=== PATIENT | female | born 1945 | race Caucasian/White ===

== ENCOUNTER 2017-11-03 09:53 | Inpatient (IN) | payer OTHER ==
[2017-11-03] MEDS ORDERED: SODIUM CHLORIDE 500 ML IV STA ×2 (10:12→12:18)
[2017-11-03] MEDS ORDERED: ACETAMINOPHEN 1000 MG/100 ML VIAL (NON FORMULARY) IVPB ONE (10:12)
[2017-11-03] MEDS ORDERED: ACETAMINOPHEN INJECTION 100 ML IVPB ONE (10:44)
[2017-11-03 10:46] LABS: HEMATOCRIT 30.1 % (32.4-45.2); HEMOGLOBIN 9.5 GM/dL (10.7-15.3); MCHC 31.7 g/dl (32.0-36.0); MEAN CELL VOLUME 94.5 fl (80-96); MEAN PLT VOLUME 6.1 fl (7.5-11.1); PLATELET COUNT 304 K/MM3 (134-434); RBC 3.18 M/mm3 (3.60-5.2); RDW 15.1 % (11.6-15.6); WHITE BLOOD COUNT 13.4 K/mm3 (4.0-10.0)
[2017-11-03 11:09] LABS: VENOUS PC02 49.1 mmHg (38-52); VENOUS PH 7.35 (7.32-7.42); VENOUS PO2 59.4 mmHg (28-48)
[2017-11-03 11:27] LABS: ALBUMIN 2.8 g/dl (3.4-5.0); ANION GAP 10 (8-16); BILIRUBIN,TOTAL 0.3 mg/dL (0.2-1.0); BLOOD UREA NITROGEN 24 mg/dL (7-18); CALCIUM 9.5 mg/dL (8.5-10.1); CHLORIDE 97 mmol/L (98-107); CO2 27 mmol/L (21-32); CREATININE 3.6 mg/dL (0.55-1.02); GLUCOSE,RANDOM 100 mg/dL (74-106); POTASSIUM 3.9 mmol/L (3.5-5.1); SGOT/AST 10 U/L (15-37); SGPT/ALT 18 U/L (12-78); SODIUM 134 mmol/L (136-145); TOT PROT 5.6 g/dl (6.4-8.2)
[2017-11-03 11:30] LABS: INR 1.03 (0.82-1.09); PROTHROMBIN TIME (PATIENT) 11.6 SEC (9.98-11.88)
[2017-11-03 11:30] LABS: ALK PHOS 79 U/L (45-117)
[2017-11-03 11:33] LABS: ACTIVATED PTT 26.5 SECONDS (26.9-34.4)
[2017-11-03] MEDS ORDERED: VANCOMYCIN 1 GRAM (PRE-DOCKED) 1,000 MG/250 ML BAG IVPB ONE ×3 (11:33→11:57)
[2017-11-03] MEDS ORDERED: PIPERACILLIN/TAZOB 4.5 GM 4.5 GM/100 ML BAG IVPB ONE ×2 (11:33→11:56)
--- NOTE | 2017-11-03 12:20 | PDOC ---
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 Pt reports that her symptoms began yesterday with a bad cough and increased sputum production from her trach. Today, she spiked a fever of 103 and was sent to ER for management. Pt denies chest pain. Denies abdominal pain/N/V/D. Past History - Past Medical History Allergies/Adverse Reactions: Allergies Allergy/AdvReac Type Severity Reaction Status Date / Time No Known Allergies Allergy Verified 11/03/17 10:08 Home Medications: Ambulatory Orders Acetaminophen 325 mg PO QID PRN 11/03/17 Albuterol 0.083% Nebulizer Genia [Ventolin 0.083% Nebulizer Soln -] PRN 11/03/17 Cholecalciferol (Vitamin D3) [Vitamin D3 -] 11/03/17 Diphenhydramine [Benadryl 12.5 MG/5 ML Oral Solution -] 25 mg PO TID PRN Escitalopram Oxalate 5 mg PO DAILY 11/03/17 Fluticasone Prop 0.05% Nasal 11/03/17 Folic Acid 1 mg PO DAILY 11/03/17 Heparin - 5,000 units SCJ TID 11/03/17 Lactulose 30 ml PO BID PRN 11/03/17 Loperamide HCl [Loperamide] 1 mg PO TID PRN 11/03/17 Midodrine HCl 5 mg PO WEEKLY 11/03/17 Mirtazapine 22.5 mg PO DAILY 11/03/17 Oxycodone HCl 5 mg PO TID PRN 11/03/17 Prednisone [Deltasone -] 1 mg PO BID 11/03/17 Sennosides [Senna] 8.8 mg PO BID 11/03/17 Sevelamer HCl [Renagel] 800 mg PO TID 11/03/17 Anemia: Yes Cardiac Disorders: Yes COPD: No ([t trached) Other medical history: ESRD - Suicide/Smoking/Psychosocial Hx Smoking History: Unknown if ever smoked Review of Systems - Review of Systems Comments:: 11/03/17 12:20 "GENERAL/CONSTITUTIONAL: +fever and chills HEAD, EYES, EARS, NOSE AND THROAT: No change in vision. No ear pain or discharge. No sore throat. CARDIOVASCULAR: No chest pain or shortness of breath. RESPIRATORY: + cough GASTROINTESTINAL: No nausea, vomiting, diarrhea or constipation. GENITOURINARY: No dysuria, frequency, or change in urination. MUSCULOSKELETAL: No joint or muscle swelling or pain. No neck or back pain. SKIN: No rash NEUROLOGIC: No headache, vertigo, loss of consciousness, or change in strength/ sensation. ENDOCRINE: No increased thirst. No abnormal weight change. HEMATOLOGIC/LYMPHATIC: No anemia, easy bleeding, or history of blood clots. ALLERGIC/IMMUNOLOGIC: No hives or skin allergy. " *Physical Exam - Vital Signs Last Vital Signs Temp Pulse Resp BP Pulse Ox 102.3 F H 142 H 20 120/57 98 11/03/17 10:01 11/03/17 10:01 11/03/17 10:01 11/03/17 10:01 11/03/17 10:40 - Physical Exam Comments: 11/03/17 12:23 "GENERAL: Awake, alert, and fully oriented, in mild respiratory distress HEAD: No signs of trauma EYES: PERRLA, EOMI, sclera anicteric, conjunctiva clear ENT: Auricles normal inspection, hearing grossly normal, nares patent, oropharynx clear without exudates. Moist mucosa NECK: Trach collar in place, trach with thick yellow secretions LUNGS: bilateral rales and diffuse rhonchi HEART: Regular rate and rhythm, normal S1 and S2, no murmurs, rubs or gallops ABDOMEN: Soft, nontender, normoactive bowel sounds. No guarding, no rebound. No masses EXTREMITIES: Normal range of motion, no edema. No clubbing or cyanosis. No cords, erythema, or tenderness NEUROLOGICAL: Cranial nerves II through XII intact. 5/5 strength and sensation in all extremities, Normal speech, normal gait SKIN: Warm, Dry, normal turgor, no rashes or lesions noted. " ED Treatment Course - LABORATORY CBC & Chemistry Diagram: 11/03/17 10:40 11/03/17 10:11 - ADDITIONAL ORDERS Additional order review: Laboratory Results 11/03/17 11/03/17 11/03/17 10:40 10:20 10:15 VBG pH 7.35 POC VBG pCO2 49.1 POC VBG pO2 59.4 H Mixed VBG HCO3 26.6 H Sodium Potassium Chloride Carbon Dioxide Anion Gap BUN Creatinine Creat Clearance w eGFR Random Glucose Lactic Acid 0.9 Calcium Total Bilirubin AST ALT Alkaline Phosphatase Creatine Kinase Troponin I Total Protein Albumin Blood Type A POSITIVE Antibody Screen Negative 11/03/17 10:11 VBG pH POC VBG pCO2 POC VBG pO2 Mixed VBG HCO3 Sodium 134 L Potassium 3.9 Chloride 97 L Carbon Dioxide 27 Anion Gap 10 BUN 24 H Creatinine 3.6 H Creat Clearance w eGFR 12.46 Random Glucose 100 Lactic Acid Calcium 9.5 Total Bilirubin 0.3 AST 10 L ALT 18 Alkaline Phosphatase 79 Creatine Kinase 28 Troponin I 0.03 Total Protein 5.6 L Albumin 2.8 L Blood Type Antibody Screen 11/03/17 10:40 RBC 3.18 L MCV 94.5 MCHC 31.7 L RDW 15.1 MPV 6.1 L Neutrophils % No Result Required. Lymphocytes % No Result Required. - RADIOLOGY Radiology Studies Ordered: Category Date Time Status CHEST X-RAY PORTABLE* [RAD] Stat Radiology 11/03/17 10:11 Completed - Medications Given in the ED: ED Medications Discontinued Medications Generic Name Dose Route Start Last Admin Trade Name Freq PRN Reason Stop Dose Admin Acetaminophen 1,000 mg 11/03/17 10:12 11/03/17 10:40 Ofirmev Injection - IVPB 11/03/17 10:13 1,000 mg ONCE ONE Administration Sodium Chloride 500 mls @ 1,000 mls/hr 11/03/17 10:12 11/03/17 11:03 Normal Saline - IV 11/03/17 10:41 1,000 mls/hr ASDIR STA Administration Piperacillin/Tazobactam/Dextrose 4.5 gm in 100 mls @ 200 mls/hr 11/03/17 11: 33 11/03/17 11:58 Zosyn 4.5gm Ivpb (Premix) IVPB 11/03/17 12:02 200 mls/hr ONCE ONE Administration Protocol Medical Decision Making - Medical Decision Making 11/03/17 12:26 72 F with jocelyn's s/p trach, on HD, presenting to ER with fever and cough. Vitals notable for T 102.5 and HR in 140s. Pt likely septic from pulmonary source given thick secretions from trach. - Labs, cultures - UA, CXR - IVF, abx - Trach suctioning, place on vent if needed - Admit 11/03/17 12:56 CBC,CMP WBC 13.4 K/mm3 (4.0-10.0) H 11/03/17 10:40 RBC 3.18 M/mm3 (3.60-5.2) L 11/03/17 10:40 Hgb 9.5 GM/dL (10.7-15.3) L 11/03/17 10:40 Hct 30.1 % (32.4-45.2) L 11/03/17 10:40 MCV 94.5 fl (80-96) 11/03/17 10:40 MCH 30.0 pg (25.7-33.7) 11/03/17 10:40 MCHC 31.7 g/dl (32.0-36.0) L 11/03/17 10:40 RDW 15.1 % (11.6-15.6) 11/03/17 10:40 Plt Count 304 K/MM3 (134-434) 11/03/17 10:40 MPV 6.1 fl (7.5-11.1) L 11/03/17 10:40 Absolute Neuts (auto) 10.5 # (42.8-82.8) L 11/03/17 10:40 Absolute Lymphs (auto) 0.5 (8-40) L 11/03/17 10:40 Absolute Monos (auto) 2.3 # (3.8-10.2) L 11/03/17 10:40 Absolute Eos (auto) 0.0 # (0-4.5) 11/03/17 10:40 Absolute Basos (auto) 0.1 # (0.1-1) 11/03/17 10:40 Neutrophils % No Result Required. 11/03/17 10:40 Lymphocytes % No Result Required. 11/03/17 10:40 Sodium 134 mmol/L (136-145) L 11/03/17 10:11 Potassium 3.9 mmol/L (3.5-5.1) 11/03/17 10:11 Chloride 97 mmol/L (98-107) L 11/03/17 10:11 Carbon Dioxide 27 mmol/L (21-32) 11/03/17 10:11 Anion Gap 10 (8-16) 11/03/17 10:11 BUN 24 mg/dL (7-18) H 11/03/17 10:11 Creatinine 3.6 mg/dL (0.55-1.02) H 11/03/17 10:11 Creat Clearance w eGFR 12.46 (>60) 11/03/17 10:11 Random Glucose 100 mg/dL (74-106) 11/03/17 10:11 Lactic Acid 0.9 mmol/L (0.4-2.0) 11/03/17 10:40 Calcium 9.5 mg/dL (8.5-10.1) 11/03/17 10:11 Total Bilirubin 0.3 mg/dL (0.2-1.0) 11/03/17 10:11 AST 10 U/L (15-37) L 11/03/17 10:11 ALT 18 U/L (12-78) 11/03/17 10:11 Alkaline Phosphatase 79 U/L (45-117) 11/03/17 10:11 Creatine Kinase 28 IU/L (26-192) 11/03/17 10:11 Troponin I 0.03 ng/ml (0.00-0.05) 11/03/17 10:11 Total Protein 5.6 g/dl (6.4-8.2) L 11/03/17 10:11 Albumin 2.8 g/dl (3.4-5.0) L 11/03/17 10:11 CXR with new consolidation, concerning for PNA. pt covered with vanc/zosyn/azithro for HCAP/VAP HR now 110 s/p fluids, abx, and tylenol Spoke with Dr. Casas, who has accepted pt for admission. Case discussed in detail with admitting physician including history, physical exam and ancillary studies. Admitting physician has assumed care for the patient and will follow all pending diagnostics and complete the evaluation and treatment. *DC/Admit/Observation/Transfer Diagnosis at time of Disposition: Sepsis - Discharge Dispostion Admit: Yes - Referrals Referrals: Florentino Casas MD [Primary Care Provider] - - Patient Instructions - Post Discharge Activity - Attestations Physician Attestion: 11/03/17 12:58 I, Dr. Nigel Charles MD, attest that this document has been prepared under my direction and personally reviewed by me in its entirety. I further attest, that it accurately reflects all work, treatment, procedures and medical decision -making performed by me.
[2017-11-03] MEDS ORDERED: AZITHROMYCIN IVPB 500 MG in DEXTROSE 5%-WATER - 250 ML IVPB ONE (12:53)
[2017-11-03 15:19] LABS: ACANTHOCYTES 0; ANISOCYTOSIS 0; HELMET CELLS 0; HOWELL-JOLLY BODIES 0; MACROCYTOSIS 0; OVALOCYTE 0; PLATELET ESTIMATE NORMAL; SICKELED CELLS 0; TARGET CELLS 0; TEAR DROP CELLS 0; TOXIC GRANULATION 0
--- NOTE | 2017-11-03 16:12 | CON.PULM ---
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 [facility] to [facility] unit where she was for 2 weeks.She presents from [facility] with fevers and cough x 2 days. Pt reports that her symptoms began yesterday with a bad cough and increased sputum production from her trach. Today, she spiked a fever of 103 and was sent to ER for management. Pt denies chest pain. Denies abdominal pain/N/V/D. 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 Cardio/Vascular: No: AFIB Pulmonary: Yes: COPD, O2 Dependent, Pneumonia, Other (pulmonary/renal syndrome) Gastrointestinal: No: Ascites Hepatobiliary: No: Cirrhosis Renal/: Yes: Renal Failure, Hemodialysis Reproductive: Yes: Postmenopausal Heme/Onc: Yes: Anemia Infectious Disease: No: AIDS Psych: No: Addictions - Past Surgical History Past Surgical History: Yes: AV Fistula/Graft, Joint Replacement Additional Surgical History: trach/peg - Alcohol/Substance Use Hx Alcohol Use: No History of Substance Use: reports: None - Smoking History Smoking history: Unknown if ever smoked - Social History Usual Living Arrangement: Long-Term ADL: Support Services [facility] of : [facility] History of Recent Travel: No Home Medications - Allergies Allergies/Adverse Reactions: Allergies Allergy/AdvReac Type Severity Reaction Status Date / Time No Known Allergies Allergy Verified 11/03/17 10:08 - Home Medications Home Medications: Ambulatory Orders Acetaminophen 325 mg PO QID PRN 11/03/17 Albuterol 0.083% Nebulizer Genia [Ventolin 0.083% Nebulizer Soln -] PRN 11/03/17 Cholecalciferol (Vitamin D3) [Vitamin D3 -] 11/03/17 Diphenhydramine [Benadryl 12.5 MG/5 ML Oral Solution -] 25 mg PO TID PRN Escitalopram Oxalate 5 mg PO DAILY 11/03/17 Fluticasone Prop 0.05% Nasal 11/03/17 Folic Acid 1 mg PO DAILY 11/03/17 Heparin - 5,000 units SCJ TID 11/03/17 Lactulose 30 ml PO BID PRN 11/03/17 Loperamide HCl [Loperamide] 1 mg PO TID PRN 11/03/17 Midodrine HCl 5 mg PO WEEKLY 11/03/17 Mirtazapine 22.5 mg PO DAILY 11/03/17 Oxycodone HCl 5 mg PO TID PRN 11/03/17 Prednisone [Deltasone -] 1 mg PO BID 11/03/17 Sennosides [Senna] 8.8 mg PO BID 11/03/17 Sevelamer HCl [Renagel] 800 mg PO TID 11/03/17 Family Disease History - Family Disease History Family History: Unable to Obtain Review of Systems - Review of Systems Constitutional: reports: Fever, Lethargy Eyes: denies: Blind Spots HENT: denies: Difficult Swallowing, Epistaxis Neck: denies: Decreased ROM Cardiovascular: reports: Shortness of Breath. denies: Chest Pain Respiratory: reports: Cough, SOB, Wheezing. denies: Hemoptysis Gastrointestinal: denies: Abdominal Pain Genitourinary: denies: Burning Integumentary: reports: No Symptoms Physical Exam Vital Sings: Vital Signs Temperature 102.3 F H 11/03/17 10:01 Pulse Rate 142 H 11/03/17 10:01 Respiratory Rate 20 11/03/17 10:01 Blood Pressure 120/57 11/03/17 10:01 O2 Sat by Pulse Oximetry (%) 98 11/03/17 10:40 Constitutional: Yes: Anxious, Moderate Distress Eyes: Yes: EOM Intact HENT: Yes: Normocephalic Neck: Yes: Trachea Midline, Other (trach in place with secretions) Cardiovascular: Yes: Tachycardia, S1, S2 Respiratory: Yes: Diminished, Rhonchi Gastrointestinal: Yes: Soft, Abdomen, Obese, Other (peg in place) Edema: LLE: 1+, RLE: 1+ Integumentary: Yes: WNL Neurological: Yes: Alert Psychiatric: Yes: Alert Labs: CBC, BMP 11/03/17 10:40 11/03/17 10:11 rest reviewed VBG PH 7.35 / PCO2 49 /PO2 59 Imaging - Results Chest X-ray: Report Reviewed, Image Reviewed Problem List - Problems (1) Pneumonia Code(s): J18.9 - PNEUMONIA, UNSPECIFIED ORGANISM (2) Sepsis Code(s): A41.9 - SEPSIS, UNSPECIFIED ORGANISM (3) Jocelyn's granulomatosis (granulomatosis with polyangiitis) Code(s): M31.30 - JOCELYN'S GRANULOMATOSIS WITHOUT RENAL INVOLVEMENT (4) Respiratory failure Code(s): J96.90 - RESPIRATORY FAILURE, UNSP, UNSP W HYPOXIA OR HYPERCAPNIA (5) Renal failure Code(s): N19 - UNSPECIFIED KIDNEY FAILURE (6) Hemodialysis access site with arteriovenous graft Code(s): Z99.2 - DEPENDENCE ON RENAL DIALYSIS Assessment/Plan ACUTE FEBRILE ILLNESS LIKELY SOURCE LUNG GIVEN XRAY FINDINGS,SPUTUM AND INCREASED O2 REQUIREMENTS WG WITH RENAL/RESP FAILURE HD TIW M. OBESITY HTN/HLD PANCULTURE/INFLU SWAB/URINE ANTIGENS EMPIRIC ANTIBIOTIC COVERAGE FOR HOSPITAL/VENT PATHOGENS MAY NEED MVV ID EVAL BRONCHODILATORS/FREQUENT SUCTIONING/ MAY NEED TRIAL OF STEROIDS HD PER RENAL WOULD OBSERVE TONIGHT IN ICU Celena GLORIA MD
--- NOTE | 2017-11-03 17:22 | CONSULT ---
Consult Consult Specialty:: Nephrology Reason for Consultation:: ESRD - History of Present Illness Chief Complaint: fever History of Present Illness: Pt is a 72 year old female with pmhx of HTN, chol, Wgener's, and chronic resp failure who presents to the ER with fever and cough. Her symptoms began a few days ago in the NH. She has chronic resp failure and has a trache. She was sent to the ER for further evaluation. She is not able to give much history as she is on oxygen via the trache. She denies chest pain or palpitations. She gets HD at [facility] dialysis. Her last session was on Monday and she is due for dialysis today. - History Source History Provided By: Patient, Medical Record - Past Medical History Pulmonary: Yes: COPD, O2 Dependent, Pneumonia, Other (pulmonary/renal syndrome, trache) Renal/: Yes: Renal Failure, Hemodialysis - Past Surgical History Past Surgical History: Yes: AV Fistula/Graft, Joint Replacement Additional Surgical History: trach/peg - Alcohol/Substance Use Hx Alcohol Use: No History of Substance Use: reports: None - Smoking History Smoking history: Unknown if ever smoked - Social History Usual Living Arrangement: Halfway ADL: Support Services History of Recent Travel: No Home Medications - Allergies Allergies/Adverse Reactions: Allergies Allergy/AdvReac Type Severity Reaction Status Date / Time No Known Allergies Allergy Verified 11/03/17 10:08 - Home Medications Home Medications: Ambulatory Orders Acetaminophen 325 mg PO QID PRN 11/03/17 Escitalopram Oxalate 5 mg PO DAILY 11/03/17 RX: Albuterol 0.083% Nebulizer Genia [Ventolin 0.083% Nebulizer Soln -] PRN RX: Cholecalciferol (Vitamin D3) [Vitamin D3 -] 11/03/17 RX: Diphenhydramine [Benadryl 12.5 MG/5 ML Oral Solution -] 25 mg PO TID PRN RX: Folic Acid 1 mg PO DAILY 11/03/17 RX: Heparin - 5,000 units SCJ TID 11/03/17 RX: Lactulose 30 ml PO BID PRN 11/03/17 RX: Loperamide HCl [Loperamide] 1 mg PO TID PRN 11/03/17 RX: Midodrine HCl 5 mg PO WEEKLY 11/03/17 RX: Mirtazapine 22.5 mg PO DAILY 11/03/17 RX: Oxycodone HCl 5 mg PO TID PRN 11/03/17 RX: Prednisone [Deltasone -] 1 mg PO BID 11/03/17 RX: Sennosides [Senna] 8.8 mg PO BID 11/03/17 RX: Sevelamer HCl [Renagel] 800 mg PO TID 11/03/17 Family Disease History - Family Disease History Family History: Denies Review of Systems - Review of Systems Constitutional: reports: Fever, Malaise Eyes: reports: No Symptoms HENT: reports: No Symptoms Neck: reports: Other (trache) Respiratory: reports: Cough, SOB Genitourinary: reports: No Symptoms Musculoskeletal: reports: No Symptoms Neurological: reports: No Symptoms Endocrine: reports: No Symptoms Hematology/Lymphatic: reports: No Symptoms Psychiatric: reports: No Symptoms Physical Exam Vital Signs: Vital Signs Temperature 102.3 F H 11/03/17 10:01 Pulse Rate 142 H 11/03/17 10:01 Respiratory Rate 20 11/03/17 10:01 Blood Pressure 120/57 11/03/17 10:01 O2 Sat by Pulse Oximetry (%) 98 11/03/17 10:40 Constitutional: Yes: Mild Distress Eyes: Yes: Conjunctiva Clear Cardiovascular: Yes: S1, S2 Respiratory: Yes: Rhonchi, Other (trache) Renal/: Yes: Incontinence Musculoskeletal: Yes: Muscle Weakness Edema: No Neurological: Yes: Oriented Psychiatric: Yes: Oriented Labs: CBC, BMP 11/03/17 10:40 11/03/17 10:11 Laboratory Tests 11/03/17 11/03/17 10:11 10:40 WBC 13.4 H Hgb 9.5 L Plt Count 304 Sodium 134 L Potassium 3.9 Chloride 97 L Carbon Dioxide 27 BUN 24 H Creatinine 3.6 H Albumin 2.8 L Imaging - Results Chest X-ray: Report Reviewed Problem List - Problems (1) Respiratory failure Code(s): J96.90 - RESPIRATORY FAILURE, UNSP, UNSP W HYPOXIA OR HYPERCAPNIA (2) ESRD (end stage renal disease) Code(s): N18.6 - END STAGE RENAL DISEASE (3) Sepsis Code(s): A41.9 - SEPSIS, UNSPECIFIED ORGANISM (4) Jocelyn's granulomatosis (granulomatosis with polyangiitis) Code(s): M31.30 - JOCELYN'S GRANULOMATOSIS WITHOUT RENAL INVOLVEMENT Assessment/Plan Current Medications Generic Name Dose Route Start Last Admin Trade Name Freq PRN Reason Stop Dose Admin Chlorhexidine Gluconate 1 applic 11/03/17 22:00 Hibiclens For Decolonization - TP HS TONI Mupirocin 1 applic 11/03/17 22:00 Bactroban Ointment (For Decolonization) - NS 11/08/17 21:59 BID TONI Impression 1. 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 chronic resp failure 4. htn 5. chol 6. obesity 7. anemia 8. hypoxia Plan - admit pt to ICU - will arrange for acute bedside HD - abx per ID - discussed with pulmonary - called HD unit for prescription: AVF 2 k bath 3.5 hrs heparin 1999 - repeat labs in am - will use 3 k bath as her potassium is on the low side - follow blood cultures - will follow pt Dr Trotter
[2017-11-03] MEDS ORDERED: HEPARIN NA (PORCINE) 5,000 UNITS/ML 1ML VIAL IVPUSH ONE (17:28)
--- NOTE | 2017-11-03 19:07 | HP ---
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 She also has Peg tube. She has spent about 5 months at [facility] and was subsequently transferred to [facility] . She presents from [facility] with fever cough and sob. .I was called this morning by nursing staff for fever and sob I advised to end pt to hospital for further management. work up showed she is septic- likely source pneumonia. Pt given broad spectrum abx in er . Pt admitted to icu. I had discussed case with er physician also jenni today. pt also seen by pulmonary and consultation appreciated. Pt seen by me in icu chart reviewed at bedside. pt awake. still having cough. sob + denies cp/ abd pain. no headche/ dizziness. 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 Cardiovascular: No: AFIB Pulmonary: Yes: COPD, O2 Dependent, Pneumonia, Other (pulmonary/renal syndrome) Gastrointestinal: No: Ascites Hepatobiliary: No: Cirrhosis Renal/: Yes: Renal Failure, Hemodialysis Heme/Onc: Yes: Anemia Infectious Disease: No: AIDS Psych: No: Addictions - Past Surgical History Past Surgical History: Yes: AV Fistula/Graft, Joint Replacement - Smoking History Smoking history: Unknown if ever smoked - Alcohol/Substance Use Hx Alcohol Use: No History of Substance Use: reports: None - Social History ADL: Support Services History of Recent Travel: No Home Medications - Allergies Allergies/Adverse Reactions: Allergies Allergy/AdvReac Type Severity Reaction Status Date / Time No Known Allergies Allergy Verified 11/03/17 10:08 - Home Medications Home Medications: Ambulatory Orders Acetaminophen 325 mg PO QID PRN 11/03/17 Albuterol 0.083% Nebulizer Genia [Ventolin 0.083% Nebulizer Soln -] PRN 11/03/17 Cholecalciferol (Vitamin D3) [Vitamin D3 -] 11/03/17 Diphenhydramine [Benadryl 12.5 MG/5 ML Oral Solution -] 25 mg PO TID PRN Escitalopram Oxalate 5 mg PO DAILY 11/03/17 Folic Acid 1 mg PO DAILY 11/03/17 Heparin - 5,000 units SCJ TID 11/03/17 Lactulose 30 ml PO BID PRN 11/03/17 Loperamide HCl [Loperamide] 1 mg PO TID PRN 11/03/17 Midodrine HCl 5 mg PO WEEKLY 11/03/17 Mirtazapine 22.5 mg PO DAILY 11/03/17 Oxycodone HCl 5 mg PO TID PRN 11/03/17 Prednisone [Deltasone -] 1 mg PO BID 11/03/17 Sennosides [Senna] 8.8 mg PO BID 11/03/17 Sevelamer HCl [Renagel] 800 mg PO TID 11/03/17 Review of Systems Unable to obtain ROS, reason: see [place] Physical Examination Vital Signs: Vital Signs Temperature 98.7 F 11/03/17 18:01 Pulse Rate 98 H 11/03/17 18:01 Respiratory Rate 22 11/03/17 18:01 Blood Pressure 110/70 11/03/17 18:01 O2 Sat by Pulse Oximetry (%) 98 11/03/17 18:01 Constitutional: Yes: Mild Distress Neck: Yes: Supple, Other (s/p trach) Cardiovascular: Yes: Regular Rate and Rhythm Respiratory: Yes: Diminished, Rhonchi Gastrointestinal: Yes: Soft, Abdomen, Obese, Other (peg +) Edema: LLE: 1+, RLE: 1+ Neurological: Yes: Alert Labs: CBC, BMP 11/03/17 10:40 11/03/17 10:11 Imaging - Results Chest X-ray: Report Reviewed Problem List - Problems (1) Obesity Code(s): E66.9 - OBESITY, UNSPECIFIED (2) Pneumonia Code(s): J18.9 - PNEUMONIA, UNSPECIFIED ORGANISM (3) Renal failure Code(s): N19 - UNSPECIFIED KIDNEY FAILURE (4) Respiratory failure Code(s): J96.90 - RESPIRATORY FAILURE, UNSP, UNSP W HYPOXIA OR HYPERCAPNIA (5) Sepsis Code(s): A41.9 - SEPSIS, UNSPECIFIED ORGANISM (6) Jocelyn's granulomatosis (granulomatosis with polyangiitis) Code(s): M31.30 - JOCELYN'S GRANULOMATOSIS WITHOUT RENAL INVOLVEMENT Assessment/Plan Admit ICU for pneumonia/ Impending respiratory failure. frequent suctioning. abx pulmonary/ critical team on case meds reviewed i/d consult has been requested. renal on case. condition guarded. discussed with nursing staff cc time 30 min in examining/ documenting and coordating care. will follow
[2017-11-03] MEDS ORDERED: DEXTROSE 5%-NORMAL SALINE 1,000 ML IV SCH (19:15)
[2017-11-03] MEDS ORDERED: PT OWN MED DRAWER 7, Y5N ONE (20:03)
[2017-11-03 20:07] VITALS: BMI 41.0
--- NOTE | 2017-11-03 20:36 | CONSULT ---
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 In ED T 102.3F, HR 142, RR 20, BP 120/57. Labs notable for WBC 13.4, Neuts 77%, 5% Bands, lactate 0.9, BUN/creat 24/3.6. CXR s/f congestive changes and possible LLL infiltrate. She was cultured and started on empiric antibiotics and transferred to ICU for further management. - Past Medical History [employer] TUBE BENDER: No: Alzheimer's Cardio/Vascular: No: AFIB Pulmonary: Yes: COPD, O2 Dependent, Pneumonia, Other (pulmonary/renal syndrome, trache) Gastrointestinal: No: Ascites Hepatobiliary: No: Cirrhosis Renal/: Yes: Renal Failure, Hemodialysis Infectious Disease: No: AIDS Psych: No: Addictions - Past Surgical History Past Surgical History: Yes: AV Fistula/Graft, Joint Replacement Additional Surgical History: trach/peg - Alcohol/Substance Use Hx Alcohol Use: No History of Substance Use: reports: None - Smoking History Smoking history: Unknown if ever smoked - Social History Usual Living Arrangement: Long Term ADL: Support Services History of Recent Travel: No Home Medications - Allergies Allergies/Adverse Reactions: Allergies Allergy/AdvReac Type Severity Reaction Status Date / Time No Known Allergies Allergy Verified 11/03/17 10:08 - Home Medications Home Medications: Ambulatory Orders Acetaminophen 325 mg PO QID PRN 11/03/17 Albuterol 0.083% Nebulizer Genia [Ventolin 0.083% Nebulizer Soln -] PRN 11/03/17 Cholecalciferol (Vitamin D3) [Vitamin D3 -] 11/03/17 Diphenhydramine [Benadryl 12.5 MG/5 ML Oral Solution -] 25 mg PO TID PRN Escitalopram Oxalate 5 mg PO DAILY 11/03/17 Folic Acid 1 mg PO DAILY 11/03/17 Heparin - 5,000 units SCJ TID 11/03/17 Lactulose 30 ml PO BID PRN 11/03/17 Loperamide HCl [Loperamide] 1 mg PO TID PRN 11/03/17 Midodrine HCl 5 mg PO WEEKLY 11/03/17 Mirtazapine 22.5 mg PO DAILY 11/03/17 Oxycodone HCl 5 mg PO TID PRN 11/03/17 Prednisone [Deltasone -] 1 mg PO BID 11/03/17 Sennosides [Senna] 8.8 mg PO BID 11/03/17 Sevelamer HCl [Renagel] 800 mg PO TID 11/03/17 Review of Systems Unable to obtain ROS, reason: Unable re trach Physical Exam Vital Signs: Vital Signs Temperature 99.5 F 11/03/17 19:52 Pulse Rate 105 H 11/03/17 20:00 Respiratory Rate 25 H 11/03/17 20:00 Blood Pressure 127/104 11/03/17 20:00 O2 Sat by Pulse Oximetry (%) 98 11/03/17 18:01 Constitutional: Yes: Well Nourished, Calm, Obese Eyes: Yes: Conjunctiva Clear HENT: Yes: Atraumatic, Normocephalic Neck: Yes: Supple, Other (trach- velazquez thick secretions) Cardiovascular: Yes: Regular Rate and Rhythm, Tachycardia, S1, S2 Respiratory: Yes: Rales, Other (Trach collar) Gastrointestinal: Yes: Normal Bowel Sounds, Soft, Abdomen, Obese, Other (PEG site c/d/i) Renal/: Yes: Anuria Musculoskeletal: Yes: Back Pain Extremities: Yes: WNL Edema: Yes Edema: LLE: Trace, RLE: Trace Peripheral Pulses WNL: Yes Integumentary: Yes: WNL Neurological: Yes: Alert, Oriented Psychiatric: Yes: Alert, Oriented Labs: CBC, BMP 11/03/17 10:40 11/03/17 10:11 CBC,CMP WBC 13.4 K/mm3 (4.0-10.0) H 11/03/17 10:40 RBC 3.18 M/mm3 (3.60-5.2) L 11/03/17 10:40 Hgb 9.5 GM/dL (10.7-15.3) L 11/03/17 10:40 Hct 30.1 % (32.4-45.2) L 11/03/17 10:40 MCV 94.5 fl (80-96) 11/03/17 10:40 MCH 30.0 pg (25.7-33.7) 11/03/17 10:40 MCHC 31.7 g/dl (32.0-36.0) L 11/03/17 10:40 RDW 15.1 % (11.6-15.6) 11/03/17 10:40 Plt Count 304 K/MM3 (134-434) 11/03/17 10:40 MPV 6.1 fl (7.5-11.1) L 11/03/17 10:40 Absolute Neuts (auto) 10.5 # (42.8-82.8) L 11/03/17 10:40 Absolute Lymphs (auto) 0.5 (8-40) L 11/03/17 10:40 Absolute Monos (auto) 2.3 # (3.8-10.2) L 11/03/17 10:40 Absolute Eos (auto) 0.0 # (0-4.5) 11/03/17 10:40 Absolute Basos (auto) 0.1 # (0.1-1) 11/03/17 10:40 Neutrophils % No Result Required. 11/03/17 10:40 Neutrophils % (Manual) 77.0 % (42.8-82.8) 11/03/17 10:40 Band Neutrophils % 5.0 % 11/03/17 10:40 Lymphocytes % No Result Required. 11/03/17 10:40 Lymphocytes % (Manual) 4.0 % (8-40) L 11/03/17 10:40 Monocytes % (Manual) 12 % (3.8-10.2) H 11/03/17 10:40 Eosinophils % (Manual) 0.0 % (0-4.5) 11/03/17 10:40 Basophils % (Manual) 1.0 % (0-2.0) 11/03/17 10:40 Myelocytes % (Man) 1 % (0-2) 11/03/17 10:40 Metamyelocytes 0 % (0-2) 11/03/17 10:40 Hypochromia 0 11/03/17 10:40 Toxic Granulation 0 11/03/17 10:40 Dohle Bodies 0 11/03/17 10:40 Platelet Estimate Normal 11/03/17 10:40 Polychromasia 0 11/03/17 10:40 Poikilocytosis 0 11/03/17 10:40 Basophilic Stippling 0 11/03/17 10:40 Anisocytosis 0 11/03/17 10:40 Microcytosis 0 11/03/17 10:40 Macrocytosis 0 11/03/17 10:40 Spherocytes 0 11/03/17 10:40 Sickle Cells 0 11/03/17 10:40 Target Cells 0 11/03/17 10:40 Tear Drop Cells 0 11/03/17 10:40 Ovalocytes 0 11/03/17 10:40 Stomatocytes 0 11/03/17 10:40 Helmet Cells 0 11/03/17 10:40 Pinto-Cowles Bodies 0 11/03/17 10:40 Allred Rings 0 11/03/17 10:40 Floyd Cells 0 11/03/17 10:40 Acanthocytes (Spur) 0 11/03/17 10:40 Fragmented RBCs 0 11/03/17 10:40 Schistocytes 0 11/03/17 10:40 Sodium 134 mmol/L (136-145) L 11/03/17 10:11 Potassium 3.9 mmol/L (3.5-5.1) 11/03/17 10:11 Chloride 97 mmol/L (98-107) L 11/03/17 10:11 Carbon Dioxide 27 mmol/L (21-32) 11/03/17 10:11 Anion Gap 10 (8-16) 11/03/17 10:11 BUN 24 mg/dL (7-18) H 11/03/17 10:11 Creatinine 3.6 mg/dL (0.55-1.02) H 11/03/17 10:11 Creat Clearance w eGFR 12.46 (>60) 11/03/17 10:11 Random Glucose 100 mg/dL (74-106) 11/03/17 10:11 Lactic Acid 0.9 mmol/L (0.4-2.0) 11/03/17 10:40 Calcium 9.5 mg/dL (8.5-10.1) 11/03/17 10:11 Total Bilirubin 0.3 mg/dL (0.2-1.0) 11/03/17 10:11 AST 10 U/L (15-37) L 11/03/17 10:11 ALT 18 U/L (12-78) 11/03/17 10:11 Alkaline Phosphatase 79 U/L (45-117) 11/03/17 10:11 Creatine Kinase 28 IU/L (26-192) 11/03/17 10:11 Troponin I 0.03 ng/ml (0.00-0.05) 11/03/17 10:11 Total Protein 5.6 g/dl (6.4-8.2) L 11/03/17 10:11 Albumin 2.8 g/dl (3.4-5.0) L 11/03/17 10:11 Initial Vital Signs Temp Pulse Resp BP 102.3 F H 142 H 20 120/57 11/03/17 10:01 11/03/17 10:01 11/03/17 10:01 11/03/17 10:01 Active Medications Acetaminophen (Ofirmev Injection -) 1,000 mg IVPB Q6H PRN PRN Reason: FEVER OR PAIN Last Admin: 11/03/17 22:01 Dose: 1,000 mg Chlorhexidine Gluconate (Hibiclens For Decolonization -) 1 applic TP HS TONI Last Admin: 11/03/17 22:01 Dose: 1 applic Midodrine (Proamatine -) 5 mg PEG BID-MID TONI Last Admin: 11/03/17 22:06 Dose: 5 mg Mupirocin (Bactroban Ointment (For Decolonization) -) 1 applic NS BID TONI Stop: 11/08/17 21:59 Last Admin: 11/03/17 22:01 Dose: 1 applic Imaging - Results Chest X-ray: Report Reviewed (bilat congestion, LLL infiltrate) Problem List - Problems (1) ESRD (end stage renal disease) Code(s): N18.6 - END STAGE RENAL DISEASE (2) Hemodialysis access site with arteriovenous graft Code(s): Z99.2 - DEPENDENCE ON RENAL DIALYSIS (3) Obesity Code(s): E66.9 - OBESITY, UNSPECIFIED (4) Pneumonia Code(s): J18.9 - PNEUMONIA, UNSPECIFIED ORGANISM (5) Renal failure Code(s): N19 - UNSPECIFIED KIDNEY FAILURE (6) Respiratory failure Code(s): J96.90 - RESPIRATORY FAILURE, UNSP, UNSP W HYPOXIA OR HYPERCAPNIA (7) Sepsis Code(s): A41.9 - SEPSIS, UNSPECIFIED ORGANISM (8) Jocelyn's granulomatosis (granulomatosis with polyangiitis) Code(s): M31.30 - JOCELYN'S GRANULOMATOSIS WITHOUT RENAL INVOLVEMENT Assessment/Plan 72yow with PMHx of HTN, HLD, 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 Plan: -Pulmonary toilet- CPT reg suctioning -Nebs -F/u cultures -ID consult -Cont empiric antibiotics-Zosyn and vanc -HD for fluid management -Proph: DVT and GI KACI BenderP CC time 35mins
[2017-11-03] MEDS: ACETAMINOPHEN 1000 MG/100 ML VIAL (NON FORMULARY) IVPB PRN (22:01)
[2017-11-03] MEDS: CHLORHEXIDINE GLUCONATE 4% CLEANSER FOR DECOLONIZATION TP SCH (22:01)
[2017-11-03] MEDS: MUPIROCIN 2% TOPICAL OINTMENT FOR DECOLONIZATION NS SCH (22:01)
[2017-11-03] MEDS: MIDODRINE HCL 5 MG TABLET PEG SCH (22:06)
[2017-11-04] MEDS ORDERED: HEMOQUE CONTROL SOLUTION ONE ×2 (05:40→05:50)
[2017-11-04 06:36] LABS: BASO % 0.8 % (0-2.0); EOS % 0.5 % (0-4.5); HEMATOCRIT 30.2 % (32.4-45.2); HEMOGLOBIN 9.8 GM/dL (10.7-15.3); LYMPH % 5.9 % (8-40); MCH 30.7 pg (25.7-33.7); MCHC 32.4 g/dl (32.0-36.0); MEAN CELL VOLUME 94.9 fl (80-96); MEAN PLT VOLUME 6.7 fl (7.5-11.1); MONO % 20.5 % (3.8-10.2); NEUT % 72.3 % (42.8-82.8); PLATELET COUNT 291 K/MM3 (134-434); RBC 3.19 M/mm3 (3.60-5.2); RDW 15.6 % (11.6-15.6); WHITE BLOOD COUNT 10.7 K/mm3 (4.0-10.0)
[2017-11-04 06:59] LABS: ALBUMIN 2.7 g/dl (3.4-5.0); ANION GAP 10 (8-16); BILIRUBIN,TOTAL 0.2 mg/dL (0.2-1.0); BLOOD UREA NITROGEN 14 mg/dL (7-18); CHLORIDE 97 mmol/L (98-107); CO2 31 mmol/L (21-32); CREATININE 2.6 mg/dL (0.55-1.02); GLUCOSE,RANDOM 82 mg/dL (74-106); POTASSIUM 3.6 mmol/L (3.5-5.1); SGOT/AST 14 U/L (15-37); SGPT/ALT 18 U/L (12-78); SODIUM 138 mmol/L (136-145); TOT PROT 5.6 g/dl (6.4-8.2)
[2017-11-04 07:00] LABS: ALK PHOS 78 U/L (45-117)
--- NOTE | 2017-11-04 08:21 | PN ---
Progress Note, Physician Chief Complaint: ID Full note dictated 102 on admission with thick copious tracheal secretions noted - Current Medication List Current Medications: Active Medications Acetaminophen (Ofirmev Injection -) 1,000 mg IVPB Q6H PRN PRN Reason: FEVER OR PAIN Last Admin: 11/03/17 22:01 Dose: 1,000 mg Chlorhexidine Gluconate (Hibiclens For Decolonization -) 1 applic TP HS TONI Last Admin: 11/03/17 22:01 Dose: 1 applic Midodrine (Proamatine -) 5 mg PEG BID-MID TONI Last Admin: 11/03/17 22:06 Dose: 5 mg Mupirocin (Bactroban Ointment (For Decolonization) -) 1 applic NS BID TONI Stop: 11/08/17 21:59 Last Admin: 11/03/17 22:01 Dose: 1 applic - Objective Vital Signs: Vital Signs Temperature 99.1 F 11/04/17 03:00 Pulse Rate 110 H 11/04/17 05:00 Respiratory Rate 26 H 11/04/17 05:00 Blood Pressure 88/49 11/04/17 05:00 O2 Sat by Pulse Oximetry (%) 98 11/03/17 18:01 Constitutional: Yes: Moderate Distress Cardiovascular: Yes: S1, S2 Respiratory: Yes: Wheezes Gastrointestinal: Yes: Soft Edema: No Labs: CBC, BMP 11/04/17 05:15 11/04/17 05:15 INR, PTT INR 1.03 (0.82-1.09) 11/03/17 10:40 Problem List - Problems (1) ESRD (end stage renal disease) Code(s): N18.6 - END STAGE RENAL DISEASE (2) Pneumonia Code(s): J18.9 - PNEUMONIA, UNSPECIFIED ORGANISM (3) Renal failure Code(s): N19 - UNSPECIFIED KIDNEY FAILURE (4) Sepsis Code(s): A41.9 - SEPSIS, UNSPECIFIED ORGANISM Assessment/Plan Microbiology Laboratory Tests 11/03/17 11/03/17 11/04/17 10:40 10:40 05:15 WBC 13.4 H Hgb 9.5 L Plt Count 304 Lymphocytes % (Manual) 4.0 L Monocytes % (Manual) 12 H BUN 14 D Creatinine 2.6 H D Creat Clearance w eGFR 18.15 Lactic Acid 0.9 Assessment Sepsis syndrome Pneumonia Wegeners granulomatosis angiitis ESRD Plan Panculture Vanco ( low dose on admission) Check level ? redose Cefepime 2 grs then adjust for dialysis Consider steroids will give 1 dose now pending pulmonary reeval Debbie VALDEZ
[2017-11-04] MEDS ORDERED: CEFEPIME HCL 2 GM VIAL (RESTRICTED TO ID) IVPB ONE (08:24)
[2017-11-04] MEDS ORDERED: CEFEPIME HCL 2 GM VIAL (RESTRICTED TO ID) IVPB SCH (08:30)
[2017-11-04] MEDS ORDERED: CEFEPIME 2 GM in DEXTROSE 5%-WATER - 100 ML IVPB ONE (10:00)
--- NOTE | 2017-11-04 10:12 | PN ---
Progress Note (short form) - Note Progress Note: RENAL Pt is well known to me from dialysis unit. 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 She was also plasmapharesed but her kidney failure could not be reversed and she remained dialysis dependent. She was transferred two weeks ago to [facility] where she has been dialyzed MW. She says she is better today. 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 to determine need for further rituxan Last Vital Signs Temp Pulse Resp BP Pulse Ox 99 F 108 H 25 H 94/51 98 11/04/17 06:00 11/04/17 06:00 11/04/17 06:00 11/04/17 06:00 11/03/17 18:01 trach has decreased breath sounds cvs s1s2 rr abd soft ext no edema neuro a+ox3, she is able to speak with some difficulty because of the trach CBC, BMP 11/04/17 05:15 11/04/17 05:15 Current Medications Generic Name Dose Route Start Last Admin Trade Name Freq PRN Reason Stop Dose Admin Acetaminophen 1,000 mg 11/03/17 20:36 11/03/17 22:01 Ofirmev Injection - IVPB 1,000 mg Q6H PRN Administration FEVER OR PAIN Chlorhexidine Gluconate 1 applic 11/03/17 22:00 11/03/17 22:01 Hibiclens For Decolonization - TP 1 applic HS TONI Administration Cefepime HCl 2 gm/ Dextrose 100 mls @ 200 mls/hr 11/04/17 10:00 IVPB 11/04/17 10:29 ONCE ONE Cefepime HCl 0.5 gm/ Dextrose 100 mls @ 200 mls/hr 11/05/17 10:00 IVPB DAILY TONI Midodrine 5 mg 11/03/17 20:45 11/03/17 22:06 Proamatine - PEG 5 mg BID-MID TONI Administration Mupirocin 1 applic 11/03/17 22:00 11/03/17 22:01 Bactroban Ointment (For Decolonization) - NS 11/08/17 21:59 1 applic BID TONI Administration Impression 1. 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 chronic resp failure 4. htn 5. chol 6. obesity 7. anemia 8. hypoxia Plan - abx per ID - if urinating would check a UA to see if she still has casts - ask rheumatology to evaluate - repeat labs in am - follow blood cultures - will follow pt MV
[2017-11-04] MEDS ORDERED: oxyCODONE HCL 5 MG TABLET PO PRN (10:26)
[2017-11-04] MEDS ORDERED: LACTULOSE 20 GM/30 ML UDC (FOR ORAL USE ONLY) PO PRN (10:26)
[2017-11-04] MEDS ORDERED: ACETAMINOPHEN 325 MG TABLET (FP) PO PRN (10:26)
[2017-11-04] MEDS ORDERED: diphenhydrAMINE HCL 12.5 MG/5 ML UNIT-DOSE CUPS PO PRN (10:26)
[2017-11-04] MEDS ORDERED: LOPERAMIDE HCL 1 MG/5 ML UNIT DOSE CUP PO PRN (10:26)
[2017-11-04] MEDS ORDERED: ALBUTEROL SO4 2.5/IPRATROPIUM 0.5 INH SOL 3 ML VIAL.NEB. NEB PRN (10:30)
[2017-11-04] MEDS ORDERED: PT OWN MED DRAWER 7, Y5N ONE ×3 (10:30→17:28)
[2017-11-04] MEDS ORDERED: MIDODRINE HCL 5 MG TABLET PO SCH (10:30)
[2017-11-04] MEDS: MIDODRINE HCL 5 MG TABLET PEG SCH ×2 (10:34→17:31)
[2017-11-04] MEDS: MUPIROCIN 2% TOPICAL OINTMENT FOR DECOLONIZATION NS SCH ×2 (10:34→22:46)
--- NOTE | 2017-11-04 11:39 | PN ---
Progress Note (short form) - Note Progress Note: PULMONARY/CCM Pt seen and examined in the ICU. States breathing is improving. Fever curve trending down. Last Vital Signs Temp Pulse Resp BP Pulse Ox 98.5 F 113 H 26 H 113/70 98 11/04/17 10:00 11/04/17 10:00 11/04/17 10:00 11/04/17 10:00 11/03/17 18:01 Intake & Output 11/01/17 11/02/17 11/03/17 11/04/17 23:59 23:59 23:59 23:59 Intake Total 100 Balance 100 Weight 108.363 kg 106.685 kg Gen: mildly tachypneic at rest Heart: tachycardic, regular Lung: scattered rhonchi Abd: soft, nontender Ext: no edema CBC, BMP 11/04/17 05:15 11/04/17 05:15 Active Medications Acetaminophen (Ofirmev Injection -) 1,000 mg IVPB Q6H PRN PRN Reason: FEVER OR PAIN Last Admin: 11/03/17 22:01 Dose: 1,000 mg Acetaminophen (Tylenol -) 325 mg PO QID PRN PRN Reason: PAIN Albuterol/Ipratropium (Duoneb -) 1 amp NEB Q4H PRN PRN Reason: SHORTNESS OF BREATH Chlorhexidine Gluconate (Hibiclens For Decolonization -) 1 applic TP HS [facility] Last Admin: 11/03/17 22:01 Dose: 1 applic Diphenhydramine HCl (Benadryl Oral Solution -) 25 mg PO TID PRN PRN Reason: FOR ITCHING Escitalopram Oxalate (Lexapro -) 5 mg PO DAILY TONI Folic Acid (Folic Acid -) 1 mg PO DAILY [facility] Heparin Sodium (Porcine) (Heparin -) 5,000 unit SQ TID TONI Cefepime HCl 0.5 gm/ Dextrose 100 mls @ 200 mls/hr IVPB DAILY [facility] Lactulose (Cephulac (Oral Use)) 20 gm PO BID PRN PRN Reason: CONSTIPATION Loperamide HCl (Imodium Liquid -) 1 mg PO TID PRN PRN Reason: DIARRHEA Midodrine (Proamatine -) 5 mg PEG BID-MID [facility] Last Admin: 11/04/17 10:34 Dose: 5 mg Mirtazapine (Remeron -) 22.5 mg PO HS [facility] Mupirocin (Bactroban Ointment (For Decolonization) -) 1 applic NS BID [facility] Stop: 11/08/17 21:59 Last Admin: 11/04/17 10:34 Dose: 1 applic Oxycodone HCl (Roxicodone -) 5 mg PO TID PRN PRN Reason: PAIN Prednisone (Deltasone -) 1 mg PO BID [facility] Senna (Senna Oral Solution -) 8.8 mg PO BID [facility] Sevelamer Carbonate (Renvela -) 800 mg PO TIDCM [facility] A/P Pneumonia Sepsis Jocelyn's Granulomatosis Chronic Respiratory Failure ESRD on HD HTN DM - continue antibiotics per ID - f/u cultures - chest PT - pulmonary toilet - inhaled bronchodilators - O2 to keep SpO2 >90% - HD per renal - DVT prophylaxis
--- NOTE | 2017-11-04 11:53 | PN ---
Progress Note (short form) - Note Progress Note: pt seen/ examined in icu. looks and feels better fever coming down. all f/u noted/ appreciated Vital Signs Temp 98.5 F 11/04/17 10:00 Pulse 113 H 11/04/17 10:00 Resp 26 H 11/04/17 10:00 BP 113/70 11/04/17 10:00 Pulse Ox 98 11/03/17 18:01 Intake & Output 11/03/17 11/03/17 11/04/17 11:59 23:59 11:59 Intake Total 100 Balance 100 Weight 300 lb 238 lb 14.4 oz 235 lb 3.2 oz Intake: IVPB 100 Other: Voiding Method Diaper Incontinent # Unmeasured Voids Void 1 1 Bowel Movement Yes # Bowel Movements 1 Height 5 ft 4 in 5 ft 4 in Body Mass Index (BMI) 51.5 41.0 Weight Measurement Method [facility] Active Medications Acetaminophen (Ofirmev Injection -) 1,000 mg IVPB Q6H PRN PRN Reason: FEVER OR PAIN Last Admin: 11/03/17 22:01 Dose: 1,000 mg Acetaminophen (Tylenol -) 325 mg PO QID PRN PRN Reason: PAIN Albuterol/Ipratropium (Duoneb -) 1 amp NEB Q4H PRN PRN Reason: SHORTNESS OF BREATH Chlorhexidine Gluconate (Hibiclens For Decolonization -) 1 applic TP HS [facility] Last Admin: 11/03/17 22:01 Dose: 1 applic Diphenhydramine HCl (Benadryl Oral Solution -) 25 mg PO TID PRN PRN Reason: FOR ITCHING Escitalopram Oxalate (Lexapro -) 5 mg PO DAILY [facility] Folic Acid (Folic Acid -) 1 mg PO DAILY [facility] Heparin Sodium (Porcine) (Heparin -) 5,000 unit SQ TID [facility] Cefepime HCl 0.5 gm/ Dextrose 100 mls @ 200 mls/hr IVPB DAILY [facility] Lactulose (Cephulac (Oral Use)) 20 gm PO BID PRN PRN Reason: CONSTIPATION Loperamide HCl (Imodium Liquid -) 1 mg PO TID PRN PRN Reason: DIARRHEA Midodrine (Proamatine -) 5 mg PEG BID-MID [facility] Last Admin: 11/04/17 10:34 Dose: 5 mg Mirtazapine (Remeron -) 22.5 mg PO HS [facility] Mupirocin (Bactroban Ointment (For Decolonization) -) 1 applic NS BID [facility] Stop: 11/08/17 21:59 Last Admin: 11/04/17 10:34 Dose: 1 applic Oxycodone HCl (Roxicodone -) 5 mg PO TID PRN PRN Reason: PAIN Prednisone (Deltasone -) 1 mg PO BID [facility] Senna (Senna Oral Solution -) 8.8 mg PO BID [facility] Sevelamer Carbonate (Renvela -) 800 mg PO TIDCM [facility] CBC, BMP 11/04/17 05:15 11/04/17 05:15 Microbiology 11/03/17 10:11 Blood Culture - Preliminary Blood - Peripheral Venous NO GROWTH OBTAINED AFTER 24 HOURS, INCUBATION TO CONTINUE FOR 4 DAYS. 11/03/17 10:11 Blood Culture - Preliminary Blood - Peripheral Venous NO GROWTH OBTAINED AFTER 24 HOURS, INCUBATION TO CONTINUE FOR 4 DAYS. Physical Examination Constitutional: Yes: better. Neck: Yes: Supple, Other (s/p trach) Cardiovascular: Yes: Regular Rate and Rhythm Respiratory: Yes: Diminished, scattered rhonchi. Gastrointestinal: Yes: Soft, Abdomen, Obese, Other (peg +) Edema: LLE: 1+, RLE: 1+ Right heel -- stage 2 --dressing + Neurological: Yes: Alert Assessment/Plan clinically better. broad spectrum abx. frequent suctioning. pulmonary/ critical team on case. discussed with Dr. Prasad also. continue prednisone. had dialysis last night. renal on case. condition improved. discussed with nursing staff also. will follow. decubitus precautions cc time - 30 min. Problem List - Problems (1) Obesity Code(s): E66.9 - OBESITY, UNSPECIFIED (2) Pneumonia Code(s): J18.9 - PNEUMONIA, UNSPECIFIED ORGANISM (3) Renal failure Code(s): N19 - UNSPECIFIED KIDNEY FAILURE (4) Respiratory failure Code(s): J96.90 - RESPIRATORY FAILURE, UNSP, UNSP W HYPOXIA OR HYPERCAPNIA (5) Sepsis Code(s): A41.9 - SEPSIS, UNSPECIFIED ORGANISM (6) Jocelyn's granulomatosis (granulomatosis with polyangiitis) Code(s): M31.30 - JOCELYN'S GRANULOMATOSIS WITHOUT RENAL INVOLVEMENT
[2017-11-04 12:21] LABS: URINE APPEARANCE TURBID; URINE BILIRUBIN NEGATIVE (NEGATIVE); URINE BLOOD 3+ (NEGATIVE); URINE COLOR AMBER; URINE GLUCOSE (UA) NEGATIVE (NEGATIVE); URINE KETONE NEGATIVE (NEGATIVE); URINE NITRITE NEGATIVE (NEGATIVE); URINE UROBILINOGEN NEGATIVE mg/dL (0.2-1.0)
[2017-11-04 12:50] LABS: URINE LEUK ESTERASE 2+ (NEGATIVE); URINE PROTEIN 2+ (NEGATIVE)
[2017-11-04 13:09] LABS: EPI CELLS RARE /HPF (FEW); YEAST RARE
[2017-11-04] MEDS: SEVELAMER CARBONATE 800 MG TAB (FP) PO SCH ×2 (13:41→17:32)
[2017-11-04] MEDS: predniSONE 1 MG TABLET (FP) PO SCH ×2 (13:42→22:46)
[2017-11-04] MEDS: NYSTATIN 100,000 UNIT/GM TOPICAL CREAM 15 GM TUBE TP SCH ×2 (15:25→22:46)
[2017-11-04] MEDS: HEPARIN NA (PORCINE) 5,000 UNITS/ML 1ML VIAL SQ SCH ×2 (15:29→22:46)
--- NOTE | 2017-11-04 16:20 | CONS ---
DATE OF CONSULTATION: INFECTIOUS DISEASE CONSULTATION HISTORY OF PRESENT ILLNESS: This is a 72-year-old female with a known diagnosis of granulomatosus angiitis. I am asked to see her in the ICU for evaluation of possible sepsis. She has a history of hypertension, hyperlipidemia, and pulmonary renal syndrome complicated by respiratory failure necessitating a tracheostomy and hemodialysis. She apparently had spent 5 months on the inpatient service at [facility] before being transferred to [facility] where she has been a resident for only 2 weeks. She is transferred now from [facility] with chief complaint of fevers and cough. Apparently this developed the day prior to admission and she has thick copious sputum being suctioned from her tracheostomy currently. She apparently had a fever of 103 yesterday and was transferred to the ICU for further evaluation. Currently she is alert, but on moderate respiratory distress with severe cough having just been suctioned. PAST MEDICAL HISTORY: Includes Jocelyn, COPD, oxygen dependency, placed on and endstage renal disease with an AV fistula, history of joint replacement. MEDICATIONS AT HOME: Loperamide, oxycodone, Renagel, Albuterol. ALLERGIES: None known . SOCIAL HISTORY: Unknown if smoked previously, no history of alcohol use. HIV status unknown. FAMILY HISTORY: Currently unobtainable. REVIEW OF SYSTEMS: Respiratory: Tachypnea with productive cough and sputum production through the tracheostomy. Cardiac: No chest pain, palpitations, syncope. Gastrointestinal: No abdominal pain, nausea, vomiting, diarrhea. Genitourinary: No dysuria, hematuria. PHYSICAL EXAMINATION: Vital Signs: The patient had a temperature 99.1, pulse 110, blood pressure 88/49, respirations 26 in moderate respiratory distress. Neck: With a tracheostomy. Lungs: With bilateral audible wheezing and pulmonary congestion. Heart: S1, S2 regular rhythm without audible murmur. Abdomen: Soft, nontender, positive bowel sounds. Extremities: No clubbing, cyanosis or edema. LABORATORY DATA: White count 13.4, hemoglobin 9.5, platelets 304, left shift with 5% bands. BUN and creatinine consistent with endstage renal disease. Liver enzymes within normal limits. Lactic acid 0.9. Two sets of blood cultures thus far no growth. Urine and sputum culture pending. Chest x-ray was reviewed. Some congestive changes, difficult to rule out infiltrate on this portable x-ray. ASSESSMENT: 1. Respiratory distress with sepsis. 2. Probable placed on possible hospital associated placed on given long duration 5 months at [facility] [place] [facility]. 3. Granulomatosus angiitis. 4. Endstage renal disease. PLAN: Would cover empirically for the possibility of staph as well as resistant Gram-negative rods. She received 1 g of vancomycin based on a body weight of 235 pounds. We will get a vancomycin level and consider redosing her with vancomycin. Will give her cefepime for empiric Gram-negative coverage pending sputum and urine cultures. Renal and pulmonary have already seen her. Arrangements are being made for hemodialysis. CYRUS MATTA M.D. [id number]
--- NOTE | 2017-11-04 16:24 | EKG ---
Test Reason : Blood Pressure : / mmHG Vent. Rate : 147 BPM Atrial Rate : 144 BPM P-R Int : 146 ms QRS Dur : 080 ms QT Int : 264 ms P-R-T Axes : 063 -24 043 degrees QTc Int : 413 ms SINUS TACHYCARDIA INCOMPLETE RIGHT BUNDLE BRANCH BLOCK MINIMAL VOLTAGE CRITERIA FOR LVH, MAY BE NORMAL VARIANT CANNOT RULE OUT ANTERIOR INFARCT , AGE UNDETERMINED ABNORMAL ECG NO PREVIOUS ECGS AVAILABLE Confirmed by HIRAL MORTENSEN MD ([id number]) on 11/04/2017 4:24:14 PM Referred By: Confirmed By:HIRAL MORTENSEN MD
[2017-11-04] MEDS: CHLORHEXIDINE GLUCONATE 4% CLEANSER FOR DECOLONIZATION TP SCH (22:46)
[2017-11-04] MEDS: SENNOSIDES 8.8 MG/5 ML BULK BOTTLE PO SCH (22:46)
[2017-11-04] MEDS: ACETAMINOPHEN 1000 MG/100 ML VIAL (NON FORMULARY) IVPB PRN (22:46)
[2017-11-05] MEDS: HEPARIN NA (PORCINE) 5,000 UNITS/ML 1ML VIAL SQ SCH ×3 (05:39→21:49)
[2017-11-05 06:29] LABS: HEMATOCRIT 28.9 % (32.4-45.2); HEMOGLOBIN 9.3 GM/dL (10.7-15.3); MCH 30.6 pg (25.7-33.7); MCHC 32.3 g/dl (32.0-36.0); MEAN CELL VOLUME 94.9 fl (80-96); MEAN PLT VOLUME 6.5 fl (7.5-11.1); PLATELET COUNT 299 K/MM3 (134-434); RBC 3.05 M/mm3 (3.60-5.2); RDW 15.4 % (11.6-15.6)
[2017-11-05 06:56] LABS: ALBUMIN 2.6 g/dl (3.4-5.0); ANION GAP 12 (8-16); BLOOD UREA NITROGEN 29 mg/dL (7-18); CHLORIDE 94 mmol/L (98-107); CO2 28 mmol/L (21-32); GLUCOSE,RANDOM 78 mg/dL (74-106); POTASSIUM 3.7 mmol/L (3.5-5.1); SODIUM 134 mmol/L (136-145)
--- NOTE | 2017-11-05 06:59 | PN ---
Progress Note, Physician Chief Complaint: ID Vancomycin on admission along with Cefepime for presumed HAP (5 month hospitalization [facility]) Alert still congested and dyspneic Afebrile and was 102 temp on admission - Current Medication List Current Medications: Active Medications Acetaminophen (Ofirmev Injection -) 1,000 mg IVPB Q6H PRN PRN Reason: FEVER OR PAIN Last Admin: 11/04/17 22:46 Dose: 1,000 mg Acetaminophen (Tylenol -) 325 mg PO QID PRN PRN Reason: PAIN Albuterol/Ipratropium (Duoneb -) 1 amp NEB Q4H PRN PRN Reason: SHORTNESS OF BREATH Last Admin: 11/05/17 05:41 Dose: 1 amp Chlorhexidine Gluconate (Hibiclens For Decolonization -) 1 applic TP HS [facility] Last Admin: 11/04/17 22:46 Dose: 1 applic Diphenhydramine HCl (Benadryl Oral Solution -) 25 mg PO TID PRN PRN Reason: FOR ITCHING Escitalopram Oxalate (Lexapro -) 5 mg PO DAILY [facility] Folic Acid (Folic Acid -) 1 mg PO DAILY [facility] Heparin Sodium (Porcine) (Heparin -) 5,000 unit SQ TID [facility] Last Admin: 11/05/17 05:39 Dose: 5,000 unit Cefepime HCl 0.5 gm/ Dextrose 100 mls @ 200 mls/hr IVPB DAILY [facility] Lactulose (Cephulac (Oral Use)) 20 gm PO BID PRN PRN Reason: CONSTIPATION Loperamide HCl (Imodium Liquid -) 1 mg PO TID PRN PRN Reason: DIARRHEA Midodrine (Proamatine -) 5 mg PEG BID-MID [facility] Last Admin: 11/04/17 17:31 Dose: 5 mg Mirtazapine (Remeron -) 22.5 mg PO HS [facility] Mupirocin (Bactroban Ointment (For Decolonization) -) 1 applic NS BID [facility] Stop: 11/08/17 21:59 Last Admin: 11/04/17 22:46 Dose: 1 applic Nystatin (Mycostatin Cream -) 1 applic TP BID [facility] Last Admin: 11/04/17 22:46 Dose: 1 applic Oxycodone HCl (Roxicodone -) 5 mg PO TID PRN PRN Reason: PAIN Prednisone (Deltasone -) 1 mg PO BID [facility] Last Admin: 11/04/17 22:46 Dose: 1 mg Senna (Senna Oral Solution -) 8.8 mg PO BID [facility] Last Admin: 11/04/17 22:46 Dose: Not Given Sevelamer Carbonate (Renvela -) 800 mg PO TIDCM [facility] Last Admin: 11/04/17 17:32 Dose: 800 mg - Objective Vital Signs: Vital Signs Temperature 99.1 F 11/05/17 04:00 Pulse Rate 99 H 11/05/17 04:00 Respiratory Rate 25 H 11/05/17 04:00 Blood Pressure 106/56 11/05/17 04:00 O2 Sat by Pulse Oximetry (%) 98 11/03/17 18:01 Constitutional: Yes: Moderate Distress HENT: Yes: Other (Trach) Cardiovascular: Yes: Tachycardia, S1, S2 Respiratory: Yes: WNL, Regular, CTA Bilaterally. No: Rhonchi Gastrointestinal: Yes: WNL, Normal Bowel Sounds, Soft. No: Tenderness Extremities: No: Cold, Cool, Cyanosis Edema: No Labs: CBC, BMP 11/05/17 05:00 INR, PTT INR 1.03 (0.82-1.09) 11/03/17 10:40 Problem List - Problems (1) ESRD (end stage renal disease) Code(s): N18.6 - END STAGE RENAL DISEASE (2) Pneumonia Code(s): J18.9 - PNEUMONIA, UNSPECIFIED ORGANISM (3) Renal failure Code(s): N19 - UNSPECIFIED KIDNEY FAILURE (4) Sepsis Code(s): A41.9 - SEPSIS, UNSPECIFIED ORGANISM Assessment/Plan Microbiology 11/04/17 12:03 Urine For Antigen Detection Legionella Antigen - Final 11/04/17 12:03 Urine For Antigen Detection Streptococcus pneumoniae Antigen (M - Final 11/03/17 22:00 Sputum - Endotracheal Suction W/O Vent Gram Stain - Final 11/03/17 10:11 Blood - Peripheral Venous Blood Culture - Preliminary NO GROWTH OBTAINED AFTER 24 HOURS, INCUBATION TO CONTINUE FOR 4 DAYS. 11/03/17 10:11 Blood - Peripheral Venous Blood Culture - Preliminary NO GROWTH OBTAINED AFTER 24 HOURS, INCUBATION TO CONTINUE FOR 4 DAYS. Laboratory Tests 11/03/17 11/04/17 11/05/17 10:40 12:03 05:00 WBC 13.4 H 8.0 Hgb 9.3 L Hct 28.9 L Plt Count 299 Ur Leukocyte Esterase 3+ H Urine WBC (Auto) 846 Urine RBC (Auto) 289 Assessment Granulomatosis with angiitis ESRD Sepsis syndrome Pneumonia/ tracheitits copious purulent sputum U/a pyuria Plan Continue Cefepime check vanco level today (may not need this) Sputum culture urine c/s Debbie VALDEZ
[2017-11-05 07:01] LABS: ALK PHOS 71 U/L (45-117); BILIRUBIN,TOTAL 0.3 mg/dL (0.2-1.0); CREATININE 3.7 mg/dL (0.55-1.02); PHOSPHOROUS 3.2 mg/dL (2.5-4.9); SGOT/AST 13 U/L (15-37); SGPT/ALT 17 U/L (12-78); TOT PROT 5.4 g/dl (6.4-8.2)
[2017-11-05] MEDS ORDERED: PT OWN MED DRAWER 7, Y5N ONE (08:18)
[2017-11-05] MEDS: SEVELAMER CARBONATE 800 MG TAB (FP) PO SCH ×3 (08:29→17:42)
[2017-11-05] MEDS ORDERED: CEFEPIME HCL 2 GM VIAL (RESTRICTED TO ID) IVPB SCH (08:30)
--- NOTE | 2017-11-05 09:56 | PN ---
Progress Note (short form) - Note Progress Note: RENAL Pt is well known to me from dialysis unit. 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 She was also plasmapharesed but her kidney failure could not be reversed and she remained dialysis dependent. She was transferred two weeks ago to [facility] where she has been dialyzed MW. She says she is better today. 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 to determine need for further rituxan Feels better today Last Vital Signs Temp Pulse Resp BP Pulse Ox 99.1 F 117 H 17 116/63 98 11/05/17 04:00 11/05/17 08:00 11/05/17 08:00 11/05/17 08:00 11/03/17 18:01 trach has decreased breath sounds cvs s1s2 rr abd soft ext no edema neuro a+ox3, she is able to speak with some difficulty because of the trach CBC, BMP 11/05/17 05:00 11/05/17 05:00 Current Medications Generic Name Dose Route Start Last Admin Trade Name Freq PRN Reason Stop Dose Admin Acetaminophen 1,000 mg 11/03/17 20:36 11/04/17 22:46 Ofirmev Injection - IVPB 1,000 mg Q6H PRN Administration FEVER OR PAIN Acetaminophen 325 mg 11/04/17 10:26 Tylenol - PO QID PRN PAIN Albuterol/Ipratropium 1 amp 11/04/17 10:30 11/05/17 05:41 Duoneb - NEB 1 amp Q4H PRN Administration SHORTNESS OF BREATH Chlorhexidine Gluconate 1 applic 11/03/17 22:00 11/04/17 22:46 Hibiclens For Decolonization - TP 1 applic HS [facility] Administration Diphenhydramine HCl 25 mg 11/04/17 10:26 Benadryl Oral Solution - PO TID PRN FOR ITCHING Epoetin Zan 4,000 unit 11/05/17 09:48 Procrit - SQ 11/05/17 09:49 ONCE ONE Escitalopram Oxalate 5 mg 11/05/17 10:00 Lexapro - PO DAILY [facility] Folic Acid 1 mg 11/05/17 10:00 Folic Acid - PO DAILY [facility] Heparin Sodium (Porcine) 5,000 unit 11/04/17 14:00 12/24/17 05:39 Heparin - SQ 5,000 unit TID [facility] Administration Heparin Sodium (Porcine) 1,000 unit 11/05/17 09:48 Heparin - IVPUSH 11/05/17 09:49 ONCE ONE Cefepime HCl 0.5 gm/ Dextrose 100 mls @ 200 mls/hr 11/05/17 10:00 IVPB DAILY [facility] Lactulose 20 gm 11/04/17 10:26 Cephulac (Oral Use) PO BID PRN CONSTIPATION Loperamide HCl 1 mg 11/04/17 10:26 Imodium Liquid - PO TID PRN DIARRHEA Midodrine 5 mg 11/03/17 20:45 11/04/17 17:31 Proamatine - PEG 5 mg BID-MID [facility] Administration Mirtazapine 22.5 mg 11/05/17 22:00 Remeron - PO HS [facility] Mupirocin 1 applic 11/03/17 22:00 11/04/17 22:46 Bactroban Ointment (For Decolonization) - NS 11/08/17 21:59 1 applic BID [facility] Administration Nystatin 1 applic 11/04/17 12:00 11/04/17 22:46 Mycostatin Cream - TP 1 applic BID [facility] Administration Oxycodone HCl 5 mg 11/04/17 10:26 Roxicodone - PO TID PRN PAIN Prednisone 1 mg 11/04/17 11:00 11/04/17 22:46 Deltasone - PO 1 mg BID [facility] Administration Senna 8.8 mg 11/04/17 22:00 11/04/17 22:46 Senna Oral Solution - PO Not Given BID [facility] Sevelamer Carbonate 800 mg 11/04/17 12:00 11/05/17 08:29 Renvela - PO 800 mg TIDCM [facility] Administration Impression 1. 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 chronic resp failure 4. htn 5. chol 6. obesity 7. anemia 8. hypoxia Plan - abx per ID - ask rheumatology to evaluate - orders for hd today written - note patient was on 3 mg bid of prednisone at [place]. May require higher doses if bp starts dropping MV
[2017-11-05] MEDS ORDERED: ESCITALOPRAM OXALATE 10 MG TABLET (FP) PO SCH (10:00)
[2017-11-05] MEDS ORDERED: FOLIC ACID 1 MG TABLET (FP) PO SCH (10:00)
[2017-11-05] MEDS: MUPIROCIN 2% TOPICAL OINTMENT FOR DECOLONIZATION NS SCH (10:00)
[2017-11-05] MEDS: MIDODRINE HCL 5 MG TABLET PEG SCH ×2 (10:00→17:41)
[2017-11-05] MEDS ORDERED: MIRTAZAPINE 22.5 MG PO SCH (10:00)
[2017-11-05] MEDS ORDERED: CEFEPIME 0.5 GM in DEXTROSE 5%-WATER - 100 ML IVPB SCH (10:00)
[2017-11-05] MEDS: predniSONE 1 MG TABLET (FP) PO SCH ×2 (10:00→21:49)
[2017-11-05 10:40] LABS: ANISOCYTOSIS 0; MACROCYTOSIS 0; PLATELET ESTIMATE NORMAL
[2017-11-05] MEDS: NYSTATIN 100,000 UNIT/GM TOPICAL CREAM 15 GM TUBE TP SCH ×2 (11:00→21:50)
[2017-11-05] MEDS: SENNOSIDES 8.8 MG/5 ML BULK BOTTLE PO SCH ×2 (11:20→21:54)
[2017-11-05] MEDS ORDERED: predniSONE 1 MG TABLET (FP) PO SCH (11:50)
--- NOTE | 2017-11-05 11:50 | PN ---
Progress Note (short form) - Note Progress Note: PULMONARY/CCM Pt seen and examined in the ICU. States breathing is improving. Still some chest congestion. No fevers recorded. Currently being dialyzed. Last Vital Signs Temp Pulse Resp BP Pulse Ox 99.1 F 108 H 26 H 123/60 100 11/05/17 04:00 11/05/17 11:40 11/05/17 11:40 11/05/17 11:40 11/05/17 10:38 Intake & Output 11/02/17 11/03/17 11/04/17 11/05/17 23:59 23:59 23:59 23:59 Intake Total 100 650 Output Total 75 Balance 100 575 Weight 108.363 kg 106.685 kg Gen: mildly tachypneic at rest Heart: tachycardic, regular Lung: scattered rhonchi Abd: soft, nontender Ext: no edema CBC, BMP 11/05/17 05:00 Active Medications Acetaminophen (Ofirmev Injection -) 1,000 mg IVPB Q6H PRN PRN Reason: FEVER OR PAIN Last Admin: 11/04/17 22:46 Dose: 1,000 mg Acetaminophen (Tylenol -) 325 mg PO QID PRN PRN Reason: PAIN Albuterol/Ipratropium (Duoneb -) 1 amp NEB Q4H PRN PRN Reason: SHORTNESS OF BREATH Last Admin: 11/05/17 05:41 Dose: 1 amp Chlorhexidine Gluconate (Hibiclens For Decolonization -) 1 applic TP HS [facility] Last Admin: 11/04/17 22:46 Dose: 1 applic Diphenhydramine HCl (Benadryl Oral Solution -) 25 mg PO TID PRN PRN Reason: FOR ITCHING Epoetin Zan (Epogen -) 4,000 units SQ ONCE ONE Stop: 11/05/17 16:01 Escitalopram Oxalate (Lexapro -) 5 mg PO DAILY [facility] Last Admin: 11/05/17 10:00 Dose: 5 mg Folic Acid (Folic Acid -) 1 mg PO DAILY [facility] Last Admin: 11/05/17 10:00 Dose: 1 mg Heparin Sodium (Porcine) (Heparin -) 5,000 unit SQ TID [facility] Last Admin: 11/05/17 05:39 Dose: 5,000 unit Heparin Sodium (Porcine) (Heparin -) 1,000 unit IVPUSH ONCE ONE Stop: 11/05/17 13:01 Cefepime HCl 0.5 gm/ Dextrose 100 mls @ 200 mls/hr IVPB DAILY [facility] Lactulose (Cephulac (Oral Use)) 20 gm PO BID PRN PRN Reason: CONSTIPATION Loperamide HCl (Imodium Liquid -) 1 mg PO TID PRN PRN Reason: DIARRHEA Midodrine (Proamatine -) 5 mg PEG BID-MID [facility] Last Admin: 11/05/17 10:00 Dose: 5 mg Mirtazapine (Remeron -) 22.5 mg PO HS [facility] Mupirocin (Bactroban Ointment (For Decolonization) -) 1 applic NS BID [facility] Stop: 11/08/17 21:59 Last Admin: 11/05/17 10:00 Dose: 1 applic Nystatin (Mycostatin Cream -) 1 applic TP BID [facility] Last Admin: 11/05/17 11:00 Dose: 1 applic Oxycodone HCl (Roxicodone -) 5 mg PO TID PRN PRN Reason: PAIN Prednisone (Deltasone -) 1 mg PO BID [facility] Last Admin: 11/05/17 10:00 Dose: 1 mg Senna (Senna Oral Solution -) 8.8 mg PO BID [facility] Last Admin: 11/05/17 11:20 Dose: Not Given Sevelamer Carbonate (Renvela -) 800 mg PO TIDCM [facility] Last Admin: 11/05/17 08:29 Dose: 800 mg A/P Pneumonia UTI Sepsis Jocelyn's Granulomatosis Chronic Respiratory Failure ESRD on HD HTN DM - continue antibiotics per ID - f/u cultures - chest PT - pulmonary toilet - inhaled bronchodilators - will increase prednisone to home dose of 3mg BID - O2 to keep SpO2 >90% - HD per renal - DVT prophylaxis - can monitor on floor
[2017-11-05 12:13] LABS: CREATININE 3.5 mg/dL (0.55-1.02)
[2017-11-05] MEDS ORDERED: HEPARIN NA (PORCINE) 5,000 UNITS/ML 1ML VIAL IVPUSH ONE (13:00)
--- NOTE | 2017-11-05 14:40 | PN ---
Progress Note (short form) - Note Progress Note: pt seen/ examined in icu. feels better afebrile being dialized all f/u noted/ appreciated. at bedside Vital Signs Temp 98.9 F 11/05/17 10:00 Pulse 116 H 11/05/17 13:40 Resp 27 H 11/05/17 13:40 BP 104/58 11/05/17 13:40 Pulse Ox 100 11/05/17 10:38 Intake & Output 11/04/17 11/05/17 11/05/17 23:59 11:59 23:59 Intake Total 650 Output Total 75 Balance 575 Weight 5.672 oz Intake: IVPB 300 Oral 350 Output: Urine 75 Straight Cath 75 Other: Voiding Method Incontinent Incontinent Weight Measurement Method Built in [facility] Active Medications Acetaminophen (Ofirmev Injection -) 1,000 mg IVPB Q6H PRN PRN Reason: FEVER OR PAIN Last Admin: 11/04/17 22:46 Dose: 1,000 mg Acetaminophen (Tylenol -) 325 mg PO QID PRN PRN Reason: PAIN Albuterol/Ipratropium (Duoneb -) 1 amp NEB Q4H PRN PRN Reason: SHORTNESS OF BREATH Last Admin: 11/05/17 05:41 Dose: 1 amp Chlorhexidine Gluconate (Hibiclens For Decolonization -) 1 applic TP HS [facility] Last Admin: 11/04/17 22:46 Dose: 1 applic Diphenhydramine HCl (Benadryl Oral Solution -) 25 mg PO TID PRN PRN Reason: FOR ITCHING Epoetin Zan (Epogen -) 4,000 units SQ ONCE ONE Stop: 11/05/17 16:01 Escitalopram Oxalate (Lexapro -) 5 mg PO DAILY [facility] Last Admin: 11/05/17 10:00 Dose: 5 mg Folic Acid (Folic Acid -) 1 mg PO DAILY [facility] Last Admin: 11/05/17 10:00 Dose: 1 mg Heparin Sodium (Porcine) (Heparin -) 5,000 unit SQ TID [facility] Last Admin: 11/05/17 05:39 Dose: 5,000 unit Cefepime HCl 0.5 gm/ Dextrose 100 mls @ 200 mls/hr IVPB DAILY [facility] Lactulose (Cephulac (Oral Use)) 20 gm PO BID PRN PRN Reason: CONSTIPATION Loperamide HCl (Imodium Liquid -) 1 mg PO TID PRN PRN Reason: DIARRHEA Midodrine (Proamatine -) 5 mg PEG BID-MID [facility] Last Admin: 11/05/17 10:00 Dose: 5 mg Mirtazapine (Remeron -) 22.5 mg PO HS [facility] Mupirocin (Bactroban Ointment (For Decolonization) -) 1 applic NS BID [facility] Stop: 11/08/17 21:59 Last Admin: 11/05/17 10:00 Dose: 1 applic Nystatin (Mycostatin Cream -) 1 applic TP BID [facility] Last Admin: 11/05/17 11:00 Dose: 1 applic Oxycodone HCl (Roxicodone -) 5 mg PO TID PRN PRN Reason: PAIN Prednisone (Deltasone -) 3 mg PO BID [facility] Senna (Senna Oral Solution -) 8.8 mg PO BID [facility] Last Admin: 11/05/17 11:20 Dose: Not Given Sevelamer Carbonate (Renvela -) 800 mg PO TIDCM [facility] Last Admin: 11/05/17 08:29 Dose: 800 mg CBC, BMP 11/05/17 05:00 11/05/17 11:20 Microbiology 11/03/17 22:00 Gram Stain - Final Sputum - Endotracheal Suction W/O Vent Sputum Culture - Preliminary Pseudomonas Species 11/03/17 10:11 Blood Culture - Preliminary Blood - Peripheral Venous NO GROWTH OBTAINED AFTER 48 HOURS, INCUBATION TO CONTINUE FOR 3 DAYS. 11/03/17 10:11 Blood Culture - Preliminary Blood - Peripheral Venous NO GROWTH OBTAINED AFTER 48 HOURS, INCUBATION TO CONTINUE FOR 3 DAYS. 11/03/17 Unknown Urine Culture - Preliminary Urine - Urine - Catheterized Lactose Fermenting Neg Bacilli 11/04/17 12:03 Legionella Antigen - Final Urine For Antigen Detection Streptococcus pneumoniae Antigen (M - Final Physical Examination Constitutional: Yes: awake/ comfortable Neck: Yes: Supple, Other (s/p trach) Cardiovascular: Yes: Regular Rate and Rhythm Respiratory: Yes: Diminished, scattered rhonchi. Gastrointestinal: Yes: Soft, Abdomen, Obese, Other (peg +) Edema: LLE: 1+, RLE: 1+ Right heel -- stage 2 --dressing + Neurological: Yes: Alert Assessment/Plan clinically better. still has congestion cxr - slight progression of congestion broad spectrum abx. frequent suctioning. pulmonary toilet pulmonary/ critical team on case. will consult cardiology also as well as rheumatology discussed with Dr. Lowe also. continue prednisone.- dose corrected to 3 mg bid discussed with nursing staff also. will follow. decubitus precautions cc time - 25 min. condition better but remains gaurded. discussed with pts also. Problem List - Problems (1) Obesity Code(s): E66.9 - OBESITY, UNSPECIFIED (2) Pneumonia Code(s): J18.9 - PNEUMONIA, UNSPECIFIED ORGANISM (3) Renal failure Code(s): N19 - UNSPECIFIED KIDNEY FAILURE (4) Respiratory failure Code(s): J96.90 - RESPIRATORY FAILURE, UNSP, UNSP W HYPOXIA OR HYPERCAPNIA (5) Sepsis Code(s): A41.9 - SEPSIS, UNSPECIFIED ORGANISM (6) Jocelyn's granulomatosis (granulomatosis with polyangiitis) Code(s): M31.30 - JOCELYN'S GRANULOMATOSIS WITHOUT RENAL INVOLVEMENT
[2017-11-05 15:39] LABS: CREATININE 1.1 mg/dL (0.55-1.02)
[2017-11-05] MEDS ORDERED: EPOETIN ALFA 2,000 UNIT/1 ML VIAL SQ ONE ×2 (16:00→19:02)
[2017-11-05] MEDS ORDERED: ACETAMINOPHEN 1000 MG/100 ML VIAL (NON FORMULARY) IVPB PRN (19:02)
[2017-11-05] MEDS ORDERED: LOPERAMIDE HCL 1 MG/5 ML UNIT DOSE CUP PO PRN (19:02)
[2017-11-05] MEDS ORDERED: diphenhydrAMINE HCL 12.5 MG/5 ML UNIT-DOSE CUPS PO PRN (19:02)
[2017-11-05] MEDS ORDERED: LACTULOSE 20 GM/30 ML UDC (FOR ORAL USE ONLY) PO PRN (19:02)
[2017-11-05] MEDS: MIRTAZAPINE 15 MG TABLET (FP) PO SCH (21:50)
[2017-11-05] MEDS ORDERED: MIRTAZAPINE 15 MG TABLET (FP) PO SCH (22:00)
[2017-11-06] MEDS: ACETAMINOPHEN 325 MG TABLET (FP) PO PRN ×2 (00:06→23:54)
[2017-11-06] MEDS: oxyCODONE HCL 5 MG TABLET PO PRN ×2 (00:06→23:54)
[2017-11-06] MEDS: HEPARIN NA (PORCINE) 5,000 UNITS/ML 1ML VIAL SQ SCH ×3 (06:03→21:28)
[2017-11-06] MEDS: SEVELAMER CARBONATE 800 MG TAB (FP) PO SCH ×3 (08:00→18:09)
[2017-11-06] MEDS ORDERED: CEFEPIME 0.5 GM in DEXTROSE 5%-WATER - 100 ML IVPB SCH (10:00)
[2017-11-06] MEDS ORDERED: PT OWN MED DRAWER 7, Y5N ONE ×2 (10:58→21:10)
[2017-11-06] MEDS: ALBUTEROL SO4 2.5/IPRATROPIUM 0.5 INH SOL 3 ML VIAL.NEB. NEB PRN ×2 (11:00→23:21)
[2017-11-06] MEDS: FOLIC ACID 1 MG TABLET (FP) PO SCH (11:28)
[2017-11-06] MEDS: MIDODRINE HCL 5 MG TABLET PEG SCH ×2 (11:28→18:05)
[2017-11-06] MEDS: ESCITALOPRAM OXALATE 10 MG TABLET (FP) PO SCH (11:28)
[2017-11-06] MEDS: SENNOSIDES 8.8 MG/5 ML BULK BOTTLE PO SCH ×2 (11:29→21:33)
[2017-11-06] MEDS: predniSONE 1 MG TABLET (FP) PO SCH ×2 (11:29→21:33)
--- NOTE | 2017-11-06 11:49 | PN ---
Progress Note, Physician History of Present Illness: pulmonary alert,feeling better on trach collar,-resp distress - Current Medication List Current Medications: Active Medications Acetaminophen (Tylenol -) 325 mg PO QID PRN PRN Reason: PAIN Last Admin: 11/06/17 00:06 Dose: 325 mg Acetaminophen (Ofirmev Injection -) 1,000 mg IVPB Q6H PRN PRN Reason: FEVER OR PAIN Albuterol/Ipratropium (Duoneb -) 1 amp NEB Q4H PRN PRN Reason: SHORTNESS OF BREATH Diphenhydramine HCl (Benadryl Oral Solution -) 25 mg PO TID PRN PRN Reason: FOR ITCHING Escitalopram Oxalate (Lexapro -) 5 mg PO DAILY [facility] Folic Acid (Folic Acid -) 1 mg PO DAILY [facility] Heparin Sodium (Porcine) (Heparin -) 5,000 unit SQ TID [facility] Last Admin: 11/06/17 06:03 Dose: 5,000 unit Cefepime HCl 0.5 gm/ Dextrose 100 mls @ 200 mls/hr IVPB DAILY [facility] Lactulose (Cephulac (Oral Use)) 20 gm PO BID PRN PRN Reason: CONSTIPATION Loperamide HCl (Imodium Liquid -) 1 mg PO TID PRN PRN Reason: DIARRHEA Midodrine (Proamatine -) 5 mg PEG BID-MID [facility] Mirtazapine (Remeron -) 22.5 mg PO HS [facility] Last Admin: 11/05/17 21:50 Dose: 22.5 mg Nystatin (Mycostatin Cream -) 1 applic TP BID [facility] Last Admin: 11/05/17 21:50 Dose: 1 applic Oxycodone HCl (Roxicodone -) 5 mg PO TID PRN PRN Reason: PAIN Last Admin: 11/06/17 00:06 Dose: 5 mg Prednisone (Deltasone -) 3 mg PO BID [facility] Last Admin: 11/05/17 21:49 Dose: 3 mg Senna (Senna Oral Solution -) 8.8 mg PO BID [facility] Last Admin: 11/05/17 21:54 Dose: Not Given Sevelamer Carbonate (Renvela -) 800 mg PO TIDCM [facility] - Objective Vital Signs: Vital Signs Temperature 98.4 F 11/06/17 06:00 Pulse Rate 101 H 11/06/17 06:00 Respiratory Rate 20 11/06/17 06:00 Blood Pressure 108/54 11/06/17 06:00 O2 Sat by Pulse Oximetry (%) 100 11/05/17 21:00 Constitutional: Yes: Well Nourished, Calm Eyes: Yes: WNL HENT: Yes: WNL Neck: Yes: Supple (trach) Cardiovascular: Yes: Regular Rate and Rhythm, S1, S2 Respiratory: Yes: Rhonchi (scattered rhonchi) Gastrointestinal: Yes: Normal Bowel Sounds, Soft Extremities: Yes: WNL Edema: No Labs: CBC, BMP Problem List - Problems (1) ESRD (end stage renal disease) Code(s): N18.6 - END STAGE RENAL DISEASE (2) Hemodialysis access site with arteriovenous graft Code(s): Z99.2 - DEPENDENCE ON RENAL DIALYSIS (3) Pneumonia Code(s): J18.9 - PNEUMONIA, UNSPECIFIED ORGANISM (4) Respiratory failure Code(s): J96.90 - RESPIRATORY FAILURE, UNSP, UNSP W HYPOXIA OR HYPERCAPNIA (5) Jocelyn's granulomatosis (granulomatosis with polyangiitis) Code(s): M31.30 - JOCELYN'S GRANULOMATOSIS WITHOUT RENAL INVOLVEMENT Assessment/Plan A/P Pneumonia UTI Sepsis Jocelyn's Granulomatosis Chronic Respiratory Failure ESRD on HD HTN DM - antibiotics per ID - f/u cultures - chest PT - pulmonary toilet - inhaled bronchodilators - prednisone to home dose of 3mg BID - O2 to keep SpO2 >90% - HD per renal - DVT prophylaxis DR BLANDON
--- NOTE | 2017-11-06 11:50 | PN ---
Progress Note (short form) - Note Progress Note: pt seen/ examined . looks / feels much better family at bedside comfortable. Vital Signs Temp 98.4 F 11/06/17 06:00 Pulse 101 H 11/06/17 06:00 Resp 20 11/06/17 06:00 BP 108/54 11/06/17 06:00 Pulse Ox 100 11/05/17 21:00 Intake & Output 11/05/17 11/05/17 11/06/17 11:59 23:59 11:59 Intake Total 480 Balance 480 Weight 235 lb 7.259 oz Intake: IVPB 100 Oral 380 Other: Voiding Method Incontinent Incontinent Bowel Movement Yes: moderate soft brown Yes # Bowel Movements 1 Weight Measurement Method Built in [facility] Active Medications Acetaminophen (Tylenol -) 325 mg PO QID PRN PRN Reason: PAIN Last Admin: 11/06/17 00:06 Dose: 325 mg Acetaminophen (Ofirmev Injection -) 1,000 mg IVPB Q6H PRN PRN Reason: FEVER OR PAIN Albuterol/Ipratropium (Duoneb -) 1 amp NEB Q4H PRN PRN Reason: SHORTNESS OF BREATH Diphenhydramine HCl (Benadryl Oral Solution -) 25 mg PO TID PRN PRN Reason: FOR ITCHING Escitalopram Oxalate (Lexapro -) 5 mg PO DAILY [facility] Last Admin: 11/06/17 11:28 Dose: 5 mg Folic Acid (Folic Acid -) 1 mg PO DAILY [facility] Last Admin: 11/06/17 11:28 Dose: 1 mg Heparin Sodium (Porcine) (Heparin -) 5,000 unit SQ TID [facility] Last Admin: 11/06/17 06:03 Dose: 5,000 unit Cefepime HCl 0.5 gm/ Dextrose 100 mls @ 200 mls/hr IVPB DAILY [facility] Last Admin: 11/06/17 11:27 Dose: 200 mls/hr Lactulose (Cephulac (Oral Use)) 20 gm PO BID PRN PRN Reason: CONSTIPATION Loperamide HCl (Imodium Liquid -) 1 mg PO TID PRN PRN Reason: DIARRHEA Midodrine (Proamatine -) 5 mg PEG BID-MID [facility] Last Admin: 11/06/17 11:28 Dose: 5 mg Mirtazapine (Remeron -) 22.5 mg PO HS [facility] Last Admin: 11/05/17 21:50 Dose: 22.5 mg Nystatin (Mycostatin Cream -) 1 applic TP BID [facility] Last Admin: 11/05/17 21:50 Dose: 1 applic Oxycodone HCl (Roxicodone -) 5 mg PO TID PRN PRN Reason: PAIN Last Admin: 11/06/17 00:06 Dose: 5 mg Prednisone (Deltasone -) 3 mg PO BID [facility] Last Admin: 11/06/17 11:29 Dose: 3 mg Senna (Senna Oral Solution -) 8.8 mg PO BID [facility] Last Admin: 11/06/17 11:29 Dose: 8.8 mg Sevelamer Carbonate (Renvela -) 800 mg PO TIDCM [facility] Last Admin: 11/06/17 11:43 Dose: 800 mg CBC, BMP 11/05/17 05:00 11/05/17 14:30 Microbiology 11/03/17 10:11 Blood Culture - Preliminary Blood - Peripheral Venous NO GROWTH OBTAINED AFTER 72 HOURS, INCUBATION TO CONTINUE FOR 2 DAYS. 11/03/17 10:11 Blood Culture - Preliminary Blood - Peripheral Venous NO GROWTH OBTAINED AFTER 72 HOURS, INCUBATION TO CONTINUE FOR 2 DAYS. 11/03/17 22:00 Gram Stain - Final Sputum - Endotracheal Suction W/O Vent Sputum Culture - Final Pseudomonas Aeruginosa 11/03/17 Unknown Urine Culture - Final Urine - Urine - Catheterized Klebsiella Pneumoniae Physical Examination Constitutional: Yes: awake/ comfortable Neck: Yes: Supple, Other (s/p trach) Cardiovascular: Yes: Regular Rate and Rhythm Respiratory: Yes: Diminished, few scattered rhonchi. Gastrointestinal: Yes: Soft, Abdomen, Obese, Other (peg +) Edema: LLE: 1+, RLE: 1+ Right heel -- stage 2 --dressing + Neurological: Yes: Alert Assessment/Plan clinically better. broad spectrum abx. frequent suctioning. pulmonary toilet. pulmonary/ critical team on case. Discussed with Dr. Roberto today cardiology also as well as rheumatology consults pending discussed with nursing staff also. will follow. decubitus precautions. frequent turning cc time - 25 min. Problem List - Problems (1) Obesity Code(s): E66.9 - OBESITY, UNSPECIFIED (2) Pneumonia Code(s): J18.9 - PNEUMONIA, UNSPECIFIED ORGANISM (3) Renal failure Code(s): N19 - UNSPECIFIED KIDNEY FAILURE (4) Respiratory failure Code(s): J96.90 - RESPIRATORY FAILURE, UNSP, UNSP W HYPOXIA OR HYPERCAPNIA (5) Sepsis Code(s): A41.9 - SEPSIS, UNSPECIFIED ORGANISM (6) Jocelyn's granulomatosis (granulomatosis with polyangiitis) Code(s): M31.30 - JOCELYN'S GRANULOMATOSIS WITHOUT RENAL INVOLVEMENT
--- NOTE | 2017-11-06 13:33 | PN ---
Progress Note (short form) - Note Progress Note: improved no complaints alert Vital Signs Period Temp Pulse Resp BP Sys/Garcia Pulse Ox Last 24 Hr 98.2 F-99.2 F 101-120 20-29 100-118/50-62 100-100 cor-rrr lungs bilateral rhonchi abd soft,nt ext no edema CBC, BMP 11/05/17 05:00 11/05/17 14:30 Microbiology 11/03/17 10:11 Blood - Peripheral Venous Blood Culture - Preliminary NO GROWTH OBTAINED AFTER 72 HOURS, INCUBATION TO CONTINUE FOR 2 DAYS. 11/03/17 10:11 Blood - Peripheral Venous Blood Culture - Preliminary NO GROWTH OBTAINED AFTER 72 HOURS, INCUBATION TO CONTINUE FOR 2 DAYS. 11/03/17 22:00 Sputum - Endotracheal Suction W/O Vent Gram Stain - Final 11/03/17 22:00 Sputum - Endotracheal Suction W/O Vent Sputum Culture - Final Pseudomonas Aeruginosa 11/03/17 Unknown Urine - Urine - Catheterized Urine Culture - Final Klebsiella Pneumoniae 11/04/17 12:03 Urine For Antigen Detection Legionella Antigen - Final 11/04/17 12:03 Urine For Antigen Detection Streptococcus pneumoniae Antigen (M - Final a/p possible pneumonia uti wilner's granulomatosis esrd/hd continue cefepime, no need for vancomycin
--- NOTE | 2017-11-06 14:17 | PN ---
Progress Note, Physician History of Present Illness: Pt seen and examined at bedside. She is more awake and alert. She denies fevers or chills. - Current Medication List Current Medications: Active Medications Acetaminophen (Tylenol -) 325 mg PO QID PRN PRN Reason: PAIN Last Admin: 11/06/17 00:06 Dose: 325 mg Acetaminophen (Ofirmev Injection -) 1,000 mg IVPB Q6H PRN PRN Reason: FEVER OR PAIN Albuterol/Ipratropium (Duoneb -) 1 amp NEB Q4H PRN PRN Reason: SHORTNESS OF BREATH Last Admin: 11/06/17 11:00 Dose: 1 amp Diphenhydramine HCl (Benadryl Oral Solution -) 25 mg PO TID PRN PRN Reason: FOR ITCHING Escitalopram Oxalate (Lexapro -) 5 mg PO DAILY [facility] Last Admin: 11/06/17 11:28 Dose: 5 mg Folic Acid (Folic Acid -) 1 mg PO DAILY [facility] Last Admin: 11/06/17 11:28 Dose: 1 mg Heparin Sodium (Porcine) (Heparin -) 5,000 unit SQ TID [facility] Last Admin: 11/06/17 06:03 Dose: 5,000 unit Cefepime HCl 1 gm/ Dextrose 100 mls @ 200 mls/hr IVPB DAILY [facility] Lactulose (Cephulac (Oral Use)) 20 gm PO BID PRN PRN Reason: CONSTIPATION Loperamide HCl (Imodium Liquid -) 1 mg PO TID PRN PRN Reason: DIARRHEA Midodrine (Proamatine -) 5 mg PEG BID-MID [facility] Last Admin: 11/06/17 11:28 Dose: 5 mg Mirtazapine (Remeron -) 22.5 mg PO HS [facility] Last Admin: 11/05/17 21:50 Dose: 22.5 mg Nystatin (Mycostatin Cream -) 1 applic TP BID [facility] Last Admin: 11/05/17 21:50 Dose: 1 applic Oxycodone HCl (Roxicodone -) 5 mg PO TID PRN PRN Reason: PAIN Last Admin: 11/06/17 00:06 Dose: 5 mg Prednisone (Deltasone -) 3 mg PO BID [facility] Last Admin: 11/06/17 11:29 Dose: 3 mg Senna (Senna Oral Solution -) 8.8 mg PO BID [facility] Last Admin: 12/25/17 11:29 Dose: 8.8 mg Sevelamer Carbonate (Renvela -) 800 mg PO TIDCM [facility] Last Admin: 11/06/17 11:43 Dose: 800 mg - Objective Vital Signs: Vital Signs Temperature 98.4 F 11/06/17 06:00 Pulse Rate 101 H 11/06/17 06:00 Respiratory Rate 20 11/06/17 06:00 Blood Pressure 108/54 11/06/17 06:00 O2 Sat by Pulse Oximetry (%) 100 11/05/17 21:00 Constitutional: Yes: Calm Eyes: Yes: Conjunctiva Clear HENT: Yes: Atraumatic Neck: Yes: Other (trache) Cardiovascular: Yes: S1, S2 Respiratory: Yes: Other (trache) Gastrointestinal: Yes: Soft, Abdomen, Obese Genitourinary: Yes: Incontinence Musculoskeletal: Yes: Muscle Weakness Edema: No Neurological: Yes: Oriented Psychiatric: Yes: Oriented Labs: CBC, BMP 11/05/17 05:00 11/05/17 14:30 INR, PTT INR 1.03 (0.82-1.09) 11/03/17 10:40 Problem List - Problems (1) Respiratory failure Code(s): J96.90 - RESPIRATORY FAILURE, UNSP, UNSP W HYPOXIA OR HYPERCAPNIA (2) ESRD (end stage renal disease) Code(s): N18.6 - END STAGE RENAL DISEASE (3) Sepsis Code(s): A41.9 - SEPSIS, UNSPECIFIED ORGANISM (4) Jocelyn's granulomatosis (granulomatosis with polyangiitis) Code(s): M31.30 - JOCELYN'S GRANULOMATOSIS WITHOUT RENAL INVOLVEMENT Assessment/Plan Current Medications Generic Name Dose Route Start Last Admin Trade Name Freq PRN Reason Stop Dose Admin Acetaminophen 325 mg 11/05/17 19:02 11/06/17 00:06 Tylenol - PO 325 mg QID PRN Administration PAIN Acetaminophen 1,000 mg 11/05/17 19:02 Ofirmev Injection - IVPB Q6H PRN FEVER OR PAIN Albuterol/Ipratropium 1 amp 11/05/17 19:02 11/06/17 11:00 Duoneb - NEB 1 amp Q4H PRN Administration SHORTNESS OF BREATH Diphenhydramine HCl 25 mg 11/05/17 19:02 Benadryl Oral Solution - PO TID PRN FOR ITCHING Escitalopram Oxalate 5 mg 11/06/17 10:00 11/06/17 11:28 Lexapro - PO 5 mg DAILY [facility] Administration Folic Acid 1 mg 11/06/17 10:00 11/06/17 11:28 Folic Acid - PO 1 mg DAILY [facility] Administration Heparin Sodium (Porcine) 5,000 unit 11/05/17 22:00 11/06/17 06:03 Heparin - SQ 5,000 unit TID [facility] Administration Cefepime HCl 1 gm/ Dextrose 100 mls @ 200 mls/hr 11/07/17 10:00 IVPB DAILY [facility] Lactulose 20 gm 11/05/17 19:02 Cephulac (Oral Use) PO BID PRN CONSTIPATION Loperamide HCl 1 mg 11/05/17 19:02 Imodium Liquid - PO TID PRN DIARRHEA Midodrine 5 mg 11/06/17 10:00 11/06/17 11:28 Proamatine - PEG 5 mg BID-MID [facility] Administration Mirtazapine 22.5 mg 11/05/17 22:00 11/05/17 21:50 Remeron - PO 22.5 mg HS [facility] Administration Nystatin 1 applic 11/05/17 22:00 11/05/17 21:50 Mycostatin Cream - TP 1 applic BID [facility] Administration Oxycodone HCl 5 mg 11/05/17 19:02 11/06/17 00:06 Roxicodone - PO 5 mg TID PRN Administration PAIN Prednisone 3 mg 11/05/17 22:00 11/06/17 11:29 Deltasone - PO 3 mg BID [facility] Administration Senna 8.8 mg 11/05/17 22:00 11/06/17 11:29 Senna Oral Solution - PO 8.8 mg BID [facility] Administration Sevelamer Carbonate 800 mg 11/06/17 08:00 11/06/17 11:43 Renvela - PO 800 mg TIDCM [facility] Administration Impression 1. 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 chronic resp failure 4. htn 5. chol 6. obesity 7. anemia 8. hypoxia Plan - pt dialyzed yesterday - next HD Wed - monitor BP - abx per ID - called HD unit for prescription: AVF 2 k bath 3.5 hrs heparin 2000 - will follow pt Dr Trotter
[2017-11-06] MEDS: NYSTATIN 100,000 UNIT/GM TOPICAL CREAM 15 GM TUBE TP SCH ×2 (14:57→21:34)
--- NOTE | 2017-11-06 15:51 | CON.CARD ---
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 She had spent 5 months at [facility] and was subsequently transferred to [facility] unit where she was for 2 weeks. She presents from [facility] with fevers and cough x 2 days. Pt reports that her symptoms began yesterday with a bad cough and increased sputum production from her trach. Today, she spiked a fever of 103 and was sent to ER for management. Pt denies chest pain, dyspnea, palpitations, orthopnea. 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: No: Alzheimer's Cardio/Vascular: No: AFIB Pulmonary: Yes: COPD, O2 Dependent, Pneumonia, Other (pulmonary/renal syndrome, trache) Gastrointestinal: No: Ascites Hepatobiliary: No: Cirrhosis Renal/: Yes: Renal Failure, Hemodialysis Infectious Disease: No: AIDS Psych: No: Addictions - Past Surgical History Past Surgical History: Yes: AV Fistula/Graft, Joint Replacement Additional Surgical History: trach/peg - Alcohol/Substance Use Hx Alcohol Use: No History of Substance Use: reports: None - Smoking History Smoking history: Unknown if ever smoked - Social History Usual Living Arrangement: Care Home ADL: Support Services History of Recent Travel: No Home Medications - Allergies Allergies/Adverse Reactions: Allergies Allergy/AdvReac Type Severity Reaction Status Date / Time No Known Allergies Allergy Verified 11/03/17 10:08 - Home Medications Home Medications: Ambulatory Orders Acetaminophen 325 mg PO QID PRN 11/03/17 Albuterol 0.083% Nebulizer Genia [Ventolin 0.083% Nebulizer Soln -] PRN 11/03/17 Cholecalciferol (Vitamin D3) [Vitamin D3 -] 11/03/17 Diphenhydramine [Benadryl 12.5 MG/5 ML Oral Solution -] 25 mg PO TID PRN Escitalopram Oxalate 5 mg PO DAILY 11/03/17 Folic Acid 1 mg PO DAILY 11/03/17 Heparin - 5,000 units SCJ TID 11/03/17 Lactulose 30 ml PO BID PRN 11/03/17 Loperamide HCl [Loperamide] 1 mg PO TID PRN 11/03/17 Midodrine HCl 5 mg PO WEEKLY 11/03/17 Mirtazapine 22.5 mg PO DAILY 11/03/17 Oxycodone HCl 5 mg PO TID PRN 11/03/17 Prednisone [Deltasone -] 1 mg PO BID 11/03/17 Sennosides [Senna] 8.8 mg PO BID 11/03/17 Sevelamer HCl [Renagel] 800 mg PO TID 11/03/17 Review of Systems - Review of Systems Cardiovascular: reports: Shortness of Breath Vital Signs: Vital Signs Temperature 98.4 F 11/06/17 06:00 Pulse Rate 101 H 11/06/17 06:00 Respiratory Rate 20 11/06/17 06:00 Blood Pressure 108/54 11/06/17 06:00 O2 Sat by Pulse Oximetry (%) 100 11/05/17 21:00 Constitutional: Yes: No Distress, Calm HENT: Yes: Other (Trach) Neck: Yes: Supple Respiratory: Yes: Regular, Diminished Gastrointestinal: Yes: Normal Bowel Sounds, Soft Cardiovascular: Yes: Regular Rate and Rhythm JVD: No Carotid Bruit: No Heart Sounds: Yes: S1, S2 Murmur: Yes: Systolic Murmur, Grade 1 Edema: Yes Edema: LLE: Trace, RLE: Trace - Other Data Labs, Other Data: CBC, BMP 11/05/17 05:00 11/05/17 14:30 INR, PTT INR 1.03 (0.82-1.09) 11/03/17 10:40 ST @ 147 Imaging - Results Chest X-ray: Report Reviewed (CHF) Problem List - Problems (1) ESRD (end stage renal disease) Code(s): N18.6 - END STAGE RENAL DISEASE (2) Granulomatosis with polyangiitis with renal involvement Code(s): M31.31 - JOCELYN'S GRANULOMATOSIS WITH RENAL INVOLVEMENT (3) Renal failure Code(s): N19 - UNSPECIFIED KIDNEY FAILURE Qualifiers: Renal failure chronicity: chronic Chronic kidney disease stage: on chronic dialysis Qualified Code(s): N18.6 - End stage renal disease; Z99.2 - Dependence on renal dialysis; Z99.2 - Dependence on renal dialysis; Z99.2 - Dependence on renal dialysis; Z99.2 - Dependence on renal dialysis (4) Respiratory failure Code(s): J96.90 - RESPIRATORY FAILURE, UNSP, UNSP W HYPOXIA OR HYPERCAPNIA Qualifiers: Chronicity: chronic (5) Sepsis Code(s): A41.9 - SEPSIS, UNSPECIFIED ORGANISM Qualifiers: Sepsis type: sepsis due to unspecified organism Qualified Code(s): A41.9 - Sepsis, unspecified organism (6) Jocelyn's granulomatosis (granulomatosis with polyangiitis) Code(s): M31.30 - JOCELYN'S GRANULOMATOSIS WITHOUT RENAL INVOLVEMENT (7) UTI (urinary tract infection) Code(s): N39.0 - URINARY TRACT INFECTION, SITE NOT SPECIFIED Qualifiers: Urinary tract infection type: site unspecified (8) Anemia Code(s): D64.9 - ANEMIA, UNSPECIFIED Qualifiers: Anemia type: due to chronic kidney disease (9) Pneumonia Code(s): J18.9 - PNEUMONIA, UNSPECIFIED ORGANISM Assessment/Plan 1. Pneumonia, UTI 2. Jocelyn's Granulomatosis 3. Chronic Respiratory Failure 4. ESRD on HD 5. HTN 6. DM 7. Chol P: 1. Continue antibiotics per ID per C&S 2. BD, oral steroids, O2 to keep SpO2 >90% 3. HD per renal 4. DVT prophylaxis 5. Thank you for consultative opportunity
--- NOTE | 2017-11-06 16:30 | CONSULT ---
Consult Consult Specialty:: Rheumatology - History of Present Illness History of Present Illness: 72 year old female with history of granulomatosis with polyangiitis (Wegeners) and secondary ESD and s/p tracheostomy, HTN, HLD, admitted with fever, productive cough and malaise. HPI. The patient was Dx with granulomatosis and polyangiitis last June. She cannopt provide much information about onset of disease and treatment received. She spent 5 months at [facility] and was subsequently transferred to [facility] unit where she was for 2 weeks. The patient reports a 2 day history of productive cough, fever and general malaise. She denies rinorrhea, sore throat, shortness of breath skin rash or arthralgia. On admission \ her temp was 102.3 and since 11/04/17 she has not have fever. On admission WBC 13.4, today: 8, crearinine 3.7 and today 1.1 (on HD). CXR significant congestion, prob no infiltrate. She was started on Cefepime. 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 Mild right sweakness.). No: Alzheimer's Cardio/Vascular: No: AFIB Pulmonary: Yes: COPD, O2 Dependent, Pneumonia, Other (pulmonary/renal syndrome, trache) Gastrointestinal: No: Ascites Hepatobiliary: No: Cirrhosis Renal/: Yes: Renal Failure, Hemodialysis Infectious Disease: No: AIDS Psych: No: Addictions - Past Surgical History Past Surgical History: Yes: AV Fistula/Graft, Joint Replacement Additional Surgical History: trach/peg - Alcohol/Substance Use Hx Alcohol Use: No History of Substance Use: reports: None - Smoking History Smoking history: Unknown if ever smoked - Social History Usual Living Arrangement: Care Home ADL: Support Services History of Recent Travel: No Home Medications - Allergies Allergies/Adverse Reactions: Allergies Allergy/AdvReac Type Severity Reaction Status Date / Time No Known Allergies Allergy Verified 11/03/17 10:08 - Home Medications Home Medications: Ambulatory Orders Acetaminophen 325 mg PO QID PRN 11/03/17 Albuterol 0.083% Nebulizer Genia [Ventolin 0.083% Nebulizer Soln -] PRN 11/03/17 Cholecalciferol (Vitamin D3) [Vitamin D3 -] 11/03/17 Diphenhydramine [Benadryl 12.5 MG/5 ML Oral Solution -] 25 mg PO TID PRN Escitalopram Oxalate 5 mg PO DAILY 11/03/17 Folic Acid 1 mg PO DAILY 11/03/17 Heparin - 5,000 units SCJ TID 11/03/17 Lactulose 30 ml PO BID PRN 11/03/17 Loperamide HCl [Loperamide] 1 mg PO TID PRN 11/03/17 Midodrine HCl 5 mg PO WEEKLY 11/03/17 Mirtazapine 22.5 mg PO DAILY 11/03/17 Oxycodone HCl 5 mg PO TID PRN 11/03/17 Prednisone [Deltasone -] 1 mg PO BID 11/03/17 Sennosides [Senna] 8.8 mg PO BID 11/03/17 Sevelamer HCl [Renagel] 800 mg PO TID 11/03/17 Review of Systems - Review of Systems Constitutional: reports: Malaise Eyes: reports: No Symptoms HENT: reports: No Symptoms Neck: reports: No Symptoms Cardiovascular: reports: No Symptoms Respiratory: reports: Cough, SOB Gastrointestinal: reports: No Symptoms Musculoskeletal: reports: No Symptoms Integumentary: reports: No Symptoms Neurological: reports: No Symptoms Physical Exam Vital Signs: Vital Signs Temperature 97.9 F 11/06/17 14:54 Pulse Rate 102 H 11/06/17 14:54 Respiratory Rate 20 11/06/17 14:54 Blood Pressure 101/46 11/06/17 14:54 O2 Sat by Pulse Oximetry (%) 100 11/05/17 21:00 Constitutional: Yes: Moderate Distress Eyes: Yes: WNL HENT: Yes: WNL Neck: Yes: WNL Cardiovascular: Yes: Other ( S1 and S2 normal. No gallop) Respiratory: Yes: Other (Significant diffuse congestion) Gastrointestinal: Yes: WNL Musculoskeletal: Yes: Other (No active joints.) Integumentary: Yes: WNL Labs: CBC, BMP 11/05/17 05:00 11/05/17 14:30 Microbiology 11/03/17 Unknown Urine - Urine - Catheterized Urine Culture - Final Klebsiella Pneumoniae 11/03/17 22:00 Sputum - Endotracheal Suction W/O Vent Gram Stain - Final 11/03/17 22:00 Sputum - Endotracheal Suction W/O Vent Sputum Culture - Final Pseudomonas Aeruginosa Laboratory Tests 11/03/17 11/04/17 11/05/17 20:30 12:03 05:00 Sodium 134 L Potassium 3.7 Chloride 94 L Carbon Dioxide 28 Anion Gap 12 BUN 29 H D Creatinine 3.7 H D Total Bilirubin 0.3 D AST 13 L ALT 17 Alkaline Phosphatase 71 Urine Appearance Turbid Urine pH 5.0 Ur Specific Hammond 1.020 Urine Protein 2+ H Urine Glucose (UA) Negative Urine Ketones Negative Urine Blood 3+ H Urine Nitrite Negative Urine Bilirubin Negative Urine Urobilinogen Negative Ur Leukocyte Esterase 3+ H Hepatitis C Antibody <0.1 Problem List - Problems (1) Granulomatosis with polyangiitis with renal involvement Assessment/Plan: Patient with history of granulomatosis and polyangiitis I do not have data of clinical presentation, or management. At the present time admitted with new onset fever and leukocytosis, which improved, and productive cough and congestion - probably unchanged, CXR no clear infiltrate and significant congestion. (poor inspiration). Most likely the patient has an acute septic process, however I cannot rule out relapse of disease activity. Plan: CT chest. I dd not prescribe steroids. I will obtain Hx from [facility]. F/ U by cardiology and pulmonary. Code(s): M31.31 - GINNY'S GRANULOMATOSIS WITH RENAL INVOLVEMENT
[2017-11-06] MEDS: MIRTAZAPINE 15 MG TABLET (FP) PO SCH (21:33)
[2017-11-07] MEDS: HEPARIN NA (PORCINE) 5,000 UNITS/ML 1ML VIAL SQ SCH ×3 (05:50→21:44)
[2017-11-07] MEDS ORDERED: PT OWN MED DRAWER 7, Y5N ONE ×2 (06:46→09:29)
[2017-11-07] MEDS: SENNOSIDES 8.8 MG/5 ML BULK BOTTLE PO SCH ×2 (09:34→21:43)
[2017-11-07] MEDS: ESCITALOPRAM OXALATE 10 MG TABLET (FP) PO SCH (09:37)
[2017-11-07] MEDS: MIDODRINE HCL 5 MG TABLET PEG SCH ×2 (09:37→17:32)
[2017-11-07] MEDS: predniSONE 1 MG TABLET (FP) PO SCH ×2 (09:37→21:43)
[2017-11-07] MEDS: CEFEPIME 1 GM in DEXTROSE 5%-WATER - 100 ML IVPB SCH (09:37)
[2017-11-07] MEDS: FOLIC ACID 1 MG TABLET (FP) PO SCH (09:38)
[2017-11-07] MEDS: SEVELAMER CARBONATE 800 MG TAB (FP) PO SCH ×3 (09:38→17:33)
[2017-11-07] MEDS: NYSTATIN 100,000 UNIT/GM TOPICAL CREAM 15 GM TUBE TP SCH ×2 (09:39→21:44)
[2017-11-07] MEDS ORDERED: CEFEPIME HCL 1 GM VIAL (RESTRICTED TO ID) IVPB SCH (10:00)
--- NOTE | 2017-11-07 12:18 | PN ---
Progress Note (short form) - Note Progress Note: feels about the same no complaints alert Vital Signs Period Temp Pulse Resp BP Sys/Garcia Pulse Ox Last 24 Hr 97.6 F-98.4 F 100-112 18-20 99-124/46-67 99 cor-rrr lungs decreased bs at bases abd soft,nt ext trace edema CBC, BMP 11/05/17 05:00 11/05/17 14:30 Microbiology 11/03/17 10:11 Blood - Peripheral Venous Blood Culture - Preliminary NO GROWTH OBTAINED AFTER 96 HOURS, INCUBATION TO CONTINUE FOR 1 DAYS. 11/03/17 10:11 Blood - Peripheral Venous Blood Culture - Preliminary NO GROWTH OBTAINED AFTER 96 HOURS, INCUBATION TO CONTINUE FOR 1 DAYS. 11/03/17 22:00 Sputum - Endotracheal Suction W/O Vent Gram Stain - Final 11/03/17 22:00 Sputum - Endotracheal Suction W/O Vent Sputum Culture - Final Pseudomonas Aeruginosa 11/03/17 Unknown Urine - Urine - Catheterized Urine Culture - Final Klebsiella Pneumoniae 11/04/17 12:03 Urine For Antigen Detection Legionella Antigen - Final 11/04/17 12:03 Urine For Antigen Detection Streptococcus pneumoniae Antigen (M - Nina chest CT- ILD with patchy LLL infiltrate a/p pneumonia uti wilner's granulomatosis esrd/hd continue cefepime, day #4 antibiotics
--- NOTE | 2017-11-07 13:23 | PN ---
Progress Note, Physician History of Present Illness: PULMONARY ALERT,STILL FEELING CONGESTED,+COUGH - Current Medication List Current Medications: Active Medications Acetaminophen (Tylenol -) 325 mg PO QID PRN PRN Reason: PAIN Last Admin: 11/06/17 23:54 Dose: 325 mg Acetaminophen (Ofirmev Injection -) 1,000 mg IVPB Q6H PRN PRN Reason: FEVER OR PAIN Albuterol/Ipratropium (Duoneb -) 1 amp NEB Q4H PRN PRN Reason: SHORTNESS OF BREATH Last Admin: 11/06/17 23:21 Dose: 1 amp Diphenhydramine HCl (Benadryl Oral Solution -) 25 mg PO TID PRN PRN Reason: FOR ITCHING Escitalopram Oxalate (Lexapro -) 5 mg PO DAILY [facility] Last Admin: 11/07/17 09:37 Dose: 5 mg Folic Acid (Folic Acid -) 1 mg PO DAILY [facility] Last Admin: 11/07/17 09:38 Dose: 1 mg Heparin Sodium (Porcine) (Heparin -) 5,000 unit SQ TID [facility] Last Admin: 11/07/17 05:50 Dose: 5,000 unit Cefepime HCl 1 gm/ Dextrose 100 mls @ 200 mls/hr IVPB DAILY [facility] Last Admin: 11/07/17 09:37 Dose: 200 mls/hr Lactulose (Cephulac (Oral Use)) 20 gm PO BID PRN PRN Reason: CONSTIPATION Loperamide HCl (Imodium Liquid -) 1 mg PO TID PRN PRN Reason: DIARRHEA Midodrine (Proamatine -) 5 mg PEG BID-MID [facility] Last Admin: 11/07/17 09:37 Dose: 5 mg Mirtazapine (Remeron -) 22.5 mg PO HS [facility] Last Admin: 11/06/17 21:33 Dose: 22.5 mg Nystatin (Mycostatin Cream -) 1 applic TP BID [facility] Last Admin: 11/07/17 09:39 Dose: 1 applic Oxycodone HCl (Roxicodone -) 5 mg PO TID PRN PRN Reason: PAIN Last Admin: 11/06/17 23:54 Dose: 5 mg Prednisone (Deltasone -) 3 mg PO BID [facility] Last Admin: 11/07/17 09:37 Dose: 3 mg Senna (Senna Oral Solution -) 8.8 mg PO BID [facility] Last Admin: 11/07/17 09:34 Dose: 8.8 mg Sevelamer Carbonate (Renvela -) 800 mg PO TIDCM [facility] Last Admin: 11/07/17 13:05 Dose: 800 mg - Objective Vital Signs: Vital Signs Temperature 98.2 F 11/07/17 09:12 Pulse Rate 112 H 11/07/17 12:58 Respiratory Rate 18 11/07/17 09:12 Blood Pressure 124/67 11/07/17 09:12 O2 Sat by Pulse Oximetry (%) 99 11/07/17 12:58 Constitutional: Yes: Well Nourished, Calm Eyes: Yes: WNL HENT: Yes: WNL Neck: Yes: Supple (TRACH) Cardiovascular: Yes: Regular Rate and Rhythm, S1, S2 Respiratory: Yes: Rhonchi (SCATTERED KENJI RHONCHI) Gastrointestinal: Yes: Normal Bowel Sounds, Soft Extremities: Yes: WNL Edema: Yes Labs: - ....Imaging Cat Scan: Report Reviewed, Image Reviewed (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) Problem List - Problems (1) ESRD (end stage renal disease) Code(s): N18.6 - END STAGE RENAL DISEASE (2) Hemodialysis access site with arteriovenous graft Code(s): Z99.2 - DEPENDENCE ON RENAL DIALYSIS (3) Pneumonia Code(s): J18.9 - PNEUMONIA, UNSPECIFIED ORGANISM (4) Respiratory failure Code(s): J96.90 - RESPIRATORY FAILURE, UNSP, UNSP W HYPOXIA OR HYPERCAPNIA Qualifiers: Chronicity: chronic (5) Jocelyn's granulomatosis (granulomatosis with polyangiitis) Code(s): M31.30 - JOCELYN'S GRANULOMATOSIS WITHOUT RENAL INVOLVEMENT Assessment/Plan A/P Pneumonia UTI Sepsis Jocelyn's Granulomatosis Chronic Respiratory Failure ESRD on HD HTN DM - antibiotics per ID - chest PT - pulmonary toilet - inhaled bronchodilators - prednisone to home dose of 3mg BID - O2 to keep SpO2 >90% - HD per renal - DVT prophylaxis DR BLANDON
--- NOTE | 2017-11-07 14:08 | PN ---
Progress Note, Physician Chief Complaint: Events noted Trache collar Breathing comfortable History of Present Illness: Patient was seen and examined. Awake and alert. Chart was reviewed Denies chest pain, less SOB and no palpitation - Current Medication List Current Medications: Active Medications Acetaminophen (Tylenol -) 325 mg PO QID PRN PRN Reason: PAIN Last Admin: 11/06/17 23:54 Dose: 325 mg Acetaminophen (Ofirmev Injection -) 1,000 mg IVPB Q6H PRN PRN Reason: FEVER OR PAIN Albuterol/Ipratropium (Duoneb -) 1 amp NEB Q4H PRN PRN Reason: SHORTNESS OF BREATH Last Admin: 11/06/17 23:21 Dose: 1 amp Diphenhydramine HCl (Benadryl Oral Solution -) 25 mg PO TID PRN PRN Reason: FOR ITCHING Escitalopram Oxalate (Lexapro -) 5 mg PO DAILY [facility] Last Admin: 11/07/17 09:37 Dose: 5 mg Folic Acid (Folic Acid -) 1 mg PO DAILY [facility] Last Admin: 11/07/17 09:38 Dose: 1 mg Heparin Sodium (Porcine) (Heparin -) 5,000 unit SQ TID [facility] Last Admin: 11/07/17 05:50 Dose: 5,000 unit Cefepime HCl 1 gm/ Dextrose 100 mls @ 200 mls/hr IVPB DAILY [facility] Last Admin: 11/07/17 09:37 Dose: 200 mls/hr Lactulose (Cephulac (Oral Use)) 20 gm PO BID PRN PRN Reason: CONSTIPATION Loperamide HCl (Imodium Liquid -) 1 mg PO TID PRN PRN Reason: DIARRHEA Midodrine (Proamatine -) 5 mg PEG BID-MID [facility] Last Admin: 11/07/17 09:37 Dose: 5 mg Mirtazapine (Remeron -) 22.5 mg PO HS [facility] Last Admin: 11/06/17 21:33 Dose: 22.5 mg Nystatin (Mycostatin Cream -) 1 applic TP BID [facility] Last Admin: 11/07/17 09:39 Dose: 1 applic Oxycodone HCl (Roxicodone -) 5 mg PO TID PRN PRN Reason: PAIN Last Admin: 11/06/17 23:54 Dose: 5 mg Prednisone (Deltasone -) 3 mg PO BID [facility] Last Admin: 11/07/17 09:37 Dose: 3 mg Senna (Senna Oral Solution -) 8.8 mg PO BID [facility] Last Admin: 11/07/17 09:34 Dose: 8.8 mg Sevelamer Carbonate (Renvela -) 800 mg PO TIDCM [facility] Last Admin: 11/07/17 13:05 Dose: 800 mg - Objective Vital Signs: Vital Signs Temperature 98.2 F 11/07/17 09:12 Pulse Rate 112 H 11/07/17 12:58 Respiratory Rate 18 11/07/17 09:12 Blood Pressure 124/67 11/07/17 09:12 O2 Sat by Pulse Oximetry (%) 99 11/07/17 12:58 Eyes: Yes: PERRL Neck: Yes: Supple Cardiovascular: Yes: Regular Rate and Rhythm, Tachycardia, Murmur (Soft SM), S1 , S2 Respiratory: Yes: Diminished, Other (Trache) Gastrointestinal: Yes: Normal Bowel Sounds, Soft. No: Tenderness Edema: No Labs: CBC, BMP 11/05/17 05:00 11/05/17 14:30 INR, PTT INR 1.03 (0.82-1.09) 11/03/17 10:40 Problem List - Problems (1) Anemia Code(s): D64.9 - ANEMIA, UNSPECIFIED Qualifiers: Anemia type: due to chronic kidney disease (2) ESRD (end stage renal disease) Code(s): N18.6 - END STAGE RENAL DISEASE (3) Hemodialysis access site with arteriovenous graft Code(s): Z99.2 - DEPENDENCE ON RENAL DIALYSIS (4) Pneumonia Code(s): J18.9 - PNEUMONIA, UNSPECIFIED ORGANISM (5) Respiratory failure Code(s): J96.90 - RESPIRATORY FAILURE, UNSP, UNSP W HYPOXIA OR HYPERCAPNIA Qualifiers: Chronicity: chronic (6) Sepsis Code(s): A41.9 - SEPSIS, UNSPECIFIED ORGANISM Qualifiers: Sepsis type: sepsis due to unspecified organism Qualified Code(s): A41.9 - Sepsis, unspecified organism (7) Jocelyn's granulomatosis (granulomatosis with polyangiitis) Code(s): M31.30 - JOCELYN'S GRANULOMATOSIS WITHOUT RENAL INVOLVEMENT Assessment/Plan 1. Pneumonia 2. Jocelyn's Granulomatosis 3. Chronic Respiratory Failure 4. ESRD on HD 5. HTN 6. DM 7. Hypercholesterolemia 8. UTI PLAN: 1. Continue antibiotics per ID 2. Bronchodilator, oral steroids and O2 3. HD per renal 4. DVT prophylaxis Further plans are to follow Gigi Encinas MD
--- NOTE | 2017-11-07 14:20 | PN ---
Progress Note, Physician History of Present Illness: Pt seen and examined at bedside. She is awake and alert. She has good appetite. She says she feels better. - Current Medication List Current Medications: Active Medications Acetaminophen (Tylenol -) 325 mg PO QID PRN PRN Reason: PAIN Last Admin: 11/06/17 23:54 Dose: 325 mg Acetaminophen (Ofirmev Injection -) 1,000 mg IVPB Q6H PRN PRN Reason: FEVER OR PAIN Albuterol/Ipratropium (Duoneb -) 1 amp NEB Q4H PRN PRN Reason: SHORTNESS OF BREATH Last Admin: 11/06/17 23:21 Dose: 1 amp Diphenhydramine HCl (Benadryl Oral Solution -) 25 mg PO TID PRN PRN Reason: FOR ITCHING Escitalopram Oxalate (Lexapro -) 5 mg PO DAILY [facility] Last Admin: 11/07/17 09:37 Dose: 5 mg Folic Acid (Folic Acid -) 1 mg PO DAILY [facility] Last Admin: 11/07/17 09:38 Dose: 1 mg Heparin Sodium (Porcine) (Heparin -) 5,000 unit SQ TID [facility] Last Admin: 11/07/17 05:50 Dose: 5,000 unit Cefepime HCl 1 gm/ Dextrose 100 mls @ 200 mls/hr IVPB DAILY [facility] Last Admin: 11/07/17 09:37 Dose: 200 mls/hr Lactulose (Cephulac (Oral Use)) 20 gm PO BID PRN PRN Reason: CONSTIPATION Loperamide HCl (Imodium Liquid -) 1 mg PO TID PRN PRN Reason: DIARRHEA Midodrine (Proamatine -) 5 mg PEG BID-MID [facility] Last Admin: 11/07/17 09:37 Dose: 5 mg Mirtazapine (Remeron -) 22.5 mg PO HS [facility] Last Admin: 11/06/17 21:33 Dose: 22.5 mg Nystatin (Mycostatin Cream -) 1 applic TP BID [facility] Last Admin: 11/07/17 09:39 Dose: 1 applic Oxycodone HCl (Roxicodone -) 5 mg PO TID PRN PRN Reason: PAIN Last Admin: 11/06/17 23:54 Dose: 5 mg Prednisone (Deltasone -) 3 mg PO BID [facility] Last Admin: 11/07/17 09:37 Dose: 3 mg Senna (Senna Oral Solution -) 8.8 mg PO BID [facility] Last Admin: 11/07/17 09:34 Dose: 8.8 mg Sevelamer Carbonate (Renvela -) 800 mg PO TIDCM [facility] Last Admin: 11/07/17 13:05 Dose: 800 mg - Objective Vital Signs: Vital Signs Temperature 98.2 F 11/07/17 09:12 Pulse Rate 112 H 11/07/17 12:58 Respiratory Rate 18 11/07/17 09:12 Blood Pressure 124/67 11/07/17 09:12 O2 Sat by Pulse Oximetry (%) 99 11/07/17 12:58 Constitutional: Yes: Calm Eyes: Yes: Conjunctiva Clear Neck: Yes: Other (trache) Cardiovascular: Yes: S1, S2 Respiratory: Yes: Rhonchi, Other (trache) Gastrointestinal: Yes: Soft, Abdomen, Obese Genitourinary: Yes: WNL Musculoskeletal: Yes: WNL Edema: No Neurological: Yes: Oriented Psychiatric: Yes: Oriented Labs: CBC, BMP 11/05/17 05:00 11/05/17 14:30 INR, PTT INR 1.03 (0.82-1.09) 11/03/17 10:40 Problem List - Problems (1) Respiratory failure Code(s): J96.90 - RESPIRATORY FAILURE, UNSP, UNSP W HYPOXIA OR HYPERCAPNIA (2) ESRD (end stage renal disease) Code(s): N18.6 - END STAGE RENAL DISEASE (3) Sepsis Code(s): A41.9 - SEPSIS, UNSPECIFIED ORGANISM Qualifiers: Sepsis type: sepsis due to unspecified organism Qualified Code(s): A41.9 - Sepsis, unspecified organism (4) Jocelyn's granulomatosis (granulomatosis with polyangiitis) Code(s): M31.30 - JOCELYN'S GRANULOMATOSIS WITHOUT RENAL INVOLVEMENT Assessment/Plan Current Medications Generic Name Dose Route Start Last Admin Trade Name Freq PRN Reason Stop Dose Admin Acetaminophen 325 mg 11/05/17 19:02 11/06/17 23:54 Tylenol - PO 325 mg QID PRN Administration PAIN Acetaminophen 1,000 mg 11/05/17 19:02 Ofirmev Injection - IVPB Q6H PRN FEVER OR PAIN Albuterol/Ipratropium 1 amp 11/05/17 19:02 11/06/17 23:21 Duoneb - NEB 1 amp Q4H PRN Administration SHORTNESS OF BREATH Diphenhydramine HCl 25 mg 11/05/17 19:02 Benadryl Oral Solution - PO TID PRN FOR ITCHING Escitalopram Oxalate 5 mg 11/06/17 10:00 11/07/17 09:37 Lexapro - PO 5 mg DAILY [facility] Administration Folic Acid 1 mg 11/06/17 10:00 11/07/17 09:38 Folic Acid - PO 1 mg DAILY [facility] Administration Heparin Sodium (Porcine) 5,000 unit 11/05/17 22:00 11/07/17 05:50 Heparin - SQ 5,000 unit TID [facility] Administration Cefepime HCl 1 gm/ Dextrose 100 mls @ 200 mls/hr 11/07/17 10:00 11/07/17 09: 37 IVPB 200 mls/hr DAILY [facility] Administration Lactulose 20 gm 11/05/17 19:02 Cephulac (Oral Use) PO BID PRN CONSTIPATION Loperamide HCl 1 mg 11/05/17 19:02 Imodium Liquid - PO TID PRN DIARRHEA Midodrine 5 mg 11/06/17 10:00 11/07/17 09:37 Proamatine - PEG 5 mg BID-MID [facility] Administration Mirtazapine 22.5 mg 11/05/17 22:00 11/06/17 21:33 Remeron - PO 22.5 mg HS [facility] Administration Nystatin 1 applic 11/05/17 22:00 11/07/17 09:39 Mycostatin Cream - TP 1 applic BID [facility] Administration Oxycodone HCl 5 mg 11/05/17 19:02 11/06/17 23:54 Roxicodone - PO 5 mg TID PRN Administration PAIN Prednisone 3 mg 11/05/17 22:00 11/07/17 09:37 Deltasone - PO 3 mg BID [facility] Administration Senna 8.8 mg 11/05/17 22:00 11/07/17 09:34 Senna Oral Solution - PO 8.8 mg BID [facility] Administration Sevelamer Carbonate 800 mg 11/06/17 08:00 11/07/17 13:05 Renvela - PO 800 mg TIDCM [facility] Administration Impression 1. 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 chronic resp failure 4. htn 5. chol 6. obesity 7. anemia 8. hypoxia Plan - HD in am - cont current meds - monitor BP - abx per ID - called HD unit for prescription: AVF 2 k bath 3.5 hrs heparin 1999 - will follow pt Dr Trotter
--- NOTE | 2017-11-07 16:26 | PN ---
Progress Note (short form) - Note Progress Note: comfortable No new issues Afebrile Alert and awake Vital Signs Temp 98.2 F 11/07/17 15:02 Pulse 109 H 11/07/17 15:02 Resp 18 11/07/17 09:12 BP 113/54 11/07/17 15:02 Pulse Ox 99 11/07/17 12:58 Intake & Output 11/06/17 11/07/17 11/07/17 23:59 11:59 23:59 Intake Total 700 550 325 Output Total 4 1 Balance 696 549 325 Intake: IVPB 100 Oral 600 550 325 Output: Urine 4 1 Void 4 1 Other: Voiding Method Incontinent Incontinent # Unmeasured Voids Straight Cath 1 Bowel Movement No No No Active Medications Acetaminophen (Tylenol -) 325 mg PO QID PRN PRN Reason: PAIN Last Admin: 11/06/17 23:54 Dose: 325 mg Acetaminophen (Ofirmev Injection -) 1,000 mg IVPB Q6H PRN PRN Reason: FEVER OR PAIN Albuterol/Ipratropium (Duoneb -) 1 amp NEB Q4H PRN PRN Reason: SHORTNESS OF BREATH Last Admin: 11/06/17 23:21 Dose: 1 amp Diphenhydramine HCl (Benadryl Oral Solution -) 25 mg PO TID PRN PRN Reason: FOR ITCHING Escitalopram Oxalate (Lexapro -) 5 mg PO DAILY [facility] Last Admin: 11/07/17 09:37 Dose: 5 mg Folic Acid (Folic Acid -) 1 mg PO DAILY [facility] Last Admin: 11/07/17 09:38 Dose: 1 mg Heparin Sodium (Porcine) (Heparin -) 5,000 unit SQ TID [facility] Last Admin: 11/07/17 15:35 Dose: 5,000 unit Heparin Sodium (Porcine) (Heparin -) 1,000 unit IVPUSH ONCE ONE Stop: 11/08/17 14:21 Cefepime HCl 1 gm/ Dextrose 100 mls @ 200 mls/hr IVPB DAILY [facility] Last Admin: 11/07/17 09:37 Dose: 200 mls/hr Lactulose (Cephulac (Oral Use)) 20 gm PO BID PRN PRN Reason: CONSTIPATION Loperamide HCl (Imodium Liquid -) 1 mg PO TID PRN PRN Reason: DIARRHEA Midodrine (Proamatine -) 5 mg PEG BID-MID [facility] Last Admin: 11/07/17 09:37 Dose: 5 mg Mirtazapine (Remeron -) 22.5 mg PO HS [facility] Last Admin: 11/06/17 21:33 Dose: 22.5 mg Nystatin (Mycostatin Cream -) 1 applic TP BID [facility] Last Admin: 11/07/17 09:39 Dose: 1 applic Oxycodone HCl (Roxicodone -) 5 mg PO TID PRN PRN Reason: PAIN Last Admin: 11/06/17 23:54 Dose: 5 mg Prednisone (Deltasone -) 3 mg PO BID [facility] Last Admin: 11/07/17 09:37 Dose: 3 mg Senna (Senna Oral Solution -) 8.8 mg PO BID [facility] Last Admin: 11/07/17 09:34 Dose: 8.8 mg Sevelamer Carbonate (Renvela -) 800 mg PO TIDCM [facility] Last Admin: 11/07/17 13:05 Dose: 800 mg CBC, BMP 11/05/17 05:00 11/05/17 14:30 Microbiology 11/03/17 10:11 Blood Culture - Preliminary Blood - Peripheral Venous NO GROWTH OBTAINED AFTER 96 HOURS, INCUBATION TO CONTINUE FOR 1 DAYS. 11/03/17 10:11 Blood Culture - Preliminary Blood - Peripheral Venous NO GROWTH OBTAINED AFTER 96 HOURS, INCUBATION TO CONTINUE FOR 1 DAYS. Physical Examination Constitutional: Yes: awake/ comfortable. Neck: Yes: Supple, Other (s/p trach). Cardiovascular: Yes: Regular Rate and Rhythm Respiratory: Yes: Diminished, few scattered rhonchi. Gastrointestinal: Yes: Soft, Abdomen, Obese, Other (peg +) Edema: LLE: 1+, RLE: 1+ Right heel -- stage 2 --dressing + Neurological: Yes: Alert Assessment/Plan clinically stable Continue broad spectrum abx. frequent suctioning. pulmonary toilet. cardiology / rheumatology consults noted/ appreciated discussed with nursing staff also. decubitus precautions. frequent turning Will follow. Problem List - Problems (1) Obesity Code(s): E66.9 - OBESITY, UNSPECIFIED (2) Pneumonia Code(s): J18.9 - PNEUMONIA, UNSPECIFIED ORGANISM (3) Renal failure Code(s): N19 - UNSPECIFIED KIDNEY FAILURE Qualifiers: Renal failure chronicity: chronic Chronic kidney disease stage: on chronic dialysis Qualified Code(s): N18.6 - End stage renal disease; Z99.2 - Dependence on renal dialysis; Z99.2 - Dependence on renal dialysis; Z99.2 - Dependence on renal dialysis; Z99.2 - Dependence on renal dialysis (4) Respiratory failure Code(s): J96.90 - RESPIRATORY FAILURE, UNSP, UNSP W HYPOXIA OR HYPERCAPNIA Qualifiers: Chronicity: chronic (5) Sepsis Code(s): A41.9 - SEPSIS, UNSPECIFIED ORGANISM Qualifiers: Sepsis type: sepsis due to unspecified organism Qualified Code(s): A41.9 - Sepsis, unspecified organism (6) Jocelyn's granulomatosis (granulomatosis with polyangiitis) Code(s): M31.30 - JOCELYN'S GRANULOMATOSIS WITHOUT RENAL INVOLVEMENT
[2017-11-07] MEDS: ALBUTEROL SO4 2.5/IPRATROPIUM 0.5 INH SOL 3 ML VIAL.NEB. NEB PRN (21:35)
[2017-11-07] MEDS: MIRTAZAPINE 15 MG TABLET (FP) PO SCH (21:44)
[2017-11-07] MEDS: oxyCODONE HCL 5 MG TABLET PO PRN (22:02)
[2017-11-08 00:06] LABS: HBSAG SCREEN Negative (Negative); HEP A AB, IGM Negative (Negative); HEP B CORE AB, TOT Negative (Negative)
[2017-11-08] MEDS: HEPARIN NA (PORCINE) 5,000 UNITS/ML 1ML VIAL SQ SCH ×3 (06:58→21:17)
[2017-11-08] MEDS: ALBUTEROL SO4 2.5/IPRATROPIUM 0.5 INH SOL 3 ML VIAL.NEB. NEB PRN (07:48)
[2017-11-08] MEDS: SEVELAMER CARBONATE 800 MG TAB (FP) PO SCH ×3 (09:04→18:10)
[2017-11-08] MEDS: ESCITALOPRAM OXALATE 10 MG TABLET (FP) PO SCH (09:12)
[2017-11-08] MEDS: HEPARIN NA (PORCINE) 5,000 UNITS/ML 1ML VIAL IVPUSH ONE ×2 (10:48→14:50)
[2017-11-08 10:56] LABS: HEMATOCRIT 27.1 % (32.4-45.2); HEMOGLOBIN 8.5 GM/dL (10.7-15.3); MCH 29.8 pg (25.7-33.7); MCHC 31.3 g/dl (32.0-36.0); MEAN PLT VOLUME 6.5 fl (7.5-11.1); PLATELET COUNT 319 K/MM3 (134-434); RBC 2.85 M/mm3 (3.60-5.2); RDW 15.9 % (11.6-15.6)
--- NOTE | 2017-11-08 11:07 | PN ---
Progress Note (short form) - Note Progress Note: pt seen in dialysis comfortable no distress decreased secretions Vital Signs Temp 98.5 F 11/08/17 10:10 Pulse 100 H 11/08/17 10:15 Resp 18 11/08/17 10:15 BP 107/66 11/08/17 10:15 Pulse Ox 100 11/08/17 07:47 Intake & Output 11/07/17 11/07/17 11/08/17 11:59 23:59 11:59 Intake Total 550 985 Output Total 1 Balance 549 985 Intake: Oral 550 985 Output: Urine 1 Void 1 Other: Voiding Method Incontinent Incontinent Incontinent # Unmeasured Voids Straight Cath 1 1 Bowel Movement No No Active Medications Acetaminophen (Tylenol -) 325 mg PO QID PRN PRN Reason: PAIN Last Admin: 11/06/17 23:54 Dose: 325 mg Acetaminophen (Ofirmev Injection -) 1,000 mg IVPB Q6H PRN PRN Reason: FEVER OR PAIN Albuterol/Ipratropium (Duoneb -) 1 amp NEB Q4H PRN PRN Reason: SHORTNESS OF BREATH Last Admin: 11/08/17 07:48 Dose: 1 amp Diphenhydramine HCl (Benadryl Oral Solution -) 25 mg PO TID PRN PRN Reason: FOR ITCHING Escitalopram Oxalate (Lexapro -) 5 mg PO DAILY [facility] Last Admin: 11/08/17 09:12 Dose: 5 mg Folic Acid (Folic Acid -) 1 mg PO DAILY [facility] Last Admin: 11/07/17 09:38 Dose: 1 mg Heparin Sodium (Porcine) (Heparin -) 5,000 unit SQ TID [facility] Last Admin: 11/08/17 06:58 Dose: 5,000 unit Heparin Sodium (Porcine) (Heparin -) 1,000 unit IVPUSH ONCE ONE Stop: 11/08/17 14:21 Last Admin: 11/08/17 10:48 Dose: 1,000 unit Cefepime HCl 1 gm/ Dextrose 100 mls @ 200 mls/hr IVPB DAILY [facility] Last Admin: 11/07/17 09:37 Dose: 200 mls/hr Lactulose (Cephulac (Oral Use)) 20 gm PO BID PRN PRN Reason: CONSTIPATION Loperamide HCl (Imodium Liquid -) 1 mg PO TID PRN PRN Reason: DIARRHEA Midodrine (Proamatine -) 5 mg PEG BID-MID [facility] Last Admin: 11/07/17 17:32 Dose: 5 mg Mirtazapine (Remeron -) 22.5 mg PO HS [facility] Last Admin: 11/07/17 21:44 Dose: 22.5 mg Nystatin (Mycostatin Cream -) 1 applic TP BID [facility] Last Admin: 11/07/17 21:44 Dose: 1 applic Oxycodone HCl (Roxicodone -) 5 mg PO TID PRN PRN Reason: PAIN Last Admin: 11/07/17 22:02 Dose: 5 mg Prednisone (Deltasone -) 3 mg PO BID [facility] Last Admin: 11/07/17 21:43 Dose: 3 mg Senna (Senna Oral Solution -) 8.8 mg PO BID [facility] Last Admin: 11/07/17 21:43 Dose: 8.8 mg Sevelamer Carbonate (Renvela -) 800 mg PO TIDCM [facility] Last Admin: 11/08/17 09:04 Dose: 800 mg CBC, BMP 11/08/17 10:15 ct chest-- left lower lobe infiltrate. Physical Examination Constitutional: Yes: awake/ comfortable. Neck: Yes: Supple, Other (s/p trach). Cardiovascular: Yes: Regular Rate and Rhythm Respiratory: Yes: Diminished, few scattered rhonchi. Gastrointestinal: Yes: Soft, Abdomen, Obese, Other (peg +) Edema: LLE: 1+, RLE: 1+ Right heel -- stage 2 --dressing + Neurological: Yes: Alert/ awake Assessment/Plan clinically better Continue broad spectrum abx. frequent suctioning. pulmonary toilet. decubitus precautions. frequent turning Will follow. Problem List - Problems (1) Obesity Code(s): E66.9 - OBESITY, UNSPECIFIED (2) Pneumonia Code(s): J18.9 - PNEUMONIA, UNSPECIFIED ORGANISM (3) Renal failure Code(s): N19 - UNSPECIFIED KIDNEY FAILURE Qualifiers: Renal failure chronicity: chronic Chronic kidney disease stage: on chronic dialysis Qualified Code(s): N18.6 - End stage renal disease; Z99.2 - Dependence on renal dialysis; Z99.2 - Dependence on renal dialysis; Z99.2 - Dependence on renal dialysis; Z99.2 - Dependence on renal dialysis (4) Respiratory failure Code(s): J96.90 - RESPIRATORY FAILURE, UNSP, UNSP W HYPOXIA OR HYPERCAPNIA Qualifiers: Chronicity: chronic (5) Sepsis Code(s): A41.9 - SEPSIS, UNSPECIFIED ORGANISM Qualifiers: Sepsis type: sepsis due to unspecified organism Qualified Code(s): A41.9 - Sepsis, unspecified organism (6) Jocelyn's granulomatosis (granulomatosis with polyangiitis) Code(s): M31.30 - JOCELYN'S GRANULOMATOSIS WITHOUT RENAL INVOLVEMENT
[2017-11-08 11:18] LABS: ALBUMIN 2.5 g/dl (3.4-5.0); ANION GAP 9 (8-16); BLOOD UREA NITROGEN 40 mg/dL (7-18); CALCIUM 9.3 mg/dL (8.5-10.1); CHLORIDE 96 mmol/L (98-107); CO2 29 mmol/L (21-32); GLUCOSE,RANDOM 101 mg/dL (74-106); POTASSIUM 3.7 mmol/L (3.5-5.1); SODIUM 134 mmol/L (136-145)
[2017-11-08 11:20] LABS: ALK PHOS 66 U/L (45-117); BILIRUBIN,TOTAL 0.3 mg/dL (0.2-1.0); CREATININE 4.5 mg/dL (0.55-1.02); SGOT/AST 9 U/L (15-37); SGPT/ALT 13 U/L (12-78); TOT PROT 5.3 g/dl (6.4-8.2)
--- NOTE | 2017-11-08 12:47 | PN ---
Progress Note, Physician History of Present Illness: Fevers, cough and sputum production from her trach improving. Pt denies chest pain, dyspnea, palpitations, orthopnea. - Current Medication List Current Medications: Active Medications Acetaminophen (Tylenol -) 325 mg PO QID PRN PRN Reason: PAIN Last Admin: 11/06/17 23:54 Dose: 325 mg Acetaminophen (Ofirmev Injection -) 1,000 mg IVPB Q6H PRN PRN Reason: FEVER OR PAIN Albuterol/Ipratropium (Duoneb -) 1 amp NEB Q4H PRN PRN Reason: SHORTNESS OF BREATH Last Admin: 11/08/17 07:48 Dose: 1 amp Diphenhydramine HCl (Benadryl Oral Solution -) 25 mg PO TID PRN PRN Reason: FOR ITCHING Escitalopram Oxalate (Lexapro -) 5 mg PO DAILY [facility] Last Admin: 11/08/17 09:12 Dose: 5 mg Folic Acid (Folic Acid -) 1 mg PO DAILY [facility] Last Admin: 11/07/17 09:38 Dose: 1 mg Heparin Sodium (Porcine) (Heparin -) 5,000 unit SQ TID [facility] Last Admin: 11/08/17 06:58 Dose: 5,000 unit Heparin Sodium (Porcine) (Heparin -) 1,000 unit IVPUSH ONCE ONE Stop: 11/08/17 14:21 Last Admin: 11/08/17 10:48 Dose: 1,000 unit Cefepime HCl 1 gm/ Dextrose 100 mls @ 200 mls/hr IVPB DAILY [facility] Last Admin: 11/07/17 09:37 Dose: 200 mls/hr Lactulose (Cephulac (Oral Use)) 20 gm PO BID PRN PRN Reason: CONSTIPATION Loperamide HCl (Imodium Liquid -) 1 mg PO TID PRN PRN Reason: DIARRHEA Midodrine (Proamatine -) 5 mg PEG BID-MID [facility] Last Admin: 11/07/17 17:32 Dose: 5 mg Mirtazapine (Remeron -) 22.5 mg PO HS [facility] Last Admin: 11/07/17 21:44 Dose: 22.5 mg Nystatin (Mycostatin Cream -) 1 applic TP BID [facility] Last Admin: 11/07/17 21:44 Dose: 1 applic Oxycodone HCl (Roxicodone -) 5 mg PO TID PRN PRN Reason: PAIN Last Admin: 11/07/17 22:02 Dose: 5 mg Prednisone (Deltasone -) 3 mg PO BID [facility] Last Admin: 11/07/17 21:43 Dose: 3 mg Senna (Senna Oral Solution -) 8.8 mg PO BID [facility] Last Admin: 11/07/17 21:43 Dose: 8.8 mg Sevelamer Carbonate (Renvela -) 800 mg PO TIDCM [facility] Last Admin: 11/08/17 09:04 Dose: 800 mg - Objective Vital Signs: Vital Signs Temperature 98.5 F 11/08/17 10:10 Pulse Rate 99 H 11/08/17 12:15 Respiratory Rate 18 11/08/17 12:15 Blood Pressure 113/62 11/08/17 12:15 O2 Sat by Pulse Oximetry (%) 100 11/08/17 07:47 Constitutional: Yes: No Distress, Calm Neck: Yes: Supple, Other (Tracheostomy) Cardiovascular: Yes: Regular Rate and Rhythm Respiratory: Yes: Regular, Diminished Gastrointestinal: Yes: Normal Bowel Sounds, Soft, Abdomen, Obese Edema: No Labs: CBC, BMP 11/08/17 10:15 11/08/17 10:15 INR, PTT INR 1.03 (0.82-1.09) 11/03/17 10:40 - ....Imaging Cat Scan: Report Reviewed (Chest CT: LLL consolidation) Problem List - Problems (1) ESRD (end stage renal disease) Code(s): N18.6 - END STAGE RENAL DISEASE (2) Granulomatosis with polyangiitis with renal involvement Code(s): M31.31 - JCOELYN'S GRANULOMATOSIS WITH RENAL INVOLVEMENT (3) Renal failure Code(s): N19 - UNSPECIFIED KIDNEY FAILURE Qualifiers: Renal failure chronicity: chronic Chronic kidney disease stage: on chronic dialysis Qualified Code(s): N18.6 - End stage renal disease; Z99.2 - Dependence on renal dialysis; Z99.2 - Dependence on renal dialysis; Z99.2 - Dependence on renal dialysis; Z99.2 - Dependence on renal dialysis (4) Respiratory failure Code(s): J96.90 - RESPIRATORY FAILURE, UNSP, UNSP W HYPOXIA OR HYPERCAPNIA Qualifiers: Chronicity: chronic (5) Sepsis Code(s): A41.9 - SEPSIS, UNSPECIFIED ORGANISM Qualifiers: Sepsis type: sepsis due to unspecified organism Qualified Code(s): A41.9 - Sepsis, unspecified organism (6) Jocelyn's granulomatosis (granulomatosis with polyangiitis) Code(s): M31.30 - JOCELYN'S GRANULOMATOSIS WITHOUT RENAL INVOLVEMENT (7) UTI (urinary tract infection) Code(s): N39.0 - URINARY TRACT INFECTION, SITE NOT SPECIFIED Qualifiers: Urinary tract infection type: site unspecified (8) Anemia Code(s): D64.9 - ANEMIA, UNSPECIFIED Qualifiers: Anemia type: due to chronic kidney disease (9) Pneumonia Code(s): J18.9 - PNEUMONIA, UNSPECIFIED ORGANISM (10) Hyponatremia Code(s): E87.1 - HYPO-OSMOLALITY AND HYPONATREMIA Assessment/Plan 1. RLL Pneumonia, UTI 2. Jocelyn's Granulomatosis/pulmonary renal disease 3. Chronic Respiratory Failure 4. ESRD on HD 5. HTN 6. DM 7. Chol P: 1. Continue antibiotics per ID per C&S 2. BD, oral steroids, O2 to keep SpO2 >90% 3. HD per renal with Midodrine 5 bid 4. DVT prophylaxis
--- NOTE | 2017-11-08 13:51 | PN ---
Progress Note, Physician History of Present Illness: Pt seen and examined at bedside. She is tolerating HD. - Current Medication List Current Medications: Active Medications Acetaminophen (Tylenol -) 325 mg PO QID PRN PRN Reason: PAIN Last Admin: 11/06/17 23:54 Dose: 325 mg Acetaminophen (Ofirmev Injection -) 1,000 mg IVPB Q6H PRN PRN Reason: FEVER OR PAIN Albuterol/Ipratropium (Duoneb -) 1 amp NEB Q4H PRN PRN Reason: SHORTNESS OF BREATH Last Admin: 11/08/17 07:48 Dose: 1 amp Diphenhydramine HCl (Benadryl Oral Solution -) 25 mg PO TID PRN PRN Reason: FOR ITCHING Escitalopram Oxalate (Lexapro -) 5 mg PO DAILY [facility] Last Admin: 11/08/17 09:12 Dose: 5 mg Folic Acid (Folic Acid -) 1 mg PO DAILY [facility] Last Admin: 11/07/17 09:38 Dose: 1 mg Heparin Sodium (Porcine) (Heparin -) 5,000 unit SQ TID [facility] Last Admin: 11/08/17 06:58 Dose: 5,000 unit Heparin Sodium (Porcine) (Heparin -) 1,000 unit IVPUSH ONCE ONE Stop: 11/08/17 14:21 Last Admin: 11/08/17 10:48 Dose: 1,000 unit Cefepime HCl 1 gm/ Dextrose 100 mls @ 200 mls/hr IVPB DAILY [facility] Last Admin: 11/07/17 09:37 Dose: 200 mls/hr Lactulose (Cephulac (Oral Use)) 20 gm PO BID PRN PRN Reason: CONSTIPATION Loperamide HCl (Imodium Liquid -) 1 mg PO TID PRN PRN Reason: DIARRHEA Midodrine (Proamatine -) 5 mg PEG BID-MID [facility] Last Admin: 11/07/17 17:32 Dose: 5 mg Mirtazapine (Remeron -) 22.5 mg PO HS [facility] Last Admin: 11/07/17 21:44 Dose: 22.5 mg Nystatin (Mycostatin Cream -) 1 applic TP BID [facility] Last Admin: 11/07/17 21:44 Dose: 1 applic Oxycodone HCl (Roxicodone -) 5 mg PO TID PRN PRN Reason: PAIN Last Admin: 11/07/17 22:02 Dose: 5 mg Prednisone (Deltasone -) 3 mg PO BID [facility] Last Admin: 11/07/17 21:43 Dose: 3 mg Senna (Senna Oral Solution -) 8.8 mg PO BID [facility] Last Admin: 11/07/17 21:43 Dose: 8.8 mg Sevelamer Carbonate (Renvela -) 800 mg PO TIDCM [facility] Last Admin: 11/08/17 09:04 Dose: 800 mg - Objective Vital Signs: Vital Signs Temperature 98.5 F 11/08/17 10:10 Pulse Rate 91 H 11/08/17 13:15 Respiratory Rate 18 11/08/17 13:15 Blood Pressure 104/49 11/08/17 13:15 O2 Sat by Pulse Oximetry (%) 100 11/08/17 07:47 Constitutional: Yes: Calm Eyes: Yes: Conjunctiva Clear HENT: Yes: Atraumatic Neck: Yes: Supple Cardiovascular: Yes: S1, S2 Respiratory: Yes: Other (trache) Gastrointestinal: Yes: Soft, Abdomen, Obese Genitourinary: Yes: WNL Musculoskeletal: Yes: Muscle Weakness Edema: No Neurological: Yes: Oriented Psychiatric: Yes: Oriented Labs: CBC, BMP 11/08/17 10:15 11/08/17 10:15 INR, PTT INR 1.03 (0.82-1.09) 11/03/17 10:40 Problem List - Problems (1) Respiratory failure Code(s): J96.90 - RESPIRATORY FAILURE, UNSP, UNSP W HYPOXIA OR HYPERCAPNIA (2) ESRD (end stage renal disease) Code(s): N18.6 - END STAGE RENAL DISEASE (3) Sepsis Code(s): A41.9 - SEPSIS, UNSPECIFIED ORGANISM Qualifiers: Sepsis type: sepsis due to unspecified organism Qualified Code(s): A41.9 - Sepsis, unspecified organism (4) Jocelyn's granulomatosis (granulomatosis with polyangiitis) Code(s): M31.30 - JOCELYN'S GRANULOMATOSIS WITHOUT RENAL INVOLVEMENT Assessment/Plan Current Medications Generic Name Dose Route Start Last Admin Trade Name Freq PRN Reason Stop Dose Admin Acetaminophen 325 mg 11/05/17 19:02 11/06/17 23:54 Tylenol - PO 325 mg QID PRN Administration PAIN Acetaminophen 1,000 mg 11/05/17 19:02 Ofirmev Injection - IVPB Q6H PRN FEVER OR PAIN Albuterol/Ipratropium 1 amp 11/05/17 19:02 11/08/17 07:48 Duoneb - NEB 1 amp Q4H PRN Administration SHORTNESS OF BREATH Diphenhydramine HCl 25 mg 11/05/17 19:02 Benadryl Oral Solution - PO TID PRN FOR ITCHING Escitalopram Oxalate 5 mg 11/06/17 10:00 11/08/17 09:12 Lexapro - PO 5 mg DAILY [facility] Administration Folic Acid 1 mg 11/06/17 10:00 11/07/17 09:38 Folic Acid - PO 1 mg DAILY [facility] Administration Heparin Sodium (Porcine) 5,000 unit 11/05/17 22:00 11/08/17 06:58 Heparin - SQ 5,000 unit TID [facility] Administration Heparin Sodium (Porcine) 1,000 unit 11/08/17 14:20 11/08/17 10:48 Heparin - IVPUSH 11/08/17 14:21 1,000 unit ONCE ONE Administration Cefepime HCl 1 gm/ Dextrose 100 mls @ 200 mls/hr 11/07/17 10:00 11/07/17 09: 37 IVPB 200 mls/hr DAILY TONI Administration Lactulose 20 gm 11/05/17 19:02 Cephulac (Oral Use) PO BID PRN CONSTIPATION Loperamide HCl 1 mg 11/05/17 19:02 Imodium Liquid - PO TID PRN DIARRHEA Midodrine 5 mg 11/06/17 10:00 11/07/17 17:32 Proamatine - PEG 5 mg BID-MID TONI Administration Mirtazapine 22.5 mg 11/05/17 22:00 11/07/17 21:44 Remeron - PO 22.5 mg HS TONI Administration Nystatin 1 applic 11/05/17 22:00 11/07/17 21:44 Mycostatin Cream - TP 1 applic BID TONI Administration Oxycodone HCl 5 mg 11/05/17 19:02 11/07/17 22:02 Roxicodone - PO 5 mg TID PRN Administration PAIN Prednisone 3 mg 11/05/17 22:00 11/07/17 21:43 Deltasone - PO 3 mg BID TONI Administration Senna 8.8 mg 11/05/17 22:00 11/07/17 21:43 Senna Oral Solution - PO 8.8 mg BID TONI Administration Sevelamer Carbonate 800 mg 11/06/17 08:00 11/08/17 09:04 Renvela - PO 800 mg TIDCM TONI Administration Impression 1. 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 chronic resp failure 4. htn 5. chol 6. obesity 7. anemia 8. hypoxia Plan - HD today - cont abx - rheum input appreciated - monitor BP - called HD unit for prescription: AVF 2 k bath 3.5 hrs heparin 1999 - will follow pt Dr Trotter
[2017-11-08] MEDS ORDERED: PT OWN MED DRAWER 7, Y5N ONE ×3 (14:26→20:41)
[2017-11-08] MEDS: predniSONE 1 MG TABLET (FP) PO SCH ×2 (14:27→21:15)
[2017-11-08] MEDS: FOLIC ACID 1 MG TABLET (FP) PO SCH (14:28)
[2017-11-08] MEDS: CEFEPIME 1 GM in DEXTROSE 5%-WATER - 100 ML IVPB SCH (14:28)
[2017-11-08] MEDS: MIDODRINE HCL 5 MG TABLET PEG SCH ×2 (14:29→18:10)
[2017-11-08] MEDS: SENNOSIDES 8.8 MG/5 ML BULK BOTTLE PO SCH ×2 (14:30→21:17)
[2017-11-08] MEDS: NYSTATIN 100,000 UNIT/GM TOPICAL CREAM 15 GM TUBE TP SCH ×2 (17:03→21:17)
--- NOTE | 2017-11-08 20:59 | HOSP ---
Subjective - Review of Symptoms Events since last encounter: hospitalist encounter Notified by primary that the patient's Oxycodone medication needs renewing, and that the patient is refusing Tylenol and only wants Oxycodone. 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 Admitted for Pneumonia Oxycodone renewed Physical Examination Vital Signs: Vital Signs Temperature 98.4 F 11/08/17 18:00 Pulse Rate 110 H 11/08/17 18:00 Respiratory Rate 20 11/08/17 18:00 Blood Pressure 111/54 11/08/17 18:00 O2 Sat by Pulse Oximetry (%) 100 11/08/17 09:00 Labs: CBC, BMP 11/08/17 10:15 11/08/17 10:15
[2017-11-08] MEDS: oxyCODONE HCL 5 MG TABLET PO PRN (21:14)
[2017-11-08] MEDS: MIRTAZAPINE 15 MG TABLET (FP) PO SCH (21:16)
[2017-11-09] MEDS: HEPARIN NA (PORCINE) 5,000 UNITS/ML 1ML VIAL SQ SCH ×3 (06:52→21:23)
[2017-11-09] MEDS ORDERED: PT OWN MED DRAWER 7, Y5N ONE ×3 (09:09→20:50)
[2017-11-09] MEDS: SEVELAMER CARBONATE 800 MG TAB (FP) PO SCH ×3 (09:14→17:51)
[2017-11-09] MEDS: predniSONE 1 MG TABLET (FP) PO SCH ×2 (09:14→21:23)
[2017-11-09] MEDS: ESCITALOPRAM OXALATE 10 MG TABLET (FP) PO SCH (09:15)
[2017-11-09] MEDS: FOLIC ACID 1 MG TABLET (FP) PO SCH (09:18)
[2017-11-09] MEDS: NYSTATIN 100,000 UNIT/GM TOPICAL CREAM 15 GM TUBE TP SCH ×2 (09:18→21:23)
--- NOTE | 2017-11-09 10:42 | PN ---
Progress Note (short form) - Note Progress Note: continue to improve looks better denies pain afebrile Vital Signs Temp 97.9 F 11/09/17 06:00 Pulse 99 H 11/09/17 06:00 Resp 20 11/09/17 06:00 BP 142/62 11/09/17 06:00 Pulse Ox 97 11/08/17 22:00 Intake & Output 11/08/17 11/08/17 11/09/17 11:59 23:59 11:59 Intake Total 325 810 Balance 325 810 Intake: Oral 325 810 Other: Voiding Method Diaper Incontinent # Unmeasured Voids Straight Cath 0 0 1 Bowel Movement No No Active Medications Acetaminophen (Tylenol -) 325 mg PO QID PRN PRN Reason: PAIN Last Admin: 11/06/17 23:54 Dose: 325 mg Acetaminophen (Ofirmev Injection -) 1,000 mg IVPB Q6H PRN PRN Reason: FEVER OR PAIN Albuterol/Ipratropium (Duoneb -) 1 amp NEB Q4H PRN PRN Reason: SHORTNESS OF BREATH Last Admin: 11/08/17 07:48 Dose: 1 amp Diphenhydramine HCl (Benadryl Oral Solution -) 25 mg PO TID PRN PRN Reason: FOR ITCHING Last Admin: 11/08/17 21:15 Dose: 25 mg Escitalopram Oxalate (Lexapro -) 5 mg PO DAILY [facility] Last Admin: 11/09/17 09:15 Dose: 5 mg Folic Acid (Folic Acid -) 1 mg PO DAILY [facility] Last Admin: 11/09/17 09:18 Dose: 1 mg Heparin Sodium (Porcine) (Heparin -) 5,000 unit SQ TID [facility] Last Admin: 11/09/17 06:52 Dose: 5,000 unit Cefepime HCl 1 gm/ Dextrose 100 mls @ 200 mls/hr IVPB DAILY [facility] Last Admin: 11/08/17 14:28 Dose: 200 mls/hr Lactulose (Cephulac (Oral Use)) 20 gm PO BID PRN PRN Reason: CONSTIPATION Loperamide HCl (Imodium Liquid -) 1 mg PO TID PRN PRN Reason: DIARRHEA Midodrine (Proamatine -) 5 mg PEG BID-MID [facility] Last Admin: 11/08/17 18:10 Dose: 5 mg Mirtazapine (Remeron -) 22.5 mg PO HS [facility] Last Admin: 11/08/17 21:16 Dose: 22.5 mg Nystatin (Mycostatin Cream -) 1 applic TP BID [facility] Last Admin: 11/09/17 09:18 Dose: 1 applic Oxycodone HCl (Roxicodone -) 5 mg PO Q8H PRN PRN Reason: PAIN Last Admin: 11/08/17 21:14 Dose: 5 mg Prednisone (Deltasone -) 3 mg PO BID [facility] Last Admin: 11/09/17 09:14 Dose: 3 mg Senna (Senna Oral Solution -) 8.8 mg PO BID [facility] Last Admin: 11/08/17 21:17 Dose: 8.8 mg Sevelamer Carbonate (Renvela -) 800 mg PO TIDCM [facility] Last Admin: 11/09/17 09:14 Dose: 800 mg CBC, BMP 11/08/17 10:15 11/08/17 10:15 Physical Examination Constitutional: Yes: awake/ comfortable. Neck: Yes: Supple, Other (s/p trach). Cardiovascular: Yes: Regular Rate and Rhythm Respiratory: Yes: Diminished at bases-- clear Gastrointestinal: Yes: Soft, Abdomen, Obese, Other (peg +) Edema: LLE: 1+, RLE: 1+ Right heel -- stage 2 --dressing + Neurological: Yes: Alert Assessment/Plan clinically better Continue abx frequent suctioning. pulmonary toilet. i/d on case discussed with nursing staff also. decubitus precautions. frequent turning Will follow if continue to improve-- anticipate switch to abx in 1-2 days. discharge planning. family dont want to go to [facility] Problem List - Problems (1) Obesity Code(s): E66.9 - OBESITY, UNSPECIFIED (2) Pneumonia Code(s): J18.9 - PNEUMONIA, UNSPECIFIED ORGANISM (3) Renal failure Code(s): N19 - UNSPECIFIED KIDNEY FAILURE Qualifiers: Renal failure chronicity: chronic Chronic kidney disease stage: on chronic dialysis Qualified Code(s): N18.6 - End stage renal disease; Z99.2 - Dependence on renal dialysis; Z99.2 - Dependence on renal dialysis; Z99.2 - Dependence on renal dialysis; Z99.2 - Dependence on renal dialysis (4) Respiratory failure Code(s): J96.90 - RESPIRATORY FAILURE, UNSP, UNSP W HYPOXIA OR HYPERCAPNIA Qualifiers: Chronicity: chronic (5) Sepsis Code(s): A41.9 - SEPSIS, UNSPECIFIED ORGANISM Qualifiers: Sepsis type: sepsis due to unspecified organism Qualified Code(s): A41.9 - Sepsis, unspecified organism (6) Jocelyn's granulomatosis (granulomatosis with polyangiitis) Code(s): M31.30 - JOCELYN'S GRANULOMATOSIS WITHOUT RENAL INVOLVEMENT
[2017-11-09] MEDS: CEFEPIME 1 GM in DEXTROSE 5%-WATER - 100 ML IVPB SCH (10:48)
[2017-11-09] MEDS: SENNOSIDES 8.8 MG/5 ML BULK BOTTLE PO SCH ×3 (10:48→21:23)
[2017-11-09] MEDS: MIDODRINE HCL 5 MG TABLET PEG SCH ×2 (10:48→17:59)
--- NOTE | 2017-11-09 11:48 | PN ---
Progress Note, Physician History of Present Illness: Fevers, cough and sputum production from her trach improving. Pt denies chest pain, dyspnea, palpitations, orthopnea. - Current Medication List Current Medications: Active Medications Acetaminophen (Tylenol -) 325 mg PO QID PRN PRN Reason: PAIN Last Admin: 11/06/17 23:54 Dose: 325 mg Acetaminophen (Ofirmev Injection -) 1,000 mg IVPB Q6H PRN PRN Reason: FEVER OR PAIN Albuterol/Ipratropium (Duoneb -) 1 amp NEB Q4H PRN PRN Reason: SHORTNESS OF BREATH Last Admin: 11/08/17 07:48 Dose: 1 amp Diphenhydramine HCl (Benadryl Oral Solution -) 25 mg PO TID PRN PRN Reason: FOR ITCHING Last Admin: 11/08/17 21:15 Dose: 25 mg Escitalopram Oxalate (Lexapro -) 5 mg PO DAILY [facility] Last Admin: 11/09/17 09:15 Dose: 5 mg Folic Acid (Folic Acid -) 1 mg PO DAILY [facility] Last Admin: 11/09/17 09:18 Dose: 1 mg Heparin Sodium (Porcine) (Heparin -) 5,000 unit SQ TID [facility] Last Admin: 11/09/17 06:52 Dose: 5,000 unit Cefepime HCl 1 gm/ Dextrose 100 mls @ 200 mls/hr IVPB DAILY [facility] Last Admin: 11/09/17 10:48 Dose: 200 mls/hr Lactulose (Cephulac (Oral Use)) 20 gm PO BID PRN PRN Reason: CONSTIPATION Loperamide HCl (Imodium Liquid -) 1 mg PO TID PRN PRN Reason: DIARRHEA Midodrine (Proamatine -) 5 mg PEG BID-MID [facility] Last Admin: 11/09/17 10:48 Dose: 5 mg Mirtazapine (Remeron -) 22.5 mg PO HS [facility] Last Admin: 11/08/17 21:16 Dose: 22.5 mg Nystatin (Mycostatin Cream -) 1 applic TP BID [facility] Last Admin: 11/09/17 09:18 Dose: 1 applic Oxycodone HCl (Roxicodone -) 5 mg PO Q8H PRN PRN Reason: PAIN Last Admin: 11/08/17 21:14 Dose: 5 mg Prednisone (Deltasone -) 3 mg PO BID [facility] Last Admin: 11/09/17 09:14 Dose: 3 mg Senna (Senna Oral Solution -) 8.8 mg PO BID [facility] Last Admin: 11/09/17 11:08 Dose: 8.8 mg Sevelamer Carbonate (Renvela -) 800 mg PO TIDCM [facility] Last Admin: 11/09/17 09:14 Dose: 800 mg - Objective Vital Signs: Vital Signs Temperature 97.0 F L 11/09/17 10:00 Pulse Rate 99 H 11/09/17 11:04 Respiratory Rate 20 11/09/17 10:00 Blood Pressure 102/63 11/09/17 10:00 O2 Sat by Pulse Oximetry (%) 97 11/09/17 11:04 Constitutional: Yes: No Distress, Calm HENT: Yes: Other (Trach collar) Neck: Yes: Supple Cardiovascular: Yes: Regular Rate and Rhythm Respiratory: Yes: Regular, Diminished Gastrointestinal: Yes: Normal Bowel Sounds, Soft Edema: No Labs: CBC, BMP 11/08/17 10:15 11/08/17 10:15 INR, PTT INR 1.03 (0.82-1.09) 11/03/17 10:40 Problem List - Problems (1) ESRD (end stage renal disease) Code(s): N18.6 - END STAGE RENAL DISEASE (2) Granulomatosis with polyangiitis with renal involvement Code(s): M31.31 - JOCELYN'S GRANULOMATOSIS WITH RENAL INVOLVEMENT (3) Renal failure Code(s): N19 - UNSPECIFIED KIDNEY FAILURE Qualifiers: Renal failure chronicity: chronic Chronic kidney disease stage: on chronic dialysis Qualified Code(s): N18.6 - End stage renal disease; Z99.2 - Dependence on renal dialysis; Z99.2 - Dependence on renal dialysis; Z99.2 - Dependence on renal dialysis; Z99.2 - Dependence on renal dialysis (4) Respiratory failure Code(s): J96.90 - RESPIRATORY FAILURE, UNSP, UNSP W HYPOXIA OR HYPERCAPNIA Qualifiers: Chronicity: chronic (5) Sepsis Code(s): A41.9 - SEPSIS, UNSPECIFIED ORGANISM Qualifiers: Sepsis type: sepsis due to unspecified organism Qualified Code(s): A41.9 - Sepsis, unspecified organism (6) Jocelyn's granulomatosis (granulomatosis with polyangiitis) Code(s): M31.30 - JOCELYN'S GRANULOMATOSIS WITHOUT RENAL INVOLVEMENT (7) UTI (urinary tract infection) Code(s): N39.0 - URINARY TRACT INFECTION, SITE NOT SPECIFIED Qualifiers: Urinary tract infection type: site unspecified (8) Anemia Code(s): D64.9 - ANEMIA, UNSPECIFIED Qualifiers: Anemia type: due to chronic kidney disease (9) Pneumonia Code(s): J18.9 - PNEUMONIA, UNSPECIFIED ORGANISM (10) Hyponatremia Code(s): E87.1 - HYPO-OSMOLALITY AND HYPONATREMIA Assessment/Plan 1. RLL Pneumonia, UTI 2. Jocelyn's Granulomatosis/pulmonary renal disease 3. Chronic Respiratory Failure 4. ESRD on HD 5. HTN 6. DM 7. Chol P: 1. Continue antibiotic course per ID and C&S 2. BD, oral steroids, O2 to keep SpO2 >90% 3. HD per renal with Midodrine 5 bid 4. DVT prophylaxis
--- NOTE | 2017-11-09 13:54 | PN ---
Progress Note, Physician Chief Complaint: ID Day 6 of antibiotics Definately improved since admission - Current Medication List Current Medications: Active Medications Acetaminophen (Tylenol -) 325 mg PO QID PRN PRN Reason: PAIN Last Admin: 11/06/17 23:54 Dose: 325 mg Acetaminophen (Ofirmev Injection -) 1,000 mg IVPB Q6H PRN PRN Reason: FEVER OR PAIN Albuterol/Ipratropium (Duoneb -) 1 amp NEB Q4H PRN PRN Reason: SHORTNESS OF BREATH Last Admin: 11/08/17 07:48 Dose: 1 amp Diphenhydramine HCl (Benadryl Oral Solution -) 25 mg PO TID PRN PRN Reason: FOR ITCHING Last Admin: 11/08/17 21:15 Dose: 25 mg Escitalopram Oxalate (Lexapro -) 5 mg PO DAILY [facility] Last Admin: 11/09/17 09:15 Dose: 5 mg Folic Acid (Folic Acid -) 1 mg PO DAILY [facility] Last Admin: 11/09/17 09:18 Dose: 1 mg Heparin Sodium (Porcine) (Heparin -) 5,000 unit SQ TID [facility] Last Admin: 11/09/17 06:52 Dose: 5,000 unit Cefepime HCl 1 gm/ Dextrose 100 mls @ 200 mls/hr IVPB DAILY [facility] Last Admin: 11/09/17 10:48 Dose: 200 mls/hr Lactulose (Cephulac (Oral Use)) 20 gm PO BID PRN PRN Reason: CONSTIPATION Loperamide HCl (Imodium Liquid -) 1 mg PO TID PRN PRN Reason: DIARRHEA Midodrine (Proamatine -) 5 mg PEG BID-MID [facility] Last Admin: 11/09/17 10:48 Dose: 5 mg Mirtazapine (Remeron -) 22.5 mg PO HS [facility] Last Admin: 11/08/17 21:16 Dose: 22.5 mg Nystatin (Mycostatin Cream -) 1 applic TP BID [facility] Last Admin: 11/09/17 09:18 Dose: 1 applic Oxycodone HCl (Roxicodone -) 5 mg PO Q8H PRN PRN Reason: PAIN Last Admin: 11/08/17 21:14 Dose: 5 mg Prednisone (Deltasone -) 3 mg PO BID [facility] Last Admin: 11/09/17 09:14 Dose: 3 mg Senna (Senna Oral Solution -) 8.8 mg PO BID [facility] Last Admin: 11/09/17 11:08 Dose: 8.8 mg Sevelamer Carbonate (Renvela -) 800 mg PO TIDCM [facility] Last Admin: 11/09/17 12:22 Dose: 800 mg - Objective Vital Signs: Vital Signs Temperature 97.0 F L 11/09/17 10:00 Pulse Rate 99 H 11/09/17 11:04 Respiratory Rate 20 11/09/17 10:00 Blood Pressure 102/63 11/09/17 10:00 O2 Sat by Pulse Oximetry (%) 97 11/09/17 11:04 Neck: Yes: Other (Trach) Respiratory: Yes: WNL, Regular, CTA Bilaterally. No: Rales, Rhonchi Gastrointestinal: Yes: Soft. No: Tenderness Labs: CBC, BMP 11/08/17 10:15 11/08/17 10:15 INR, PTT INR 1.03 (0.82-1.09) 11/03/17 10:40 Problem List - Problems (1) ESRD (end stage renal disease) Code(s): N18.6 - END STAGE RENAL DISEASE (2) Pneumonia Code(s): J18.9 - PNEUMONIA, UNSPECIFIED ORGANISM (3) Renal failure Code(s): N19 - UNSPECIFIED KIDNEY FAILURE Qualifiers: Renal failure chronicity: chronic Chronic kidney disease stage: on chronic dialysis Qualified Code(s): N18.6 - End stage renal disease; Z99.2 - Dependence on renal dialysis; Z99.2 - Dependence on renal dialysis; Z99.2 - Dependence on renal dialysis; Z99.2 - Dependence on renal dialysis (4) Sepsis Code(s): A41.9 - SEPSIS, UNSPECIFIED ORGANISM Qualifiers: Sepsis type: sepsis due to unspecified organism Qualified Code(s): A41.9 - Sepsis, unspecified organism Assessment/Plan Microbiology 11/03/17 Unknown Urine - Urine - Catheterized Urine Culture - Final Klebsiella Pneumoniae 11/03/17 22:00 Sputum - Endotracheal Suction W/O Vent Gram Stain - Final 11/03/17 22:00 Sputum - Endotracheal Suction W/O Vent Sputum Culture - Final Pseudomonas Aeruginosa Laboratory Tests 11/08/17 11/08/17 10:15 10:15 WBC 9.0 RBC 2.85 L Hct 27.1 L Plt Count 319 BUN 40 H D Creatinine 4.5 H D Assessment Vasculitis on steroids with tracheitis and possible acute PNA Psuedomonas Urinary tract infection Plan Advise stop Cefepime tomorrow and give Ciprofloxacin 500mg daily for another 72hours Debbie VALDEZ
--- NOTE | 2017-11-09 15:47 | PN ---
Progress Note, Physician History of Present Illness: pulmonary alert,mildy dyspneic on trach collar - Current Medication List Current Medications: Active Medications Acetaminophen (Tylenol -) 325 mg PO QID PRN PRN Reason: PAIN Last Admin: 11/06/17 23:54 Dose: 325 mg Acetaminophen (Ofirmev Injection -) 1,000 mg IVPB Q6H PRN PRN Reason: FEVER OR PAIN Albuterol/Ipratropium (Duoneb -) 1 amp NEB Q4H PRN PRN Reason: SHORTNESS OF BREATH Last Admin: 11/08/17 07:48 Dose: 1 amp Diphenhydramine HCl (Benadryl Oral Solution -) 25 mg PO TID PRN PRN Reason: FOR ITCHING Last Admin: 11/08/17 21:15 Dose: 25 mg Escitalopram Oxalate (Lexapro -) 5 mg PO DAILY [facility] Last Admin: 11/09/17 09:15 Dose: 5 mg Folic Acid (Folic Acid -) 1 mg PO DAILY [facility] Last Admin: 11/09/17 09:18 Dose: 1 mg Heparin Sodium (Porcine) (Heparin -) 5,000 unit SQ TID [facility] Last Admin: 11/09/17 15:17 Dose: 5,000 unit Cefepime HCl 1 gm/ Dextrose 100 mls @ 200 mls/hr IVPB DAILY [facility] Last Admin: 11/09/17 10:48 Dose: 200 mls/hr Lactulose (Cephulac (Oral Use)) 20 gm PO BID PRN PRN Reason: CONSTIPATION Loperamide HCl (Imodium Liquid -) 1 mg PO TID PRN PRN Reason: DIARRHEA Midodrine (Proamatine -) 5 mg PEG BID-MID [facility] Last Admin: 11/09/17 10:48 Dose: 5 mg Mirtazapine (Remeron -) 22.5 mg PO HS [facility] Last Admin: 11/08/17 21:16 Dose: 22.5 mg Nystatin (Mycostatin Cream -) 1 applic TP BID [facility] Last Admin: 11/09/17 09:18 Dose: 1 applic Oxycodone HCl (Roxicodone -) 5 mg PO Q8H PRN PRN Reason: PAIN Last Admin: 11/08/17 21:14 Dose: 5 mg Prednisone (Deltasone -) 3 mg PO BID [facility] Last Admin: 11/09/17 09:14 Dose: 3 mg Senna (Senna Oral Solution -) 8.8 mg PO BID [facility] Last Admin: 11/09/17 11:08 Dose: 8.8 mg Sevelamer Carbonate (Renvela -) 800 mg PO TIDCM [facility] Last Admin: 11/09/17 12:22 Dose: 800 mg - Objective Vital Signs: Vital Signs Temperature 97.0 F L 11/09/17 10:00 Pulse Rate 99 H 11/09/17 11:04 Respiratory Rate 20 11/09/17 10:00 Blood Pressure 102/63 11/09/17 10:00 O2 Sat by Pulse Oximetry (%) 97 11/09/17 11:04 Constitutional: Yes: Well Nourished, Calm Eyes: Yes: WNL HENT: Yes: WNL Neck: Yes: Supple (trach) Cardiovascular: Yes: Regular Rate and Rhythm, S1, S2 Respiratory: Yes: Rhonchi (scattered laureano rhonchi) Gastrointestinal: Yes: Normal Bowel Sounds, Soft Extremities: Yes: WNL Edema: No Labs: CBC, BMP Problem List - Problems (1) ESRD (end stage renal disease) Code(s): N18.6 - END STAGE RENAL DISEASE (2) Hemodialysis access site with arteriovenous graft Code(s): Z99.2 - DEPENDENCE ON RENAL DIALYSIS (3) Pneumonia Code(s): J18.9 - PNEUMONIA, UNSPECIFIED ORGANISM (4) Respiratory failure Code(s): J96.90 - RESPIRATORY FAILURE, UNSP, UNSP W HYPOXIA OR HYPERCAPNIA Qualifiers: Chronicity: chronic (5) Jocelyn's granulomatosis (granulomatosis with polyangiitis) Code(s): M31.30 - JOCELYN'S GRANULOMATOSIS WITHOUT RENAL INVOLVEMENT Assessment/Plan A/P Pneumonia UTI Sepsis Jocelyn's Granulomatosis Chronic Respiratory Failure ESRD on HD HTN DM - antibiotics per ID - chest PT - pulmonary toilet - inhaled bronchodilators - prednisone 3mg BID - O2 to keep SpO2 >90% - HD per renal - DVT prophylaxis DR BLANDON
--- NOTE | 2017-11-09 16:18 | PN ---
Progress Note, Physician History of Present Illness: Pt seen and examined at bedside. She is awake and alert. - Current Medication List Current Medications: Active Medications Acetaminophen (Tylenol -) 325 mg PO QID PRN PRN Reason: PAIN Last Admin: 11/06/17 23:54 Dose: 325 mg Acetaminophen (Ofirmev Injection -) 1,000 mg IVPB Q6H PRN PRN Reason: FEVER OR PAIN Albuterol/Ipratropium (Duoneb -) 1 amp NEB Q4H PRN PRN Reason: SHORTNESS OF BREATH Last Admin: 11/08/17 07:48 Dose: 1 amp Diphenhydramine HCl (Benadryl Oral Solution -) 25 mg PO TID PRN PRN Reason: FOR ITCHING Last Admin: 11/08/17 21:15 Dose: 25 mg Escitalopram Oxalate (Lexapro -) 5 mg PO DAILY [facility] Last Admin: 11/09/17 09:15 Dose: 5 mg Folic Acid (Folic Acid -) 1 mg PO DAILY [facility] Last Admin: 11/09/17 09:18 Dose: 1 mg Heparin Sodium (Porcine) (Heparin -) 5,000 unit SQ TID [facility] Last Admin: 11/09/17 15:17 Dose: 5,000 unit Cefepime HCl 1 gm/ Dextrose 100 mls @ 200 mls/hr IVPB DAILY [facility] Last Admin: 11/09/17 10:48 Dose: 200 mls/hr Lactulose (Cephulac (Oral Use)) 20 gm PO BID PRN PRN Reason: CONSTIPATION Loperamide HCl (Imodium Liquid -) 1 mg PO TID PRN PRN Reason: DIARRHEA Midodrine (Proamatine -) 5 mg PEG BID-MID [facility] Last Admin: 11/09/17 10:48 Dose: 5 mg Mirtazapine (Remeron -) 22.5 mg PO HS [facility] Last Admin: 11/08/17 21:16 Dose: 22.5 mg Nystatin (Mycostatin Cream -) 1 applic TP BID [facility] Last Admin: 11/09/17 09:18 Dose: 1 applic Oxycodone HCl (Roxicodone -) 5 mg PO Q8H PRN PRN Reason: PAIN Last Admin: 11/08/17 21:14 Dose: 5 mg Prednisone (Deltasone -) 3 mg PO BID [facility] Last Admin: 11/09/17 09:14 Dose: 3 mg Senna (Senna Oral Solution -) 8.8 mg PO BID [facility] Last Admin: 11/09/17 11:08 Dose: 8.8 mg Sevelamer Carbonate (Renvela -) 800 mg PO TIDCM [facility] Last Admin: 11/09/17 12:22 Dose: 800 mg - Objective Vital Signs: Vital Signs Temperature 98.3 F 11/09/17 15:54 Pulse Rate 103 H 11/09/17 15:54 Respiratory Rate 20 11/09/17 10:00 Blood Pressure 107/56 11/09/17 15:54 O2 Sat by Pulse Oximetry (%) 97 11/09/17 11:04 Constitutional: Yes: Calm Eyes: Yes: Conjunctiva Clear HENT: Yes: Atraumatic Cardiovascular: Yes: S1, S2 Respiratory: Yes: Wheezes, Other (trache) Gastrointestinal: Yes: Normal Bowel Sounds, Soft, Abdomen, Obese Genitourinary: Yes: Incontinence Musculoskeletal: Yes: WNL Edema: No Neurological: Yes: Oriented Psychiatric: Yes: Oriented Labs: CBC, BMP 11/08/17 10:15 11/08/17 10:15 INR, PTT INR 1.03 (0.82-1.09) 11/03/17 10:40 Problem List - Problems (1) Respiratory failure Code(s): J96.90 - RESPIRATORY FAILURE, UNSP, UNSP W HYPOXIA OR HYPERCAPNIA (2) ESRD (end stage renal disease) Code(s): N18.6 - END STAGE RENAL DISEASE (3) Sepsis Code(s): A41.9 - SEPSIS, UNSPECIFIED ORGANISM Qualifiers: Sepsis type: sepsis due to unspecified organism Qualified Code(s): A41.9 - Sepsis, unspecified organism (4) Jocelyn's granulomatosis (granulomatosis with polyangiitis) Code(s): M31.30 - JOCELYN'S GRANULOMATOSIS WITHOUT RENAL INVOLVEMENT Assessment/Plan Current Medications Generic Name Dose Route Start Last Admin Trade Name Freq PRN Reason Stop Dose Admin Acetaminophen 325 mg 11/05/17 19:02 11/06/17 23:54 Tylenol - PO 325 mg QID PRN Administration PAIN Acetaminophen 1,000 mg 11/05/17 19:02 Ofirmev Injection - IVPB Q6H PRN FEVER OR PAIN Albuterol/Ipratropium 1 amp 11/05/17 19:02 11/08/17 07:48 Duoneb - NEB 1 amp Q4H PRN Administration SHORTNESS OF BREATH Diphenhydramine HCl 25 mg 11/05/17 19:02 11/08/17 21:15 Benadryl Oral Solution - PO 25 mg TID PRN Administration FOR ITCHING Escitalopram Oxalate 5 mg 11/06/17 10:00 11/09/17 09:15 Lexapro - PO 5 mg DAILY [facility] Administration Folic Acid 1 mg 11/06/17 10:00 11/09/17 09:18 Folic Acid - PO 1 mg DAILY [facility] Administration Heparin Sodium (Porcine) 5,000 unit 11/05/17 22:00 11/09/17 15:17 Heparin - SQ 5,000 unit TID [facility] Administration Cefepime HCl 1 gm/ Dextrose 100 mls @ 200 mls/hr 11/07/17 10:00 11/09/17 10: 48 IVPB 200 mls/hr DAILY [facility] Administration Lactulose 20 gm 11/05/17 19:02 Cephulac (Oral Use) PO BID PRN CONSTIPATION Loperamide HCl 1 mg 11/05/17 19:02 Imodium Liquid - PO TID PRN DI[facility] Midodrine 5 mg 11/06/17 10:00 11/09/17 10:48 Proamatine - PEG 5 mg BID-MID [facility] Administration Mirtazapine 22.5 mg 11/05/17 22:00 11/08/17 21:16 Remeron - PO 22.5 mg HS [facility] Administration Nystatin 1 applic 11/05/17 22:00 11/09/17 09:18 Mycostatin Cream - TP 1 applic BID [facility] Administration Oxycodone HCl 5 mg 11/08/17 21:00 11/08/17 21:14 Roxicodone - PO 5 mg Q8H PRN Administration PAIN Prednisone 3 mg 11/05/17 22:00 11/09/17 09:14 Deltasone - PO 3 mg BID [facility] Administration Senna 8.8 mg 11/05/17 22:00 11/09/17 11:08 Senna Oral Solution - PO 8.8 mg BID [facility] Administration Sevelamer Carbonate 800 mg 11/06/17 08:00 11/09/17 12:22 Renvela - PO 800 mg TIDCM [facility] Administration Impression 1. 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 chronic resp failure 4. htn 5. chol 6. obesity 7. anemia 8. hypoxia Plan - will arrange for HD in am - cont abx - monnitor pulse ox - monitor BP - HD prescription: AVF 2 k bath 3.5 hrs heparin 1999 - will follow pt Dr Trotter
[2017-11-09] MEDS: ALBUTEROL SO4 2.5/IPRATROPIUM 0.5 INH SOL 3 ML VIAL.NEB. NEB PRN ×2 (19:36→21:50)
[2017-11-09] MEDS: MIRTAZAPINE 15 MG TABLET (FP) PO SCH (21:22)
[2017-11-10] MEDS: ALBUTEROL SO4 2.5/IPRATROPIUM 0.5 INH SOL 3 ML VIAL.NEB. NEB PRN (06:45)
[2017-11-10] MEDS: HEPARIN NA (PORCINE) 5,000 UNITS/ML 1ML VIAL SQ SCH ×3 (06:57→22:14)
[2017-11-10] MEDS ORDERED: HEPARIN NA (PORCINE) 5,000 UNITS/ML 1ML VIAL IVPUSH ONE (08:15)
[2017-11-10] MEDS: SEVELAMER CARBONATE 800 MG TAB (FP) PO SCH ×3 (08:29→18:54)
[2017-11-10 09:54] LABS: HEMATOCRIT 25.1 % (32.4-45.2); HEMOGLOBIN 7.9 GM/dL (10.7-15.3); MCH 29.9 pg (25.7-33.7); MCHC 31.5 g/dl (32.0-36.0); MEAN CELL VOLUME 95.2 fl (80-96); MEAN PLT VOLUME 6.3 fl (7.5-11.1); PLATELET COUNT 292 K/MM3 (134-434); RBC 2.64 M/mm3 (3.60-5.2); RDW 15.7 % (11.6-15.6); WHITE BLOOD COUNT 10.5 K/mm3 (4.0-10.0)
--- NOTE | 2017-11-10 10:08 | PN ---
Progress Note (short form) - Note Progress Note: pt seen in dialysis today No complaints offered Feels better Denies chest pain although follow-ups are noted and appreciated Vital Signs Temp 98 F 11/10/17 06:00 Pulse 100 H 11/10/17 06:00 Resp 18 11/10/17 06:00 BP 128/63 11/10/17 06:00 Pulse Ox 99 11/09/17 22:05 Intake & Output 11/09/17 11/09/17 11/10/17 11:59 23:59 11:59 Intake Total 960 350 Balance 960 350 Intake: Oral 960 350 Other: Voiding Method Incontinent Incontinent Incontinent # Unmeasured Voids Straight Cath 1 1 Void 2 1 Bowel Movement No No No Active Medications Acetaminophen (Tylenol -) 325 mg PO QID PRN PRN Reason: PAIN Last Admin: 11/06/17 23:54 Dose: 325 mg Acetaminophen (Ofirmev Injection -) 1,000 mg IVPB Q6H PRN PRN Reason: FEVER OR PAIN Albuterol/Ipratropium (Duoneb -) 1 amp NEB Q4H PRN PRN Reason: SHORTNESS OF BREATH Last Admin: 11/10/17 06:45 Dose: 1 amp Diphenhydramine HCl (Benadryl Oral Solution -) 25 mg PO TID PRN PRN Reason: FOR ITCHING Last Admin: 11/08/17 21:15 Dose: 25 mg Escitalopram Oxalate (Lexapro -) 5 mg PO DAILY [facility] Last Admin: 11/09/17 09:15 Dose: 5 mg Folic Acid (Folic Acid -) 1 mg PO DAILY [facility] Last Admin: 11/09/17 09:18 Dose: 1 mg Heparin Sodium (Porcine) (Heparin -) 5,000 unit SQ TID [facility] Last Admin: 11/10/17 06:57 Dose: 5,000 unit Cefepime HCl 1 gm/ Dextrose 100 mls @ 200 mls/hr IVPB DAILY [facility] Last Admin: 11/09/17 10:48 Dose: 200 mls/hr Lactulose (Cephulac (Oral Use)) 20 gm PO BID PRN PRN Reason: CONSTIPATION Loperamide HCl (Imodium Liquid -) 1 mg PO TID PRN PRN Reason: DIARRHEA Midodrine (Proamatine -) 5 mg PEG BID-MID [facility] Last Admin: 11/09/17 17:59 Dose: 5 mg Mirtazapine (Remeron -) 22.5 mg PO HS [facility] Last Admin: 11/09/17 21:22 Dose: 22.5 mg Nystatin (Mycostatin Cream -) 1 applic TP BID [facility] Last Admin: 11/09/17 21:23 Dose: 1 applic Oxycodone HCl (Roxicodone -) 5 mg PO Q8H PRN PRN Reason: PAIN Last Admin: 11/08/17 21:14 Dose: 5 mg Prednisone (Deltasone -) 3 mg PO BID [facility] Last Admin: 11/09/17 21:23 Dose: 3 mg Senna (Senna Oral Solution -) 8.8 mg PO BID [facility] Last Admin: 11/09/17 21:23 Dose: 8.8 mg Sevelamer Carbonate (Renvela -) 800 mg PO TIDCM [facility] Last Admin: 11/10/17 08:29 Dose: 800 mg CBC, BMP 11/10/17 09:00 Physical Examination Constitutional: Yes: awake/ comfortable. Neck: Yes: Supple, Other (s/p trach). Cardiovascular: Yes: Regular Rate and Rhythm Respiratory: Yes: Diminished at bases-- clear Gastrointestinal: Yes: Soft, Abdomen, Obese, Other (peg +) Edema: LLE: 1+, RLE: 1+ Right heel -- stage 2 --dressing + Neurological: Yes: Alert/AWAKE Assessment/Plan clinically MUCH BETTER Continue abx--switch to by mouth as per ID frequent suctioning. pulmonary toilet. i/d on case discussed with nursing staff also. decubitus precautions. overall much better discharge planning in progress. Discussed with case reviewer Medically stable for discharge--- when bed is available- Will follow Problem List - Problems (1) Obesity Code(s): E66.9 - OBESITY, UNSPECIFIED (2) Pneumonia Code(s): J18.9 - PNEUMONIA, UNSPECIFIED ORGANISM Qualifiers: Laterality: right Lung location: lower lobe of lung (3) Renal failure Code(s): N19 - UNSPECIFIED KIDNEY FAILURE Qualifiers: Renal failure chronicity: chronic Chronic kidney disease stage: on chronic dialysis Qualified Code(s): N18.6 - End stage renal disease; Z99.2 - Dependence on renal dialysis; Z99.2 - Dependence on renal dialysis; Z99.2 - Dependence on renal dialysis; Z99.2 - Dependence on renal dialysis (4) Respiratory failure Code(s): J96.90 - RESPIRATORY FAILURE, UNSP, UNSP W HYPOXIA OR HYPERCAPNIA Qualifiers: Chronicity: chronic (5) Sepsis Code(s): A41.9 - SEPSIS, UNSPECIFIED ORGANISM Qualifiers: Sepsis type: sepsis due to unspecified organism Qualified Code(s): A41.9 - Sepsis, unspecified organism (6) Jocelyn's granulomatosis (granulomatosis with polyangiitis) Code(s): M31.30 - JOCELYN'S GRANULOMATOSIS WITHOUT RENAL INVOLVEMENT
[2017-11-10 10:19] LABS: ANION GAP 8 (8-16); BLOOD UREA NITROGEN 42 mg/dL (7-18); CALCIUM 8.9 mg/dL (8.5-10.1); CHLORIDE 101 mmol/L (98-107); CO2 29 mmol/L (21-32); GLUCOSE,RANDOM 103 mg/dL (74-106); POTASSIUM 3.8 mmol/L (3.5-5.1); SODIUM 138 mmol/L (136-145)
[2017-11-10] MEDS ORDERED: EPOETIN ALFA 2,000 UNIT/1 ML VIAL IVPUSH ONE (10:45)
--- NOTE | 2017-11-10 10:57 | PN ---
Progress Note, Physician History of Present Illness: Fevers, cough and sputum production from her trach improving. Pt denies chest pain, dyspnea, palpitations, orthopnea. - Current Medication List Current Medications: Active Medications Acetaminophen (Tylenol -) 325 mg PO QID PRN PRN Reason: PAIN Last Admin: 11/06/17 23:54 Dose: 325 mg Acetaminophen (Ofirmev Injection -) 1,000 mg IVPB Q6H PRN PRN Reason: FEVER OR PAIN Albuterol/Ipratropium (Duoneb -) 1 amp NEB Q4H PRN PRN Reason: SHORTNESS OF BREATH Last Admin: 11/10/17 06:45 Dose: 1 amp Diphenhydramine HCl (Benadryl Oral Solution -) 25 mg PO TID PRN PRN Reason: FOR ITCHING Last Admin: 11/08/17 21:15 Dose: 25 mg Escitalopram Oxalate (Lexapro -) 5 mg PO DAILY [facility] Last Admin: 11/09/17 09:15 Dose: 5 mg Folic Acid (Folic Acid -) 1 mg PO DAILY [facility] Last Admin: 11/09/17 09:18 Dose: 1 mg Heparin Sodium (Porcine) (Heparin -) 5,000 unit SQ TID [facility] Last Admin: 11/10/17 06:57 Dose: 5,000 unit Cefepime HCl 1 gm/ Dextrose 100 mls @ 200 mls/hr IVPB DAILY [facility] Last Admin: 11/09/17 10:48 Dose: 200 mls/hr Lactulose (Cephulac (Oral Use)) 20 gm PO BID PRN PRN Reason: CONSTIPATION Loperamide HCl (Imodium Liquid -) 1 mg PO TID PRN PRN Reason: DIARRHEA Midodrine (Proamatine -) 5 mg PEG BID-MID [facility] Last Admin: 11/09/17 17:59 Dose: 5 mg Mirtazapine (Remeron -) 22.5 mg PO HS [facility] Last Admin: 11/09/17 21:22 Dose: 22.5 mg Nystatin (Mycostatin Cream -) 1 applic TP BID [facility] Last Admin: 11/09/17 21:23 Dose: 1 applic Oxycodone HCl (Roxicodone -) 5 mg PO Q8H PRN PRN Reason: PAIN Last Admin: 11/08/17 21:14 Dose: 5 mg Prednisone (Deltasone -) 3 mg PO BID [facility] Last Admin: 11/09/17 21:23 Dose: 3 mg Senna (Senna Oral Solution -) 8.8 mg PO BID [facility] Last Admin: 11/09/17 21:23 Dose: 8.8 mg Sevelamer Carbonate (Renvela -) 800 mg PO TIDCM [facility] Last Admin: 11/10/17 08:29 Dose: 800 mg - Objective Vital Signs: Vital Signs Temperature 98 F 11/10/17 06:00 Pulse Rate 100 H 11/10/17 06:00 Respiratory Rate 18 11/10/17 06:00 Blood Pressure 128/63 11/10/17 06:00 O2 Sat by Pulse Oximetry (%) 99 11/09/17 22:05 Constitutional: Yes: No Distress, Calm Neck: Yes: Supple, Other (Trach collar) Cardiovascular: Yes: Regular Rate and Rhythm Respiratory: Yes: Regular, Diminished Gastrointestinal: Yes: Normal Bowel Sounds, Soft, Abdomen, Obese Edema: No Labs: CBC, BMP 11/10/17 09:00 11/10/17 09:00 INR, PTT INR 1.03 (0.82-1.09) 11/03/17 10:40 Problem List - Problems (1) ESRD (end stage renal disease) Code(s): N18.6 - END STAGE RENAL DISEASE (2) Granulomatosis with polyangiitis with renal involvement Code(s): M31.31 - JOCELYN'S GRANULOMATOSIS WITH RENAL INVOLVEMENT (3) Renal failure Code(s): N19 - UNSPECIFIED KIDNEY FAILURE Qualifiers: Renal failure chronicity: chronic Chronic kidney disease stage: on chronic dialysis Qualified Code(s): N18.6 - End stage renal disease; Z99.2 - Dependence on renal dialysis; Z99.2 - Dependence on renal dialysis; Z99.2 - Dependence on renal dialysis; Z99.2 - Dependence on renal dialysis (4) Respiratory failure Code(s): J96.90 - RESPIRATORY FAILURE, UNSP, UNSP W HYPOXIA OR HYPERCAPNIA Qualifiers: Chronicity: chronic (5) Sepsis Code(s): A41.9 - SEPSIS, UNSPECIFIED ORGANISM Qualifiers: Sepsis type: sepsis due to unspecified organism Qualified Code(s): A41.9 - Sepsis, unspecified organism (6) Jocelyn's granulomatosis (granulomatosis with polyangiitis) Code(s): M31.30 - JOCELYN'S GRANULOMATOSIS WITHOUT RENAL INVOLVEMENT (7) UTI (urinary tract infection) Code(s): N39.0 - URINARY TRACT INFECTION, SITE NOT SPECIFIED Qualifiers: Urinary tract infection type: site unspecified (8) Anemia Code(s): D64.9 - ANEMIA, UNSPECIFIED Qualifiers: Anemia type: due to chronic kidney disease (9) Pneumonia Code(s): J18.9 - PNEUMONIA, UNSPECIFIED ORGANISM Qualifiers: Laterality: right Lung location: lower lobe of lung Assessment/Plan 1. RLL Pneumonia, UTI resolving 2. Jocelyn's Granulomatosis/pulmonary renal disease 3. Chronic Respiratory Failure 4. ESRD on HD 5. HTN 6. DM 7. Chol P: 1. Continue antibiotic course per ID and C&S 2. BD, oral steroids, O2 to keep SpO2 >90%, chest PT and pulmonary toilet 3. HD per renal with Midodrine 5 bid 4. DVT prophylaxis
[2017-11-10] MEDS: CEFEPIME 1 GM in DEXTROSE 5%-WATER - 100 ML IVPB SCH (14:22)
[2017-11-10] MEDS: oxyCODONE HCL 5 MG TABLET PO PRN ×2 (15:10→23:54)
[2017-11-10] MEDS: ACETAMINOPHEN 325 MG TABLET (FP) PO PRN ×2 (15:11→23:55)
[2017-11-10] MEDS: ESCITALOPRAM OXALATE 10 MG TABLET (FP) PO SCH (15:11)
[2017-11-10] MEDS: FOLIC ACID 1 MG TABLET (FP) PO SCH (15:11)
[2017-11-10] MEDS: predniSONE 1 MG TABLET (FP) PO SCH ×2 (15:12→22:14)
[2017-11-10] MEDS: MIDODRINE HCL 5 MG TABLET PEG SCH ×2 (15:12→18:54)
[2017-11-10] MEDS: NYSTATIN 100,000 UNIT/GM TOPICAL CREAM 15 GM TUBE TP SCH ×2 (15:12→22:15)
[2017-11-10] MEDS: SENNOSIDES 8.8 MG/5 ML BULK BOTTLE PO SCH ×2 (15:13→22:23)
--- NOTE | 2017-11-10 15:40 | PN ---
Progress Note, Physician History of Present Illness: Pt seen and examined at bedside. She is awake and alert. She appears comfortable. - Current Medication List Current Medications: Active Medications Acetaminophen (Tylenol -) 325 mg PO QID PRN PRN Reason: PAIN Last Admin: 11/10/17 15:11 Dose: 325 mg Acetaminophen (Ofirmev Injection -) 1,000 mg IVPB Q6H PRN PRN Reason: FEVER OR PAIN Albuterol/Ipratropium (Duoneb -) 1 amp NEB Q4H PRN PRN Reason: SHORTNESS OF BREATH Last Admin: 11/10/17 06:45 Dose: 1 amp Ciprofloxacin (Cipro (Restricted To Id)) 500 mg PO DAILY [facility] Diphenhydramine HCl (Benadryl Oral Solution -) 25 mg PO TID PRN PRN Reason: FOR ITCHING Last Admin: 11/08/17 21:15 Dose: 25 mg Escitalopram Oxalate (Lexapro -) 5 mg PO DAILY [facility] Last Admin: 11/10/17 15:11 Dose: 5 mg Folic Acid (Folic Acid -) 1 mg PO DAILY [facility] Last Admin: 11/10/17 15:11 Dose: 1 mg Heparin Sodium (Porcine) (Heparin -) 5,000 unit SQ TID [facility] Last Admin: 11/10/17 15:13 Dose: 5,000 unit Lactulose (Cephulac (Oral Use)) 20 gm PO BID PRN PRN Reason: CONSTIPATION Loperamide HCl (Imodium Liquid -) 1 mg PO TID PRN PRN Reason: DIARRHEA Midodrine (Proamatine -) 5 mg PEG BID-MID [facility] Last Admin: 11/10/17 15:12 Dose: Not Given Mirtazapine (Remeron -) 22.5 mg PO HS [facility] Last Admin: 11/09/17 21:22 Dose: 22.5 mg Nystatin (Mycostatin Cream -) 1 applic TP BID [facility] Last Admin: 11/10/17 15:12 Dose: 1 applic Oxycodone HCl (Roxicodone -) 5 mg PO Q8H PRN PRN Reason: PAIN Last Admin: 11/10/17 15:10 Dose: 5 mg Prednisone (Deltasone -) 3 mg PO BID [facility] Last Admin: 11/10/17 15:12 Dose: Not Given Senna (Senna Oral Solution -) 8.8 mg PO BID [facility] Last Admin: 11/10/17 15:13 Dose: Not Given Sevelamer Carbonate (Renvela -) 800 mg PO TIDCM [facility] Last Admin: 11/10/17 15:12 Dose: 800 mg - Objective Vital Signs: Vital Signs Temperature 97.8 F 11/10/17 14:44 Pulse Rate 116 H 11/10/17 14:44 Respiratory Rate 18 11/10/17 13:00 Blood Pressure 109/57 11/10/17 14:44 O2 Sat by Pulse Oximetry (%) 99 11/10/17 10:00 Constitutional: Yes: Calm Eyes: Yes: Conjunctiva Clear HENT: Yes: Other (trache) Cardiovascular: Yes: S1, S2 Respiratory: Yes: Other (on trache) Gastrointestinal: Yes: Soft, Abdomen, Obese Genitourinary: Yes: WNL Musculoskeletal: Yes: Muscle Weakness Edema: No Neurological: Yes: Oriented Psychiatric: Yes: Oriented Labs: CBC, BMP 11/10/17 09:00 11/10/17 09:00 INR, PTT INR 1.03 (0.82-1.09) 11/03/17 10:40 Problem List - Problems (1) Respiratory failure Code(s): J96.90 - RESPIRATORY FAILURE, UNSP, UNSP W HYPOXIA OR HYPERCAPNIA (2) ESRD (end stage renal disease) Code(s): N18.6 - END STAGE RENAL DISEASE (3) Sepsis Code(s): A41.9 - SEPSIS, UNSPECIFIED ORGANISM Qualifiers: Sepsis type: sepsis due to unspecified organism Qualified Code(s): A41.9 - Sepsis, unspecified organism (4) Jocelyn's granulomatosis (granulomatosis with polyangiitis) Code(s): M31.30 - JOCELYN'S GRANULOMATOSIS WITHOUT RENAL INVOLVEMENT Assessment/Plan Current Medications Generic Name Dose Route Start Last Admin Trade Name Freq PRN Reason Stop Dose Admin Acetaminophen 325 mg 11/05/17 19:02 11/10/17 15:11 Tylenol - PO 325 mg QID PRN Administration PAIN Acetaminophen 1,000 mg 11/05/17 19:02 Ofirmev Injection - IVPB Q6H PRN FEVER OR PAIN Albuterol/Ipratropium 1 amp 11/05/17 19:02 11/10/17 06:45 Duoneb - NEB 1 amp Q4H PRN Administration SHORTNESS OF BREATH Ciprofloxacin 500 mg 11/11/17 10:00 Cipro (Restricted To Id) PO DAILY [facility] Diphenhydramine HCl 25 mg 11/05/17 19:02 11/08/17 21:15 Benadryl Oral Solution - PO 25 mg TID PRN Administration FOR ITCHING Escitalopram Oxalate 5 mg 11/06/17 10:00 11/10/17 15:11 Lexapro - PO 5 mg DAILY [facility] Administration Folic Acid 1 mg 11/06/17 10:00 11/10/17 15:11 Folic Acid - PO 1 mg DAILY [facility] Administration Heparin Sodium (Porcine) 5,000 unit 11/05/17 22:00 11/10/17 15:13 Heparin - SQ 5,000 unit TID [facility] Administration Lactulose 20 gm 11/05/17 19:02 Cephulac (Oral Use) PO BID PRN CONSTIP[facility] Loperamide HCl 1 mg 11/05/17 19:02 Imodium Liquid - PO TID PRN DI[facility] Midodrine 5 mg 11/06/17 10:00 11/10/17 15:12 Proamatine - PEG Not Given BID-MID [facility] Mirtazapine 22.5 mg 11/05/17 22:00 11/09/17 21:22 Remeron - PO 22.5 mg HS [facility] Administration Nystatin 1 applic 11/05/17 22:00 11/10/17 15:12 Mycostatin Cream - TP 1 applic BID [facility] Administration Oxycodone HCl 5 mg 11/08/17 21:00 11/10/17 15:10 Roxicodone - PO 5 mg Q8H PRN Administration PAIN Prednisone 3 mg 11/05/17 22:00 11/10/17 15:12 Deltasone - PO Not Given BID [facility] Senna 8.8 mg 11/05/17 22:00 11/10/17 15:13 Senna Oral Solution - PO Not Given BID [facility] Sevelamer Carbonate 800 mg 11/06/17 08:00 11/10/17 15:12 Renvela - PO 800 mg TIDCM [facility] Administration Impression 1. 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 chronic resp failure 4. htn 5. chol 6. obesity 7. anemia 8. hypoxia Plan - pt tolerated HD today - next HD on [place] for holiday schedule - cont current meds - daughter at bedside and case discussed with her - gabrielle pulse ox - monitor BP - HD prescription: AVF 2 k bath 3.5 hrs heparin 1999 - will follow pt Dr Trotter
[2017-11-10] MEDS: MIRTAZAPINE 15 MG TABLET (FP) PO SCH (22:15)
[2017-11-11] MEDS: HEPARIN NA (PORCINE) 5,000 UNITS/ML 1ML VIAL SQ SCH ×3 (06:28→22:02)
--- NOTE | 2017-11-11 09:47 | PN ---
Progress Note (short form) - Note Progress Note: Chief Complaint: Events noted, notes reviewed, denies any chest pain, dyspnea improved but not resolved History of Present Illness: Seen and examined. Events noted, notes reviewed, denies any chest pain, dyspnea improved but not resolved - Current Medication List Current Medications Acetaminophen (Tylenol -) 325 mg PO QID PRN PRN Reason: PAIN Last Admin: 11/10/17 23:55 Dose: 325 mg Acetaminophen (Ofirmev Injection -) 1,000 mg IVPB Q6H PRN PRN Reason: FEVER OR PAIN Ciprofloxacin (Cipro (Restricted To Id)) 500 mg PO DAILY [facility] Diphenhydramine HCl (Benadryl Oral Solution -) 25 mg PO TID PRN PRN Reason: FOR ITCHING Last Admin: 11/08/17 21:15 Dose: 25 mg Escitalopram Oxalate (Lexapro -) 5 mg PO DAILY [facility] Last Admin: 11/10/17 15:11 Dose: 5 mg Folic Acid (Folic Acid -) 1 mg PO DAILY [facility] Last Admin: 11/10/17 15:11 Dose: 1 mg Heparin Sodium (Porcine) (Heparin -) 5,000 unit SQ TID [facility] Last Admin: 11/11/17 06:28 Dose: 5,000 unit Lactulose (Cephulac (Oral Use)) 20 gm PO BID PRN PRN Reason: CONSTIPATION Loperamide HCl (Imodium Liquid -) 1 mg PO TID PRN PRN Reason: DIARRHEA Midodrine (Proamatine -) 5 mg PEG BID-MID [facility] Last Admin: 11/10/17 18:54 Dose: 5 mg Mirtazapine (Remeron -) 22.5 mg PO HS [facility] Last Admin: 11/10/17 22:15 Dose: 22.5 mg Nystatin (Mycostatin Cream -) 1 applic TP BID [facility] Last Admin: 11/10/17 22:15 Dose: 1 applic Oxycodone HCl (Roxicodone -) 5 mg PO Q8H PRN PRN Reason: PAIN Last Admin: 11/10/17 23:54 Dose: 5 mg Prednisone (Deltasone -) 3 mg PO BID [facility] Last Admin: 11/10/17 22:14 Dose: 3 mg Senna (Senna Oral Solution -) 8.8 mg PO BID [facility] Last Admin: 11/10/17 22:23 Dose: Not Given Sevelamer Carbonate (Renvela -) 800 mg PO TIDCM [facility] Last Admin: 11/10/17 18:54 Dose: 800 mg Review of Systems Cardiovascular: As noted above Respiratory: denies: Cough or Sputum Production Gastrointestinal: denies: Nausea, Vomiting, Diarrhea, Constipation or Abdominal Discomfort Musculoskeletal: No Symptoms Reported Endocrine: No Symptoms Reported - Objective Vital Signs: Last Vital Signs Temp Pulse Resp BP Pulse Ox 97.2 F L 111 H 20 109/65 99 11/11/17 06:43 11/11/17 06:43 11/11/17 06:43 11/11/17 06:43 11/10/17 23:35 Intake & Output 11/08/17 11/09/17 11/10/17 11/11/17 23:59 23:59 23:59 23:59 Intake Total 0381 907 2528 400 Balance 3129 846 1077 400 Constitutional: No Distress, Calm, Thin Neck: Supple Negative JVD No Bruit Respiratory: Diminished Breath Sounds at the Bases Bilaterally with Scattered Rhonchi Cardiovascular: S1 S2 Regular Rate and Rhythm Grade 3/6 MANDEEP Gastrointestinal: Soft Benign Normal Bowel Sounds Ext: No Edema Labs: CBC, BMP 11/10/17 09:00 11/10/17 09:00 Assessment/Plan ASSESSMENT: 1. Right lower lobe Pneumonia, resolving 2. Urinary tract infection, resolving 3. Jocelyn's Granulomatosis/pulmonary renal disease 4. Chronic Respiratory Failure, on tracheastomy 5. HTN, currently hypotensive requiring Midodrine therapy 6. DM 7. Hypercholesterolemia 8. ESRD on HD 9. Anemia PLAN: 1. Continue antibiotic course as per ID service 2. Bronchodilators and steroids as per primary team 3. Continue HD as per renal service, and continue Midodrine to assist with adequate BP maintenance 4. DVT prophylaxis as ordered Roro Benavides M.D.
[2017-11-11] MEDS: SEVELAMER CARBONATE 800 MG TAB (FP) PO SCH ×3 (10:55→17:41)
[2017-11-11] MEDS ORDERED: PT OWN MED DRAWER 7, Y5N ONE ×2 (10:58→21:12)
[2017-11-11] MEDS: FOLIC ACID 1 MG TABLET (FP) PO SCH (11:00)
[2017-11-11] MEDS: MIDODRINE HCL 5 MG TABLET PEG SCH ×2 (11:01→17:41)
[2017-11-11] MEDS: ESCITALOPRAM OXALATE 10 MG TABLET (FP) PO SCH (11:01)
[2017-11-11] MEDS: predniSONE 1 MG TABLET (FP) PO SCH ×2 (11:02→22:02)
[2017-11-11] MEDS: NYSTATIN 100,000 UNIT/GM TOPICAL CREAM 15 GM TUBE TP SCH ×2 (11:02→22:03)
[2017-11-11] MEDS: SENNOSIDES 8.8 MG/5 ML BULK BOTTLE PO SCH ×2 (11:03→22:03)
--- NOTE | 2017-11-11 11:34 | PN ---
Progress Note (short form) - Note Progress Note: PULMONARY APPEARS STABLE OFFERS NO COMPLAINTS PRESENT VSS/AFEBRILE ANICTERIC/TRACH SCATTERED CRACKLES B/L S1S2 OBESE LESS EDEMA B/L LOWER EXT CT/MEDS/NOTES/MICRO REVIEWED Pneumonia UTI Sepsis resolved Jocelyn's Granulomatosis Chronic Respiratory Failure ESRD on HD HTN DM - antibiotics per ID - chest PT - pulmonary toilet - inhaled bronchodilators - prednisone 3mg BID - O2 to keep SpO2 >90% - HD per renal - DVT prophylaxis Celena GLORIA MD Problem List - Problems (1) Pneumonia Code(s): J18.9 - PNEUMONIA, UNSPECIFIED ORGANISM Qualifiers: Laterality: right Lung location: lower lobe of lung (2) Sepsis Code(s): A41.9 - SEPSIS, UNSPECIFIED ORGANISM Qualifiers: Sepsis type: sepsis due to unspecified organism Qualified Code(s): A41.9 - Sepsis, unspecified organism (3) Jocelyn's granulomatosis (granulomatosis with polyangiitis) Code(s): M31.30 - JOCELYN'S GRANULOMATOSIS WITHOUT RENAL INVOLVEMENT (4) Respiratory failure Code(s): J96.90 - RESPIRATORY FAILURE, UNSP, UNSP W HYPOXIA OR HYPERCAPNIA Qualifiers: Chronicity: chronic (5) Renal failure Code(s): N19 - UNSPECIFIED KIDNEY FAILURE Qualifiers: Renal failure chronicity: chronic Chronic kidney disease stage: on chronic dialysis Qualified Code(s): N18.6 - End stage renal disease; Z99.2 - Dependence on renal dialysis; Z99.2 - Dependence on renal dialysis; Z99.2 - Dependence on renal dialysis; Z99.2 - Dependence on renal dialysis (6) Hemodialysis access site with arteriovenous graft Code(s): Z99.2 - DEPENDENCE ON RENAL DIALYSIS
--- NOTE | 2017-11-11 11:53 | PN ---
Progress Note (short form) - Note Progress Note: pt seen/ examined comfortable at bedside . afebrile Vital Signs Temp 97.2 F L 11/11/17 06:43 Pulse 111 H 11/11/17 06:43 Resp 20 11/11/17 06:43 BP 109/65 11/11/17 06:43 Pulse Ox 99 11/10/17 23:35 Intake & Output 11/10/17 11/10/17 11/11/17 11:59 23:59 11:59 Intake Total 350 800 400 Balance 350 800 400 Intake: Oral 350 800 400 Other: Voiding Method Incontinent Incontinent # Unmeasured Voids Straight Cath 0 Void 1 2 2 Bowel Movement No Yes: small No # Bowel Movements 1 Active Medications Acetaminophen (Tylenol -) 325 mg PO QID PRN PRN Reason: PAIN Last Admin: 11/10/17 23:55 Dose: 325 mg Acetaminophen (Ofirmev Injection -) 1,000 mg IVPB Q6H PRN PRN Reason: FEVER OR PAIN Ciprofloxacin (Cipro (Restricted To Id)) 500 mg PO DAILY [facility] Diphenhydramine HCl (Benadryl Oral Solution -) 25 mg PO TID PRN PRN Reason: FOR ITCHING Last Admin: 11/08/17 21:15 Dose: 25 mg Escitalopram Oxalate (Lexapro -) 5 mg PO DAILY [facility] Last Admin: 11/11/17 11:01 Dose: 5 mg Folic Acid (Folic Acid -) 1 mg PO DAILY [facility] Last Admin: 11/11/17 11:00 Dose: 1 mg Heparin Sodium (Porcine) (Heparin -) 5,000 unit SQ TID [facility] Last Admin: 11/11/17 06:28 Dose: 5,000 unit Lactulose (Cephulac (Oral Use)) 20 gm PO BID PRN PRN Reason: CONSTIPATION Loperamide HCl (Imodium Liquid -) 1 mg PO TID PRN PRN Reason: DIARRHEA Midodrine (Proamatine -) 5 mg PEG BID-MID [facility] Last Admin: 11/11/17 11:01 Dose: 5 mg Mirtazapine (Remeron -) 22.5 mg PO HS [facility] Last Admin: 11/10/17 22:15 Dose: 22.5 mg Nystatin (Mycostatin Cream -) 1 applic TP BID [facility] Last Admin: 11/11/17 11:02 Dose: 1 applic Oxycodone HCl (Roxicodone -) 5 mg PO Q8H PRN PRN Reason: PAIN Last Admin: 11/10/17 23:54 Dose: 5 mg Prednisone (Deltasone -) 3 mg PO BID [facility] Last Admin: 11/11/17 11:02 Dose: 3 mg Senna (Senna Oral Solution -) 8.8 mg PO BID [facility] Last Admin: 11/11/17 11:03 Dose: 8.8 mg Sevelamer Carbonate (Renvela -) 800 mg PO TIDCM [facility] Last Admin: 11/11/17 10:55 Dose: Not Given CBC, BMP 11/10/17 09:00 11/10/17 09:00 Physical Examination Constitutional: Yes: awake/ comfortable. Neck: Yes: Supple, Other (s/p trach). Cardiovascular: Yes: Regular Rate and Rhythm Respiratory: Yes: Diminished at bases-- Gastrointestinal: Yes: Soft, Abdomen, Obese, Other (peg +) Edema: trace Right heel -- stage 2 --dressing + Neurological: Yes: Alert/AWAKE Assessment/Plan clinically MUCH BETTER Continue abx--switch to by mouth as per ID--ordered but need i/d approval -- frequent suctioning. pulmonary toilet. discussed with nursing staff also. decubitus precautions. overall much better discharge planning in progress. family looking for places Medically stable for discharge--- when bed is available- Will follow Problem List - Problems (1) Obesity Code(s): E66.9 - OBESITY, UNSPECIFIED (2) Pneumonia Code(s): J18.9 - PNEUMONIA, UNSPECIFIED ORGANISM Qualifiers: Laterality: right Lung location: lower lobe of lung (3) Renal failure Code(s): N19 - UNSPECIFIED KIDNEY FAILURE Qualifiers: Renal failure chronicity: chronic Chronic kidney disease stage: on chronic dialysis Qualified Code(s): N18.6 - End stage renal disease; Z99.2 - Dependence on renal dialysis; Z99.2 - Dependence on renal dialysis; Z99.2 - Dependence on renal dialysis; Z99.2 - Dependence on renal dialysis (4) Respiratory failure Code(s): J96.90 - RESPIRATORY FAILURE, UNSP, UNSP W HYPOXIA OR HYPERCAPNIA Qualifiers: Chronicity: chronic (5) Sepsis Code(s): A41.9 - SEPSIS, UNSPECIFIED ORGANISM Qualifiers: Sepsis type: sepsis due to unspecified organism Qualified Code(s): A41.9 - Sepsis, unspecified organism (6) Jocelyn's granulomatosis (granulomatosis with polyangiitis) Code(s): M31.30 - JOCELYN'S GRANULOMATOSIS WITHOUT RENAL INVOLVEMENT
[2017-11-11] MEDS ORDERED: CIPROFLOXACIN 500 MG TABLET (RESTRICTED TO ID) PO SCH (12:30)
[2017-11-11] MEDS: oxyCODONE HCL 5 MG TABLET PO PRN ×2 (13:41→22:32)
[2017-11-11] MEDS: ACETAMINOPHEN 325 MG TABLET (FP) PO PRN (13:41)
[2017-11-11] MEDS: CIPROFLOXACIN 500 MG TABLET (RESTRICTED TO ID) PO SCH (13:42)
--- NOTE | 2017-11-11 18:46 | PN ---
Progress Note (short form) - Note Progress Note: esrd on hd tiw pna sepsis Active Medications Acetaminophen (Tylenol -) 325 mg PO QID PRN PRN Reason: PAIN Last Admin: 11/11/17 13:41 Dose: 325 mg Acetaminophen (Ofirmev Injection -) 1,000 mg IVPB Q6H PRN PRN Reason: FEVER OR PAIN Ciprofloxacin (Cipro (Restricted To Id)) 500 mg PO DAILY@1400 [facility] Last Admin: 11/11/17 13:42 Dose: 500 mg Diphenhydramine HCl (Benadryl Oral Solution -) 25 mg PO TID PRN PRN Reason: FOR ITCHING Last Admin: 11/08/17 21:15 Dose: 25 mg Escitalopram Oxalate (Lexapro -) 5 mg PO DAILY [facility] Last Admin: 11/11/17 11:01 Dose: 5 mg Folic Acid (Folic Acid -) 1 mg PO DAILY [facility] Last Admin: 11/11/17 11:00 Dose: 1 mg Heparin Sodium (Porcine) (Heparin -) 5,000 unit SQ TID [facility] Last Admin: 11/11/17 13:41 Dose: 5,000 unit Lactulose (Cephulac (Oral Use)) 20 gm PO BID PRN PRN Reason: CONSTIPATION Loperamide HCl (Imodium Liquid -) 1 mg PO TID PRN PRN Reason: DIARRHEA Midodrine (Proamatine -) 5 mg PEG BID-MID [facility] Last Admin: 11/11/17 17:41 Dose: 5 mg Mirtazapine (Remeron -) 22.5 mg PO HS [facility] Last Admin: 11/10/17 22:15 Dose: 22.5 mg Nystatin (Mycostatin Cream -) 1 applic TP BID [facility] Last Admin: 11/11/17 11:02 Dose: 1 applic Oxycodone HCl (Roxicodone -) 5 mg PO Q8H PRN PRN Reason: PAIN Last Admin: 11/11/17 13:41 Dose: 5 mg Prednisone (Deltasone -) 3 mg PO BID [facility] Last Admin: 11/11/17 11:02 Dose: 3 mg Senna (Senna Oral Solution -) 8.8 mg PO BID [facility] Last Admin: 11/11/17 11:03 Dose: 8.8 mg Sevelamer Carbonate (Renvela -) 800 mg PO TIDCM [facility] Last Admin: 11/11/17 17:41 Dose: 800 mg Last Vital Signs Temp Pulse Resp BP Pulse Ox 98.2 F 110 H 18 123/68 99 11/11/17 14:35 11/11/17 14:35 11/11/17 14:35 11/11/17 14:35 11/10/17 23:35 lungs clear Heart reg rate and rhythm abd soft nontender ext no edema CBC, BMP 11/10/17 09:00 11/10/17 09:00 Plan for HD tomorrow
[2017-11-11] MEDS: MIRTAZAPINE 15 MG TABLET (FP) PO SCH (22:03)
[2017-11-12] MEDS: ALBUTEROL SO4 2.5/IPRATROPIUM 0.5 INH SOL 3 ML VIAL.NEB. NEB PRN ×3 (02:42→23:04)
[2017-11-12] MEDS: HEPARIN NA (PORCINE) 5,000 UNITS/ML 1ML VIAL SQ SCH ×3 (06:26→22:09)
[2017-11-12] MEDS: SEVELAMER CARBONATE 800 MG TAB (FP) PO SCH ×3 (08:31→17:38)
[2017-11-12] MEDS ORDERED: PT OWN MED DRAWER 7, Y5N ONE ×3 (08:37→19:51)
--- NOTE | 2017-11-12 09:59 | PN ---
Progress Note (short form) - Note Progress Note: Chief Complaint: Events noted, notes reviewed, denies any chest pain, dyspnea is persistent for HD today History of Present Illness: Seen and examined. Events noted, notes reviewed, denies any chest pain, dyspnea is persistent for HD today - Current Medication List Current Medications Acetaminophen (Tylenol -) 325 mg PO QID PRN PRN Reason: PAIN Last Admin: 11/11/17 13:41 Dose: 325 mg Acetaminophen (Ofirmev Injection -) 1,000 mg IVPB Q6H PRN PRN Reason: FEVER OR PAIN Albuterol/Ipratropium (Duoneb -) 1 amp NEB Q4H PRN PRN Reason: SHORTNESS OF BREATH Stop: 11/12/17 10:00 Last Admin: 11/12/17 08:14 Dose: 1 amp Ciprofloxacin (Cipro (Restricted To Id)) 500 mg PO DAILY@1400 [facility] Last Admin: 11/11/17 13:42 Dose: 500 mg Diphenhydramine HCl (Benadryl Oral Solution -) 25 mg PO TID PRN PRN Reason: FOR ITCHING Last Admin: 11/08/17 21:15 Dose: 25 mg Escitalopram Oxalate (Lexapro -) 5 mg PO DAILY [facility] Last Admin: 11/11/17 11:01 Dose: 5 mg Folic Acid (Folic Acid -) 1 mg PO DAILY [facility] Last Admin: 11/11/17 11:00 Dose: 1 mg Heparin Sodium (Porcine) (Heparin -) 5,000 unit SQ TID [facility] Last Admin: 11/12/17 06:26 Dose: 5,000 unit Lactulose (Cephulac (Oral Use)) 20 gm PO BID PRN PRN Reason: CONSTIPATION Loperamide HCl (Imodium Liquid -) 1 mg PO TID PRN PRN Reason: DIARRHEA Midodrine (Proamatine -) 5 mg PEG BID-MID [facility] Last Admin: 11/11/17 17:41 Dose: 5 mg Mirtazapine (Remeron -) 22.5 mg PO HS [facility] Last Admin: 11/11/17 22:03 Dose: 22.5 mg Nystatin (Mycostatin Cream -) 1 applic TP BID [facility] Last Admin: 11/11/17 22:03 Dose: 1 applic Oxycodone HCl (Roxicodone -) 5 mg PO Q6H PRN PRN Reason: PAIN Stop: 11/12/17 22:08 Last Admin: 11/11/17 22:32 Dose: 5 mg Prednisone (Deltasone -) 3 mg PO BID [facility] Last Admin: 11/11/17 22:02 Dose: 3 mg Senna (Senna Oral Solution -) 8.8 mg PO BID [facility] Last Admin: 11/11/17 22:03 Dose: 8.8 mg Sevelamer Carbonate (Renvela -) 800 mg PO TIDCM [facility] Last Admin: 11/12/17 08:31 Dose: 800 mg Review of Systems Cardiovascular: As noted above Respiratory: denies: Cough or Sputum Production Gastrointestinal: denies: Nausea, Vomiting, Diarrhea, Constipation or Abdominal Discomfort Musculoskeletal: No Symptoms Reported Endocrine: No Symptoms Reported - Objective Vital Signs: Last Vital Signs Temp Pulse Resp BP Pulse Ox 98.4 F 105 H 22 140/88 97 11/12/17 08:54 11/12/17 08:54 11/12/17 08:54 11/12/17 08:54 11/11/17 21:00 Intake & Output 11/09/17 11/10/17 11/11/17 11/12/17 23:59 23:59 23:59 23:59 Intake Total 960 1150 1350 0 Balance 960 1150 1350 0 Constitutional: No Distress, Calm, Thin Neck: Supple Negative JVD No Bruit Respiratory: Diminished Breath Sounds at the Bases Bilaterally with Scattered Rhonchi Cardiovascular: S1 S2 Regular Rate and Rhythm Grade 3/6 MANDEEP Gastrointestinal: Soft Benign Normal Bowel Sounds Ext: No Edema Labs: CBC and BMP Hepatic Panel Total Bilirubin 0.3 mg/dL (0.2-1.0) 11/08/17 10:15 AST 9 U/L (15-37) L D 11/08/17 10:15 ALT 13 U/L (12-78) D 11/08/17 10:15 Alkaline Phosphatase 66 U/L (45-117) 11/08/17 10:15 Albumin 2.5 g/dl (3.4-5.0) L 11/08/17 10:15 Assessment/Plan ASSESSMENT: 1. Right lower lobe Pneumonia, resolving 2. Urinary tract infection, resolving 3. Jocelyn's Granulomatosis/pulmonary renal disease 4. Chronic Respiratory Failure, on tracheastomy 5. HTN, currently hypotensive requiring Midodrine therapy 6. DM 7. Hypercholesterolemia 8. ESRD on HD 9. Anemia PLAN: 1. Continue antibiotic course as per ID service 2. Bronchodilators and steroids as per primary team 3. Continue HD as per renal service, and continue Midodrine to assist with adequate BP maintenance 4. DVT prophylaxis as ordered Roro Benavides M.D.
[2017-11-12 10:29] LABS: ANION GAP 8 (8-16); BLOOD UREA NITROGEN 30 mg/dL (7-18); CALCIUM 8.8 mg/dL (8.5-10.1); CHLORIDE 99 mmol/L (98-107); CO2 30 mmol/L (21-32); CREATININE 4.3 mg/dL (0.55-1.02); GLUCOSE,RANDOM 133 mg/dL (74-106); POTASSIUM 3.8 mmol/L (3.5-5.1); SODIUM 137 mmol/L (136-145)
[2017-11-12 10:40] LABS: HEMATOCRIT 26.4 % (32.4-45.2); HEMOGLOBIN 8.3 GM/dL (10.7-15.3); MCH 29.9 pg (25.7-33.7); MCHC 31.4 g/dl (32.0-36.0); MEAN CELL VOLUME 95.4 fl (80-96); MEAN PLT VOLUME 6.6 fl (7.5-11.1); PLATELET COUNT 311 K/MM3 (134-434); RBC 2.77 M/mm3 (3.60-5.2); RDW 15.9 % (11.6-15.6); WHITE BLOOD COUNT 9.7 K/mm3 (4.0-10.0)
[2017-11-12] MEDS ORDERED: EPOETIN ALFA 10,000 UNIT/1 ML VIAL SQ ONE (12:00)
--- NOTE | 2017-11-12 12:58 | PN ---
Progress Note (short form) - Note Progress Note: pt seen in dialysis c/c - back pain no other issues breathing stable Vital Signs Temp 97.9 F 11/12/17 09:10 Pulse 104 H 11/12/17 11:15 Resp 18 11/12/17 11:15 BP 108/65 11/12/17 11:15 Pulse Ox 95 11/12/17 11:13 Intake & Output 11/11/17 11/12/17 11/12/17 23:59 11:59 23:59 Intake Total 950 0 Balance 950 0 Intake: IV 0 saline lock 0 IVPB 0 Oral 950 Other: Voiding Method Incontinent Incontinent # Unmeasured Voids Straight Cath 0 Void 2 Bowel Movement Yes No Active Medications Acetaminophen (Tylenol -) 325 mg PO QID PRN PRN Reason: PAIN Last Admin: 11/11/17 13:41 Dose: 325 mg Acetaminophen (Ofirmev Injection -) 1,000 mg IVPB Q6H PRN PRN Reason: FEVER OR PAIN Ciprofloxacin (Cipro (Restricted To Id)) 500 mg PO DAILY@1400 [facility] Last Admin: 11/11/17 13:42 Dose: 500 mg Diphenhydramine HCl (Benadryl Oral Solution -) 25 mg PO TID PRN PRN Reason: FOR ITCHING Last Admin: 11/08/17 21:15 Dose: 25 mg Escitalopram Oxalate (Lexapro -) 5 mg PO DAILY [facility] Last Admin: 11/11/17 11:01 Dose: 5 mg Folic Acid (Folic Acid -) 1 mg PO DAILY [facility] Last Admin: 11/11/17 11:00 Dose: 1 mg Heparin Sodium (Porcine) (Heparin -) 5,000 unit SQ TID [facility] Last Admin: 11/12/17 06:26 Dose: 5,000 unit Lactulose (Cephulac (Oral Use)) 20 gm PO BID PRN PRN Reason: CONSTIPATION Loperamide HCl (Imodium Liquid -) 1 mg PO TID PRN PRN Reason: DIARRHEA Midodrine (Proamatine -) 5 mg PEG BID-MID [facility] Last Admin: 11/11/17 17:41 Dose: 5 mg Mirtazapine (Remeron -) 22.5 mg PO HS [facility] Last Admin: 11/11/17 22:03 Dose: 22.5 mg Nystatin (Mycostatin Cream -) 1 applic TP BID [facility] Last Admin: 11/11/17 22:03 Dose: 1 applic Oxycodone HCl (Roxicodone -) 5 mg PO Q6H PRN PRN Reason: PAIN Stop: 11/12/17 22:08 Last Admin: 11/11/17 22:32 Dose: 5 mg Prednisone (Deltasone -) 3 mg PO BID [facility] Last Admin: 11/11/17 22:02 Dose: 3 mg Senna (Senna Oral Solution -) 8.8 mg PO BID [facility] Last Admin: 11/11/17 22:03 Dose: 8.8 mg Sevelamer Carbonate (Renvela -) 800 mg PO TIDCM [facility] Last Admin: 11/12/17 08:31 Dose: 800 mg CBC, BMP 11/12/17 09:25 11/12/17 09:25 Physical Examination Constitutional: Yes: awake/ comfortable. Neck: Yes: Supple, Other (s/p trach). Cardiovascular: Yes: Regular Rate and Rhythm Respiratory: Yes: Diminished at bases-- Gastrointestinal: Yes: Soft, Abdomen, Obese, Other (peg +) Edema: trace Right heel -- stage 2 --dressing + Neurological: Yes: Alert/AWAKE Assessment/Plan clinically stable Continue abx-on cipro frequent suctioning. pulmonary toilet. discussed with nursing staff also. decubitus precautions. overall much better pain control physical therapy decubitus precautions oob - chair discharge planning in progress. family looking for places Medically stable for discharge--- when bed is available- Will follow. had discussed with director of casework services discussed with nursing staff also. Problem List - Problems (1) Obesity Code(s): E66.9 - OBESITY, UNSPECIFIED (2) Pneumonia Code(s): J18.9 - PNEUMONIA, UNSPECIFIED ORGANISM Qualifiers: Laterality: right Lung location: lower lobe of lung (3) Renal failure Code(s): N19 - UNSPECIFIED KIDNEY FAILURE Qualifiers: Renal failure chronicity: chronic Chronic kidney disease stage: on chronic dialysis Qualified Code(s): N18.6 - End stage renal disease; Z99.2 - Dependence on renal dialysis; Z99.2 - Dependence on renal dialysis; Z99.2 - Dependence on renal dialysis; Z99.2 - Dependence on renal dialysis (4) Respiratory failure Code(s): J96.90 - RESPIRATORY FAILURE, UNSP, UNSP W HYPOXIA OR HYPERCAPNIA Qualifiers: Chronicity: chronic (5) Sepsis Code(s): A41.9 - SEPSIS, UNSPECIFIED ORGANISM Qualifiers: Sepsis type: sepsis due to unspecified organism Qualified Code(s): A41.9 - Sepsis, unspecified organism (6) Jocelyn's granulomatosis (granulomatosis with polyangiitis) Code(s): M31.30 - JOCELYN'S GRANULOMATOSIS WITHOUT RENAL INVOLVEMENT
[2017-11-12] MEDS: predniSONE 1 MG TABLET (FP) PO SCH ×2 (13:22→22:09)
[2017-11-12] MEDS: oxyCODONE HCL 5 MG TABLET PO PRN ×2 (13:22→19:34)
[2017-11-12] MEDS: FOLIC ACID 1 MG TABLET (FP) PO SCH (13:22)
[2017-11-12] MEDS: ESCITALOPRAM OXALATE 10 MG TABLET (FP) PO SCH (13:23)
[2017-11-12] MEDS: ACETAMINOPHEN 325 MG TABLET (FP) PO PRN ×2 (13:23→19:35)
[2017-11-12] MEDS: CIPROFLOXACIN 500 MG TABLET (RESTRICTED TO ID) PO SCH (13:24)
[2017-11-12] MEDS: MIDODRINE HCL 5 MG TABLET PEG SCH ×2 (13:25→17:41)
[2017-11-12] MEDS: SENNOSIDES 8.8 MG/5 ML BULK BOTTLE PO SCH ×2 (13:27→22:10)
[2017-11-12] MEDS: NYSTATIN 100,000 UNIT/GM TOPICAL CREAM 15 GM TUBE TP SCH ×2 (13:28→22:09)
--- NOTE | 2017-11-12 14:50 | PN ---
Progress Note (short form) - Note Progress Note: esrd on hd tiw pna sepsis Current Medications Acetaminophen (Tylenol -) 325 mg PO QID PRN PRN Reason: PAIN Last Admin: 11/12/17 13:23 Dose: 325 mg Acetaminophen (Ofirmev Injection -) 1,000 mg IVPB Q6H PRN PRN Reason: FEVER OR PAIN Ciprofloxacin (Cipro (Restricted To Id)) 500 mg PO DAILY@1400 [facility] Last Admin: 11/12/17 13:24 Dose: 500 mg Diphenhydramine HCl (Benadryl Oral Solution -) 25 mg PO TID PRN PRN Reason: FOR ITCHING Last Admin: 11/08/17 21:15 Dose: 25 mg Escitalopram Oxalate (Lexapro -) 5 mg PO DAILY [facility] Last Admin: 11/12/17 13:23 Dose: 5 mg Folic Acid (Folic Acid -) 1 mg PO DAILY [facility] Last Admin: 11/12/17 13:22 Dose: 1 mg Heparin Sodium (Porcine) (Heparin -) 5,000 unit SQ BID [facility] Lactulose (Cephulac (Oral Use)) 20 gm PO BID PRN PRN Reason: CONSTIPATION Loperamide HCl (Imodium Liquid -) 1 mg PO TID PRN PRN Reason: DIARRHEA Midodrine (Proamatine -) 5 mg PEG BID-MID [facility] Last Admin: 11/12/17 13:25 Dose: Not Given Mirtazapine (Remeron -) 22.5 mg PO HS [facility] Last Admin: 11/11/17 22:03 Dose: 22.5 mg Nystatin (Mycostatin Cream -) 1 applic TP BID [facility] Last Admin: 11/12/17 13:28 Dose: 1 applic Oxycodone HCl (Roxicodone -) 5 mg PO Q6H PRN PRN Reason: PAIN Stop: 11/12/17 22:08 Last Admin: 11/12/17 13:22 Dose: 5 mg Prednisone (Deltasone -) 3 mg PO BID [facility] Last Admin: 11/12/17 13:22 Dose: 3 mg Senna (Senna Oral Solution -) 8.8 mg PO BID [facility] Last Admin: 11/12/17 13:27 Dose: Not Given Sevelamer Carbonate (Renvela -) 800 mg PO TIDCM [facility] Last Admin: 11/12/17 13:24 Dose: 800 mg Last Vital Signs Temp Pulse Resp BP Pulse Ox 98.8 F 110 H 22 130/70 95 11/12/17 13:18 11/12/17 13:18 11/12/17 13:18 11/12/17 13:18 11/12/17 11:13 seen on dialysis Lungs clear Heart reg Abd soft notender Ext no edema CBC, BMP 11/12/17 09:25 11/12/17 09:25 esrd stable on hd Plan next hd wed
[2017-11-12] MEDS: MIRTAZAPINE 15 MG TABLET (FP) PO SCH (22:09)
[2017-11-13] MEDS: ALBUTEROL SO4 2.5/IPRATROPIUM 0.5 INH SOL 3 ML VIAL.NEB. NEB PRN ×2 (06:35→14:45)
[2017-11-13] MEDS: SEVELAMER CARBONATE 800 MG TAB (FP) PO SCH ×3 (08:42→17:38)
[2017-11-13] MEDS ORDERED: PT OWN MED DRAWER 7, Y5N ONE ×3 (10:00→13:04)
[2017-11-13] MEDS: FOLIC ACID 1 MG TABLET (FP) PO SCH (10:02)
[2017-11-13] MEDS: ESCITALOPRAM OXALATE 10 MG TABLET (FP) PO SCH (10:03)
[2017-11-13] MEDS: HEPARIN NA (PORCINE) 5,000 UNITS/ML 1ML VIAL SQ SCH ×2 (10:03→21:38)
[2017-11-13] MEDS: MIDODRINE HCL 5 MG TABLET PEG SCH ×2 (10:03→17:40)
[2017-11-13] MEDS: predniSONE 1 MG TABLET (FP) PO SCH ×2 (10:03→21:38)
[2017-11-13] MEDS: SENNOSIDES 8.8 MG/5 ML BULK BOTTLE PO SCH ×2 (10:09→21:39)
--- NOTE | 2017-11-13 11:19 | PN ---
Progress Note (short form) - Note Progress Note: PULMONARY APPEARS STABLE OFFERS NO COMPLAINTS HAD HD YESTERDAY VSS/AFEBRILE ANICTERIC/TRACH SCATTERED CRACKLES B/L S1S2 OBESE LESS EDEMA B/L LOWER EXT CT/MEDS/NOTES/MICRO REVIEWED Pneumonia UTI Sepsis resolved Jocelyn's Granulomatosis Chronic Respiratory Failure ESRD on HD HTN DM - antibiotics per ID - chest PT - pulmonary toilet - inhaled bronchodilators - prednisone 3mg BID - O2 to keep SpO2 >90% - HD per renal - DVT prophylaxis Celena GLORIA MD Problem List - Problems (1) Pneumonia Code(s): J18.9 - PNEUMONIA, UNSPECIFIED ORGANISM Qualifiers: Laterality: right Lung location: lower lobe of lung (2) Sepsis Code(s): A41.9 - SEPSIS, UNSPECIFIED ORGANISM Qualifiers: Sepsis type: sepsis due to unspecified organism Qualified Code(s): A41.9 - Sepsis, unspecified organism (3) Jocelyn's granulomatosis (granulomatosis with polyangiitis) Code(s): M31.30 - JOCELYN'S GRANULOMATOSIS WITHOUT RENAL INVOLVEMENT (4) Respiratory failure Code(s): J96.90 - RESPIRATORY FAILURE, UNSP, UNSP W HYPOXIA OR HYPERCAPNIA Qualifiers: Chronicity: chronic (5) Renal failure Code(s): N19 - UNSPECIFIED KIDNEY FAILURE Qualifiers: Renal failure chronicity: chronic Chronic kidney disease stage: on chronic dialysis Qualified Code(s): N18.6 - End stage renal disease; Z99.2 - Dependence on renal dialysis; Z99.2 - Dependence on renal dialysis; Z99.2 - Dependence on renal dialysis; Z99.2 - Dependence on renal dialysis (6) Hemodialysis access site with arteriovenous graft Code(s): Z99.2 - DEPENDENCE ON RENAL DIALYSIS
[2017-11-13] MEDS: NYSTATIN 100,000 UNIT/GM TOPICAL CREAM 15 GM TUBE TP SCH ×2 (11:21→21:43)
--- NOTE | 2017-11-13 12:17 | PN ---
Progress Note (short form) - Note Progress Note: Chief Complaint: Events noted, notes reviewed, denies any chest pain, dyspnea is persistent but improved History of Present Illness: Seen and examined. Events noted, notes reviewed, denies any chest pain, dyspnea is persistent but improved - Current Medication List Current Medications Acetaminophen (Tylenol -) 325 mg PO QID PRN PRN Reason: PAIN Last Admin: 11/12/17 19:35 Dose: 325 mg Acetaminophen (Ofirmev Injection -) 1,000 mg IVPB Q6H PRN PRN Reason: FEVER OR PAIN Albuterol/Ipratropium (Duoneb -) 1 amp NEB Q4H PRN PRN Reason: SHORTNESS OF BREATH Last Admin: 11/13/17 06:35 Dose: 1 amp Ciprofloxacin (Cipro (Restricted To Id)) 500 mg PO DAILY@1400 [facility] Last Admin: 11/12/17 13:24 Dose: 500 mg Diphenhydramine HCl (Benadryl Oral Solution -) 25 mg PO TID PRN PRN Reason: FOR ITCHING Last Admin: 11/08/17 21:15 Dose: 25 mg Escitalopram Oxalate (Lexapro -) 5 mg PO DAILY [facility] Last Admin: 11/13/17 10:03 Dose: 5 mg Folic Acid (Folic Acid -) 1 mg PO DAILY [facility] Last Admin: 11/13/17 10:02 Dose: 1 mg Heparin Sodium (Porcine) (Heparin -) 5,000 unit SQ BID [facility] Last Admin: 11/13/17 10:03 Dose: 5,000 unit Lactulose (Cephulac (Oral Use)) 20 gm PO BID PRN PRN Reason: CONSTIPATION Loperamide HCl (Imodium Liquid -) 1 mg PO TID PRN PRN Reason: DIARRHEA Midodrine (Proamatine -) 5 mg PEG BID-MID [facility] Last Admin: 11/13/17 10:03 Dose: 5 mg Mirtazapine (Remeron -) 22.5 mg PO HS [facility] Last Admin: 11/12/17 22:09 Dose: 22.5 mg Nystatin (Mycostatin Cream -) 1 applic TP BID [facility] Last Admin: 11/13/17 11:21 Dose: 1 applic Prednisone (Deltasone -) 3 mg PO BID [facility] Last Admin: 11/13/17 10:03 Dose: 3 mg Senna (Senna Oral Solution -) 8.8 mg PO BID [facility] Last Admin: 11/13/17 10:09 Dose: Not Given Sevelamer Carbonate (Renvela -) 800 mg PO TIDCM [facility] Last Admin: 11/13/17 08:42 Dose: 800 mg Review of Systems Cardiovascular: As noted above Respiratory: denies: Cough or Sputum Production Gastrointestinal: denies: Nausea, Vomiting, Diarrhea, Constipation or Abdominal Discomfort Musculoskeletal: No Symptoms Reported Endocrine: No Symptoms Reported - Objective Vital Signs: Last Vital Signs Temp Pulse Resp BP Pulse Ox 97.0 F L 106 H 18 136/86 99 11/13/17 10:00 11/13/17 10:00 11/13/17 10:00 11/13/17 10:00 11/13/17 10:00 Intake & Output 11/10/17 11/11/17 11/12/17 11/13/17 23:59 23:59 23:59 23:59 Intake Total 1150 1350 440 240 Balance 1150 1350 440 240 Constitutional: No Distress, Calm, Thin Neck: Supple Negative JVD No Bruit Respiratory: Diminished Breath Sounds at the Bases Bilaterally with Scattered Rhonchi Cardiovascular: S1 S2 Regular Rate and Rhythm Grade 2-3/6 MANDEEP Gastrointestinal: Soft Benign Normal Bowel Sounds Ext: No Edema Labs: CBC, BMP 11/12/17 09:25 11/12/17 09:25 Assessment/Plan ASSESSMENT: 1. Right lower lobe Pneumonia, resolving 2. Urinary tract infection, resolving 3. Jocelyn's Granulomatosis/pulmonary renal disease 4. Chronic Respiratory Failure, on tracheastomy 5. HTN, currently hypotensive requiring Midodrine therapy 6. DM 7. Hypercholesterolemia 8. ESRD on HD 9. Anemia PLAN: 1. Continue antibiotic course as per ID service 2. Bronchodilators and steroids as per primary team 3. Continue HD as per renal service, and continue Midodrine to assist with adequate BP maintenance 4. DVT prophylaxis as ordered Roro Benavides M.D.
[2017-11-13] MEDS: CIPROFLOXACIN 500 MG TABLET (RESTRICTED TO ID) PO SCH (13:05)
[2017-11-13] MEDS: ACETAMINOPHEN 325 MG TABLET (FP) PO PRN ×2 (13:56→21:40)
[2017-11-13] MEDS: oxyCODONE HCL 5 MG TABLET PO PRN ×2 (13:56→21:40)
--- NOTE | 2017-11-13 14:36 | PN ---
Progress Note (short form) - Note Progress Note: pt seen / examined. comfortable back pain much better no other issues breathing stable. all f/u noted Vital Signs Temp 97.0 F L 11/13/17 10:00 Pulse 106 H 11/13/17 10:00 Resp 18 11/13/17 10:00 BP 136/86 11/13/17 10:00 Pulse Ox 99 11/13/17 10:00 Intake & Output 11/12/17 11/13/17 11/13/17 23:59 11:59 23:59 Intake Total 440 240 Balance 440 240 Intake: Oral 440 240 Other: Voiding Method Incontinent Incontinent # Unmeasured Voids Void 1 Bowel Movement Yes # Bowel Movements 1 Active Medications Acetaminophen (Tylenol -) 325 mg PO QID PRN PRN Reason: PAIN Last Admin: 11/13/17 13:56 Dose: 325 mg Acetaminophen (Ofirmev Injection -) 1,000 mg IVPB Q6H PRN PRN Reason: FEVER OR PAIN Albuterol/Ipratropium (Duoneb -) 1 amp NEB Q4H PRN PRN Reason: SHORTNESS OF BREATH Last Admin: 11/13/17 06:35 Dose: 1 amp Ciprofloxacin (Cipro (Restricted To Id)) 500 mg PO DAILY@1400 [facility] Last Admin: 11/13/17 13:05 Dose: 500 mg Diphenhydramine HCl (Benadryl Oral Solution -) 25 mg PO TID PRN PRN Reason: FOR ITCHING Last Admin: 11/08/17 21:15 Dose: 25 mg Escitalopram Oxalate (Lexapro -) 5 mg PO DAILY [facility] Last Admin: 11/13/17 10:03 Dose: 5 mg Folic Acid (Folic Acid -) 1 mg PO DAILY [facility] Last Admin: 11/13/17 10:02 Dose: 1 mg Heparin Sodium (Porcine) (Heparin -) 5,000 unit SQ BID [facility] Last Admin: 11/13/17 10:03 Dose: 5,000 unit Lactulose (Cephulac (Oral Use)) 20 gm PO BID PRN PRN Reason: CONSTIPATION Loperamide HCl (Imodium Liquid -) 1 mg PO TID PRN PRN Reason: DIARRHEA Midodrine (Proamatine -) 5 mg PEG BID-MID [facility] Last Admin: 11/13/17 10:03 Dose: 5 mg Mirtazapine (Remeron -) 22.5 mg PO HS [facility] Last Admin: 11/12/17 22:09 Dose: 22.5 mg Nystatin (Mycostatin Cream -) 1 applic TP BID [facility] Last Admin: 11/13/17 11:21 Dose: 1 applic Oxycodone HCl (Roxicodone -) 5 mg PO Q6H PRN Last Admin: 11/13/17 13:56 Dose: 5 mg Prednisone (Deltasone -) 3 mg PO BID [facility] Last Admin: 11/13/17 10:03 Dose: 3 mg Senna (Senna Oral Solution -) 8.8 mg PO BID [facility] Last Admin: 11/13/17 10:09 Dose: Not Given Sevelamer Carbonate (Renvela -) 800 mg PO TIDCM [facility] Last Admin: 11/13/17 13:05 Dose: 800 mg CBC, BMP 11/12/17 09:25 11/12/17 09:25 Physical Examination Constitutional: Yes: awake/ comfortable. Neck: Yes: Supple, Other (s/p trach). Cardiovascular: Yes: Regular Rate and Rhythm Respiratory: Yes: Diminished at bases-- few scattered rhonchi Gastrointestinal: Yes: Soft, Abdomen, Obese, Other (peg +) Edema: trace Right heel -- stage 2 --dressing + Neurological: Yes: alert/ awake Assessment/Plan clinically stable Continue abx-on cipro frequent suctioning. pulmonary toilet. discussed with nursing staff also. decubitus precautions. overall much better pain control physical therapy decubitus precautions oob - chair discharge planning in progress. family looking for places Medically stable for discharge--- when bed is available- Will follow. Problem List - Problems (1) Obesity Code(s): E66.9 - OBESITY, UNSPECIFIED (2) Pneumonia Code(s): J18.9 - PNEUMONIA, UNSPECIFIED ORGANISM Qualifiers: Laterality: right Lung location: lower lobe of lung (3) Renal failure Code(s): N19 - UNSPECIFIED KIDNEY FAILURE Qualifiers: Renal failure chronicity: chronic Chronic kidney disease stage: on chronic dialysis Qualified Code(s): N18.6 - End stage renal disease; Z99.2 - Dependence on renal dialysis; Z99.2 - Dependence on renal dialysis; Z99.2 - Dependence on renal dialysis; Z99.2 - Dependence on renal dialysis (4) Respiratory failure Code(s): J96.90 - RESPIRATORY FAILURE, UNSP, UNSP W HYPOXIA OR HYPERCAPNIA Qualifiers: Chronicity: chronic (5) Sepsis Code(s): A41.9 - SEPSIS, UNSPECIFIED ORGANISM Qualifiers: Sepsis type: sepsis due to unspecified organism Qualified Code(s): A41.9 - Sepsis, unspecified organism (6) Jocelyn's granulomatosis (granulomatosis with polyangiitis) Code(s): M31.30 - JOCELYN'S GRANULOMATOSIS WITHOUT RENAL INVOLVEMENT
--- NOTE | 2017-11-13 15:09 | PN ---
Progress Note, Physician History of Present Illness: Pt seen and examined at bedside. She is awake and alert. She says she feel better. Her last HD was yesterday. - Current Medication List Current Medications: Active Medications Acetaminophen (Tylenol -) 325 mg PO QID PRN PRN Reason: PAIN Last Admin: 11/13/17 13:56 Dose: 325 mg Acetaminophen (Ofirmev Injection -) 1,000 mg IVPB Q6H PRN PRN Reason: FEVER OR PAIN Albuterol/Ipratropium (Duoneb -) 1 amp NEB Q4H PRN PRN Reason: SHORTNESS OF BREATH Last Admin: 11/13/17 06:35 Dose: 1 amp Ciprofloxacin (Cipro (Restricted To Id)) 500 mg PO DAILY@1400 [facility] Last Admin: 11/13/17 13:05 Dose: 500 mg Diphenhydramine HCl (Benadryl Oral Solution -) 25 mg PO TID PRN PRN Reason: FOR ITCHING Last Admin: 11/08/17 21:15 Dose: 25 mg Escitalopram Oxalate (Lexapro -) 5 mg PO DAILY [facility] Last Admin: 11/13/17 10:03 Dose: 5 mg Folic Acid (Folic Acid -) 1 mg PO DAILY [facility] Last Admin: 11/13/17 10:02 Dose: 1 mg Heparin Sodium (Porcine) (Heparin -) 5,000 unit SQ BID [facility] Last Admin: 11/13/17 10:03 Dose: 5,000 unit Lactulose (Cephulac (Oral Use)) 20 gm PO BID PRN PRN Reason: CONSTIPATION Loperamide HCl (Imodium Liquid -) 1 mg PO TID PRN PRN Reason: DIARRHEA Midodrine (Proamatine -) 5 mg PEG BID-MID [facility] Last Admin: 11/13/17 10:03 Dose: 5 mg Mirtazapine (Remeron -) 22.5 mg PO HS [facility] Last Admin: 11/12/17 22:09 Dose: 22.5 mg Nystatin (Mycostatin Cream -) 1 applic TP BID [facility] Last Admin: 11/13/17 11:21 Dose: 1 applic Oxycodone HCl (Roxicodone -) 5 mg PO Q6H PRN Last Admin: 11/13/17 13:56 Dose: 5 mg Prednisone (Deltasone -) 3 mg PO BID [facility] Last Admin: 11/13/17 10:03 Dose: 3 mg Senna (Senna Oral Solution -) 8.8 mg PO BID [facility] Last Admin: 11/13/17 10:09 Dose: Not Given Sevelamer Carbonate (Renvela -) 800 mg PO TIDCM [facility] Last Admin: 11/13/17 13:05 Dose: 800 mg - Objective Vital Signs: Vital Signs Temperature 98.7 F 11/13/17 14:54 Pulse Rate 110 H 11/13/17 14:54 Respiratory Rate 18 11/13/17 14:54 Blood Pressure 116/76 11/13/17 14:54 O2 Sat by Pulse Oximetry (%) 99 11/13/17 10:00 Constitutional: Yes: Calm Eyes: Yes: Conjunctiva Clear HENT: Yes: Other (trache) Cardiovascular: Yes: S1, S2 Respiratory: Yes: Rhonchi Gastrointestinal: Yes: Soft, Abdomen, Obese Genitourinary: Yes: Incontinence Musculoskeletal: Yes: Muscle Weakness Edema: No Neurological: Yes: Oriented Psychiatric: Yes: Oriented Labs: CBC, BMP 11/12/17 09:25 11/12/17 09:25 INR, PTT INR 1.03 (0.82-1.09) 11/03/17 10:40 Problem List - Problems (1) Respiratory failure Code(s): J96.90 - RESPIRATORY FAILURE, UNSP, UNSP W HYPOXIA OR HYPERCAPNIA (2) ESRD (end stage renal disease) Code(s): N18.6 - END STAGE RENAL DISEASE (3) Sepsis Code(s): A41.9 - SEPSIS, UNSPECIFIED ORGANISM Qualifiers: Sepsis type: sepsis due to unspecified organism Qualified Code(s): A41.9 - Sepsis, unspecified organism (4) Jocelyn's granulomatosis (granulomatosis with polyangiitis) Code(s): M31.30 - JOCELYN'S GRANULOMATOSIS WITHOUT RENAL INVOLVEMENT Assessment/Plan Current Medications Generic Name Dose Route Start Last Admin Trade Name Freq PRN Reason Stop Dose Admin Acetaminophen 325 mg 11/05/17 19:02 11/13/17 13:56 Tylenol - PO 325 mg QID PRN Administration PAIN Acetaminophen 1,000 mg 11/05/17 19:02 Ofirmev Injection - IVPB Q6H PRN FEVER OR PAIN Albuterol/Ipratropium 1 amp 11/12/17 22:37 11/13/17 06:35 Duoneb - NEB 1 amp Q4H PRN Administration SHORTNESS OF BREATH Ciprofloxacin 500 mg 11/11/17 12:33 11/13/17 13:05 Cipro (Restricted To Id) PO 500 mg DAILY@1400 [facility] Administration Diphenhydramine HCl 25 mg 11/05/17 19:02 11/08/17 21:15 Benadryl Oral Solution - PO 25 mg TID PRN Administration FOR ITCHING Escitalopram Oxalate 5 mg 11/06/17 10:00 11/13/17 10:03 Lexapro - PO 5 mg DAILY [facility] Administration Folic Acid 1 mg 11/06/17 10:00 11/13/17 10:02 Folic Acid - PO 1 mg DAILY [facility] Administration Heparin Sodium (Porcine) 5,000 unit 11/12/17 22:00 11/13/17 10:03 Heparin - SQ 5,000 unit BID [facility] Administration Lactulose 20 gm 11/05/17 19:02 Cephulac (Oral Use) PO BID PRN CONSTIPATION Loperamide HCl 1 mg 11/05/17 19:02 Imodium Liquid - PO TID PRN DIARRHEA Midodrine 5 mg 11/06/17 10:00 11/13/17 10:03 Proamatine - PEG 5 mg BID-MID [facility] Administration Mirtazapine 22.5 mg 11/05/17 22:00 11/12/17 22:09 Remeron - PO 22.5 mg HS [facility] Administration Nystatin 1 applic 11/05/17 22:00 11/13/17 11:21 Mycostatin Cream - TP 1 applic BID [facility] Administration Oxycodone HCl 5 mg 11/13/17 13:37 11/13/17 13:56 Roxicodone - PO 5 mg Q6H PRN Administration Prednisone 3 mg 11/05/17 22:00 11/13/17 10:03 Deltasone - PO 3 mg BID [facility] Administration Senna 8.8 mg 11/05/17 22:00 11/13/17 10:09 Senna Oral Solution - PO Not Given BID [facility] Sevelamer Carbonate 800 mg 11/06/17 08:00 11/13/17 13:05 Renvela - PO 800 mg TIDCM [facility] Administration Impression 1. 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 chronic resp failure 4. htn 5. chol 6. obesity 7. anemia 8. hypoxia Plan - HD on Monday - cont current meds - monnitor pulse ox - abx per ID - monitor BP - HD prescription: AVF 2 k bath 3.5 hrs heparin 1999 - will follow pt Dr Trotter
[2017-11-13] MEDS: MIRTAZAPINE 15 MG TABLET (FP) PO SCH (21:39)
[2017-11-14] MEDS: FOLIC ACID 1 MG TABLET (FP) PO SCH (09:05)
[2017-11-14] MEDS: MIDODRINE HCL 5 MG TABLET PEG SCH ×2 (09:05→17:55)
[2017-11-14] MEDS: ESCITALOPRAM OXALATE 10 MG TABLET (FP) PO SCH (09:05)
[2017-11-14] MEDS: predniSONE 1 MG TABLET (FP) PO SCH ×2 (09:06→22:06)
[2017-11-14] MEDS: SENNOSIDES 8.8 MG/5 ML BULK BOTTLE PO SCH ×2 (09:10→22:08)
[2017-11-14] MEDS: SEVELAMER CARBONATE 800 MG TAB (FP) PO SCH ×3 (09:11→17:55)
[2017-11-14] MEDS: HEPARIN NA (PORCINE) 5,000 UNITS/ML 1ML VIAL SQ SCH ×2 (09:12→22:05)
--- NOTE | 2017-11-14 10:30 | PN ---
Progress Note (short form) - Note Progress Note: patient seen and examined comfortable On trach collar 50% No new overnight events Vital Signs Temp 97.8 F 11/14/17 06:00 Pulse 96 H 11/14/17 06:00 Resp 18 11/14/17 06:00 BP 118/61 11/14/17 06:00 Pulse Ox 100 11/13/17 21:00 Intake & Output 11/13/17 11/13/17 11/14/17 11:59 23:59 11:59 Intake Total 240 150 150 Balance 240 150 150 Intake: Oral 240 150 150 Other: Voiding Method Incontinent Incontinent # Unmeasured Voids Void 1 1 1 Bowel Movement No Yes # Bowel Movements 1 Active Medications Acetaminophen (Tylenol -) 325 mg PO QID PRN PRN Reason: PAIN Last Admin: 11/13/17 21:40 Dose: 325 mg Acetaminophen (Ofirmev Injection -) 1,000 mg IVPB Q6H PRN PRN Reason: FEVER OR PAIN Albuterol/Ipratropium (Duoneb -) 1 amp NEB Q4H PRN PRN Reason: SHORTNESS OF BREATH Last Admin: 11/13/17 14:45 Dose: 1 amp Ciprofloxacin (Cipro (Restricted To Id)) 500 mg PO DAILY@1400 [facility] Last Admin: 11/13/17 13:05 Dose: 500 mg Diphenhydramine HCl (Benadryl Oral Solution -) 25 mg PO TID PRN PRN Reason: FOR ITCHING Last Admin: 11/08/17 21:15 Dose: 25 mg Escitalopram Oxalate (Lexapro -) 5 mg PO DAILY [facility] Last Admin: 11/14/17 09:05 Dose: 5 mg Folic Acid (Folic Acid -) 1 mg PO DAILY [facility] Last Admin: 11/14/17 09:05 Dose: 1 mg Heparin Sodium (Porcine) (Heparin -) 5,000 unit SQ BID [facility] Last Admin: 11/14/17 09:12 Dose: 5,000 unit Lactulose (Cephulac (Oral Use)) 20 gm PO BID PRN PRN Reason: CONSTIPATION Loperamide HCl (Imodium Liquid -) 1 mg PO TID PRN PRN Reason: DIARRHEA Midodrine (Proamatine -) 5 mg PEG BID-MID [facility] Last Admin: 11/14/17 09:05 Dose: 5 mg Mirtazapine (Remeron -) 22.5 mg PO HS [facility] Last Admin: 11/13/17 21:39 Dose: 22.5 mg Nystatin (Mycostatin Cream -) 1 applic TP BID [facility] Last Admin: 11/13/17 21:43 Dose: 1 applic Oxycodone HCl (Roxicodone -) 5 mg PO Q6H PRN Last Admin: 11/13/17 21:40 Dose: 5 mg Prednisone (Deltasone -) 3 mg PO BID [facility] Last Admin: 11/14/17 09:06 Dose: 3 mg Senna (Senna Oral Solution -) 8.8 mg PO BID [facility] Last Admin: 11/14/17 09:10 Dose: 8.8 mg Sevelamer Carbonate (Renvela -) 800 mg PO TIDCM [facility] Last Admin: 11/14/17 09:11 Dose: 800 mg CBC, BMP 11/12/17 09:25 11/12/17 09:25 Physical Examination Constitutional: Yes: awake/ comfortable. Neck: Yes: Supple, Other (s/p trach). Cardiovascular: Yes: Regular Rate and Rhythm Respiratory: Yes: Diminished at bases-- few scattered rhonchi Gastrointestinal: Yes: Soft, Abdomen, Obese, Other (peg +) Edema: trace Right heel -- stage 2 --dressing + Neurological: Yes: alert/ awake Assessment/Plan clinically stable Continue abx-on cipro frequent suctioning. pulmonary toilet. discussed with nursing staff . decubitus precautions. overall much better pain control physical therapy decubitus precautions oob - chair discharge planning in progress. family looking for places Medically stable for discharge--- when bed is available- discussed with window caser again today. Family would like to take patient to [place] Will follow. Problem List - Problems (1) Obesity Code(s): E66.9 - OBESITY, UNSPECIFIED (2) Pneumonia Code(s): J18.9 - PNEUMONIA, UNSPECIFIED ORGANISM Qualifiers: Laterality: right Lung location: lower lobe of lung (3) Renal failure Code(s): N19 - UNSPECIFIED KIDNEY FAILURE Qualifiers: Renal failure chronicity: chronic Chronic kidney disease stage: on chronic dialysis Qualified Code(s): N18.6 - End stage renal disease; Z99.2 - Dependence on renal dialysis; Z99.2 - Dependence on renal dialysis; Z99.2 - Dependence on renal dialysis; Z99.2 - Dependence on renal dialysis (4) Respiratory failure Code(s): J96.90 - RESPIRATORY FAILURE, UNSP, UNSP W HYPOXIA OR HYPERCAPNIA Qualifiers: Chronicity: chronic (5) Sepsis Code(s): A41.9 - SEPSIS, UNSPECIFIED ORGANISM Qualifiers: Sepsis type: sepsis due to unspecified organism Qualified Code(s): A41.9 - Sepsis, unspecified organism (6) Jocelyn's granulomatosis (granulomatosis with polyangiitis) Code(s): M31.30 - JOCELNY'S GRANULOMATOSIS WITHOUT RENAL INVOLVEMENT
[2017-11-14] MEDS: NYSTATIN 100,000 UNIT/GM TOPICAL CREAM 15 GM TUBE TP SCH ×2 (10:33→22:06)
--- NOTE | 2017-11-14 12:55 | PN ---
Progress Note, Physician Chief Complaint: Events noted Trache collar, intermittent dyspnea, but overall better History of Present Illness: Patient was seen and examined. Awake and alert. Chart was reviewed Denies chest pain, less SOB and no palpitation - Current Medication List Current Medications: Active Medications Acetaminophen (Tylenol -) 325 mg PO QID PRN PRN Reason: PAIN Last Admin: 11/13/17 21:40 Dose: 325 mg Acetaminophen (Ofirmev Injection -) 1,000 mg IVPB Q6H PRN PRN Reason: FEVER OR PAIN Albuterol/Ipratropium (Duoneb -) 1 amp NEB Q4H PRN PRN Reason: SHORTNESS OF BREATH Last Admin: 11/13/17 14:45 Dose: 1 amp Ciprofloxacin (Cipro (Restricted To Id)) 500 mg PO DAILY@1400 [facility] Last Admin: 11/13/17 13:05 Dose: 500 mg Diphenhydramine HCl (Benadryl Oral Solution -) 25 mg PO TID PRN PRN Reason: FOR ITCHING Last Admin: 11/08/17 21:15 Dose: 25 mg Escitalopram Oxalate (Lexapro -) 5 mg PO DAILY [facility] Last Admin: 11/14/17 09:05 Dose: 5 mg Folic Acid (Folic Acid -) 1 mg PO DAILY [facility] Last Admin: 11/14/17 09:05 Dose: 1 mg Heparin Sodium (Porcine) (Heparin -) 5,000 unit SQ BID [facility] Last Admin: 11/14/17 09:12 Dose: 5,000 unit Lactulose (Cephulac (Oral Use)) 20 gm PO BID PRN PRN Reason: CONSTIPATION Loperamide HCl (Imodium Liquid -) 1 mg PO TID PRN PRN Reason: DIARRHEA Midodrine (Proamatine -) 5 mg PEG BID-MID [facility] Last Admin: 11/14/17 09:05 Dose: 5 mg Mirtazapine (Remeron -) 22.5 mg PO HS [facility] Last Admin: 11/13/17 21:39 Dose: 22.5 mg Nystatin (Mycostatin Cream -) 1 applic TP BID [facility] Last Admin: 11/13/17 21:43 Dose: 1 applic Oxycodone HCl (Roxicodone -) 5 mg PO Q6H PRN Last Admin: 11/13/17 21:40 Dose: 5 mg Prednisone (Deltasone -) 3 mg PO BID [facility] Last Admin: 11/14/17 09:06 Dose: 3 mg Senna (Senna Oral Solution -) 8.8 mg PO BID [facility] Last Admin: 11/14/17 09:10 Dose: 8.8 mg Sevelamer Carbonate (Renvela -) 800 mg PO TIDCM [facility] Last Admin: 11/14/17 12:44 Dose: 800 mg - Objective Vital Signs: Vital Signs Temperature 98.5 F 11/14/17 10:00 Pulse Rate 101 H 11/14/17 10:40 Respiratory Rate 18 11/14/17 10:00 Blood Pressure 122/65 11/14/17 10:00 O2 Sat by Pulse Oximetry (%) 98 11/14/17 10:40 Eyes: Yes: PERRL HENT: Yes: Atraumatic Neck: Yes: Supple Cardiovascular: Yes: Regular Rate and Rhythm, Tachycardia, Murmur (2/6 SM), S1, S2 Respiratory: Yes: Diminished, Rhonchi Gastrointestinal: Yes: Normal Bowel Sounds, Soft. No: Tenderness Edema: No Problem List - Problems (1) Anemia Code(s): D64.9 - ANEMIA, UNSPECIFIED Qualifiers: Anemia type: due to chronic kidney disease (2) ESRD (end stage renal disease) Code(s): N18.6 - END STAGE RENAL DISEASE (3) Hemodialysis access site with arteriovenous graft Code(s): Z99.2 - DEPENDENCE ON RENAL DIALYSIS (4) Pneumonia Code(s): J18.9 - PNEUMONIA, UNSPECIFIED ORGANISM Qualifiers: Laterality: right Lung location: lower lobe of lung (5) Respiratory failure Code(s): J96.90 - RESPIRATORY FAILURE, UNSP, UNSP W HYPOXIA OR HYPERCAPNIA Qualifiers: Chronicity: chronic (6) Sepsis Code(s): A41.9 - SEPSIS, UNSPECIFIED ORGANISM Qualifiers: Sepsis type: sepsis due to unspecified organism Qualified Code(s): A41.9 - Sepsis, unspecified organism (7) Jocelyn's granulomatosis (granulomatosis with polyangiitis) Code(s): M31.30 - JOCELYN'S GRANULOMATOSIS WITHOUT RENAL INVOLVEMENT Assessment/Plan 1. Right lower lobe Pneumonia, resolving 2. Urinary tract infection, resolving 3. 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 Chronic Respiratory Failure on trache collar 5. HTN - currently hypotensive requiring Midodrine therapy 6. DM 7. Hypercholesterolemia 8. ESRD on HD 9. Anemia PLAN: 1. Continue antibiotic course as per ID service 2. Bronchodilators and steroids 3. Continue HD as per renal service, and continue Midodrine to assist with adequate BP maintenance 4. DVT prophylaxis as ordered Further plans are to follow Gigi Encinas MD
--- NOTE | 2017-11-14 13:31 | PN ---
Progress Note (short form) - Note Progress Note: Awake and alert. Comfortable on Trach collar 50%. No acute events overnight. Intake & Output 11/11/17 11/12/17 11/13/17 11/14/17 23:59 23:59 23:59 23:59 Intake Total 1350 440 390 150 Balance 1350 440 390 150 Last Vital Signs Temp Pulse Resp BP Pulse Ox 98.5 F 101 H 18 122/65 98 11/14/17 10:00 11/14/17 10:40 11/14/17 10:00 11/14/17 10:00 11/14/17 10:40 Active Medications Acetaminophen (Tylenol -) 325 mg PO QID PRN PRN Reason: PAIN Last Admin: 11/13/17 21:40 Dose: 325 mg Acetaminophen (Ofirmev Injection -) 1,000 mg IVPB Q6H PRN PRN Reason: FEVER OR PAIN Albuterol/Ipratropium (Duoneb -) 1 amp NEB Q4H PRN PRN Reason: SHORTNESS OF BREATH Last Admin: 11/13/17 14:45 Dose: 1 amp Ciprofloxacin (Cipro (Restricted To Id)) 500 mg PO DAILY@1400 [facility] Last Admin: 11/13/17 13:05 Dose: 500 mg Diphenhydramine HCl (Benadryl Oral Solution -) 25 mg PO TID PRN PRN Reason: FOR ITCHING Last Admin: 11/08/17 21:15 Dose: 25 mg Escitalopram Oxalate (Lexapro -) 5 mg PO DAILY [facility] Last Admin: 11/14/17 09:05 Dose: 5 mg Folic Acid (Folic Acid -) 1 mg PO DAILY [facility] Last Admin: 11/14/17 09:05 Dose: 1 mg Heparin Sodium (Porcine) (Heparin -) 5,000 unit SQ BID [facility] Last Admin: 11/14/17 09:12 Dose: 5,000 unit Lactulose (Cephulac (Oral Use)) 20 gm PO BID PRN PRN Reason: CONSTIPATION Loperamide HCl (Imodium Liquid -) 1 mg PO TID PRN PRN Reason: DIARRHEA Midodrine (Proamatine -) 5 mg PEG BID-MID [facility] Last Admin: 11/14/17 09:05 Dose: 5 mg Mirtazapine (Remeron -) 22.5 mg PO [facility] Last Admin: 11/13/17 21:39 Dose: 22.5 mg Nystatin (Mycostatin Cream -) 1 applic TP BID [facility] Last Admin: 11/13/17 21:43 Dose: 1 applic Oxycodone HCl (Roxicodone -) 5 mg PO Q6H PRN Last Admin: 11/13/17 21:40 Dose: 5 mg Prednisone (Deltasone -) 3 mg PO BID [facility] Last Admin: 11/14/17 09:06 Dose: 3 mg Senna (Senna Oral Solution -) 8.8 mg PO BID [facility] Last Admin: 11/14/17 09:10 Dose: 8.8 mg Sevelamer Carbonate (Renvela -) 800 mg PO TIDCM [facility] Last Admin: 11/14/17 12:44 Dose: 800 mg Constitutional: Yes: Awake and alert, NAD on Trach collar Eyes: Yes: WNL HENT: Yes: WNL Neck: Yes: Supple (trach) Cardiovascular: Yes: Regular Rate and Rhythm, S1, S2 Respiratory: Yes: Few scattered Rhonchi Gastrointestinal: Yes: Normal Bowel Sounds, Soft Extremities: Yes: WNL Edema: No Labs: Laboratory Results - last 24 hr 11/13/17 11/14/17 16:17 06:18 POC Glucometer 116 90 Problem List - Problems (1) ESRD (end stage renal disease) Code(s): N18.6 - END STAGE RENAL DISEASE (2) Hemodialysis access site with arteriovenous graft Code(s): Z99.2 - DEPENDENCE ON RENAL DIALYSIS (3) Pneumonia Code(s): J18.9 - PNEUMONIA, UNSPECIFIED ORGANISM (4) Respiratory failure Code(s): J96.90 - RESPIRATORY FAILURE, UNSP, UNSP W HYPOXIA OR HYPERCAPNIA Qualifiers: Chronicity: chronic (5) Jocelyn's granulomatosis (granulomatosis with polyangiitis) Code(s): M31.30 - JOCELYN'S GRANULOMATOSIS WITHOUT RENAL INVOLVEMENT Assessment/Plan Pneumonia UTI Sepsis Jocelyn's Granulomatosis Chronic Respiratory Failure ESRD on HD HTN DM PO ABX Prednisone BD TX Chest PT Pulmonary toilet BD TX HD per Renal D/C planning Dr Castro
[2017-11-14] MEDS: CIPROFLOXACIN 500 MG TABLET (RESTRICTED TO ID) PO SCH (14:20)
--- NOTE | 2017-11-14 16:27 | PN ---
Progress Note, Physician History of Present Illness: Pt seen and examined at bedside. She is awake and alert. She feels well today. - Current Medication List Current Medications: Active Medications Acetaminophen (Tylenol -) 325 mg PO QID PRN PRN Reason: PAIN Last Admin: 11/13/17 21:40 Dose: 325 mg Acetaminophen (Ofirmev Injection -) 1,000 mg IVPB Q6H PRN PRN Reason: FEVER OR PAIN Albuterol/Ipratropium (Duoneb -) 1 amp NEB Q4H PRN PRN Reason: SHORTNESS OF BREATH Last Admin: 11/13/17 14:45 Dose: 1 amp Ciprofloxacin (Cipro (Restricted To Id)) 500 mg PO DAILY@1400 [facility] Last Admin: 11/14/17 14:20 Dose: 500 mg Diphenhydramine HCl (Benadryl Oral Solution -) 25 mg PO TID PRN PRN Reason: FOR ITCHING Last Admin: 11/08/17 21:15 Dose: 25 mg Escitalopram Oxalate (Lexapro -) 5 mg PO DAILY [facility] Last Admin: 11/14/17 09:05 Dose: 5 mg Folic Acid (Folic Acid -) 1 mg PO DAILY [facility] Last Admin: 11/14/17 09:05 Dose: 1 mg Heparin Sodium (Porcine) (Heparin -) 5,000 unit SQ BID [facility] Last Admin: 11/14/17 09:12 Dose: 5,000 unit Lactulose (Cephulac (Oral Use)) 20 gm PO BID PRN PRN Reason: CONSTIPATION Loperamide HCl (Imodium Liquid -) 1 mg PO TID PRN PRN Reason: DIARRHEA Midodrine (Proamatine -) 5 mg PEG BID-MID [facility] Last Admin: 11/14/17 09:05 Dose: 5 mg Mirtazapine (Remeron -) 22.5 mg PO HS [facility] Last Admin: 11/13/17 21:39 Dose: 22.5 mg Nystatin (Mycostatin Cream -) 1 applic TP BID [facility] Last Admin: 11/14/17 10:33 Dose: 1 applic Oxycodone HCl (Roxicodone -) 5 mg PO Q6H PRN Last Admin: 11/13/17 21:40 Dose: 5 mg Prednisone (Deltasone -) 3 mg PO BID [facility] Last Admin: 11/14/17 09:06 Dose: 3 mg Senna (Senna Oral Solution -) 8.8 mg PO BID [facility] Last Admin: 11/14/17 09:10 Dose: 8.8 mg Sevelamer Carbonate (Renvela -) 800 mg PO TIDCM [facility] Last Admin: 11/14/17 12:44 Dose: 800 mg - Objective Vital Signs: Vital Signs Temperature 98.3 F 11/14/17 14:35 Pulse Rate 101 H 11/14/17 14:35 Respiratory Rate 18 11/14/17 14:35 Blood Pressure 103/55 11/14/17 14:35 O2 Sat by Pulse Oximetry (%) 98 11/14/17 10:40 Constitutional: Yes: Calm Eyes: Yes: Conjunctiva Clear HENT: Yes: Other (trache) Cardiovascular: Yes: S1, S2 Respiratory: Yes: Rhonchi Gastrointestinal: Yes: Soft, Abdomen, Obese Genitourinary: Yes: WNL Musculoskeletal: Yes: Muscle Weakness Edema: No Neurological: Yes: Oriented Psychiatric: Yes: Oriented Labs: CBC, BMP 11/12/17 09:25 11/12/17 09:25 INR, PTT INR 1.03 (0.82-1.09) 11/03/17 10:40 Problem List - Problems (1) Respiratory failure Code(s): J96.90 - RESPIRATORY FAILURE, UNSP, UNSP W HYPOXIA OR HYPERCAPNIA (2) ESRD (end stage renal disease) Code(s): N18.6 - END STAGE RENAL DISEASE (3) Sepsis Code(s): A41.9 - SEPSIS, UNSPECIFIED ORGANISM Qualifiers: Sepsis type: sepsis due to unspecified organism Qualified Code(s): A41.9 - Sepsis, unspecified organism (4) Jocelyn's granulomatosis (granulomatosis with polyangiitis) Code(s): M31.30 - JOCELYN'S GRANULOMATOSIS WITHOUT RENAL INVOLVEMENT Assessment/Plan Current Medications Generic Name Dose Route Start Last Admin Trade Name Freq PRN Reason Stop Dose Admin Acetaminophen 325 mg 11/05/17 19:02 11/13/17 21:40 Tylenol - PO 325 mg QID PRN Administration PAIN Acetaminophen 1,000 mg 11/05/17 19:02 Ofirmev Injection - IVPB Q6H PRN FEVER OR PAIN Albuterol/Ipratropium 1 amp 11/12/17 22:37 11/13/17 14:45 Duoneb - NEB 1 amp Q4H PRN Administration SHORTNESS OF BREATH Ciprofloxacin 500 mg 11/11/17 12:33 11/14/17 14:20 Cipro (Restricted To Id) PO 500 mg DAILY@1400 [facility] Administration Diphenhydramine HCl 25 mg 11/05/17 19:02 11/08/17 21:15 Benadryl Oral Solution - PO 25 mg TID PRN Administration FOR ITCHING Escitalopram Oxalate 5 mg 11/06/17 10:00 11/14/17 09:05 Lexapro - PO 5 mg DAILY [facility] Administration Folic Acid 1 mg 11/06/17 10:00 11/14/17 09:05 Folic Acid - PO 1 mg DAILY [facility] Administration Heparin Sodium (Porcine) 5,000 unit 11/12/17 22:00 11/14/17 09:12 Heparin - SQ 5,000 unit BID [facility] Administration Lactulose 20 gm 11/05/17 19:02 Cephulac (Oral Use) PO BID PRN CONSTIPATION Loperamide HCl 1 mg 11/05/17 19:02 Imodium Liquid - PO TID PRN DIARRHEA Midodrine 5 mg 11/06/17 10:00 11/14/17 09:05 Proamatine - PEG 5 mg BID-MID [facility] Administration Mirtazapine 22.5 mg 11/05/17 22:00 11/13/17 21:39 Remeron - PO 22.5 mg HS [facility] Administration Nystatin 1 applic 11/05/17 22:00 11/14/17 10:33 Mycostatin Cream - TP 1 applic BID [facility] Administration Oxycodone HCl 5 mg 11/13/17 13:37 11/13/17 21:40 Roxicodone - PO 5 mg Q6H PRN Administration Prednisone 3 mg 11/05/17 22:00 11/14/17 09:06 Deltasone - PO 3 mg BID [facility] Administration Senna 8.8 mg 11/05/17 22:00 11/14/17 09:10 Senna Oral Solution - PO 8.8 mg BID [facility] Administration Sevelamer Carbonate 800 mg 11/06/17 08:00 11/14/17 12:44 Renvela - PO 800 mg TIDCM [facility] Administration Impression 1. 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 chronic resp failure 4. htn 5. chol 6. obesity 7. anemia 8. hypoxia Plan - HD in am - cont current meds - d/c planning - monnitor pulse ox - abx per ID - monitor BP - HD prescription: AVF 2 k bath 3.5 hrs heparin 1999 - will follow pt Dr Trotter
[2017-11-14] MEDS: MIRTAZAPINE 15 MG TABLET (FP) PO SCH (22:05)
[2017-11-14] MEDS: ALBUTEROL SO4 2.5/IPRATROPIUM 0.5 INH SOL 3 ML VIAL.NEB. NEB PRN (22:20)
[2017-11-15] MEDS: ALBUTEROL SO4 2.5/IPRATROPIUM 0.5 INH SOL 3 ML VIAL.NEB. NEB PRN ×2 (06:27→23:15)
[2017-11-15 08:28] LABS: HEMATOCRIT 25.8 % (32.4-45.2); HEMOGLOBIN 8.1 GM/dL (10.7-15.3); MCHC 31.5 g/dl (32.0-36.0); MEAN CELL VOLUME 95.3 fl (80-96); MEAN PLT VOLUME 6.4 fl (7.5-11.1); PLATELET COUNT 242 K/MM3 (134-434); RDW 16.8 % (11.6-15.6); WHITE BLOOD COUNT 6.9 K/mm3 (4.0-10.0)
[2017-11-15 08:51] LABS: CHLORIDE 99 mmol/L (98-107); POTASSIUM 4.8 mmol/L (3.5-5.1); SODIUM 136 mmol/L (136-145)
--- NOTE | 2017-11-15 08:51 | PN ---
Progress Note (short form) - Note Progress Note: patient seen and examined. comfortable On trach collar 50% No new overnight events no new issues. Vital Signs Temp 98.7 F 11/15/17 06:00 Pulse 101 H 11/15/17 06:00 Resp 18 11/15/17 06:00 BP 130/66 11/15/17 06:00 Pulse Ox 100 11/14/17 21:00 Intake & Output 11/14/17 11/14/17 11/15/17 11:59 23:59 11:59 Intake Total 150 550 200 Balance 150 550 200 Intake: Oral 150 550 200 Other: Voiding Method Incontinent Incontinent Diaper # Unmeasured Voids Straight Cath 2 1 Void 1 2 Bowel Movement Yes No Active Medications Acetaminophen (Tylenol -) 325 mg PO QID PRN PRN Reason: PAIN Last Admin: 11/13/17 21:40 Dose: 325 mg Acetaminophen (Ofirmev Injection -) 1,000 mg IVPB Q6H PRN PRN Reason: FEVER OR PAIN Albuterol/Ipratropium (Duoneb -) 1 amp NEB Q4H PRN PRN Reason: SHORTNESS OF BREATH Last Admin: 11/13/17 14:45 Dose: 1 amp Ciprofloxacin (Cipro (Restricted To Id)) 500 mg PO DAILY@1400 [facility] Last Admin: 11/13/17 13:05 Dose: 500 mg Diphenhydramine HCl (Benadryl Oral Solution -) 25 mg PO TID PRN PRN Reason: FOR ITCHING Last Admin: 11/08/17 21:15 Dose: 25 mg Escitalopram Oxalate (Lexapro -) 5 mg PO DAILY [facility] Last Admin: 11/14/17 09:05 Dose: 5 mg Folic Acid (Folic Acid -) 1 mg PO DAILY [facility] Last Admin: 11/14/17 09:05 Dose: 1 mg Heparin Sodium (Porcine) (Heparin -) 5,000 unit SQ BID [facility] Last Admin: 11/14/17 09:12 Dose: 5,000 unit Lactulose (Cephulac (Oral Use)) 20 gm PO BID PRN PRN Reason: CONSTIPATION Loperamide HCl (Imodium Liquid -) 1 mg PO TID PRN PRN Reason: DIARRHEA Midodrine (Proamatine -) 5 mg PEG BID-MID [facility] Last Admin: 11/14/17 09:05 Dose: 5 mg Mirtazapine (Remeron -) 22.5 mg PO HS [facility] Last Admin: 11/13/17 21:39 Dose: 22.5 mg Nystatin (Mycostatin Cream -) 1 applic TP BID [facility] Last Admin: 11/13/17 21:43 Dose: 1 applic Oxycodone HCl (Roxicodone -) 5 mg PO Q6H PRN Last Admin: 11/13/17 21:40 Dose: 5 mg Prednisone (Deltasone -) 3 mg PO BID [facility] Last Admin: 11/14/17 09:06 Dose: 3 mg Senna (Senna Oral Solution -) 8.8 mg PO BID [facility] Last Admin: 11/14/17 09:10 Dose: 8.8 mg Sevelamer Carbonate (Renvela -) 800 mg PO TIDCM [facility] Last Admin: 11/14/17 09:11 Dose: 800 mg CBC, BMP 11/15/17 07:40 Physical Examination Constitutional: Yes: awake/ comfortable. Neck: Yes: Supple, Other (s/p trach). Cardiovascular: Yes: Regular Rate and Rhythm Respiratory: Yes: Diminished at bases-- few scattered rhonchi-otherwise clear Gastrointestinal: Yes: Soft, Abdomen, Obese, Other (peg +) Edema: trace Right heel -- stage 2 --dressing + Neurological: Yes: alert/ awake Assessment/Plan clinically stable Continue abx-on cipro frequent suctioning. pulmonary toilet. discussed with nursing staff . decubitus precautions. overall much better pain control physical therapy decubitus precautions oob - chair discharge planning in progress. family looking for places Medically stable for discharge--- when bed is available- discussed with [facility] again today. Family would like to take patient to [place]. Problem List - Problems (1) Obesity Code(s): E66.9 - OBESITY, UNSPECIFIED (2) Pneumonia Code(s): J18.9 - PNEUMONIA, UNSPECIFIED ORGANISM Qualifiers: Laterality: right Lung location: lower lobe of lung (3) Renal failure Code(s): N19 - UNSPECIFIED KIDNEY FAILURE Qualifiers: Renal failure chronicity: chronic Chronic kidney disease stage: on chronic dialysis Qualified Code(s): N18.6 - End stage renal disease; Z99.2 - Dependence on renal dialysis; Z99.2 - Dependence on renal dialysis; Z99.2 - Dependence on renal dialysis; Z99.2 - Dependence on renal dialysis (4) Respiratory failure Code(s): J96.90 - RESPIRATORY FAILURE, UNSP, UNSP W HYPOXIA OR HYPERCAPNIA Qualifiers: Chronicity: chronic (5) Sepsis Code(s): A41.9 - SEPSIS, UNSPECIFIED ORGANISM Qualifiers: Sepsis type: sepsis due to unspecified organism Qualified Code(s): A41.9 - Sepsis, unspecified organism (6) Jocelyn's granulomatosis (granulomatosis with polyangiitis) Code(s): M31.30 - JOCELYN'S GRANULOMATOSIS WITHOUT RENAL INVOLVEMENT
[2017-11-15 09:06] LABS: ANION GAP 8 (8-16); BLOOD UREA NITROGEN 40 mg/dL (7-18); CALCIUM 9.2 mg/dL (8.5-10.1); CO2 29 mmol/L (21-32); CREATININE 5.4 mg/dL (0.55-1.02); GLUCOSE,RANDOM 97 mg/dL (74-106)
[2017-11-15] MEDS: SEVELAMER CARBONATE 800 MG TAB (FP) PO SCH ×3 (10:03→18:13)
[2017-11-15] MEDS: ESCITALOPRAM OXALATE 10 MG TABLET (FP) PO SCH (10:04)
[2017-11-15] MEDS: FOLIC ACID 1 MG TABLET (FP) PO SCH (10:04)
[2017-11-15] MEDS: ACETAMINOPHEN 325 MG TABLET (FP) PO PRN (10:04)
[2017-11-15] MEDS: NYSTATIN 100,000 UNIT/GM TOPICAL CREAM 15 GM TUBE TP SCH ×2 (10:06→21:49)
[2017-11-15] MEDS: MIDODRINE HCL 5 MG TABLET PEG SCH ×2 (10:47→18:13)
[2017-11-15] MEDS ORDERED: EPOETIN ALFA 3,000 UNIT/1 ML ML IVPUSH ONE (11:00)
[2017-11-15] MEDS ORDERED: HEPARIN NA (PORCINE) 5,000 UNITS/ML 1ML VIAL IVPUSH ONE (11:00)
[2017-11-15] MEDS: HEPARIN NA (PORCINE) 5,000 UNITS/ML 1ML VIAL SQ SCH ×2 (11:00→21:49)
--- NOTE | 2017-11-15 13:43 | PN ---
Progress Note, Physician History of Present Illness: PULMONARY AWAKE,ALERT,ON DIALYSIS,-RESP DISTRESS - Current Medication List Current Medications: Active Medications Acetaminophen (Tylenol -) 325 mg PO QID PRN PRN Reason: PAIN Last Admin: 11/15/17 10:04 Dose: 325 mg Acetaminophen (Ofirmev Injection -) 1,000 mg IVPB Q6H PRN PRN Reason: FEVER OR PAIN Albuterol/Ipratropium (Duoneb -) 1 amp NEB Q4H PRN PRN Reason: SHORTNESS OF BREATH Last Admin: 11/15/17 06:27 Dose: 1 amp Ciprofloxacin (Cipro (Restricted To Id)) 500 mg PO DAILY@1400 [facility] Last Admin: 11/14/17 14:20 Dose: 500 mg Diphenhydramine HCl (Benadryl Oral Solution -) 25 mg PO TID PRN PRN Reason: FOR ITCHING Last Admin: 11/08/17 21:15 Dose: 25 mg Escitalopram Oxalate (Lexapro -) 5 mg PO DAILY [facility] Last Admin: 11/15/17 10:04 Dose: 5 mg Folic Acid (Folic Acid -) 1 mg PO DAILY [facility] Last Admin: 11/15/17 10:04 Dose: 1 mg Heparin Sodium (Porcine) (Heparin -) 5,000 unit SQ BID [facility] Last Admin: 11/14/17 22:05 Dose: 5,000 unit Lactulose (Cephulac (Oral Use)) 20 gm PO BID PRN PRN Reason: CONSTIPATION Loperamide HCl (Imodium Liquid -) 1 mg PO TID PRN PRN Reason: DIARRHEA Midodrine (Proamatine -) 5 mg PEG BID-MID [facility] Last Admin: 11/15/17 10:47 Dose: 5 mg Mirtazapine (Remeron -) 22.5 mg PO HS [facility] Last Admin: 11/14/17 22:05 Dose: 22.5 mg Nystatin (Mycostatin Cream -) 1 applic TP BID [facility] Last Admin: 11/15/17 10:06 Dose: 1 applic Oxycodone HCl (Roxicodone -) 5 mg PO Q6H PRN Last Admin: 11/13/17 21:40 Dose: 5 mg Prednisone (Deltasone -) 3 mg PO BID [facility] Last Admin: 11/14/17 22:06 Dose: 3 mg Senna (Senna Oral Solution -) 8.8 mg PO BID [facility] Last Admin: 11/14/17 22:08 Dose: 8.8 mg Sevelamer Carbonate (Renvela -) 800 mg PO TIDCM [facility] Last Admin: 11/15/17 10:03 Dose: 800 mg - Objective Vital Signs: Vital Signs Temperature 98.1 F 11/15/17 10:40 Pulse Rate 94 H 11/15/17 13:15 Respiratory Rate 18 11/15/17 13:15 Blood Pressure 111/53 11/15/17 13:15 O2 Sat by Pulse Oximetry (%) 100 11/15/17 10:03 Constitutional: Yes: Well Nourished, Calm Eyes: Yes: WNL HENT: Yes: WNL Neck: Yes: Supple (TRACH) Cardiovascular: Yes: Regular Rate and Rhythm, S1, S2 Respiratory: Yes: Rhonchi (SCATTERED KENJI RHONCHI) Gastrointestinal: Yes: Normal Bowel Sounds, Soft Extremities: Yes: WNL Edema: No Labs: CBC, BMP 11/15/17 07:40 11/15/17 07:40 INR, PTT INR 1.03 (0.82-1.09) 11/03/17 10:40 Problem List - Problems (1) ESRD (end stage renal disease) Code(s): N18.6 - END STAGE RENAL DISEASE (2) Hemodialysis access site with arteriovenous graft Code(s): Z99.2 - DEPENDENCE ON RENAL DIALYSIS (3) Pneumonia Code(s): J18.9 - PNEUMONIA, UNSPECIFIED ORGANISM Qualifiers: Laterality: right Lung location: lower lobe of lung (4) Respiratory failure Code(s): J96.90 - RESPIRATORY FAILURE, UNSP, UNSP W HYPOXIA OR HYPERCAPNIA Qualifiers: Chronicity: chronic (5) Jocelyn's granulomatosis (granulomatosis with polyangiitis) Code(s): M31.30 - 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
[2017-11-15] MEDS: predniSONE 1 MG TABLET (FP) PO SCH ×2 (14:38→21:49)
[2017-11-15] MEDS: oxyCODONE HCL 5 MG TABLET PO PRN ×2 (14:39→21:49)
[2017-11-15] MEDS: CIPROFLOXACIN 500 MG TABLET (RESTRICTED TO ID) PO SCH (14:42)
[2017-11-15] MEDS: SENNOSIDES 8.8 MG/5 ML BULK BOTTLE PO SCH ×2 (14:42→21:50)
--- NOTE | 2017-11-15 15:26 | PN ---
Progress Note, Physician History of Present Illness: Pt seen and examined at bedside. She is currently getting HD. She denies shortness of breath. - Current Medication List Current Medications: Active Medications Acetaminophen (Tylenol -) 325 mg PO QID PRN PRN Reason: PAIN Last Admin: 11/15/17 10:04 Dose: 325 mg Acetaminophen (Ofirmev Injection -) 1,000 mg IVPB Q6H PRN PRN Reason: FEVER OR PAIN Albuterol/Ipratropium (Duoneb -) 1 amp NEB Q4H PRN PRN Reason: SHORTNESS OF BREATH Last Admin: 11/15/17 06:27 Dose: 1 amp Ciprofloxacin (Cipro (Restricted To Id)) 500 mg PO DAILY@1400 [facility] Last Admin: 11/15/17 14:42 Dose: 500 mg Diphenhydramine HCl (Benadryl Oral Solution -) 25 mg PO TID PRN PRN Reason: FOR ITCHING Last Admin: 11/08/17 21:15 Dose: 25 mg Escitalopram Oxalate (Lexapro -) 5 mg PO DAILY [facility] Last Admin: 11/15/17 10:04 Dose: 5 mg Folic Acid (Folic Acid -) 1 mg PO DAILY [facility] Last Admin: 11/15/17 10:04 Dose: 1 mg Heparin Sodium (Porcine) (Heparin -) 5,000 unit SQ BID [facility] Last Admin: 11/15/17 11:00 Dose: Not Given Lactulose (Cephulac (Oral Use)) 20 gm PO BID PRN PRN Reason: CONSTIPATION Loperamide HCl (Imodium Liquid -) 1 mg PO TID PRN PRN Reason: DIARRHEA Midodrine (Proamatine -) 5 mg PEG BID-MID [facility] Last Admin: 11/15/17 10:47 Dose: 5 mg Mirtazapine (Remeron -) 22.5 mg PO HS [facility] Last Admin: 11/14/17 22:05 Dose: 22.5 mg Nystatin (Mycostatin Cream -) 1 applic TP BID [facility] Last Admin: 11/15/17 10:06 Dose: 1 applic Oxycodone HCl (Roxicodone -) 5 mg PO Q6H PRN Last Admin: 11/15/17 14:39 Dose: 5 mg Prednisone (Deltasone -) 3 mg PO BID [facility] Last Admin: 11/15/17 14:38 Dose: 3 mg Senna (Senna Oral Solution -) 8.8 mg PO BID [facility] Last Admin: 11/15/17 14:42 Dose: 8.8 mg Sevelamer Carbonate (Renvela -) 800 mg PO TIDCM [facility] Last Admin: 11/15/17 14:39 Dose: 800 mg - Objective Vital Signs: Vital Signs Temperature 98.1 F 11/15/17 10:40 Pulse Rate 105 H 11/15/17 14:20 Respiratory Rate 18 11/15/17 14:20 Blood Pressure 120/76 11/15/17 14:20 O2 Sat by Pulse Oximetry (%) 100 11/15/17 10:03 Constitutional: Yes: Calm Eyes: Yes: Conjunctiva Clear Neck: Yes: Other (trache) Cardiovascular: Yes: S1, S2 Respiratory: Yes: Other (on oxygen via trache) Gastrointestinal: Yes: Soft Genitourinary: Yes: Incontinence Musculoskeletal: Yes: Muscle Weakness Edema: No Neurological: Yes: Oriented Psychiatric: Yes: Oriented Labs: CBC, BMP 11/15/17 07:40 11/15/17 07:40 INR, PTT INR 1.03 (0.82-1.09) 11/03/17 10:40 Problem List - Problems (1) Respiratory failure Code(s): J96.90 - RESPIRATORY FAILURE, UNSP, UNSP W HYPOXIA OR HYPERCAPNIA (2) ESRD (end stage renal disease) Code(s): N18.6 - END STAGE RENAL DISEASE (3) Sepsis Code(s): A41.9 - SEPSIS, UNSPECIFIED ORGANISM Qualifiers: Sepsis type: sepsis due to unspecified organism Qualified Code(s): A41.9 - Sepsis, unspecified organism (4) Jocelyn's granulomatosis (granulomatosis with polyangiitis) Code(s): M31.30 - JOCELYN'S GRANULOMATOSIS WITHOUT RENAL INVOLVEMENT Assessment/Plan Current Medications Generic Name Dose Route Start Last Admin Trade Name Freq PRN Reason Stop Dose Admin Acetaminophen 325 mg 11/05/17 19:02 11/15/17 10:04 Tylenol - PO 325 mg QID PRN Administration PAIN Acetaminophen 1,000 mg 11/05/17 19:02 Ofirmev Injection - IVPB Q6H PRN FEVER OR PAIN Albuterol/Ipratropium 1 amp 11/12/17 22:37 11/15/17 06:27 Duoneb - NEB 1 amp Q4H PRN Administration SHORTNESS OF BREATH Ciprofloxacin 500 mg 11/11/17 12:33 11/15/17 14:42 Cipro (Restricted To Id) PO 500 mg DAILY@1400 [facility] Administration Diphenhydramine HCl 25 mg 11/05/17 19:02 11/08/17 21:15 Benadryl Oral Solution - PO 25 mg TID PRN Administration FOR ITCHING Escitalopram Oxalate 5 mg 11/06/17 10:00 11/15/17 10:04 Lexapro - PO 5 mg DAILY [facility] Administration Folic Acid 1 mg 11/06/17 10:00 11/15/17 10:04 Folic Acid - PO 1 mg DAILY [facility] Administration Heparin Sodium (Porcine) 5,000 unit 11/12/17 22:00 11/15/17 11:00 Heparin - SQ Not Given BID [facility] Lactulose 20 gm 11/05/17 19:02 Cephulac (Oral Use) PO BID PRN CONSTIPATION Loperamide HCl 1 mg 11/05/17 19:02 Imodium Liquid - PO TID PRN DIARRHEA Midodrine 5 mg 11/06/17 10:00 11/15/17 10:47 Proamatine - PEG 5 mg BID-MID [facility] Administration Mirtazapine 22.5 mg 11/05/17 22:00 11/14/17 22:05 Remeron - PO 22.5 mg HS [facility] Administration Nystatin 1 applic 11/05/17 22:00 11/15/17 10:06 Mycostatin Cream - TP 1 applic BID [facility] Administration Oxycodone HCl 5 mg 11/13/17 13:37 11/15/17 14:39 Roxicodone - PO 5 mg Q6H PRN Administration Prednisone 3 mg 11/05/17 22:00 11/15/17 14:38 Deltasone - PO 3 mg BID [facility] Administration Senna 8.8 mg 11/05/17 22:00 11/15/17 14:42 Senna Oral Solution - PO 8.8 mg BID [facility] Administration Sevelamer Carbonate 800 mg 11/06/17 08:00 11/15/17 14:39 Renvela - PO 800 mg TIDCM [facility] Administration Impression 1. 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 chronic resp failure 4. htn 5. chol 6. obesity 7. anemia 8. hypoxia Plan - HD today - cont current meds - monitor BP - HD prescription: AVF 2 k bath 3.5 hrs heparin 1999 - will follow pt Dr Trotter
--- NOTE | 2017-11-15 16:40 | PN ---
Progress Note, Physician History of Present Illness: Fevers, cough and sputum production from her trach resolved. Pt denies chest pain, dyspnea, palpitations, orthopnea. - Current Medication List Current Medications: Active Medications Acetaminophen (Tylenol -) 325 mg PO QID PRN PRN Reason: PAIN Last Admin: 11/15/17 10:04 Dose: 325 mg Acetaminophen (Ofirmev Injection -) 1,000 mg IVPB Q6H PRN PRN Reason: FEVER OR PAIN Albuterol/Ipratropium (Duoneb -) 1 amp NEB Q4H PRN PRN Reason: SHORTNESS OF BREATH Last Admin: 11/15/17 06:27 Dose: 1 amp Ciprofloxacin (Cipro (Restricted To Id)) 500 mg PO DAILY@1400 [facility] Last Admin: 11/15/17 14:42 Dose: 500 mg Diphenhydramine HCl (Benadryl Oral Solution -) 25 mg PO TID PRN PRN Reason: FOR ITCHING Last Admin: 11/08/17 21:15 Dose: 25 mg Escitalopram Oxalate (Lexapro -) 5 mg PO DAILY [facility] Last Admin: 11/15/17 10:04 Dose: 5 mg Folic Acid (Folic Acid -) 1 mg PO DAILY [facility] Last Admin: 11/15/17 10:04 Dose: 1 mg Heparin Sodium (Porcine) (Heparin -) 5,000 unit SQ BID [facility] Last Admin: 11/15/17 11:00 Dose: Not Given Lactulose (Cephulac (Oral Use)) 20 gm PO BID PRN PRN Reason: CONSTIPATION Loperamide HCl (Imodium Liquid -) 1 mg PO TID PRN PRN Reason: DIARRHEA Midodrine (Proamatine -) 5 mg PEG BID-MID [facility] Last Admin: 11/15/17 10:47 Dose: 5 mg Mirtazapine (Remeron -) 22.5 mg PO HS [facility] Last Admin: 11/14/17 22:05 Dose: 22.5 mg Nystatin (Mycostatin Cream -) 1 applic TP BID [facility] Last Admin: 11/15/17 10:06 Dose: 1 applic Oxycodone HCl (Roxicodone -) 5 mg PO Q6H PRN Last Admin: 11/15/17 14:39 Dose: 5 mg Prednisone (Deltasone -) 3 mg PO BID [facility] Last Admin: 11/15/17 14:38 Dose: 3 mg Senna (Senna Oral Solution -) 8.8 mg PO BID [facility] Last Admin: 11/15/17 14:42 Dose: 8.8 mg Sevelamer Carbonate (Renvela -) 800 mg PO TIDCM [facility] Last Admin: 11/15/17 14:39 Dose: 800 mg - Objective Vital Signs: Vital Signs Temperature 98.2 F 11/15/17 14:30 Pulse Rate 115 H 11/15/17 14:30 Respiratory Rate 22 11/15/17 14:30 Blood Pressure 127/55 11/15/17 14:30 O2 Sat by Pulse Oximetry (%) 100 11/15/17 15:00 Constitutional: Yes: No Distress, Calm Neck: Yes: Supple, Other (Trach collar) Cardiovascular: Yes: Regular Rate and Rhythm Respiratory: Yes: Regular, Diminished, Rhonchi Gastrointestinal: Yes: Normal Bowel Sounds, Soft, Abdomen, Obese Edema: No Labs: CBC, BMP 11/15/17 07:40 11/15/17 07:40 INR, PTT INR 1.03 (0.82-1.09) 11/03/17 10:40 Problem List - Problems (1) ESRD (end stage renal disease) Code(s): N18.6 - END STAGE RENAL DISEASE (2) Granulomatosis with polyangiitis with renal involvement Code(s): M31.31 - JOCELYN'S GRANULOMATOSIS WITH RENAL INVOLVEMENT (3) Renal failure Code(s): N19 - UNSPECIFIED KIDNEY FAILURE Qualifiers: Renal failure chronicity: chronic Chronic kidney disease stage: on chronic dialysis Qualified Code(s): N18.6 - End stage renal disease; Z99.2 - Dependence on renal dialysis; Z99.2 - Dependence on renal dialysis; Z99.2 - Dependence on renal dialysis; Z99.2 - Dependence on renal dialysis (4) Respiratory failure Code(s): J96.90 - RESPIRATORY FAILURE, UNSP, UNSP W HYPOXIA OR HYPERCAPNIA Qualifiers: Chronicity: chronic (5) Sepsis Code(s): A41.9 - SEPSIS, UNSPECIFIED ORGANISM Qualifiers: Sepsis type: sepsis due to unspecified organism Qualified Code(s): A41.9 - Sepsis, unspecified organism (6) Jocelyn's granulomatosis (granulomatosis with polyangiitis) Code(s): M31.30 - JOCELYN'S GRANULOMATOSIS WITHOUT RENAL INVOLVEMENT (7) UTI (urinary tract infection) Code(s): N39.0 - URINARY TRACT INFECTION, SITE NOT SPECIFIED Qualifiers: Urinary tract infection type: site unspecified (8) Anemia Code(s): D64.9 - ANEMIA, UNSPECIFIED Qualifiers: Anemia type: due to chronic kidney disease (9) Pneumonia Code(s): J18.9 - PNEUMONIA, UNSPECIFIED ORGANISM Qualifiers: Laterality: right Lung location: lower lobe of lung Assessment/Plan 1. Right lower lobe Pneumonia, resolving 2. Urinary tract infection, resolving 3. 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 Chronic Respiratory Failure on trach collar 5. HTN - currently hypotensive requiring Midodrine therapy 6. DM 7. Hypercholesterolemia 8. ESRD on HD 9. Anemia 10. Sinus tachycardia PLAN: 1. Continue antibiotic course as per ID service 2. Bronchodilators, oral steroids, chest PT, pulm toilet, O2 to keep SpO2 >90% 3. Continue HD as per renal service, and continue Midodrine 5 bid to assist with adequate BP maintenance 4. DVT prophylaxis, recheck EKG
[2017-11-15] MEDS: MIRTAZAPINE 15 MG TABLET (FP) PO SCH (21:50)
[2017-11-15] MEDS: CLOTRIMAZOLE 1% CREAM 15 GM TUBE TP SCH (21:55)
[2017-11-16] MEDS: SEVELAMER CARBONATE 800 MG TAB (FP) PO SCH ×3 (08:31→18:06)
--- NOTE | 2017-11-16 11:09 | PN ---
Progress Note, Physician Chief Complaint: ID Asked to look at a rash by nursing staff ON CIprofloxacin po - Current Medication List Current Medications: Active Medications Acetaminophen (Tylenol -) 325 mg PO QID PRN PRN Reason: PAIN Last Admin: 11/15/17 10:04 Dose: 325 mg Acetaminophen (Ofirmev Injection -) 1,000 mg IVPB Q6H PRN PRN Reason: FEVER OR PAIN Albuterol/Ipratropium (Duoneb -) 1 amp NEB Q4H PRN PRN Reason: SHORTNESS OF BREATH Last Admin: 11/15/17 23:15 Dose: 1 amp Ciprofloxacin (Cipro (Restricted To Id)) 500 mg PO DAILY@1400 [facility] Last Admin: 11/15/17 14:42 Dose: 500 mg Clotrimazole (Lotrimin 1% Cream -) 1 applic TP BID [facility] Last Admin: 11/15/17 21:55 Dose: 1 applic Diphenhydramine HCl (Benadryl Oral Solution -) 25 mg PO TID PRN PRN Reason: FOR ITCHING Last Admin: 11/08/17 21:15 Dose: 25 mg Escitalopram Oxalate (Lexapro -) 5 mg PO DAILY [facility] Last Admin: 11/15/17 10:04 Dose: 5 mg Folic Acid (Folic Acid -) 1 mg PO DAILY [facility] Last Admin: 11/15/17 10:04 Dose: 1 mg Heparin Sodium (Porcine) (Heparin -) 5,000 unit SQ BID [facility] Last Admin: 11/15/17 21:49 Dose: 5,000 unit Lactulose (Cephulac (Oral Use)) 20 gm PO BID PRN PRN Reason: CONSTIPATION Loperamide HCl (Imodium Liquid -) 1 mg PO TID PRN PRN Reason: DIARRHEA Midodrine (Proamatine -) 5 mg PEG BID-MID [facility] Last Admin: 11/15/17 18:13 Dose: 5 mg Mirtazapine (Remeron -) 22.5 mg PO HS [facility] Last Admin: 11/15/17 21:50 Dose: 22.5 mg Nystatin (Mycostatin Cream -) 1 applic TP BID [facility] Last Admin: 11/15/17 21:49 Dose: 1 applic Oxycodone HCl (Roxicodone -) 5 mg PO Q6H PRN Last Admin: 11/15/17 21:49 Dose: 5 mg Prednisone (Deltasone -) 3 mg PO BID [facility] Last Admin: 11/15/17 21:49 Dose: 3 mg Senna (Senna Oral Solution -) 8.8 mg PO BID [facility] Last Admin: 11/15/17 21:50 Dose: 8.8 mg Sevelamer Carbonate (Renvela -) 800 mg PO TIDCM [facility] Last Admin: 11/16/17 08:31 Dose: 800 mg - Objective Vital Signs: Vital Signs Temperature 98.6 F 11/16/17 06:00 Pulse Rate 101 H 11/16/17 06:00 Respiratory Rate 20 11/16/17 06:00 Blood Pressure 121/59 11/16/17 06:00 O2 Sat by Pulse Oximetry (%) 99 11/15/17 21:00 Constitutional: Yes: Well Nourished, No Distress HENT: Yes: WNL, Atraumatic Neck: Yes: Supple, Other (Trach) Cardiovascular: Yes: Regular Rate and Rhythm, S1, S2 Respiratory: Yes: WNL, Regular, CTA Bilaterally Gastrointestinal: Yes: WNL, Normal Bowel Sounds, Soft. No: Tenderness, Tenderness, Epigastrium Integumentary: Yes: Other (Dermatomal blistering rash thoracic dermatome) Labs: CBC, BMP 11/15/17 07:40 11/15/17 07:40 INR, PTT INR 1.03 (0.82-1.09) 11/03/17 10:40 Problem List - Problems (1) ESRD (end stage renal disease) Code(s): N18.6 - END STAGE RENAL DISEASE (2) Pneumonia Code(s): J18.9 - PNEUMONIA, UNSPECIFIED ORGANISM Qualifiers: Laterality: right Lung location: lower lobe of lung (3) Renal failure Code(s): N19 - UNSPECIFIED KIDNEY FAILURE Qualifiers: Renal failure chronicity: chronic Chronic kidney disease stage: on chronic dialysis Qualified Code(s): N18.6 - End stage renal disease; Z99.2 - Dependence on renal dialysis; Z99.2 - Dependence on renal dialysis; Z99.2 - Dependence on renal dialysis; Z99.2 - Dependence on renal dialysis (4) Sepsis Code(s): A41.9 - SEPSIS, UNSPECIFIED ORGANISM Qualifiers: Sepsis type: sepsis due to unspecified organism Qualified Code(s): A41.9 - Sepsis, unspecified organism Assessment/Plan Laboratory Tests 11/15/17 11/15/17 07:40 07:40 WBC 6.9 Hgb 8.1 L Hct 25.8 L Plt Count 242 D BUN 40 H D Creatinine 5.4 H D 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
[2017-11-16] MEDS: ESCITALOPRAM OXALATE 10 MG TABLET (FP) PO SCH (11:20)
[2017-11-16] MEDS: FOLIC ACID 1 MG TABLET (FP) PO SCH (11:20)
[2017-11-16] MEDS: MIDODRINE HCL 5 MG TABLET PEG SCH ×3 (11:20→20:14)
[2017-11-16] MEDS: predniSONE 1 MG TABLET (FP) PO SCH ×2 (11:21→21:48)
[2017-11-16] MEDS: HEPARIN NA (PORCINE) 5,000 UNITS/ML 1ML VIAL SQ SCH ×2 (11:21→21:48)
[2017-11-16] MEDS: SENNOSIDES 8.8 MG/5 ML BULK BOTTLE PO SCH ×2 (11:22→21:48)
[2017-11-16] MEDS: NYSTATIN 100,000 UNIT/GM TOPICAL CREAM 15 GM TUBE TP SCH ×2 (11:30→21:47)
[2017-11-16] MEDS: CLOTRIMAZOLE 1% CREAM 15 GM TUBE TP SCH (11:31)
[2017-11-16] MEDS: oxyCODONE HCL 5 MG TABLET PO PRN ×2 (11:45→21:49)
--- NOTE | 2017-11-16 12:10 | PN ---
Progress Note (short form) - Note Progress Note: comfortable developed rash--under breasts-- agree - shingles discussed with dr. Shetty also- started on valtrex denies pain but itching + Vital Signs Temp 98.6 F 11/16/17 06:00 Pulse 101 H 11/16/17 06:00 Resp 20 11/16/17 06:00 BP 121/59 11/16/17 06:00 Pulse Ox 99 11/15/17 21:00 Intake & Output 11/15/17 11/16/17 11/16/17 23:59 11:59 23:59 Intake Total 1000 0 Balance 1000 0 Intake: IVPB 0 Oral 1000 Other: Voiding Method Incontinent # Unmeasured Voids Straight Cath 0 Void 0 Bowel Movement No Active Medications Acetaminophen (Tylenol -) 325 mg PO QID PRN PRN Reason: PAIN Last Admin: 11/15/17 10:04 Dose: 325 mg Acetaminophen (Ofirmev Injection -) 1,000 mg IVPB Q6H PRN PRN Reason: FEVER OR PAIN Albuterol/Ipratropium (Duoneb -) 1 amp NEB Q4H PRN PRN Reason: SHORTNESS OF BREATH Last Admin: 11/15/17 23:15 Dose: 1 amp Ciprofloxacin (Cipro (Restricted To Id)) 500 mg PO DAILY@1400 [facility] Last Admin: 11/15/17 14:42 Dose: 500 mg Diphenhydramine HCl (Benadryl Oral Solution -) 25 mg PO TID PRN PRN Reason: FOR ITCHING Last Admin: 11/08/17 21:15 Dose: 25 mg Escitalopram Oxalate (Lexapro -) 5 mg PO DAILY [facility] Last Admin: 11/16/17 11:20 Dose: 5 mg Folic Acid (Folic Acid -) 1 mg PO DAILY [facility] Last Admin: 11/16/17 11:20 Dose: 1 mg Heparin Sodium (Porcine) (Heparin -) 5,000 unit SQ BID [facility] Last Admin: 11/16/17 11:21 Dose: 5,000 unit Acyclovir 1,000 mg/ Dextrose 270 mls @ 270 mls/hr IVPB Q24H [facility] Lactulose (Cephulac (Oral Use)) 20 gm PO BID PRN PRN Reason: CONSTIPATION Loperamide HCl (Imodium Liquid -) 1 mg PO TID PRN PRN Reason: DIARRHEA Midodrine (Proamatine -) 5 mg PEG BID-MID [facility] Last Admin: 11/16/17 11:20 Dose: 5 mg Mirtazapine (Remeron -) 22.5 mg PO HS [facility] Last Admin: 11/15/17 21:50 Dose: 22.5 mg Nystatin (Mycostatin Cream -) 1 applic TP BID [facility] Last Admin: 11/16/17 11:30 Dose: 1 applic Oxycodone HCl (Roxicodone -) 5 mg PO Q6H PRN Last Admin: 11/16/17 11:45 Dose: 5 mg Prednisone (Deltasone -) 3 mg PO BID [facility] Last Admin: 11/16/17 11:21 Dose: 3 mg Senna (Senna Oral Solution -) 8.8 mg PO BID [facility] Last Admin: 11/16/17 11:22 Dose: 8.8 mg Sevelamer Carbonate (Renvela -) 800 mg PO TIDCM [facility] Last Admin: 11/16/17 08:31 Dose: 800 mg CBC, BMP 11/15/17 07:40 11/15/17 07:40 Physical Examination Constitutional: Yes: awake/ comfortable. Neck: Yes: Supple, Other (s/p trach). Cardiovascular: Yes: Regular Rate and Rhythm Respiratory: Yes: Diminished at bases-- few scattered rhonchi-otherwise clear Gastrointestinal: Yes: Soft, Abdomen, Obese, Other (peg +) Edema: trace Right heel -- stage 2 --dressing + skin-- rash under breasts - Neurological: Yes: alert/ awake Assessment/Plan clinically stable Continue abx-on cipro on valtrex for herpes frequent suctioning. pulmonary toilet. discussed with nursing staff . decubitus precautions. overall much better pain control physical therapy decubitus precautions oob - chair discharge planning in progress. family looking for places Medically stable for discharge--- when bed is available- discussed with rn case manager hospice again today. Family would like to take patient to [place]. Problem List - Problems (1) Obesity Code(s): E66.9 - OBESITY, UNSPECIFIED (2) Pneumonia Code(s): J18.9 - PNEUMONIA, UNSPECIFIED ORGANISM Qualifiers: Laterality: right Lung location: lower lobe of lung (3) Renal failure Code(s): N19 - UNSPECIFIED KIDNEY FAILURE Qualifiers: Renal failure chronicity: chronic Chronic kidney disease stage: on chronic dialysis Qualified Code(s): N18.6 - End stage renal disease; Z99.2 - Dependence on renal dialysis; Z99.2 - Dependence on renal dialysis; Z99.2 - Dependence on renal dialysis; Z99.2 - Dependence on renal dialysis (4) Respiratory failure Code(s): J96.90 - RESPIRATORY FAILURE, UNSP, UNSP W HYPOXIA OR HYPERCAPNIA Qualifiers: Chronicity: chronic (5) Sepsis Code(s): A41.9 - SEPSIS, UNSPECIFIED ORGANISM Qualifiers: Sepsis type: sepsis due to unspecified organism Qualified Code(s): A41.9 - Sepsis, unspecified organism (6) Jocelyn's granulomatosis (granulomatosis with polyangiitis) Code(s): M31.30 - JOCELYN'S GRANULOMATOSIS WITHOUT RENAL INVOLVEMENT
--- NOTE | 2017-11-16 12:27 | EKG ---
Test Reason : Blood Pressure : / mmHG Vent. Rate : 106 BPM Atrial Rate : 106 BPM P-R Int : 154 ms QRS Dur : 084 ms QT Int : 338 ms P-R-T Axes : 052 -18 026 degrees QTc Int : 448 ms SINUS TACHYCARDIA POSSIBLE LEFT ATRIAL ENLARGEMENT LEFT VENTRICULAR HYPERTROPHY ABNORMAL ECG WHEN COMPARED WITH ECG OF 03-NOV-2017 10:01, NON-SPECIFIC CHANGE IN ST SEGMENT IN ANTERIOR LEADS Confirmed by KRAIG VALDEZ, GASTON ([id number]) on 11/16/2017 12:27:18 PM Referred By: Confirmed By:GASTON CORNELL MD
--- NOTE | 2017-11-16 13:17 | PN ---
Progress Note, Physician History of Present Illness: PULMONARY ALERT,COMFORTABLE,NAD. - Current Medication List Current Medications: Active Medications Acetaminophen (Tylenol -) 325 mg PO QID PRN PRN Reason: PAIN Last Admin: 11/15/17 10:04 Dose: 325 mg Acetaminophen (Ofirmev Injection -) 1,000 mg IVPB Q6H PRN PRN Reason: FEVER OR PAIN Albuterol/Ipratropium (Duoneb -) 1 amp NEB Q4H PRN PRN Reason: SHORTNESS OF BREATH Last Admin: 11/15/17 23:15 Dose: 1 amp Ciprofloxacin (Cipro (Restricted To Id)) 500 mg PO DAILY@1400 [facility] Last Admin: 11/15/17 14:42 Dose: 500 mg Diphenhydramine HCl (Benadryl Oral Solution -) 25 mg PO TID PRN PRN Reason: FOR ITCHING Last Admin: 11/08/17 21:15 Dose: 25 mg Escitalopram Oxalate (Lexapro -) 5 mg PO DAILY [facility] Last Admin: 11/16/17 11:20 Dose: 5 mg Folic Acid (Folic Acid -) 1 mg PO DAILY [facility] Last Admin: 11/16/17 11:20 Dose: 1 mg Heparin Sodium (Porcine) (Heparin -) 5,000 unit SQ BID [facility] Last Admin: 11/16/17 11:21 Dose: 5,000 unit Acyclovir 1,000 mg/ Dextrose 270 mls @ 270 mls/hr IVPB Q24H [facility] Lactulose (Cephulac (Oral Use)) 20 gm PO BID PRN PRN Reason: CONSTIPATION Loperamide HCl (Imodium Liquid -) 1 mg PO TID PRN PRN Reason: DIARRHEA Midodrine (Proamatine -) 5 mg PEG BID-MID [facility] Last Admin: 11/16/17 11:20 Dose: 5 mg Mirtazapine (Remeron -) 22.5 mg PO HS [facility] Last Admin: 11/15/17 21:50 Dose: 22.5 mg Nystatin (Mycostatin Cream -) 1 applic TP BID [facility] Last Admin: 11/16/17 11:30 Dose: 1 applic Oxycodone HCl (Roxicodone -) 5 mg PO Q6H PRN Last Admin: 11/16/17 11:45 Dose: 5 mg Prednisone (Deltasone -) 3 mg PO BID [facility] Last Admin: 11/16/17 11:21 Dose: 3 mg Senna (Senna Oral Solution -) 8.8 mg PO BID [facility] Last Admin: 11/16/17 11:22 Dose: 8.8 mg Sevelamer Carbonate (Renvela -) 800 mg PO TIDCM [facility] Last Admin: 11/16/17 12:13 Dose: 800 mg - Objective Vital Signs: Vital Signs Temperature 98.5 F 11/16/17 10:00 Pulse Rate 100 H 11/16/17 10:00 Respiratory Rate 20 11/16/17 10:00 Blood Pressure 126/63 11/16/17 10:00 O2 Sat by Pulse Oximetry (%) 99 11/15/17 21:00 Constitutional: Yes: Well Nourished, Calm Eyes: Yes: WNL HENT: Yes: WNL Neck: Yes: Supple (TRACH) Cardiovascular: Yes: Regular Rate and Rhythm, S1, S2 Respiratory: Yes: Rhonchi (FEW SCATTERED RHONCHI) Gastrointestinal: Yes: Normal Bowel Sounds, Soft Extremities: Yes: WNL Edema: No Labs: CBC, BMP Problem List - Problems (1) ESRD (end stage renal disease) Code(s): N18.6 - END STAGE RENAL DISEASE (2) Hemodialysis access site with arteriovenous graft Code(s): Z99.2 - DEPENDENCE ON RENAL DIALYSIS (3) Pneumonia Code(s): J18.9 - PNEUMONIA, UNSPECIFIED ORGANISM Qualifiers: Laterality: right Lung location: lower lobe of lung (4) Respiratory failure Code(s): J96.90 - RESPIRATORY FAILURE, UNSP, UNSP W HYPOXIA OR HYPERCAPNIA Qualifiers: Chronicity: chronic (5) Jocelyn's granulomatosis (granulomatosis with polyangiitis) Code(s): M31.30 - JOCELYN'S GRANULOMATOSIS WITHOUT RENAL INVOLVEMENT Assessment/Plan A/P Pneumonia UTI Sepsis Jocelyn's Granulomatosis Chronic Respiratory Failure ESRD on HD HTN DM Zoster - chest PT - pulmonary toilet - inhaled bronchodilators - prednisone 3mg BID - O2 to keep SpO2 >90% - HD per renal - DVT prophylaxis - Zovirax DR BLANDON
[2017-11-16] MEDS: CIPROFLOXACIN 500 MG TABLET (RESTRICTED TO ID) PO SCH (13:45)
[2017-11-16] MEDS: ACYCLOVIR INJECTION 1,000 MG in DEXTROSE 5%-WATER - 250 ML IVPB SCH (14:12)
--- NOTE | 2017-11-16 14:13 | PN ---
Progress Note, Physician History of Present Illness: Fevers, cough and sputum production from her trach resolved. Pt denies chest pain, dyspnea, palpitations, orthopnea. Shingles diagnosed. - Current Medication List Current Medications: Active Medications Acetaminophen (Tylenol -) 325 mg PO QID PRN PRN Reason: PAIN Last Admin: 11/15/17 10:04 Dose: 325 mg Acetaminophen (Ofirmev Injection -) 1,000 mg IVPB Q6H PRN PRN Reason: FEVER OR PAIN Albuterol/Ipratropium (Duoneb -) 1 amp NEB Q4H PRN PRN Reason: SHORTNESS OF BREATH Last Admin: 11/15/17 23:15 Dose: 1 amp Ciprofloxacin (Cipro (Restricted To Id)) 500 mg PO DAILY@1400 [facility] Last Admin: 11/16/17 13:45 Dose: 500 mg Diphenhydramine HCl (Benadryl Oral Solution -) 25 mg PO TID PRN PRN Reason: FOR ITCHING Last Admin: 11/08/17 21:15 Dose: 25 mg Escitalopram Oxalate (Lexapro -) 5 mg PO DAILY [facility] Last Admin: 11/16/17 11:20 Dose: 5 mg Folic Acid (Folic Acid -) 1 mg PO DAILY [facility] Last Admin: 11/16/17 11:20 Dose: 1 mg Heparin Sodium (Porcine) (Heparin -) 5,000 unit SQ BID [facility] Last Admin: 11/16/17 11:21 Dose: 5,000 unit Acyclovir 1,000 mg/ Dextrose 270 mls @ 270 mls/hr IVPB Q24H [facility] Lactulose (Cephulac (Oral Use)) 20 gm PO BID PRN PRN Reason: CONSTIPATION Loperamide HCl (Imodium Liquid -) 1 mg PO TID PRN PRN Reason: DIARRHEA Midodrine (Proamatine -) 5 mg PEG BID-MID [facility] Last Admin: 11/16/17 11:20 Dose: 5 mg Mirtazapine (Remeron -) 22.5 mg PO HS [facility] Last Admin: 11/15/17 21:50 Dose: 22.5 mg Nystatin (Mycostatin Cream -) 1 applic TP BID [facility] Last Admin: 11/16/17 11:30 Dose: 1 applic Oxycodone HCl (Roxicodone -) 5 mg PO Q6H PRN Last Admin: 11/16/17 11:45 Dose: 5 mg Prednisone (Deltasone -) 3 mg PO BID [facility] Last Admin: 11/16/17 11:21 Dose: 3 mg Senna (Senna Oral Solution -) 8.8 mg PO BID [facility] Last Admin: 11/16/17 11:22 Dose: 8.8 mg Sevelamer Carbonate (Renvela -) 800 mg PO TIDCM [facility] Last Admin: 11/16/17 12:13 Dose: 800 mg - Objective Vital Signs: Vital Signs Temperature 98.5 F 11/16/17 10:00 Pulse Rate 100 H 11/16/17 10:00 Respiratory Rate 20 11/16/17 10:00 Blood Pressure 126/63 11/16/17 10:00 O2 Sat by Pulse Oximetry (%) 99 11/15/17 21:00 Constitutional: Yes: No Distress, Calm Neck: Yes: Supple Cardiovascular: Yes: Regular Rate and Rhythm Respiratory: Yes: Regular, Diminished Gastrointestinal: Yes: Normal Bowel Sounds, Soft Edema: No Labs: CBC, BMP 11/15/17 07:40 11/15/17 07:40 INR, PTT INR 1.03 (0.82-1.09) 11/03/17 10:40 - ....Imaging EKG: Report Reviewed (EKG: ST@106 [facility]) Problem List - Problems (1) ESRD (end stage renal disease) Code(s): N18.6 - END STAGE RENAL DISEASE (2) Granulomatosis with polyangiitis with renal involvement Code(s): M31.31 - JOCELYN'S GRANULOMATOSIS WITH RENAL INVOLVEMENT (3) Renal failure Code(s): N19 - UNSPECIFIED KIDNEY FAILURE Qualifiers: Renal failure chronicity: chronic Chronic kidney disease stage: on chronic dialysis Qualified Code(s): N18.6 - End stage renal disease; Z99.2 - Dependence on renal dialysis; Z99.2 - Dependence on renal dialysis; Z99.2 - Dependence on renal dialysis; Z99.2 - Dependence on renal dialysis (4) Respiratory failure Code(s): J96.90 - RESPIRATORY FAILURE, UNSP, UNSP W HYPOXIA OR HYPERCAPNIA Qualifiers: Chronicity: chronic (5) Sepsis Code(s): A41.9 - SEPSIS, UNSPECIFIED ORGANISM Qualifiers: Sepsis type: sepsis due to unspecified organism Qualified Code(s): A41.9 - Sepsis, unspecified organism (6) Jocelyn's granulomatosis (granulomatosis with polyangiitis) Code(s): M31.30 - JOCELYN'S GRANULOMATOSIS WITHOUT RENAL INVOLVEMENT (7) UTI (urinary tract infection) Code(s): N39.0 - URINARY TRACT INFECTION, SITE NOT SPECIFIED Qualifiers: Urinary tract infection type: site unspecified (8) Anemia Code(s): D64.9 - ANEMIA, UNSPECIFIED Qualifiers: Anemia type: due to chronic kidney disease (9) Pneumonia Code(s): J18.9 - PNEUMONIA, UNSPECIFIED ORGANISM Qualifiers: Laterality: right Lung location: lower lobe of lung (10) Zoster Code(s): B02.9 - ZOSTER WITHOUT COMPLICATIONS Qualifiers: Herpes zoster complications: without complications Qualified Code(s): B02.9 - Zoster without complications Assessment/Plan 1. Right lower lobe Pneumonia, resolving 2. Urinary tract infection, resolving 3. 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 Chronic Respiratory Failure on trach collar 5. HTN - currently hypotensive requiring Midodrine therapy 6. DM 7. Hypercholesterolemia 8. ESRD on HD 9. Anemia 10. Sinus tachycardia 11. Herpes Zoster PLAN: 1. Continue antibiotic and Zovirax course as per ID service 2. Bronchodilators, oral steroids, chest PT, pulm toilet, O2 to keep SpO2 >90% 3. Continue HD as per renal service, and continue Midodrine 5 bid to assist with adequate BP maintenance 4. DVT prophylaxis
--- NOTE | 2017-11-16 15:17 | PN ---
Progress Note, Physician History of Present Illness: Pt seen and examined at bedside. She has no complaints. - Current Medication List Current Medications: Active Medications Acetaminophen (Tylenol -) 325 mg PO QID PRN PRN Reason: PAIN Last Admin: 11/15/17 10:04 Dose: 325 mg Acetaminophen (Ofirmev Injection -) 1,000 mg IVPB Q6H PRN PRN Reason: FEVER OR PAIN Albuterol/Ipratropium (Duoneb -) 1 amp NEB Q4H PRN PRN Reason: SHORTNESS OF BREATH Last Admin: 11/15/17 23:15 Dose: 1 amp Ciprofloxacin (Cipro (Restricted To Id)) 500 mg PO DAILY@1400 [facility] Last Admin: 11/16/17 13:45 Dose: 500 mg Diphenhydramine HCl (Benadryl Oral Solution -) 25 mg PO TID PRN PRN Reason: FOR ITCHING Last Admin: 11/08/17 21:15 Dose: 25 mg Escitalopram Oxalate (Lexapro -) 5 mg PO DAILY [facility] Last Admin: 11/16/17 11:20 Dose: 5 mg Folic Acid (Folic Acid -) 1 mg PO DAILY [facility] Last Admin: 11/16/17 11:20 Dose: 1 mg Heparin Sodium (Porcine) (Heparin -) 5,000 unit SQ BID [facility] Last Admin: 11/16/17 11:21 Dose: 5,000 unit Acyclovir 1,000 mg/ Dextrose 270 mls @ 270 mls/hr IVPB Q24H [facility] Last Admin: 11/16/17 14:12 Dose: 270 mls/hr Lactulose (Cephulac (Oral Use)) 20 gm PO BID PRN PRN Reason: CONSTIPATION Loperamide HCl (Imodium Liquid -) 1 mg PO TID PRN PRN Reason: DIARRHEA Midodrine (Proamatine -) 5 mg PEG BID-MID [facility] Last Admin: 11/16/17 11:20 Dose: 5 mg Mirtazapine (Remeron -) 22.5 mg PO HS [facility] Last Admin: 11/15/17 21:50 Dose: 22.5 mg Nystatin (Mycostatin Cream -) 1 applic TP BID [facility] Last Admin: 11/16/17 11:30 Dose: 1 applic Oxycodone HCl (Roxicodone -) 5 mg PO Q6H PRN Last Admin: 11/16/17 11:45 Dose: 5 mg Prednisone (Deltasone -) 3 mg PO BID [facility] Last Admin: 11/16/17 11:21 Dose: 3 mg Senna (Senna Oral Solution -) 8.8 mg PO BID [facility] Last Admin: 11/16/17 11:22 Dose: 8.8 mg Sevelamer Carbonate (Renvela -) 800 mg PO TIDCM [facility] Last Admin: 11/16/17 12:13 Dose: 800 mg - Objective Vital Signs: Vital Signs Temperature 98.5 F 11/16/17 10:00 Pulse Rate 100 H 11/16/17 10:00 Respiratory Rate 20 11/16/17 10:00 Blood Pressure 126/63 11/16/17 10:00 O2 Sat by Pulse Oximetry (%) 99 11/15/17 21:00 Constitutional: Yes: Calm Eyes: Yes: Conjunctiva Clear HENT: Yes: Atraumatic Neck: Yes: Supple Cardiovascular: Yes: S1, S2 Respiratory: Yes: Other (trache) Gastrointestinal: Yes: Soft Genitourinary: Yes: Incontinence Musculoskeletal: Yes: Muscle Weakness Edema: No Neurological: Yes: Oriented Psychiatric: Yes: Oriented Labs: CBC, BMP 11/15/17 07:40 11/15/17 07:40 INR, PTT INR 1.03 (0.82-1.09) 11/03/17 10:40 Problem List - Problems (1) Respiratory failure Code(s): J96.90 - RESPIRATORY FAILURE, UNSP, UNSP W HYPOXIA OR HYPERCAPNIA (2) ESRD (end stage renal disease) Code(s): N18.6 - END STAGE RENAL DISEASE (3) Sepsis Code(s): A41.9 - SEPSIS, UNSPECIFIED ORGANISM Qualifiers: Sepsis type: sepsis due to unspecified organism Qualified Code(s): A41.9 - Sepsis, unspecified organism (4) Jocelyn's granulomatosis (granulomatosis with polyangiitis) Code(s): M31.30 - JOCELYN'S GRANULOMATOSIS WITHOUT RENAL INVOLVEMENT Assessment/Plan Current Medications Generic Name Dose Route Start Last Admin Trade Name Freq PRN Reason Stop Dose Admin Acetaminophen 325 mg 11/05/17 19:02 11/15/17 10:04 Tylenol - PO 325 mg QID PRN Administration PAIN Acetaminophen 1,000 mg 11/05/17 19:02 Ofirmev Injection - IVPB Q6H PRN FEVER OR PAIN Albuterol/Ipratropium 1 amp 11/12/17 22:37 11/15/17 23:15 Duoneb - NEB 1 amp Q4H PRN Administration SHORTNESS OF BREATH Ciprofloxacin 500 mg 11/11/17 12:33 11/16/17 13:45 Cipro (Restricted To Id) PO 500 mg DAILY@1400 [facility] Administration Diphenhydramine HCl 25 mg 11/05/17 19:02 11/08/17 21:15 Benadryl Oral Solution - PO 25 mg TID PRN Administration FOR ITCHING Escitalopram Oxalate 5 mg 11/06/17 10:00 11/16/17 11:20 Lexapro - PO 5 mg DAILY [facility] Administration Folic Acid 1 mg 11/06/17 10:00 11/16/17 11:20 Folic Acid - PO 1 mg DAILY [facility] Administration Heparin Sodium (Porcine) 5,000 unit 11/12/17 22:00 11/16/17 11:21 Heparin - SQ 5,000 unit BID [facility] Administration Acyclovir 1,000 mg/ Dextrose 270 mls @ 270 mls/hr 11/16/17 13:00 11/16/17 14: 12 IVPB 270 mls/hr Q24H [facility] Administration Lactulose 20 gm 11/05/17 19:02 Cephulac (Oral Use) PO BID PRN CONSTIPATION Loperamide HCl 1 mg 11/05/17 19:02 Imodium Liquid - PO TID PRN DIARRHEA Midodrine 5 mg 11/06/17 10:00 11/16/17 11:20 Proamatine - PEG 5 mg BID-MID [facility] Administration Mirtazapine 22.5 mg 11/05/17 22:00 11/15/17 21:50 Remeron - PO 22.5 mg HS [facility] Administration Nystatin 1 applic 11/05/17 22:00 11/16/17 11:30 Mycostatin Cream - TP 1 applic BID [facility] Administration Oxycodone HCl 5 mg 11/15/17 16:59 11/16/17 11:45 Roxicodone - PO 5 mg Q6H PRN Administration Prednisone 3 mg 11/05/17 22:00 11/16/17 11:21 Deltasone - PO 3 mg BID [facility] Administration Senna 8.8 mg 11/05/17 22:00 11/16/17 11:22 Senna Oral Solution - PO 8.8 mg BID [facility] Administration Sevelamer Carbonate 800 mg 11/06/17 08:00 11/16/17 12:13 Renvela - PO 800 mg TIDCM [facility] Administration Impression 1. 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 chronic resp failure 4. htn 5. chol 6. obesity 7. anemia 8. hypoxia Plan - HD in am - cont current meds - monitor BP - HD prescription: AVF 2 k bath 3.5 hrs heparin 1999 - will follow pt Dr Trotter
[2017-11-16] MEDS: ALBUTEROL SO4 2.5/IPRATROPIUM 0.5 INH SOL 3 ML VIAL.NEB. NEB PRN (18:07)
[2017-11-16] MEDS: MIRTAZAPINE 15 MG TABLET (FP) PO SCH (21:46)
[2017-11-16] MEDS: ACETAMINOPHEN 325 MG TABLET (FP) PO PRN (21:50)
[2017-11-17] MEDS ORDERED: PT OWN MED DRAWER 7, Y5N ONE ×4 (08:33→17:29)
[2017-11-17] MEDS: MIDODRINE HCL 5 MG TABLET PEG SCH ×2 (08:39→17:44)
[2017-11-17] MEDS ORDERED: HEPARIN NA (PORCINE) 5,000 UNITS/ML 1ML VIAL IVPUSH ONE (10:00)
[2017-11-17] MEDS ORDERED: EPOETIN ALFA 3,000 UNIT/1 ML ML IVPUSH ONE (10:00)
--- NOTE | 2017-11-17 10:15 | PN ---
Progress Note (short form) - Note Progress Note: patient seen in dialysis today. Comfortable. No new issues. Complains of pain and itching--- at shingles site Will add Neurontin Vital Signs Temp 98.8 F 11/17/17 08:35 Pulse 101 H 11/17/17 10:10 Resp 18 11/17/17 10:10 BP 120/70 11/17/17 10:10 Pulse Ox 100 11/16/17 09:00 Intake & Output 11/16/17 11/16/17 11/17/17 11:59 23:59 11:59 Intake Total 0 850 0 Balance 0 850 0 Intake: IVPB 0 250 Oral 600 0 Other: Voiding Method Incontinent Diaper # Unmeasured Voids Void 0 0 Bowel Movement No No Active Medications Acetaminophen (Tylenol -) 325 mg PO QID PRN PRN Reason: PAIN Last Admin: 11/16/17 21:50 Dose: 325 mg Acetaminophen (Ofirmev Injection -) 1,000 mg IVPB Q6H PRN PRN Reason: FEVER OR PAIN Albuterol/Ipratropium (Duoneb -) 1 amp NEB Q4H PRN PRN Reason: SHORTNESS OF BREATH Last Admin: 11/16/17 18:07 Dose: 1 amp Ciprofloxacin (Cipro (Restricted To Id)) 500 mg PO DAILY@1400 [facility] Last Admin: 11/16/17 13:45 Dose: 500 mg Diphenhydramine HCl (Benadryl Oral Solution -) 25 mg PO TID PRN PRN Reason: FOR ITCHING Last Admin: 11/08/17 21:15 Dose: 25 mg Escitalopram Oxalate (Lexapro -) 5 mg PO DAILY [facility] Last Admin: 11/16/17 11:20 Dose: 5 mg Folic Acid (Folic Acid -) 1 mg PO DAILY [facility] Last Admin: 11/16/17 11:20 Dose: 1 mg Heparin Sodium (Porcine) (Heparin -) 5,000 unit SQ BID [facility] Last Admin: 11/16/17 21:48 Dose: 5,000 unit Acyclovir 1,000 mg/ Dextrose 270 mls @ 270 mls/hr IVPB Q24H [facility] Last Admin: 11/16/17 14:12 Dose: 270 mls/hr Lactulose (Cephulac (Oral Use)) 20 gm PO BID PRN PRN Reason: CONSTIPATION Loperamide HCl (Imodium Liquid -) 1 mg PO TID PRN PRN Reason: DIARRHEA Midodrine (Proamatine -) 5 mg PEG BID-MID [facility] Last Admin: 11/17/17 08:39 Dose: 5 mg Mirtazapine (Remeron -) 22.5 mg PO HS [facility] Last Admin: 11/16/17 21:46 Dose: 22.5 mg Nystatin (Mycostatin Cream -) 1 applic TP BID [facility] Last Admin: 11/16/17 21:47 Dose: 1 applic Oxycodone HCl (Roxicodone -) 5 mg PO Q6H PRN Last Admin: 11/16/17 21:49 Dose: 5 mg Prednisone (Deltasone -) 3 mg PO BID [facility] Last Admin: 11/16/17 21:48 Dose: 3 mg Senna (Senna Oral Solution -) 8.8 mg PO BID [facility] Last Admin: 11/16/17 21:48 Dose: 8.8 mg Sevelamer Carbonate (Renvela -) 800 mg PO TIDCM [facility] Last Admin: 11/16/17 18:06 Dose: 800 mg CBC, BMP 11/15/17 07:40 11/15/17 07:40 Physical Examination Constitutional: Yes: awake/ comfortable. Neck: Yes: Supple, Other (s/p trach). Cardiovascular: Yes: Regular Rate and Rhythm Respiratory: Yes: Diminished at bases-- few scattered rhonchi-otherwise clear Gastrointestinal: Yes: Soft, Abdomen, Obese, Other (peg +) Edema: trace Right heel -- stage 2 --dressing + skin-- rash under breasts - Neurological: Yes: alert/ awake Assessment/Plan clinically stable Discontinue antibiotics ?--Cipro on valtrex for herpes frequent suctioning. pulmonary toilet. discussed with nursing staff . decubitus precautions. overall stable pain control add Neurontin. physical therapy decubitus precautions oob - chair discharge planning in progress. family looking for places Medically stable for discharge--- when bed is available- Family would like to take patient to [place]. Problem List - Problems (1) Obesity Code(s): E66.9 - OBESITY, UNSPECIFIED (2) Pneumonia Code(s): J18.9 - PNEUMONIA, UNSPECIFIED ORGANISM Qualifiers: Laterality: right Lung location: lower lobe of lung (3) Renal failure Code(s): N19 - UNSPECIFIED KIDNEY FAILURE Qualifiers: Renal failure chronicity: chronic Chronic kidney disease stage: on chronic dialysis Qualified Code(s): N18.6 - End stage renal disease; Z99.2 - Dependence on renal dialysis; Z99.2 - Dependence on renal dialysis; Z99.2 - Dependence on renal dialysis; Z99.2 - Dependence on renal dialysis (4) Respiratory failure Code(s): J96.90 - RESPIRATORY FAILURE, UNSP, UNSP W HYPOXIA OR HYPERCAPNIA Qualifiers: Chronicity: chronic (5) Sepsis Code(s): A41.9 - SEPSIS, UNSPECIFIED ORGANISM Qualifiers: Sepsis type: sepsis due to unspecified organism Qualified Code(s): A41.9 - Sepsis, unspecified organism (6) Jocelyn's granulomatosis (granulomatosis with polyangiitis) Code(s): M31.30 - JOCELYN'S GRANULOMATOSIS WITHOUT RENAL INVOLVEMENT
--- NOTE | 2017-11-17 11:10 | PN ---
Progress Note, Physician History of Present Illness: Left-sided neuropathic pain along dermatome c/w post-herpetic neuralgia, denies dyspnea, palpitations, orthopnea. Shingles diagnosed. - Current Medication List Current Medications: Active Medications Acetaminophen (Tylenol -) 325 mg PO QID PRN PRN Reason: PAIN Last Admin: 11/16/17 21:50 Dose: 325 mg Acetaminophen (Ofirmev Injection -) 1,000 mg IVPB Q6H PRN PRN Reason: FEVER OR PAIN Albuterol/Ipratropium (Duoneb -) 1 amp NEB Q4H PRN PRN Reason: SHORTNESS OF BREATH Last Admin: 11/16/17 18:07 Dose: 1 amp Ciprofloxacin (Cipro (Restricted To Id)) 500 mg PO DAILY@1400 [facility] Last Admin: 11/16/17 13:45 Dose: 500 mg Diphenhydramine HCl (Benadryl Oral Solution -) 25 mg PO TID PRN PRN Reason: FOR ITCHING Last Admin: 11/08/17 21:15 Dose: 25 mg Escitalopram Oxalate (Lexapro -) 5 mg PO DAILY [facility] Last Admin: 11/16/17 11:20 Dose: 5 mg Folic Acid (Folic Acid -) 1 mg PO DAILY [facility] Last Admin: 11/16/17 11:20 Dose: 1 mg Gabapentin (Neurontin -) 100 mg PO TID [facility] Heparin Sodium (Porcine) (Heparin -) 5,000 unit SQ BID [facility] Last Admin: 11/16/17 21:48 Dose: 5,000 unit Acyclovir 1,000 mg/ Dextrose 270 mls @ 270 mls/hr IVPB Q24H [facility] Last Admin: 11/16/17 14:12 Dose: 270 mls/hr Lactulose (Cephulac (Oral Use)) 20 gm PO BID PRN PRN Reason: CONSTIPATION Loperamide HCl (Imodium Liquid -) 1 mg PO TID PRN PRN Reason: DIARRHEA Midodrine (Proamatine -) 5 mg PEG BID-MID [facility] Last Admin: 11/17/17 08:39 Dose: 5 mg Mirtazapine (Remeron -) 22.5 mg PO HS [facility] Last Admin: 11/16/17 21:46 Dose: 22.5 mg Nystatin (Mycostatin Cream -) 1 applic TP BID [facility] Last Admin: 11/16/17 21:47 Dose: 1 applic Oxycodone HCl (Roxicodone -) 5 mg PO Q6H PRN Last Admin: 11/16/17 21:49 Dose: 5 mg Prednisone (Deltasone -) 3 mg PO BID [facility] Last Admin: 11/16/17 21:48 Dose: 3 mg Senna (Senna Oral Solution -) 8.8 mg PO BID [facility] Last Admin: 11/16/17 21:48 Dose: 8.8 mg Sevelamer Carbonate (Renvela -) 800 mg PO TIDCM [facility] Last Admin: 11/16/17 18:06 Dose: 800 mg - Objective Vital Signs: Vital Signs Temperature 98.8 F 11/17/17 08:35 Pulse Rate 99 H 11/17/17 10:40 Respiratory Rate 18 11/17/17 10:40 Blood Pressure 129/70 11/17/17 10:40 O2 Sat by Pulse Oximetry (%) 100 11/17/17 10:23 Constitutional: Yes: No Distress, Calm Neck: Yes: Other (Trach collar) Cardiovascular: Yes: Regular Rate and Rhythm Respiratory: Yes: Regular, Rhonchi Gastrointestinal: Yes: Normal Bowel Sounds, Soft Edema: No Integumentary: Yes: Other (Zoster left chest along dermatome) Labs: CBC, BMP 11/15/17 07:40 11/15/17 07:40 INR, PTT INR 1.03 (0.82-1.09) 11/03/17 10:40 Problem List - Problems (1) ESRD (end stage renal disease) Code(s): N18.6 - END STAGE RENAL DISEASE (2) Granulomatosis with polyangiitis with renal involvement Code(s): M31.31 - JOCELYN'S GRANULOMATOSIS WITH RENAL INVOLVEMENT (3) Renal failure Code(s): N19 - UNSPECIFIED KIDNEY FAILURE Qualifiers: Renal failure chronicity: chronic Chronic kidney disease stage: on chronic dialysis Qualified Code(s): N18.6 - End stage renal disease; Z99.2 - Dependence on renal dialysis; Z99.2 - Dependence on renal dialysis; Z99.2 - Dependence on renal dialysis; Z99.2 - Dependence on renal dialysis (4) Respiratory failure Code(s): J96.90 - RESPIRATORY FAILURE, UNSP, UNSP W HYPOXIA OR HYPERCAPNIA Qualifiers: Chronicity: chronic (5) Sepsis Code(s): A41.9 - SEPSIS, UNSPECIFIED ORGANISM Qualifiers: Sepsis type: sepsis due to unspecified organism Qualified Code(s): A41.9 - Sepsis, unspecified organism (6) Jocelyn's granulomatosis (granulomatosis with polyangiitis) Code(s): M31.30 - JOCELYN'S GRANULOMATOSIS WITHOUT RENAL INVOLVEMENT (7) UTI (urinary tract infection) Code(s): N39.0 - URINARY TRACT INFECTION, SITE NOT SPECIFIED Qualifiers: Urinary tract infection type: site unspecified (8) Anemia Code(s): D64.9 - ANEMIA, UNSPECIFIED Qualifiers: Anemia type: due to chronic kidney disease (9) Pneumonia Code(s): J18.9 - PNEUMONIA, UNSPECIFIED ORGANISM Qualifiers: Laterality: right Lung location: lower lobe of lung (10) Zoster Code(s): B02.9 - ZOSTER WITHOUT COMPLICATIONS Qualifiers: Herpes zoster complications: without complications Qualified Code(s): B02.9 - Zoster without complications (11) Post herpetic neuralgia Code(s): B02.29 - OTHER POSTHERPETIC NERVOUS SYSTEM INVOLVEMENT Assessment/Plan 1. Right lower lobe Pneumonia, resolving 2. Urinary tract infection, resolving 3. 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 Chronic Respiratory Failure on trach collar 5. HTN - currently hypotensive requiring Midodrine therapy 6. DM 7. Hypercholesterolemia 8. ESRD on HD 9. Anemia 10. Sinus tachycardia 11. Herpes Zoster with post-herpetic neuralgia PLAN: 1. Continue antibiotic and Zovirax course as per ID service 2. Bronchodilators, oral steroids, chest PT, pulm toilet, O2 to keep SpO2 >90% 3. Continue HD as per renal service, and continue Midodrine 5 bid to assist with adequate BP maintenance 4. DVT prophylaxis, analgesia and Neurontin as needed
[2017-11-17] MEDS: SEVELAMER CARBONATE 800 MG TAB (FP) PO SCH ×3 (11:56→17:44)
[2017-11-17] MEDS: FOLIC ACID 1 MG TABLET (FP) PO SCH (11:56)
[2017-11-17] MEDS: predniSONE 1 MG TABLET (FP) PO SCH ×2 (11:56→23:19)
[2017-11-17] MEDS: HEPARIN NA (PORCINE) 5,000 UNITS/ML 1ML VIAL SQ SCH ×2 (11:57→23:20)
[2017-11-17] MEDS: SENNOSIDES 8.8 MG/5 ML BULK BOTTLE PO SCH ×2 (11:57→23:19)
[2017-11-17] MEDS: ESCITALOPRAM OXALATE 10 MG TABLET (FP) PO SCH (11:57)
[2017-11-17] MEDS: ACYCLOVIR INJECTION 1,000 MG in DEXTROSE 5%-WATER - 250 ML IVPB SCH (12:42)
[2017-11-17] MEDS: oxyCODONE HCL 5 MG TABLET PO PRN ×2 (12:43→18:18)
--- NOTE | 2017-11-17 14:17 | PN ---
Progress Note, Physician History of Present Illness: pulmonary alert,nad,comfortable,-resp distress - Current Medication List Current Medications: Active Medications Acetaminophen (Tylenol -) 325 mg PO QID PRN PRN Reason: PAIN Last Admin: 11/16/17 21:50 Dose: 325 mg Acetaminophen (Ofirmev Injection -) 1,000 mg IVPB Q6H PRN PRN Reason: FEVER OR PAIN Albuterol/Ipratropium (Duoneb -) 1 amp NEB Q4H PRN PRN Reason: SHORTNESS OF BREATH Last Admin: 11/16/17 18:07 Dose: 1 amp Ciprofloxacin (Cipro (Restricted To Id)) 500 mg PO DAILY@1400 [facility] Last Admin: 11/16/17 13:45 Dose: 500 mg Diphenhydramine HCl (Benadryl Oral Solution -) 25 mg PO TID PRN PRN Reason: FOR ITCHING Last Admin: 11/08/17 21:15 Dose: 25 mg Escitalopram Oxalate (Lexapro -) 5 mg PO DAILY [facility] Last Admin: 11/17/17 11:57 Dose: Not Given Folic Acid (Folic Acid -) 1 mg PO DAILY [facility] Last Admin: 11/17/17 11:56 Dose: Not Given Gabapentin (Neurontin -) 100 mg PO TID [facility] Heparin Sodium (Porcine) (Heparin -) 5,000 unit SQ BID [facility] Last Admin: 11/17/17 11:57 Dose: Not Given Acyclovir 1,000 mg/ Dextrose 270 mls @ 270 mls/hr IVPB Q24H [facility] Last Admin: 11/17/17 12:42 Dose: 270 mls/hr Lactulose (Cephulac (Oral Use)) 20 gm PO BID PRN PRN Reason: CONSTIPATION Loperamide HCl (Imodium Liquid -) 1 mg PO TID PRN PRN Reason: DIARRHEA Midodrine (Proamatine -) 5 mg PEG BID-MID [facility] Last Admin: 11/17/17 08:39 Dose: 5 mg Mirtazapine (Remeron -) 22.5 mg PO HS [facility] Last Admin: 11/16/17 21:46 Dose: 22.5 mg Nystatin (Mycostatin Cream -) 1 applic TP BID [facility] Last Admin: 11/16/17 21:47 Dose: 1 applic Oxycodone HCl (Roxicodone -) 5 mg PO Q6H PRN Last Admin: 11/17/17 12:43 Dose: 5 mg Prednisone (Deltasone -) 3 mg PO BID [facility] Last Admin: 11/17/17 11:56 Dose: Not Given Senna (Senna Oral Solution -) 8.8 mg PO BID [facility] Last Admin: 11/17/17 11:57 Dose: Not Given Sevelamer Carbonate (Renvela -) 800 mg PO TIDCM [facility] Last Admin: 11/17/17 12:42 Dose: 800 mg - Objective Vital Signs: Vital Signs Temperature 98 F 11/17/17 10:00 Pulse Rate 98 H 11/17/17 12:16 Respiratory Rate 18 11/17/17 12:16 Blood Pressure 137/81 11/17/17 12:16 O2 Sat by Pulse Oximetry (%) 100 11/17/17 10:23 Constitutional: Yes: Well Nourished, Calm Eyes: Yes: WNL HENT: Yes: WNL Neck: Yes: Supple (trach) Cardiovascular: Yes: Regular Rate and Rhythm, S1, S2 Respiratory: Yes: Diminished Gastrointestinal: Yes: Normal Bowel Sounds, Soft Extremities: Yes: WNL Edema: No Labs: CBC, BMP 11/15/17 07:40 11/15/17 07:40 INR, PTT INR 1.03 (0.82-1.09) 11/03/17 10:40 Problem List - Problems (1) ESRD (end stage renal disease) Code(s): N18.6 - END STAGE RENAL DISEASE (2) Hemodialysis access site with arteriovenous graft Code(s): Z99.2 - DEPENDENCE ON RENAL DIALYSIS (3) Pneumonia Code(s): J18.9 - PNEUMONIA, UNSPECIFIED ORGANISM Qualifiers: Laterality: right Lung location: lower lobe of lung (4) Respiratory failure Code(s): J96.90 - RESPIRATORY FAILURE, UNSP, UNSP W HYPOXIA OR HYPERCAPNIA Qualifiers: Chronicity: chronic (5) Jocelyn's granulomatosis (granulomatosis with polyangiitis) Code(s): M31.30 - JOCELYN'S GRANULOMATOSIS WITHOUT RENAL INVOLVEMENT Assessment/Plan A/P Pneumonia UTI Sepsis Jocelyn's Granulomatosis Chronic Respiratory Failure ESRD on HD HTN DM Zoster - chest PT - pulmonary toilet - inhaled bronchodilators - prednisone 3mg BID - O2 to keep SpO2 >90% - HD per renal - DVT prophylaxis - Zovirax DR BLANDON
--- NOTE | 2017-11-17 14:43 | PN ---
Progress Note (short form) - Note Progress Note: noted to have painful rash yesterday started on IV acyclovir Vital Signs Period Temp Pulse Resp BP Sys/Garcia Pulse Ox Last 24 Hr 98 F-98.8 F 84-118 18-20 108-137/59-81 100-100 cor-rrr lungs decreased bs at bases abd soft,nt ext no edema dermatomal rash on left back CBC, BMP 11/15/17 07:40 11/15/17 07:40 a/p herpes zoster on iv acyclovir day #2 pneumonia -has completed 14 days of antibiotics will d/c uti wilner's granulomatosis esrd/hd
[2017-11-17] MEDS: GABAPENTIN 100 MG CAPSULE (FP) PO SCH ×2 (14:50→23:19)
[2017-11-17] MEDS: CIPROFLOXACIN 500 MG TABLET (RESTRICTED TO ID) PO SCH (14:50)
[2017-11-17] MEDS: NYSTATIN 100,000 UNIT/GM TOPICAL CREAM 15 GM TUBE TP SCH ×2 (14:51→23:18)
--- NOTE | 2017-11-17 16:55 | PN ---
Progress Note, Physician History of Present Illness: Pt seen and examined at bedside. She is awake and alert. She tolerated HD. - Current Medication List Current Medications: Active Medications Acetaminophen (Tylenol -) 325 mg PO QID PRN PRN Reason: PAIN Last Admin: 11/16/17 21:50 Dose: 325 mg Acetaminophen (Ofirmev Injection -) 1,000 mg IVPB Q6H PRN PRN Reason: FEVER OR PAIN Albuterol/Ipratropium (Duoneb -) 1 amp NEB Q4H PRN PRN Reason: SHORTNESS OF BREATH Last Admin: 11/16/17 18:07 Dose: 1 amp Diphenhydramine HCl (Benadryl Oral Solution -) 25 mg PO TID PRN PRN Reason: FOR ITCHING Last Admin: 11/08/17 21:15 Dose: 25 mg Escitalopram Oxalate (Lexapro -) 5 mg PO DAILY [facility] Last Admin: 11/17/17 11:57 Dose: Not Given Folic Acid (Folic Acid -) 1 mg PO DAILY [facility] Last Admin: 11/17/17 11:56 Dose: Not Given Gabapentin (Neurontin -) 100 mg PO TID [facility] Last Admin: 11/17/17 14:50 Dose: 100 mg Heparin Sodium (Porcine) (Heparin -) 5,000 unit SQ BID [facility] Last Admin: 11/17/17 11:57 Dose: Not Given Acyclovir 1,000 mg/ Dextrose 270 mls @ 270 mls/hr IVPB Q24H [facility] Last Admin: 11/17/17 12:42 Dose: 270 mls/hr Lactulose (Cephulac (Oral Use)) 20 gm PO BID PRN PRN Reason: CONSTIPATION Loperamide HCl (Imodium Liquid -) 1 mg PO TID PRN PRN Reason: DIARRHEA Midodrine (Proamatine -) 5 mg PEG BID-MID [facility] Last Admin: 11/17/17 08:39 Dose: 5 mg Mirtazapine (Remeron -) 22.5 mg PO HS [facility] Last Admin: 11/16/17 21:46 Dose: 22.5 mg Nystatin (Mycostatin Cream -) 1 applic TP BID [facility] Last Admin: 11/17/17 14:51 Dose: 1 applic Oxycodone HCl (Roxicodone -) 5 mg PO Q6H PRN Last Admin: 11/17/17 12:43 Dose: 5 mg Prednisone (Deltasone -) 3 mg PO BID [facility] Last Admin: 11/17/17 11:56 Dose: Not Given Senna (Senna Oral Solution -) 8.8 mg PO BID [facility] Last Admin: 11/17/17 11:57 Dose: Not Given Sevelamer Carbonate (Renvela -) 800 mg PO TIDCM [facility] Last Admin: 11/17/17 12:42 Dose: 800 mg - Objective Vital Signs: Vital Signs Temperature 98 F 11/17/17 10:00 Pulse Rate 98 H 11/17/17 12:16 Respiratory Rate 18 11/17/17 12:16 Blood Pressure 137/81 11/17/17 12:16 O2 Sat by Pulse Oximetry (%) 100 11/17/17 10:23 Constitutional: Yes: Calm Eyes: Yes: Conjunctiva Clear HENT: Yes: Other (trache) Neck: Yes: Supple Cardiovascular: Yes: S1, S2 Respiratory: Yes: Wheezes Gastrointestinal: Yes: Soft Genitourinary: Yes: Incontinence Musculoskeletal: Yes: Muscle Weakness Edema: No Neurological: Yes: Oriented Psychiatric: Yes: Oriented Labs: CBC, BMP 11/15/17 07:40 11/15/17 07:40 INR, PTT INR 1.03 (0.82-1.09) 11/03/17 10:40 Problem List - Problems (1) Respiratory failure Code(s): J96.90 - RESPIRATORY FAILURE, UNSP, UNSP W HYPOXIA OR HYPERCAPNIA (2) ESRD (end stage renal disease) Code(s): N18.6 - END STAGE RENAL DISEASE (3) Sepsis Code(s): A41.9 - SEPSIS, UNSPECIFIED ORGANISM Qualifiers: Sepsis type: sepsis due to unspecified organism Qualified Code(s): A41.9 - Sepsis, unspecified organism (4) Jocelyn's granulomatosis (granulomatosis with polyangiitis) Code(s): M31.30 - JOCELYN'S GRANULOMATOSIS WITHOUT RENAL INVOLVEMENT Assessment/Plan Current Medications Generic Name Dose Route Start Last Admin Trade Name Freq PRN Reason Stop Dose Admin Acetaminophen 325 mg 11/05/17 19:02 11/16/17 21:50 Tylenol - PO 325 mg QID PRN Administration PAIN Acetaminophen 1,000 mg 11/05/17 19:02 Ofirmev Injection - IVPB Q6H PRN FEVER OR PAIN Albuterol/Ipratropium 1 amp 11/12/17 22:37 11/16/17 18:07 Duoneb - NEB 1 amp Q4H PRN Administration SHORTNESS OF BREATH Diphenhydramine HCl 25 mg 11/05/17 19:02 11/08/17 21:15 Benadryl Oral Solution - PO 25 mg TID PRN Administration FOR ITCHING Escitalopram Oxalate 5 mg 11/06/17 10:00 11/17/17 11:57 Lexapro - PO Not Given DAILY [facility] Folic Acid 1 mg 11/06/17 10:00 11/17/17 11:56 Folic Acid - PO Not Given DAILY [facility] Gabapentin 100 mg 11/17/17 14:00 11/17/17 14:50 Neurontin - PO 100 mg TID [facility] Administration Heparin Sodium (Porcine) 5,000 unit 11/12/17 22:00 11/17/17 11:57 Heparin - SQ Not Given BID [facility] Acyclovir 1,000 mg/ Dextrose 270 mls @ 270 mls/hr 11/16/17 13:00 11/17/17 12: 42 IVPB 270 mls/hr Q24H [facility] Administration Lactulose 20 gm 11/05/17 19:02 Cephulac (Oral Use) PO BID PRN CONSTIPATION Loperamide HCl 1 mg 11/05/17 19:02 Imodium Liquid - PO TID PRN DIARRHEA Midodrine 5 mg 11/06/17 10:00 11/17/17 08:39 Proamatine - PEG 5 mg BID-MID [facility] Administration Mirtazapine 22.5 mg 11/05/17 22:00 11/16/17 21:46 Remeron - PO 22.5 mg HS [facility] Administration Nystatin 1 applic 11/05/17 22:00 11/17/17 14:51 Mycostatin Cream - TP 1 applic BID [facility] Administration Oxycodone HCl 5 mg 11/15/17 16:59 11/17/17 12:43 Roxicodone - PO 5 mg Q6H PRN Administration Prednisone 3 mg 11/05/17 22:00 11/17/17 11:56 Deltasone - PO Not Given BID [facility] Senna 8.8 mg 11/05/17 22:00 11/17/17 11:57 Senna Oral Solution - PO Not Given BID [facility] Sevelamer Carbonate 800 mg 11/06/17 08:00 11/17/17 12:42 Renvela - PO 800 mg TIDCM [facility] Administration Impression 1. 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 chronic resp failure 4. htn 5. chol 6. obesity 7. anemia 8. hypoxia Plan - pt tolerated HD - pulm follow up for trache care, duration - monitor BP - HD prescription: AVF 2 k bath 3.5 hrs heparin 1999 - follow pt Dr Trotter
[2017-11-17] MEDS: ACETAMINOPHEN 325 MG TABLET (FP) PO PRN (18:19)
[2017-11-17] MEDS: MIRTAZAPINE 15 MG TABLET (FP) PO SCH (23:19)
[2017-11-18] MEDS: GABAPENTIN 100 MG CAPSULE (FP) PO SCH ×3 (06:53→21:35)
[2017-11-18] MEDS: SEVELAMER CARBONATE 800 MG TAB (FP) PO SCH ×3 (08:23→17:41)
[2017-11-18] MEDS: HEPARIN NA (PORCINE) 5,000 UNITS/ML 1ML VIAL SQ SCH ×2 (09:04→21:34)
[2017-11-18] MEDS: predniSONE 1 MG TABLET (FP) PO SCH ×2 (09:05→21:34)
[2017-11-18] MEDS: ESCITALOPRAM OXALATE 10 MG TABLET (FP) PO SCH (09:05)
[2017-11-18] MEDS: SENNOSIDES 8.8 MG/5 ML BULK BOTTLE PO SCH ×2 (09:05→21:35)
[2017-11-18] MEDS: FOLIC ACID 1 MG TABLET (FP) PO SCH (09:05)
[2017-11-18] MEDS: MIDODRINE HCL 5 MG TABLET PEG SCH ×2 (09:07→17:40)
[2017-11-18] MEDS: oxyCODONE HCL 5 MG TABLET PO PRN ×2 (09:17→21:35)
--- NOTE | 2017-11-18 11:13 | PN ---
Progress Note, Physician History of Present Illness: Reports improvement in L back pain No fever/ chills - Current Medication List Current Medications: Active Medications Acetaminophen (Tylenol -) 325 mg PO QID PRN PRN Reason: PAIN Last Admin: 11/17/17 18:19 Dose: 325 mg Acetaminophen (Ofirmev Injection -) 1,000 mg IVPB Q6H PRN PRN Reason: FEVER OR PAIN Diphenhydramine HCl (Benadryl Oral Solution -) 25 mg PO TID PRN PRN Reason: FOR ITCHING Last Admin: 11/08/17 21:15 Dose: 25 mg Escitalopram Oxalate (Lexapro -) 5 mg PO DAILY [facility] Last Admin: 11/18/17 09:05 Dose: 5 mg Folic Acid (Folic Acid -) 1 mg PO DAILY [facility] Last Admin: 11/18/17 09:05 Dose: 1 mg Gabapentin (Neurontin -) 100 mg PO TID [facility] Last Admin: 11/18/17 06:53 Dose: 100 mg Heparin Sodium (Porcine) (Heparin -) 5,000 unit SQ BID [facility] Last Admin: 11/18/17 09:04 Dose: 5,000 unit Acyclovir 1,000 mg/ Dextrose 270 mls @ 270 mls/hr IVPB Q24H [facility] Last Admin: 11/17/17 12:42 Dose: 270 mls/hr Lactulose (Cephulac (Oral Use)) 20 gm PO BID PRN PRN Reason: CONSTIPATION Loperamide HCl (Imodium Liquid -) 1 mg PO TID PRN PRN Reason: DIARRHEA Midodrine (Proamatine -) 5 mg PEG BID-MID [facility] Last Admin: 11/18/17 09:07 Dose: 5 mg Mirtazapine (Remeron -) 22.5 mg PO HS [facility] Last Admin: 11/17/17 23:19 Dose: 22.5 mg Nystatin (Mycostatin Cream -) 1 applic TP BID [facility] Last Admin: 11/17/17 23:18 Dose: 1 applic Oxycodone HCl (Roxicodone -) 5 mg PO Q6H PRN Last Admin: 11/18/17 09:17 Dose: 5 mg Prednisone (Deltasone -) 3 mg PO BID [facility] Last Admin: 11/18/17 09:05 Dose: 3 mg Senna (Senna Oral Solution -) 8.8 mg PO BID [facility] Last Admin: 11/18/17 09:05 Dose: 8.8 mg Sevelamer Carbonate (Renvela -) 800 mg PO TIDCM [facility] Last Admin: 11/18/17 08:23 Dose: 800 mg - Objective Vital Signs: Vital Signs Temperature 98.1 F 11/18/17 06:04 Pulse Rate 100 H 11/18/17 06:04 Respiratory Rate 20 11/18/17 06:04 Blood Pressure 117/60 11/18/17 06:04 O2 Sat by Pulse Oximetry (%) 100 11/17/17 16:00 Constitutional: Yes: No Distress, Obese Eyes: Yes: Conjunctiva Clear Cardiovascular: Yes: Regular Rate and Rhythm, S1, S2 Respiratory: Yes: CTA Bilaterally Gastrointestinal: Yes: Normal Bowel Sounds, Soft. No: Tenderness Edema: Yes Labs: CBC, BMP 11/15/17 07:40 11/15/17 07:40 INR, PTT INR 1.03 (0.82-1.09) 11/03/17 10:40 Assessment/Plan VZV L T5 dermatome S/P pneumonia ESRD Wegeners Continue IV ACV day #3 , adjusted for ESRD
--- NOTE | 2017-11-18 12:33 | PN ---
Progress Note, Physician History of Present Illness: PULMONARY ALERT,NAD,COMFORTABLE - Current Medication List Current Medications: Active Medications Acetaminophen (Tylenol -) 325 mg PO QID PRN PRN Reason: PAIN Last Admin: 11/17/17 18:19 Dose: 325 mg Acetaminophen (Ofirmev Injection -) 1,000 mg IVPB Q6H PRN PRN Reason: FEVER OR PAIN Diphenhydramine HCl (Benadryl Oral Solution -) 25 mg PO TID PRN PRN Reason: FOR ITCHING Last Admin: 11/08/17 21:15 Dose: 25 mg Escitalopram Oxalate (Lexapro -) 5 mg PO DAILY [facility] Last Admin: 11/18/17 09:05 Dose: 5 mg Folic Acid (Folic Acid -) 1 mg PO DAILY [facility] Last Admin: 11/18/17 09:05 Dose: 1 mg Gabapentin (Neurontin -) 100 mg PO TID [facility] Last Admin: 11/18/17 06:53 Dose: 100 mg Heparin Sodium (Porcine) (Heparin -) 5,000 unit SQ BID [facility] Last Admin: 11/18/17 09:04 Dose: 5,000 unit Acyclovir 1,000 mg/ Dextrose 270 mls @ 270 mls/hr IVPB Q24H [facility] Last Admin: 11/17/17 12:42 Dose: 270 mls/hr Lactulose (Cephulac (Oral Use)) 20 gm PO BID PRN PRN Reason: CONSTIPATION Loperamide HCl (Imodium Liquid -) 1 mg PO TID PRN PRN Reason: DIARRHEA Midodrine (Proamatine -) 5 mg PEG BID-MID [facility] Last Admin: 11/18/17 09:07 Dose: 5 mg Mirtazapine (Remeron -) 22.5 mg PO HS [facility] Last Admin: 11/17/17 23:19 Dose: 22.5 mg Nystatin (Mycostatin Cream -) 1 applic TP BID [facility] Last Admin: 11/17/17 23:18 Dose: 1 applic Oxycodone HCl (Roxicodone -) 5 mg PO Q6H PRN Last Admin: 11/18/17 09:17 Dose: 5 mg Prednisone (Deltasone -) 3 mg PO BID [facility] Last Admin: 11/18/17 09:05 Dose: 3 mg Senna (Senna Oral Solution -) 8.8 mg PO BID [facility] Last Admin: 11/18/17 09:05 Dose: 8.8 mg Sevelamer Carbonate (Renvela -) 800 mg PO TIDCM [facility] Last Admin: 11/18/17 08:23 Dose: 800 mg - Objective Vital Signs: Vital Signs Temperature 98.5 F 11/18/17 10:00 Pulse Rate 106 H 11/18/17 10:00 Respiratory Rate 20 11/18/17 10:00 Blood Pressure 122/63 11/18/17 10:00 O2 Sat by Pulse Oximetry (%) 100 11/17/17 16:00 Constitutional: Yes: Well Nourished, Calm Eyes: Yes: WNL HENT: Yes: WNL Neck: Yes: Supple (TRACH) Cardiovascular: Yes: Regular Rate and Rhythm, S1, S2 Respiratory: Yes: Diminished Gastrointestinal: Yes: Normal Bowel Sounds, Soft Extremities: Yes: WNL Edema: No Labs: CBC, BMP 11/15/17 07:40 11/15/17 07:40 INR, PTT INR 1.03 (0.82-1.09) 11/03/17 10:40 Problem List - Problems (1) ESRD (end stage renal disease) Code(s): N18.6 - END STAGE RENAL DISEASE (2) Hemodialysis access site with arteriovenous graft Code(s): Z99.2 - DEPENDENCE ON RENAL DIALYSIS (3) Pneumonia Code(s): J18.9 - PNEUMONIA, UNSPECIFIED ORGANISM Qualifiers: Laterality: right Lung location: lower lobe of lung (4) Respiratory failure Code(s): J96.90 - RESPIRATORY FAILURE, UNSP, UNSP W HYPOXIA OR HYPERCAPNIA Qualifiers: Chronicity: chronic (5) Jocelyn's granulomatosis (granulomatosis with polyangiitis) Code(s): M31.30 - JOCELYN'S GRANULOMATOSIS WITHOUT RENAL INVOLVEMENT Assessment/Plan A/P Pneumonia UTI Sepsis Jocelyn's Granulomatosis Chronic Respiratory Failure ESRD on HD HTN DM Zoster - chest PT - pulmonary toilet - inhaled bronchodilators - prednisone 3mg BID - O2 to keep SpO2 >90% - HD per renal - DVT prophylaxis - Zovirax - Analgesics DR BLANDON
--- NOTE | 2017-11-18 12:50 | PN ---
Progress Note, Physician History of Present Illness: comfortable says pain much better today-- started on neurontin yesterday afebrile at bedside - Current Medication List Current Medications: Active Medications Acetaminophen (Tylenol -) 325 mg PO QID PRN PRN Reason: PAIN Last Admin: 11/17/17 18:19 Dose: 325 mg Acetaminophen (Ofirmev Injection -) 1,000 mg IVPB Q6H PRN PRN Reason: FEVER OR PAIN Diphenhydramine HCl (Benadryl Oral Solution -) 25 mg PO TID PRN PRN Reason: FOR ITCHING Last Admin: 11/08/17 21:15 Dose: 25 mg Escitalopram Oxalate (Lexapro -) 5 mg PO DAILY [facility] Last Admin: 11/18/17 09:05 Dose: 5 mg Folic Acid (Folic Acid -) 1 mg PO DAILY [facility] Last Admin: 11/18/17 09:05 Dose: 1 mg Gabapentin (Neurontin -) 100 mg PO TID [facility] Last Admin: 11/18/17 06:53 Dose: 100 mg Heparin Sodium (Porcine) (Heparin -) 5,000 unit SQ BID [facility] Last Admin: 11/18/17 09:04 Dose: 5,000 unit Acyclovir 1,000 mg/ Dextrose 270 mls @ 270 mls/hr IVPB Q24H [facility] Last Admin: 11/17/17 12:42 Dose: 270 mls/hr Lactulose (Cephulac (Oral Use)) 20 gm PO BID PRN PRN Reason: CONSTIPATION Loperamide HCl (Imodium Liquid -) 1 mg PO TID PRN PRN Reason: DIARRHEA Midodrine (Proamatine -) 5 mg PEG BID-MID [facility] Last Admin: 11/18/17 09:07 Dose: 5 mg Mirtazapine (Remeron -) 22.5 mg PO HS [facility] Last Admin: 11/17/17 23:19 Dose: 22.5 mg Nystatin (Mycostatin Cream -) 1 applic TP BID [facility] Last Admin: 11/17/17 23:18 Dose: 1 applic Oxycodone HCl (Roxicodone -) 5 mg PO Q6H PRN Last Admin: 11/18/17 09:17 Dose: 5 mg Prednisone (Deltasone -) 3 mg PO BID [facility] Last Admin: 11/18/17 09:05 Dose: 3 mg Senna (Senna Oral Solution -) 8.8 mg PO BID [facility] Last Admin: 11/18/17 09:05 Dose: 8.8 mg Sevelamer Carbonate (Renvela -) 800 mg PO TIDCM [facility] Last Admin: 11/18/17 08:23 Dose: 800 mg - Objective Vital Signs: Vital Signs Temperature 98.5 F 11/18/17 10:00 Pulse Rate 106 H 11/18/17 10:00 Respiratory Rate 20 11/18/17 10:00 Blood Pressure 122/63 11/18/17 10:00 O2 Sat by Pulse Oximetry (%) 100 11/17/17 16:00 Constitutional: Yes: No Distress, Calm Eyes: Yes: Conjunctiva Clear Neck: Yes: Supple, Other (s/p trach collar) Respiratory: Yes: Regular, Diminished Gastrointestinal: Yes: Soft Edema: No Neurological: Yes: Alert Psychiatric: Yes: Alert Labs: CBC, BMP 11/15/17 07:40 11/15/17 07:40 INR, PTT INR 1.03 (0.82-1.09) 11/03/17 10:40 Problem List - Problems (1) Obesity Code(s): E66.9 - OBESITY, UNSPECIFIED (2) Pneumonia Code(s): J18.9 - PNEUMONIA, UNSPECIFIED ORGANISM Qualifiers: Laterality: right Lung location: lower lobe of lung (3) Renal failure Code(s): N19 - UNSPECIFIED KIDNEY FAILURE Qualifiers: Renal failure chronicity: chronic Chronic kidney disease stage: on chronic dialysis Qualified Code(s): N18.6 - End stage renal disease; Z99.2 - Dependence on renal dialysis; Z99.2 - Dependence on renal dialysis; Z99.2 - Dependence on renal dialysis; Z99.2 - Dependence on renal dialysis (4) Respiratory failure Code(s): J96.90 - RESPIRATORY FAILURE, UNSP, UNSP W HYPOXIA OR HYPERCAPNIA Qualifiers: Chronicity: chronic (5) Sepsis Code(s): A41.9 - SEPSIS, UNSPECIFIED ORGANISM Qualifiers: Sepsis type: sepsis due to unspecified organism Qualified Code(s): A41.9 - Sepsis, unspecified organism (6) Jocelyn's granulomatosis (granulomatosis with polyangiitis) Code(s): M31.30 - JOCELYN'S GRANULOMATOSIS WITHOUT RENAL INVOLVEMENT Assessment/Plan Assessment/Plan clinically stable off abx . on valtrex for herpes frequent suctioning. pulmonary toilet. discussed with nursing staff . decubitus precautions. overall stable pain control physical therapy decubitus precautions oob - chair discharge planning in progress. family looking for places Medically stable for discharge--- when bed is available/ arrangements are made - Family would like to take patient to [place]. will follow
[2017-11-18] MEDS: NYSTATIN 100,000 UNIT/GM TOPICAL CREAM 15 GM TUBE TP SCH ×2 (13:03→21:35)
[2017-11-18] MEDS: ACYCLOVIR INJECTION 1,000 MG in DEXTROSE 5%-WATER - 250 ML IVPB SCH (14:41)
--- NOTE | 2017-11-18 15:44 | PN ---
Progress Note, Physician Chief Complaint: Events noted Trache collar appears to be breathing comfortable Complains of left sided pain in the torso due to herpetic neuralgia History of Present Illness: Patient was seen and examined. Awake and alert. Chart was reviewed Denies chest pain, less SOB and no palpitation - Current Medication List Current Medications: Active Medications Acetaminophen (Tylenol -) 325 mg PO QID PRN PRN Reason: PAIN Last Admin: 11/17/17 18:19 Dose: 325 mg Acetaminophen (Ofirmev Injection -) 1,000 mg IVPB Q6H PRN PRN Reason: FEVER OR PAIN Diphenhydramine HCl (Benadryl Oral Solution -) 25 mg PO TID PRN PRN Reason: FOR ITCHING Last Admin: 11/08/17 21:15 Dose: 25 mg Escitalopram Oxalate (Lexapro -) 5 mg PO DAILY [facility] Last Admin: 11/18/17 09:05 Dose: 5 mg Folic Acid (Folic Acid -) 1 mg PO DAILY [facility] Last Admin: 11/18/17 09:05 Dose: 1 mg Gabapentin (Neurontin -) 100 mg PO TID [facility] Last Admin: 11/18/17 14:41 Dose: 100 mg Heparin Sodium (Porcine) (Heparin -) 5,000 unit SQ BID [facility] Last Admin: 11/18/17 09:04 Dose: 5,000 unit Acyclovir 1,000 mg/ Dextrose 270 mls @ 270 mls/hr IVPB Q24H [facility] Last Admin: 11/18/17 14:41 Dose: 270 mls/hr Lactulose (Cephulac (Oral Use)) 20 gm PO BID PRN PRN Reason: CONSTIPATION Loperamide HCl (Imodium Liquid -) 1 mg PO TID PRN PRN Reason: DIARRHEA Midodrine (Proamatine -) 5 mg PEG BID-MID [facility] Last Admin: 11/18/17 09:07 Dose: 5 mg Mirtazapine (Remeron -) 22.5 mg PO HS [facility] Last Admin: 11/17/17 23:19 Dose: 22.5 mg Nystatin (Mycostatin Cream -) 1 applic TP BID [facility] Last Admin: 11/18/17 13:03 Dose: 1 applic Oxycodone HCl (Roxicodone -) 5 mg PO Q6H PRN Last Admin: 11/18/17 09:17 Dose: 5 mg Prednisone (Deltasone -) 3 mg PO BID [facility] Last Admin: 11/18/17 09:05 Dose: 3 mg Senna (Senna Oral Solution -) 8.8 mg PO BID [facility] Last Admin: 11/18/17 09:05 Dose: 8.8 mg Sevelamer Carbonate (Renvela -) 800 mg PO TIDCM [facility] Last Admin: 11/18/17 13:04 Dose: 800 mg - Objective Vital Signs: Vital Signs Temperature 97.9 F 11/18/17 12:54 Pulse Rate 105 H 11/18/17 14:51 Respiratory Rate 19 11/18/17 12:54 Blood Pressure 112/63 11/18/17 12:54 O2 Sat by Pulse Oximetry (%) 100 11/18/17 14:51 Neck: Yes: Supple Cardiovascular: Yes: Regular Rate and Rhythm, S1, S2 Respiratory: Yes: Diminished Gastrointestinal: Yes: Normal Bowel Sounds, Soft. No: Tenderness Edema: No Problem List - Problems (1) Anemia Code(s): D64.9 - ANEMIA, UNSPECIFIED Qualifiers: Anemia type: due to chronic kidney disease (2) ESRD (end stage renal disease) Code(s): N18.6 - END STAGE RENAL DISEASE (3) Hemodialysis access site with arteriovenous graft Code(s): Z99.2 - DEPENDENCE ON RENAL DIALYSIS (4) Pneumonia Code(s): J18.9 - PNEUMONIA, UNSPECIFIED ORGANISM Qualifiers: Laterality: right Lung location: lower lobe of lung (5) Respiratory failure Code(s): J96.90 - RESPIRATORY FAILURE, UNSP, UNSP W HYPOXIA OR HYPERCAPNIA Qualifiers: Chronicity: chronic (6) Sepsis Code(s): A41.9 - SEPSIS, UNSPECIFIED ORGANISM Qualifiers: Sepsis type: sepsis due to unspecified organism Qualified Code(s): A41.9 - Sepsis, unspecified organism (7) Jocelyn's granulomatosis (granulomatosis with polyangiitis) Code(s): M31.30 - JOCELYN'S GRANULOMATOSIS WITHOUT RENAL INVOLVEMENT Assessment/Plan 1. Right lower lobe Pneumonia, resolving 2. Urinary tract infection, resolving 3. 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 Chronic Respiratory Failure on trach collar 5. History of HTN 6. DM 7. Hypercholesterolemia 8. ESRD on HD 9. Anemia 10. Sinus tachycardia 11. Herpes Zoster with post-herpetic neuralgia PLAN: 1. Continue antibiotic and Zovirax course as per ID service 2. Bronchodilators, oral steroids, chest PT, pulm toilet and O2 to keep SpO2 >90 % 3. Continue HD as per renal service, and continue Midodrine 4. DVT prophylaxis, analgesia and Neurontin as needed Further plans are to follow Gigi Encinas MD
--- NOTE | 2017-11-18 18:46 | PN ---
Progress Note, Physician History of Present Illness: Pt seen and examined at bedside. She has no complaints. - Current Medication List Current Medications: Active Medications Acetaminophen (Tylenol -) 325 mg PO QID PRN PRN Reason: PAIN Last Admin: 11/17/17 18:19 Dose: 325 mg Acetaminophen (Ofirmev Injection -) 1,000 mg IVPB Q6H PRN PRN Reason: FEVER OR PAIN Diphenhydramine HCl (Benadryl Oral Solution -) 25 mg PO TID PRN PRN Reason: FOR ITCHING Last Admin: 11/08/17 21:15 Dose: 25 mg Escitalopram Oxalate (Lexapro -) 5 mg PO DAILY [facility] Last Admin: 11/18/17 09:05 Dose: 5 mg Folic Acid (Folic Acid -) 1 mg PO DAILY [facility] Last Admin: 11/18/17 09:05 Dose: 1 mg Gabapentin (Neurontin -) 100 mg PO TID [facility] Last Admin: 11/18/17 14:41 Dose: 100 mg Heparin Sodium (Porcine) (Heparin -) 5,000 unit SQ BID [facility] Last Admin: 11/18/17 09:04 Dose: 5,000 unit Acyclovir 1,000 mg/ Dextrose 270 mls @ 270 mls/hr IVPB Q24H [facility] Last Admin: 11/18/17 14:41 Dose: 270 mls/hr Lactulose (Cephulac (Oral Use)) 20 gm PO BID PRN PRN Reason: CONSTIPATION Loperamide HCl (Imodium Liquid -) 1 mg PO TID PRN PRN Reason: DIARRHEA Midodrine (Proamatine -) 5 mg PEG BID-MID [facility] Last Admin: 11/18/17 17:40 Dose: 5 mg Mirtazapine (Remeron -) 22.5 mg PO HS [facility] Last Admin: 11/17/17 23:19 Dose: 22.5 mg Nystatin (Mycostatin Cream -) 1 applic TP BID [facility] Last Admin: 11/18/17 13:03 Dose: 1 applic Oxycodone HCl (Roxicodone -) 5 mg PO Q6H PRN Last Admin: 11/18/17 09:17 Dose: 5 mg Prednisone (Deltasone -) 3 mg PO BID [facility] Last Admin: 11/18/17 09:05 Dose: 3 mg Senna (Senna Oral Solution -) 8.8 mg PO BID [facility] Last Admin: 11/18/17 09:05 Dose: 8.8 mg Sevelamer Carbonate (Renvela -) 800 mg PO TIDCM [facility] Last Admin: 11/18/17 17:41 Dose: 800 mg - Objective Vital Signs: Vital Signs Temperature 98.1 F 11/18/17 18:00 Pulse Rate 104 H 11/18/17 18:00 Respiratory Rate 20 11/18/17 18:00 Blood Pressure 106/55 11/18/17 18:00 O2 Sat by Pulse Oximetry (%) 100 11/18/17 14:51 Constitutional: Yes: Calm Eyes: Yes: Conjunctiva Clear Cardiovascular: Yes: S1, S2 Respiratory: Yes: Wheezes Gastrointestinal: Yes: Soft, Abdomen, Obese, Other (peg) Genitourinary: Yes: Incontinence Musculoskeletal: Yes: Muscle Weakness Edema: No Neurological: Yes: Oriented Psychiatric: Yes: Oriented Labs: CBC, BMP 11/15/17 07:40 11/15/17 07:40 INR, PTT INR 1.03 (0.82-1.09) 11/03/17 10:40 Problem List - Problems (1) Respiratory failure Code(s): J96.90 - RESPIRATORY FAILURE, UNSP, UNSP W HYPOXIA OR HYPERCAPNIA (2) ESRD (end stage renal disease) Code(s): N18.6 - END STAGE RENAL DISEASE (3) Sepsis Code(s): A41.9 - SEPSIS, UNSPECIFIED ORGANISM Qualifiers: Sepsis type: sepsis due to unspecified organism Qualified Code(s): A41.9 - Sepsis, unspecified organism (4) Jocelyn's granulomatosis (granulomatosis with polyangiitis) Code(s): M31.30 - JOCELYN'S GRANULOMATOSIS WITHOUT RENAL INVOLVEMENT Assessment/Plan Current Medications Generic Name Dose Route Start Last Admin Trade Name Freq PRN Reason Stop Dose Admin Acetaminophen 325 mg 11/05/17 19:02 11/17/17 18:19 Tylenol - PO 325 mg QID PRN Administration PAIN Acetaminophen 1,000 mg 11/05/17 19:02 Ofirmev Injection - IVPB Q6H PRN FEVER OR PAIN Diphenhydramine HCl 25 mg 11/05/17 19:02 11/08/17 21:15 Benadryl Oral Solution - PO 25 mg TID PRN Administration FOR ITCHING Escitalopram Oxalate 5 mg 11/06/17 10:00 11/18/17 09:05 Lexapro - PO 5 mg DAILY [facility] Administration Folic Acid 1 mg 11/06/17 10:00 11/18/17 09:05 Folic Acid - PO 1 mg DAILY [facility] Administration Gabapentin 100 mg 11/17/17 14:00 11/18/17 14:41 Neurontin - PO 100 mg TID [facility] Administration Heparin Sodium (Porcine) 5,000 unit 11/12/17 22:00 11/18/17 09:04 Heparin - SQ 5,000 unit BID [facility] Administration Acyclovir 1,000 mg/ Dextrose 270 mls @ 270 mls/hr 11/16/17 13:00 11/18/17 14: 41 IVPB 270 mls/hr Q24H [facility] Administration Lactulose 20 gm 11/05/17 19:02 Cephulac (Oral Use) PO BID PRN CONSTIPATION Loperamide HCl 1 mg 11/05/17 19:02 Imodium Liquid - PO TID PRN DIARRHEA Midodrine 5 mg 11/06/17 10:00 11/18/17 17:40 Proamatine - PEG 5 mg BID-MID [facility] Administration Mirtazapine 22.5 mg 11/05/17 22:00 11/17/17 23:19 Remeron - PO 22.5 mg HS [facility] Administration Nystatin 1 applic 11/05/17 22:00 11/18/17 13:03 Mycostatin Cream - TP 1 applic BID [facility] Administration Oxycodone HCl 5 mg 11/15/17 16:59 11/18/17 09:17 Roxicodone - PO 5 mg Q6H PRN Administration Prednisone 3 mg 11/05/17 22:00 11/18/17 09:05 Deltasone - PO 3 mg BID [facility] Administration Senna 8.8 mg 11/05/17 22:00 11/18/17 09:05 Senna Oral Solution - PO 8.8 mg BID [facility] Administration Sevelamer Carbonate 800 mg 11/06/17 08:00 11/18/17 17:41 Renvela - PO 800 mg TIDCM [facility] Administration Impression 1. 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 chronic resp failure 4. htn 5. chol 6. obesity 7. anemia 8. hypoxia Plan - next HD [facility] - cont current meds - pulm follow up for trache care, duration - monitor BP - HD prescription: AVF 2 k bath 3.5 hrs heparin 1999 - will follow pt Dr Trotter
[2017-11-18] MEDS: MIRTAZAPINE 15 MG TABLET (FP) PO SCH (21:35)
[2017-11-18] MEDS: ACETAMINOPHEN 325 MG TABLET (FP) PO PRN (21:36)
[2017-11-19] MEDS: oxyCODONE HCL 5 MG TABLET PO PRN ×2 (06:07→17:24)
[2017-11-19] MEDS: GABAPENTIN 100 MG CAPSULE (FP) PO SCH ×3 (06:09→21:17)
[2017-11-19] MEDS: ACETAMINOPHEN 325 MG TABLET (FP) PO PRN (06:09)
[2017-11-19] MEDS: SEVELAMER CARBONATE 800 MG TAB (FP) PO SCH ×3 (08:38→17:33)
[2017-11-19] MEDS: MIDODRINE HCL 5 MG TABLET PEG SCH ×2 (09:56→17:34)
[2017-11-19] MEDS: FOLIC ACID 1 MG TABLET (FP) PO SCH (09:57)
[2017-11-19] MEDS: predniSONE 1 MG TABLET (FP) PO SCH ×2 (09:57→21:17)
[2017-11-19] MEDS: HEPARIN NA (PORCINE) 5,000 UNITS/ML 1ML VIAL SQ SCH ×2 (09:58→21:17)
[2017-11-19] MEDS: SENNOSIDES 8.8 MG/5 ML BULK BOTTLE PO SCH ×2 (09:58→21:18)
[2017-11-19] MEDS: ESCITALOPRAM OXALATE 10 MG TABLET (FP) PO SCH (09:59)
[2017-11-19] MEDS: NYSTATIN 100,000 UNIT/GM TOPICAL CREAM 15 GM TUBE TP SCH ×2 (10:01→21:17)
--- NOTE | 2017-11-19 10:25 | PN ---
Progress Note, Physician Chief Complaint: Trache collar breathing comfortable Complains of left sided pain in the torso due to post herpetic neuralgia History of Present Illness: Patient was seen and examined. Awake and alert. Chart was reviewed Denies chest pain, tolerating therapy and no palpitation - Current Medication List Current Medications: Active Medications Acetaminophen (Tylenol -) 325 mg PO QID PRN PRN Reason: PAIN Last Admin: 11/19/17 06:09 Dose: 325 mg Acetaminophen (Ofirmev Injection -) 1,000 mg IVPB Q6H PRN PRN Reason: FEVER OR PAIN Diphenhydramine HCl (Benadryl Oral Solution -) 25 mg PO TID PRN PRN Reason: FOR ITCHING Last Admin: 11/08/17 21:15 Dose: 25 mg Escitalopram Oxalate (Lexapro -) 5 mg PO DAILY [facility] Last Admin: 11/19/17 09:59 Dose: 5 mg Folic Acid (Folic Acid -) 1 mg PO DAILY [facility] Last Admin: 11/19/17 09:57 Dose: 1 mg Gabapentin (Neurontin -) 100 mg PO TID [facility] Last Admin: 11/19/17 06:09 Dose: 100 mg Heparin Sodium (Porcine) (Heparin -) 5,000 unit SQ BID [facility] Last Admin: 11/19/17 09:58 Dose: 5,000 unit Acyclovir 1,000 mg/ Dextrose 270 mls @ 270 mls/hr IVPB Q24H [facility] Last Admin: 11/18/17 14:41 Dose: 270 mls/hr Lactulose (Cephulac (Oral Use)) 20 gm PO BID PRN PRN Reason: CONSTIPATION Loperamide HCl (Imodium Liquid -) 1 mg PO TID PRN PRN Reason: DIARRHEA Midodrine (Proamatine -) 5 mg PEG BID-MID [facility] Last Admin: 11/19/17 09:56 Dose: 5 mg Mirtazapine (Remeron -) 22.5 mg PO HS [facility] Last Admin: 11/18/17 21:35 Dose: 22.5 mg Nystatin (Mycostatin Cream -) 1 applic TP BID [facility] Last Admin: 11/19/17 10:01 Dose: 1 applic Oxycodone HCl (Roxicodone -) 5 mg PO Q6H PRN Last Admin: 11/19/17 06:07 Dose: 5 mg Prednisone (Deltasone -) 3 mg PO BID [facility] Last Admin: 11/19/17 09:57 Dose: 3 mg Senna (Senna Oral Solution -) 8.8 mg PO BID [facility] Last Admin: 11/19/17 09:58 Dose: 8.8 mg Sevelamer Carbonate (Renvela -) 800 mg PO TIDCM [facility] Last Admin: 11/19/17 08:38 Dose: 800 mg - Objective Vital Signs: Vital Signs Temperature 97.1 F L 11/19/17 10:00 Pulse Rate 98 H 11/19/17 10:00 Respiratory Rate 11/19/17 10:00 Blood Pressure 118/63 11/19/17 10:00 O2 Sat by Pulse Oximetry (%) 100 11/18/17 14:51 HENT: Yes: Atraumatic Neck: Yes: Supple Cardiovascular: Yes: Regular Rate and Rhythm, S1, S2 Respiratory: Yes: Diminished Gastrointestinal: Yes: Normal Bowel Sounds, Soft. No: Tenderness Edema: No Problem List - Problems (1) Anemia Code(s): D64.9 - ANEMIA, UNSPECIFIED Qualifiers: Anemia type: due to chronic kidney disease (2) ESRD (end stage renal disease) Code(s): N18.6 - END STAGE RENAL DISEASE (3) Hemodialysis access site with arteriovenous graft Code(s): Z99.2 - DEPENDENCE ON RENAL DIALYSIS (4) Pneumonia Code(s): J18.9 - PNEUMONIA, UNSPECIFIED ORGANISM Qualifiers: Laterality: right Lung location: lower lobe of lung (5) Respiratory failure Code(s): J96.90 - RESPIRATORY FAILURE, UNSP, UNSP W HYPOXIA OR HYPERCAPNIA Qualifiers: Chronicity: chronic (6) Sepsis Code(s): A41.9 - SEPSIS, UNSPECIFIED ORGANISM Qualifiers: Sepsis type: sepsis due to unspecified organism Qualified Code(s): A41.9 - Sepsis, unspecified organism (7) Jocelyn's granulomatosis (granulomatosis with polyangiitis) Code(s): M31.30 - JOCELYN'S GRANULOMATOSIS WITHOUT RENAL INVOLVEMENT Assessment/Plan 1. Right lower lobe Pneumonia, resolving 2. Urinary tract infection, resolving 3. 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 Chronic Respiratory Failure on trach collar 5. History of HTN 6. DM 7. Hypercholesterolemia 8. ESRD on HD 9. Anemia 10. Sinus tachycardia 11. Herpes Zoster with post-herpetic neuralgia PLAN: 1. Continue antibiotic and Zovirax course as per ID service 2. Bronchodilators, oral steroids, chest PT, pulm toilet and O2 3. Continue HD as per renal service, and continue Midodrine. Monitor BP closely 4. DVT prophylaxis, analgesia Further plans are to follow Gigi Encinas MD
--- NOTE | 2017-11-19 11:54 | PN ---
Progress Note, Physician History of Present Illness: comfortable feels ok pain better significantly - Current Medication List Current Medications: Active Medications Acetaminophen (Tylenol -) 325 mg PO QID PRN PRN Reason: PAIN Last Admin: 11/19/17 06:09 Dose: 325 mg Acetaminophen (Ofirmev Injection -) 1,000 mg IVPB Q6H PRN PRN Reason: FEVER OR PAIN Diphenhydramine HCl (Benadryl Oral Solution -) 25 mg PO TID PRN PRN Reason: FOR ITCHING Last Admin: 11/08/17 21:15 Dose: 25 mg Escitalopram Oxalate (Lexapro -) 5 mg PO DAILY [facility] Last Admin: 11/19/17 09:59 Dose: 5 mg Folic Acid (Folic Acid -) 1 mg PO DAILY [facility] Last Admin: 11/19/17 09:57 Dose: 1 mg Gabapentin (Neurontin -) 100 mg PO TID [facility] Last Admin: 11/19/17 06:09 Dose: 100 mg Heparin Sodium (Porcine) (Heparin -) 5,000 unit SQ BID [facility] Last Admin: 11/19/17 09:58 Dose: 5,000 unit Acyclovir 1,000 mg/ Dextrose 270 mls @ 270 mls/hr IVPB Q24H [facility] Last Admin: 11/18/17 14:41 Dose: 270 mls/hr Lactulose (Cephulac (Oral Use)) 20 gm PO BID PRN PRN Reason: CONSTIPATION Loperamide HCl (Imodium Liquid -) 1 mg PO TID PRN PRN Reason: DIARRHEA Midodrine (Proamatine -) 5 mg PEG BID-MID [facility] Last Admin: 11/19/17 09:56 Dose: 5 mg Mirtazapine (Remeron -) 22.5 mg PO HS [facility] Last Admin: 11/18/17 21:35 Dose: 22.5 mg Nystatin (Mycostatin Cream -) 1 applic TP BID [facility] Last Admin: 11/19/17 10:01 Dose: 1 applic Oxycodone HCl (Roxicodone -) 5 mg PO Q6H PRN Last Admin: 11/19/17 06:07 Dose: 5 mg Prednisone (Deltasone -) 3 mg PO BID [facility] Last Admin: 11/19/17 09:57 Dose: 3 mg Senna (Senna Oral Solution -) 8.8 mg PO BID [facility] Last Admin: 11/19/17 09:58 Dose: 8.8 mg Sevelamer Carbonate (Renvela -) 800 mg PO TIDCM [facility] Last Admin: 11/19/17 08:38 Dose: 800 mg - Objective Vital Signs: Vital Signs Temperature 97.1 F L 11/19/17 10:00 Pulse Rate 98 H 11/19/17 10:00 Respiratory Rate 18 11/19/17 10:00 Blood Pressure 118/63 11/19/17 10:00 O2 Sat by Pulse Oximetry (%) 100 11/18/17 14:51 Constitutional: Yes: No Distress, Calm Eyes: Yes: Conjunctiva Clear Neck: Yes: Supple, Other (s/p - trach collar) Cardiovascular: Yes: Regular Rate and Rhythm Respiratory: Yes: Diminished (at bases) Gastrointestinal: Yes: Soft, Other (s/p g tube) Edema: No Neurological: Yes: Alert Psychiatric: Yes: Alert Labs: CBC, BMP 11/15/17 07:40 11/15/17 07:40 INR, PTT INR 1.03 (0.82-1.09) 11/03/17 10:40 Problem List - Problems (1) Obesity Code(s): E66.9 - OBESITY, UNSPECIFIED (2) Pneumonia Code(s): J18.9 - PNEUMONIA, UNSPECIFIED ORGANISM Qualifiers: Laterality: right Lung location: lower lobe of lung (3) Renal failure Code(s): N19 - UNSPECIFIED KIDNEY FAILURE Qualifiers: Renal failure chronicity: chronic Chronic kidney disease stage: on chronic dialysis Qualified Code(s): N18.6 - End stage renal disease; Z99.2 - Dependence on renal dialysis; Z99.2 - Dependence on renal dialysis; Z99.2 - Dependence on renal dialysis; Z99.2 - Dependence on renal dialysis (4) Respiratory failure Code(s): J96.90 - RESPIRATORY FAILURE, UNSP, UNSP W HYPOXIA OR HYPERCAPNIA Qualifiers: Chronicity: chronic (5) Sepsis Code(s): A41.9 - SEPSIS, UNSPECIFIED ORGANISM Qualifiers: Sepsis type: sepsis due to unspecified organism Qualified Code(s): A41.9 - Sepsis, unspecified organism (6) Jocelyn's granulomatosis (granulomatosis with polyangiitis) Code(s): M31.30 - JOCELYN'S GRANULOMATOSIS WITHOUT RENAL INVOLVEMENT Assessment/Plan Assessment/Plan clinically stable off abx . on valtrex for herpes frequent suctioning. pulmonary toilet. decubitus precautions. overall stable pain control physical therapy oob - chair discharge planning in progress. family looking for places. Medically stable for discharge--- when bed is available/ arrangements are made - Family would like to take patient to [place]. will follow
[2017-11-19] MEDS: ACYCLOVIR INJECTION 1,000 MG in DEXTROSE 5%-WATER - 250 ML IVPB SCH (12:20)
--- NOTE | 2017-11-19 12:33 | PN ---
Progress Note, Physician History of Present Illness: pulmonary alert,nad,less pain - Current Medication List Current Medications: Active Medications Acetaminophen (Tylenol -) 325 mg PO QID PRN PRN Reason: PAIN Last Admin: 11/19/17 06:09 Dose: 325 mg Acetaminophen (Ofirmev Injection -) 1,000 mg IVPB Q6H PRN PRN Reason: FEVER OR PAIN Diphenhydramine HCl (Benadryl Oral Solution -) 25 mg PO TID PRN PRN Reason: FOR ITCHING Last Admin: 11/08/17 21:15 Dose: 25 mg Escitalopram Oxalate (Lexapro -) 5 mg PO DAILY [facility] Last Admin: 11/19/17 09:59 Dose: 5 mg Folic Acid (Folic Acid -) 1 mg PO DAILY [facility] Last Admin: 11/19/17 09:57 Dose: 1 mg Gabapentin (Neurontin -) 100 mg PO TID [facility] Last Admin: 11/19/17 06:09 Dose: 100 mg Heparin Sodium (Porcine) (Heparin -) 5,000 unit SQ BID [facility] Acyclovir 1,000 mg/ Dextrose 270 mls @ 270 mls/hr IVPB Q24H [facility] Last Admin: 11/19/17 12:20 Dose: 270 mls/hr Lactulose (Cephulac (Oral Use)) 20 gm PO BID PRN PRN Reason: CONSTIPATION Loperamide HCl (Imodium Liquid -) 1 mg PO TID PRN PRN Reason: DIARRHEA Midodrine (Proamatine -) 5 mg PEG BID-MID [facility] Last Admin: 11/19/17 09:56 Dose: 5 mg Mirtazapine (Remeron -) 22.5 mg PO HS [facility] Last Admin: 11/18/17 21:35 Dose: 22.5 mg Nystatin (Mycostatin Cream -) 1 applic TP BID [facility] Last Admin: 11/19/17 10:01 Dose: 1 applic Oxycodone HCl (Roxicodone -) 5 mg PO Q6H PRN Last Admin: 11/19/17 06:07 Dose: 5 mg Prednisone (Deltasone -) 3 mg PO BID [facility] Last Admin: 11/19/17 09:57 Dose: 3 mg Senna (Senna Oral Solution -) 8.8 mg PO BID [facility] Last Admin: 11/19/17 09:58 Dose: 8.8 mg Sevelamer Carbonate (Renvela -) 800 mg PO TIDCM [facility] Last Admin: 11/19/17 12:20 Dose: 800 mg - Objective Vital Signs: Vital Signs Temperature 97.1 F L 11/19/17 10:00 Pulse Rate 99 H 11/19/17 11:58 Respiratory Rate 18 11/19/17 10:00 Blood Pressure 118/63 11/19/17 10:00 O2 Sat by Pulse Oximetry (%) 100 11/19/17 11:58 Constitutional: Yes: Well Nourished, Calm Eyes: Yes: WNL HENT: Yes: WNL Neck: Yes: WNL Cardiovascular: Yes: Regular Rate and Rhythm, S1, S2 Respiratory: Yes: Rhonchi (few rhonchi) Gastrointestinal: Yes: Normal Bowel Sounds, Soft Extremities: Yes: WNL Edema: No Labs: Problem List - Problems (1) ESRD (end stage renal disease) Code(s): N18.6 - END STAGE RENAL DISEASE (2) Hemodialysis access site with arteriovenous graft Code(s): Z99.2 - DEPENDENCE ON RENAL DIALYSIS (3) Pneumonia Code(s): J18.9 - PNEUMONIA, UNSPECIFIED ORGANISM Qualifiers: Laterality: right Lung location: lower lobe of lung (4) Respiratory failure Code(s): J96.90 - RESPIRATORY FAILURE, UNSP, UNSP W HYPOXIA OR HYPERCAPNIA Qualifiers: Chronicity: chronic (5) Jocelyn's granulomatosis (granulomatosis with polyangiitis) Code(s): M31.30 - JOCELYN'S GRANULOMATOSIS WITHOUT RENAL INVOLVEMENT Assessment/Plan A/P Pneumonia UTI Sepsis Jocelyn's Granulomatosis Chronic Respiratory Failure ESRD on HD HTN DM Zoster - chest PT - pulmonary toilet - inhaled bronchodilators - prednisone 3mg BID - O2 to keep SpO2 >90% - HD per renal - DVT prophylaxis - Zovirax - Analgesics DR BLANDON
[2017-11-19] MEDS ORDERED: ALBUTEROL SO4 0.083% IH SOL 2.5 MG/3 ML VIAL.NEB. NEB PRN (12:34)
--- NOTE | 2017-11-19 17:24 | PN ---
Progress Note, Physician History of Present Illness: Pt seen and examined at bedside. She feels well. - Current Medication List Current Medications: Active Medications Acetaminophen (Tylenol -) 325 mg PO QID PRN PRN Reason: PAIN Last Admin: 11/19/17 06:09 Dose: 325 mg Acetaminophen (Ofirmev Injection -) 1,000 mg IVPB Q6H PRN PRN Reason: FEVER OR PAIN Albuterol Sulfate (Ventolin 0.083% Nebulizer Soln -) 1 amp NEB Q4H PRN PRN Reason: SHORT OF BREATH/WHEEZING Albuterol/Ipratropium (Duoneb -) 1 amp NEB QIDR [facility] Diphenhydramine HCl (Benadryl Oral Solution -) 25 mg PO TID PRN PRN Reason: FOR ITCHING Last Admin: 11/08/17 21:15 Dose: 25 mg Escitalopram Oxalate (Lexapro -) 5 mg PO DAILY [facility] Last Admin: 11/19/17 09:59 Dose: 5 mg Folic Acid (Folic Acid -) 1 mg PO DAILY [facility] Last Admin: 11/19/17 09:57 Dose: 1 mg Gabapentin (Neurontin -) 100 mg PO TID [facility] Last Admin: 11/19/17 13:33 Dose: 100 mg Heparin Sodium (Porcine) (Heparin -) 5,000 unit SQ BID [facility] Acyclovir 1,000 mg/ Dextrose 270 mls @ 270 mls/hr IVPB Q24H [facility] Last Admin: 11/19/17 12:20 Dose: 270 mls/hr Lactulose (Cephulac (Oral Use)) 20 gm PO BID PRN PRN Reason: CONSTIPATION Loperamide HCl (Imodium Liquid -) 1 mg PO TID PRN PRN Reason: DIARRHEA Midodrine (Proamatine -) 5 mg PEG BID-MID [facility] Last Admin: 11/19/17 09:56 Dose: 5 mg Mirtazapine (Remeron -) 22.5 mg PO HS [facility] Last Admin: 11/18/17 21:35 Dose: 22.5 mg Nystatin (Mycostatin Cream -) 1 applic TP BID [facility] Last Admin: 11/19/17 10:01 Dose: 1 applic Oxycodone HCl (Roxicodone -) 5 mg PO Q6H PRN Last Admin: 11/19/17 06:07 Dose: 5 mg Prednisone (Deltasone -) 3 mg PO BID [facility] Last Admin: 11/19/17 09:57 Dose: 3 mg Senna (Senna Oral Solution -) 8.8 mg PO BID [facility] Last Admin: 11/19/17 09:58 Dose: 8.8 mg Sevelamer Carbonate (Renvela -) 800 mg PO TIDCM [facility] Last Admin: 11/19/17 12:20 Dose: 800 mg - Objective Vital Signs: Vital Signs Temperature 97.8 F 11/19/17 14:44 Pulse Rate 85 11/19/17 14:44 Respiratory Rate 20 11/19/17 14:44 Blood Pressure 118/63 11/19/17 10:00 O2 Sat by Pulse Oximetry (%) 100 11/19/17 11:58 Constitutional: Yes: Calm Eyes: Yes: Conjunctiva Clear Neck: Yes: Other (trache) Cardiovascular: Yes: S1, S2 Respiratory: Yes: Rhonchi Gastrointestinal: Yes: Soft, Abdomen, Obese Genitourinary: Yes: Incontinence Musculoskeletal: Yes: Muscle Weakness Edema: No Neurological: Yes: Oriented Psychiatric: Yes: Oriented Labs: CBC, BMP 11/15/17 07:40 11/15/17 07:40 INR, PTT INR 1.03 (0.82-1.09) 11/03/17 10:40 Problem List - Problems (1) Respiratory failure Code(s): J96.90 - RESPIRATORY FAILURE, UNSP, UNSP W HYPOXIA OR HYPERCAPNIA (2) ESRD (end stage renal disease) Code(s): N18.6 - END STAGE RENAL DISEASE (3) Sepsis Code(s): A41.9 - SEPSIS, UNSPECIFIED ORGANISM Qualifiers: Sepsis type: sepsis due to unspecified organism Qualified Code(s): A41.9 - Sepsis, unspecified organism (4) Jocelyn's granulomatosis (granulomatosis with polyangiitis) Code(s): M31.30 - JOCELYN'S GRANULOMATOSIS WITHOUT RENAL INVOLVEMENT Assessment/Plan Current Medications Generic Name Dose Route Start Last Admin Trade Name Freq PRN Reason Stop Dose Admin Acetaminophen 325 mg 11/05/17 19:02 11/19/17 06:09 Tylenol - PO 325 mg QID PRN Administration PAIN Acetaminophen 1,000 mg 11/05/17 19:02 Ofirmev Injection - IVPB Q6H PRN FEVER OR PAIN Albuterol Sulfate 1 amp 11/19/17 12:34 Ventolin 0.083% Nebulizer Soln - NEB Q4H PRN SHORT OF BREATH/WHEEZING Albuterol/Ipratropium 1 amp 11/19/17 18:00 Duoneb - NEB QIDR [facility] Diphenhydramine HCl 25 mg 11/05/17 19:02 11/08/17 21:15 Benadryl Oral Solution - PO 25 mg TID PRN Administration FOR ITCHING Escitalopram Oxalate 5 mg 11/06/17 10:00 11/19/17 09:59 Lexapro - PO 5 mg DAILY [facility] Administration Folic Acid 1 mg 11/06/17 10:00 11/19/17 09:57 Folic Acid - PO 1 mg DAILY [facility] Administration Gabapentin 100 mg 11/17/17 14:00 11/19/17 13:33 Neurontin - PO 100 mg TID [facility] Administration Heparin Sodium (Porcine) 5,000 unit 11/19/17 22:00 Heparin - SQ BID [facility] Acyclovir 1,000 mg/ Dextrose 270 mls @ 270 mls/hr 11/16/17 13:00 11/19/17 12: 20 IVPB 270 mls/hr Q24H [facility] Administration Lactulose 20 gm 11/05/17 19:02 Cephulac (Oral Use) PO BID PRN CONSTIP[facility] Loperamide HCl 1 mg 11/05/17 19:02 Imodium Liquid - PO TID PRN DIARRHEA Midodrine 5 mg 11/06/17 10:00 11/19/17 09:56 Proamatine - PEG 5 mg BID-MID [facility] Administration Mirtazapine 22.5 mg 11/05/17 22:00 11/18/17 21:35 Remeron - PO 22.5 mg HS [facility] Administration Nystatin 1 applic 11/05/17 22:00 11/19/17 10:01 Mycostatin Cream - TP 1 applic BID [facility] Administration Oxycodone HCl 5 mg 11/15/17 16:59 11/19/17 06:07 Roxicodone - PO 5 mg Q6H PRN Administration Prednisone 3 mg 11/05/17 22:00 11/19/17 09:57 Deltasone - PO 3 mg BID [facility] Administration Senna 8.8 mg 11/05/17 22:00 11/19/17 09:58 Senna Oral Solution - PO 8.8 mg BID [facility] Administration Sevelamer Carbonate 800 mg 11/06/17 08:00 11/19/17 12:20 Renvela - PO 800 mg TIDCM [facility] Administration Impression 1. 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 chronic resp failure 4. htn 5. chol 6. obesity 7. anemia 8. hypoxia Plan - HD in am - pulm follow up for trache care, duration - monitor BP - discussed with daughter - HD prescription: AVF 2 k bath 3.5 hrs heparin 1999 - will follow pt Dr Trotter
[2017-11-19] MEDS: ALBUTEROL SO4 2.5/IPRATROPIUM 0.5 INH SOL 3 ML VIAL.NEB. NEB SCH ×2 (18:50→23:34)
[2017-11-19] MEDS: MIRTAZAPINE 15 MG TABLET (FP) PO SCH (21:17)
[2017-11-20] MEDS: ALBUTEROL SO4 2.5/IPRATROPIUM 0.5 INH SOL 3 ML VIAL.NEB. NEB SCH ×3 (06:18→19:14)
[2017-11-20] MEDS: GABAPENTIN 100 MG CAPSULE (FP) PO SCH ×3 (06:50→21:15)
[2017-11-20] MEDS ORDERED: PT OWN MED DRAWER 7, Y5N ONE ×2 (06:55→10:22)
[2017-11-20] MEDS: SEVELAMER CARBONATE 800 MG TAB (FP) PO SCH ×3 (08:52→18:35)
--- NOTE | 2017-11-20 09:02 | PN ---
Progress Note (short form) - Note Progress Note: patient seen / examined. Comfortable. No new issues. feels ok Vital Signs Temp 97.5 F L 11/20/17 06:00 Pulse 107 H 11/20/17 06:00 Resp 18 11/20/17 06:00 BP 139/75 11/20/17 06:00 Pulse Ox 98 11/19/17 21:00 Intake & Output 11/19/17 11/19/17 11/20/17 11:59 23:59 11:59 Intake Total 50 900 0 Balance 50 900 0 Intake: IVPB 250 Oral 50 650 0 Other: Voiding Method Incontinent Incontinent # Unmeasured Voids Void 1 1 Bowel Movement No Active Medications Acetaminophen (Tylenol -) 325 mg PO QID PRN PRN Reason: PAIN Last Admin: 11/19/17 06:09 Dose: 325 mg Acetaminophen (Ofirmev Injection -) 1,000 mg IVPB Q6H PRN PRN Reason: FEVER OR PAIN Albuterol Sulfate (Ventolin 0.083% Nebulizer Soln -) 1 amp NEB Q4H PRN PRN Reason: SHORT OF BREATH/WHEEZING Albuterol/Ipratropium (Duoneb -) 1 amp NEB QIDR [facility] Last Admin: 11/20/17 06:18 Dose: 1 amp Diphenhydramine HCl (Benadryl Oral Solution -) 25 mg PO TID PRN PRN Reason: FOR ITCHING Last Admin: 11/08/17 21:15 Dose: 25 mg Epoetin Zan (Procrit -) 3,000 unit IVPUSH ONCE ONE Stop: 11/20/17 10:01 Escitalopram Oxalate (Lexapro -) 5 mg PO DAILY [facility] Last Admin: 11/19/17 09:59 Dose: 5 mg Folic Acid (Folic Acid -) 1 mg PO DAILY [facility] Last Admin: 11/19/17 09:57 Dose: 1 mg Gabapentin (Neurontin -) 100 mg PO TID [facility] Last Admin: 11/20/17 06:50 Dose: 100 mg Heparin Sodium (Porcine) (Heparin -) 5,000 unit SQ BID [facility] Last Admin: 11/19/17 21:17 Dose: 5,000 unit Heparin Sodium (Porcine) (Heparin -) 2,000 unit IVPUSH ONCE ONE Stop: 11/20/17 10:01 Acyclovir 1,000 mg/ Dextrose 270 mls @ 270 mls/hr IVPB Q24H [facility] Last Admin: 11/19/17 12:20 Dose: 270 mls/hr Lactulose (Cephulac (Oral Use)) 20 gm PO BID PRN PRN Reason: CONSTIPATION Loperamide HCl (Imodium Liquid -) 1 mg PO TID PRN PRN Reason: DIARRHEA Midodrine (Proamatine -) 5 mg PEG BID-MID [facility] Last Admin: 11/19/17 17:34 Dose: Not Given Mirtazapine (Remeron -) 22.5 mg PO HS [facility] Last Admin: 11/19/17 21:17 Dose: 22.5 mg Nystatin (Mycostatin Cream -) 1 applic TP BID [facility] Last Admin: 11/19/17 21:17 Dose: 1 applic Oxycodone HCl (Roxicodone -) 5 mg PO Q6H PRN Last Admin: 11/19/17 17:24 Dose: 5 mg Prednisone (Deltasone -) 3 mg PO BID [facility] Last Admin: 11/19/17 21:17 Dose: 3 mg Senna (Senna Oral Solution -) 8.8 mg PO BID [facility] Last Admin: 11/19/17 21:18 Dose: 8.8 mg Sevelamer Carbonate (Renvela -) 800 mg PO TIDCM [facility] Last Admin: 11/20/17 08:52 Dose: 800 mg CBC,CMP WBC 6.9 K/mm3 (4.0-10.0) 11/15/17 07:40 RBC 2.70 M/mm3 (3.60-5.2) L 11/15/17 07:40 Hgb 8.1 GM/dL (10.7-15.3) L 11/15/17 07:40 Hct 25.8 % (32.4-45.2) L 11/15/17 07:40 MCV 95.3 fl (80-96) 11/15/17 07:40 MCH 30.0 pg (25.7-33.7) 11/15/17 07:40 MCHC 31.5 g/dl (32.0-36.0) L 11/15/17 07:40 RDW 16.8 % (11.6-15.6) H 11/15/17 07:40 Plt Count 242 K/MM3 (134-434) D 11/15/17 07:40 MPV 6.4 fl (7.5-11.1) L 11/15/17 07:40 Absolute Neuts (auto) 10.5 # (42.8-82.8) L 11/03/17 10:40 Absolute Lymphs (auto) 0.5 (8-40) L 11/03/17 10:40 Absolute Monos (auto) 2.3 # (3.8-10.2) L 11/03/17 10:40 Absolute Eos (auto) 0.0 # (0-4.5) 11/03/17 10:40 Absolute Basos (auto) 0.1 # (0.1-1) 11/03/17 10:40 Neutrophils % No Result Required. 11/05/17 05:00 Neutrophils % (Manual) 75.5 % (42.8-82.8) 11/05/17 05:00 Band Neutrophils % 0.0 % 11/05/17 05:00 Lymphocytes % No Result Required. 11/05/17 05:00 Lymphocytes % (Manual) 10.2 % (8-40) D 11/05/17 05:00 Monocytes % 20.5 % (3.8-10.2) H 11/04/17 05:15 Monocytes % (Manual) 13 % (3.8-10.2) H 11/05/17 05:00 Eosinophils % 0.5 % (0-4.5) 11/04/17 05:15 Eosinophils % (Manual) 0.0 % (0-4.5) 11/05/17 05:00 Basophils % 0.8 % (0-2.0) 11/04/17 05:15 Basophils % (Manual) 0.0 % (0-2.0) 11/05/17 05:00 Myelocytes % (Man) 0 % (0-2) D 11/05/17 05:00 Metamyelocytes 1 % (0-2) D 11/05/17 05:00 Hypochromia 2+ 11/05/17 05:00 Toxic Granulation 0 11/03/17 10:40 Dohle Bodies 0 11/03/17 10:40 Platelet Estimate Normal 11/05/17 05:00 Polychromasia 0 11/05/17 05:00 Poikilocytosis 0 11/05/17 05:00 Basophilic Stippling 0 11/03/17 10:40 Anisocytosis 0 11/05/17 05:00 Microcytosis 0 11/05/17 05:00 Macrocytosis 0 11/05/17 05:00 Spherocytes 0 11/03/17 10:40 Sickle Cells 0 11/03/17 10:40 Target Cells 0 11/03/17 10:40 Tear Drop Cells 0 11/03/17 10:40 Ovalocytes 0 11/03/17 10:40 Stomatocytes 0 11/03/17 10:40 Helmet Cells 0 11/03/17 10:40 [place] Bodies 0 11/03/17 10:40 Tamiment Rings 0 11/03/17 10:40 Reader Cells 0 11/03/17 10:40 Acanthocytes (Spur) 0 11/03/17 10:40 Fragmented RBCs 0 11/03/17 10:40 Schistocytes 0 11/03/17 10:40 ESR 5 mm/hr (0-30) 11/07/17 06:25 Sodium 136 mmol/L (136-145) 11/15/17 07:40 Potassium 4.8 mmol/L (3.5-5.1) D 11/15/17 07:40 Chloride 99 mmol/L (98-107) 11/15/17 07:40 Carbon Dioxide 29 mmol/L (21-32) 11/15/17 07:40 Anion Gap 8 (8-16) 11/15/17 07:40 BUN 40 mg/dL (7-18) H D 11/15/17 07:40 Creatinine 5.4 mg/dL (0.55-1.02) H D 11/15/17 07:40 Creat Clearance w eGFR 9.63 (>60) 11/08/17 10:15 POC Glucometer 112 UNITS (80-120) 11/20/17 05:48 Random Glucose 97 mg/dL (74-106) D 11/15/17 07:40 Hemoglobin A1c % 4.7 % (4.8-6.0) L 11/04/17 05:15 Lactic Acid 0.9 mmol/L (0.4-2.0) 11/03/17 10:40 Calcium 9.2 mg/dL (8.5-10.1) 11/15/17 07:40 Phosphorus 3.2 mg/dL (2.5-4.9) 11/05/17 05:00 Magnesium 2.0 mg/dL (1.8-2.4) 11/15/17 07:40 Total Bilirubin 0.3 mg/dL (0.2-1.0) 11/08/17 10:15 AST 9 U/L (15-37) L D 11/08/17 10:15 ALT 13 U/L (12-78) D 11/08/17 10:15 Alkaline Phosphatase 66 U/L (45-117) 11/08/17 10:15 Creatine Kinase 28 IU/L (26-192) 11/03/17 10:11 Troponin I 0.03 ng/ml (0.00-0.05) 11/03/17 10:11 Total Protein 5.3 g/dl (6.4-8.2) L 11/08/17 10:15 Albumin 2.5 g/dl (3.4-5.0) L 11/08/17 10:15 Cortisol AM Sample 20.7 ug/dL (.) 11/05/17 05:00 Physical Examination Constitutional: Yes: awake/ comfortable. Neck: Yes: Supple, Other (s/p trach). Cardiovascular: Yes: Regular Rate and Rhythm Respiratory: Yes: Diminished at bases-- few scattered rhonchi-otherwise clear Gastrointestinal: Yes: Soft, Abdomen, Obese, Other (peg +) Edema: trace Right heel -- stage 2 --dressing + skin-- rash under breasts - better Neurological: Yes: alert/ awake Assessment/Plan clinically stable off abx on valtrex for herpes-- day 5 frequent suctioning. pulmonary toilet. discussed with nursing staff . decubitus precautions. overall stable pain control physical therapy oob - chair discharge planning in progress. family looking for places. Medically stable for discharge--- when bed is available-again discussed with nurse case management yesterday and on daily basis Family would like to take patient to [place]. will follow discussed with i/d also. Problem List - Problems (1) Obesity Code(s): E66.9 - OBESITY, UNSPECIFIED (2) Pneumonia Code(s): J18.9 - PNEUMONIA, UNSPECIFIED ORGANISM Qualifiers: Laterality: right Lung location: lower lobe of lung (3) Renal failure Code(s): N19 - UNSPECIFIED KIDNEY FAILURE Qualifiers: Renal failure chronicity: chronic Chronic kidney disease stage: on chronic dialysis Qualified Code(s): N18.6 - End stage renal disease; Z99.2 - Dependence on renal dialysis; Z99.2 - Dependence on renal dialysis; Z99.2 - Dependence on renal dialysis; Z99.2 - Dependence on renal dialysis (4) Respiratory failure Code(s): J96.90 - RESPIRATORY FAILURE, UNSP, UNSP W HYPOXIA OR HYPERCAPNIA Qualifiers: Chronicity: chronic (5) Sepsis Code(s): A41.9 - SEPSIS, UNSPECIFIED ORGANISM Qualifiers: Sepsis type: sepsis due to unspecified organism Qualified Code(s): A41.9 - Sepsis, unspecified organism (6) Jocelyn's granulomatosis (granulomatosis with polyangiitis) Code(s): M31.30 - JOCELYN'S GRANULOMATOSIS WITHOUT RENAL INVOLVEMENT
[2017-11-20] MEDS ORDERED: HEPARIN NA (PORCINE) 5,000 UNITS/ML 1ML VIAL IVPUSH ONE (10:00)
[2017-11-20] MEDS ORDERED: EPOETIN ALFA 3,000 UNIT/1 ML ML IVPUSH ONE (10:00)
[2017-11-20] MEDS: HEPARIN NA (PORCINE) 5,000 UNITS/ML 1ML VIAL SQ SCH ×2 (10:18→21:14)
[2017-11-20] MEDS: predniSONE 1 MG TABLET (FP) PO SCH ×2 (10:42→21:16)
[2017-11-20] MEDS: MIDODRINE HCL 5 MG TABLET PEG SCH ×2 (10:42→18:35)
[2017-11-20] MEDS: ESCITALOPRAM OXALATE 10 MG TABLET (FP) PO SCH (10:43)
[2017-11-20] MEDS: NYSTATIN 100,000 UNIT/GM TOPICAL CREAM 15 GM TUBE TP SCH ×2 (10:43→21:16)
[2017-11-20] MEDS: FOLIC ACID 1 MG TABLET (FP) PO SCH (10:43)
[2017-11-20] MEDS: SENNOSIDES 8.8 MG/5 ML BULK BOTTLE PO SCH ×2 (10:44→21:16)
--- NOTE | 2017-11-20 13:25 | PN ---
Progress Note, Physician History of Present Illness: PULMONARY ALERT,MORE DYSPNEIC TODAY ON HD - Current Medication List Current Medications: Active Medications Acetaminophen (Tylenol -) 325 mg PO QID PRN PRN Reason: PAIN Last Admin: 11/19/17 06:09 Dose: 325 mg Acetaminophen (Ofirmev Injection -) 1,000 mg IVPB Q6H PRN PRN Reason: FEVER OR PAIN Albuterol Sulfate (Ventolin 0.083% Nebulizer Soln -) 1 amp NEB Q4H PRN PRN Reason: SHORT OF BREATH/WHEEZING Albuterol/Ipratropium (Duoneb -) 1 amp NEB QIDR [facility] Last Admin: 11/20/17 11:00 Dose: 1 amp Diphenhydramine HCl (Benadryl Oral Solution -) 25 mg PO TID PRN PRN Reason: FOR ITCHING Last Admin: 11/08/17 21:15 Dose: 25 mg Escitalopram Oxalate (Lexapro -) 5 mg PO DAILY [facility] Last Admin: 11/20/17 10:43 Dose: 5 mg Folic Acid (Folic Acid -) 1 mg PO DAILY [facility] Last Admin: 11/20/17 10:43 Dose: 1 mg Gabapentin (Neurontin -) 100 mg PO TID [facility] Last Admin: 11/20/17 06:50 Dose: 100 mg Heparin Sodium (Porcine) (Heparin -) 5,000 unit SQ BID [facility] Last Admin: 11/20/17 10:18 Dose: Not Given Acyclovir 1,000 mg/ Dextrose 270 mls @ 270 mls/hr IVPB Q24H [facility] Last Admin: 11/19/17 12:20 Dose: 270 mls/hr Lactulose (Cephulac (Oral Use)) 20 gm PO BID PRN PRN Reason: CONSTIPATION Loperamide HCl (Imodium Liquid -) 1 mg PO TID PRN PRN Reason: DIARRHEA Midodrine (Proamatine -) 5 mg PEG BID-MID [facility] Last Admin: 11/20/17 10:42 Dose: 5 mg Mirtazapine (Remeron -) 22.5 mg PO HS [facility] Last Admin: 11/19/17 21:17 Dose: 22.5 mg Nystatin (Mycostatin Cream -) 1 applic TP BID [facility] Last Admin: 11/20/17 10:43 Dose: 1 applic Oxycodone HCl (Roxicodone -) 5 mg PO Q6H PRN Last Admin: 11/19/17 17:24 Dose: 5 mg Prednisone (Deltasone -) 3 mg PO BID [facility] Last Admin: 11/20/17 10:42 Dose: 3 mg Senna (Senna Oral Solution -) 8.8 mg PO BID [facility] Last Admin: 11/20/17 10:44 Dose: 8.8 mg Sevelamer Carbonate (Renvela -) 800 mg PO TIDCM [facility] Last Admin: 11/20/17 12:35 Dose: 800 mg - Objective Vital Signs: Vital Signs Temperature 98.9 F 11/20/17 09:00 Pulse Rate 110 H 11/20/17 09:27 Respiratory Rate 18 11/20/17 09:00 Blood Pressure 106/50 11/20/17 09:00 O2 Sat by Pulse Oximetry (%) 95 11/20/17 09:27 Constitutional: Yes: Well Nourished, Calm, Mild Distress Eyes: Yes: WNL HENT: Yes: WNL Neck: Yes: WNL Cardiovascular: Yes: Regular Rate and Rhythm, S1, S2 Respiratory: Yes: Rhonchi Gastrointestinal: Yes: Normal Bowel Sounds, Soft Extremities: Yes: WNL Edema: No Labs: Problem List - Problems (1) ESRD (end stage renal disease) Code(s): N18.6 - END STAGE RENAL DISEASE (2) Hemodialysis access site with arteriovenous graft Code(s): Z99.2 - DEPENDENCE ON RENAL DIALYSIS (3) Pneumonia Code(s): J18.9 - PNEUMONIA, UNSPECIFIED ORGANISM Qualifiers: Laterality: right Lung location: lower lobe of lung (4) Respiratory failure Code(s): J96.90 - RESPIRATORY FAILURE, UNSP, UNSP W HYPOXIA OR HYPERCAPNIA Qualifiers: Chronicity: chronic (5) Jocelyn's granulomatosis (granulomatosis with polyangiitis) Code(s): M31.30 - JOCELYN'S GRANULOMATOSIS WITHOUT RENAL INVOLVEMENT Assessment/Plan A/P Pneumonia UTI Sepsis Jocelyn's Granulomatosis Chronic Respiratory Failure ESRD on HD HTN DM Zoster - chest PT - pulmonary toilet - inhaled bronchodilators - prednisone 3mg BID - O2 to keep SpO2 >90% - HD per renal - DVT prophylaxis - Zovirax - Analgesics - Chest x-ray DR BLANDON
--- NOTE | 2017-11-20 13:55 | PN ---
Progress Note, Physician History of Present Illness: Reports improvement in L back pain No fever/ chills Tolerating IV ACV - Current Medication List Current Medications: Active Medications Acetaminophen (Tylenol -) 325 mg PO QID PRN PRN Reason: PAIN Last Admin: 11/19/17 06:09 Dose: 325 mg Acetaminophen (Ofirmev Injection -) 1,000 mg IVPB Q6H PRN PRN Reason: FEVER OR PAIN Albuterol Sulfate (Ventolin 0.083% Nebulizer Soln -) 1 amp NEB Q4H PRN PRN Reason: SHORT OF BREATH/WHEEZING Last Admin: 11/20/17 13:34 Dose: 1 amp Albuterol/Ipratropium (Duoneb -) 1 amp NEB QIDR [facility] Last Admin: 11/20/17 11:00 Dose: 1 amp Diphenhydramine HCl (Benadryl Oral Solution -) 25 mg PO TID PRN PRN Reason: FOR ITCHING Last Admin: 11/08/17 21:15 Dose: 25 mg Escitalopram Oxalate (Lexapro -) 5 mg PO DAILY [facility] Last Admin: 11/20/17 10:43 Dose: 5 mg Folic Acid (Folic Acid -) 1 mg PO DAILY [facility] Last Admin: 11/20/17 10:43 Dose: 1 mg Gabapentin (Neurontin -) 100 mg PO TID [facility] Last Admin: 11/20/17 06:50 Dose: 100 mg Heparin Sodium (Porcine) (Heparin -) 5,000 unit SQ BID [facility] Last Admin: 11/20/17 10:18 Dose: Not Given Acyclovir 1,000 mg/ Dextrose 270 mls @ 270 mls/hr IVPB Q24H [facility] Last Admin: 11/19/17 12:20 Dose: 270 mls/hr Lactulose (Cephulac (Oral Use)) 20 gm PO BID PRN PRN Reason: CONSTIPATION Loperamide HCl (Imodium Liquid -) 1 mg PO TID PRN PRN Reason: DIARRHEA Midodrine (Proamatine -) 5 mg PEG BID-MID [facility] Last Admin: 11/20/17 10:42 Dose: 5 mg Mirtazapine (Remeron -) 22.5 mg PO HS [facility] Last Admin: 11/19/17 21:17 Dose: 22.5 mg Nystatin (Mycostatin Cream -) 1 applic TP BID [facility] Last Admin: 11/20/17 10:43 Dose: 1 applic Oxycodone HCl (Roxicodone -) 5 mg PO Q6H PRN Last Admin: 11/19/17 17:24 Dose: 5 mg Prednisone (Deltasone -) 3 mg PO BID [facility] Last Admin: 11/20/17 10:42 Dose: 3 mg Senna (Senna Oral Solution -) 8.8 mg PO BID [facility] Last Admin: 11/20/17 10:44 Dose: 8.8 mg Sevelamer Carbonate (Renvela -) 800 mg PO TIDCM [facility] Last Admin: 11/20/17 12:35 Dose: 800 mg - Objective Vital Signs: Vital Signs Temperature 98.9 F 11/20/17 09:00 Pulse Rate 110 H 11/20/17 09:27 Respiratory Rate 18 11/20/17 09:00 Blood Pressure 106/50 11/20/17 09:00 O2 Sat by Pulse Oximetry (%) 95 11/20/17 09:27 Constitutional: Yes: No Distress, Obese Eyes: Yes: Conjunctiva Clear Cardiovascular: Yes: Regular Rate and Rhythm, S1, S2 Respiratory: Yes: Diminished Gastrointestinal: Yes: Normal Bowel Sounds, Soft, Abdomen, Obese. No: Tenderness Edema: Yes Integumentary: Yes: Other (drying vesicular rash L chest/ back) Labs: CBC, BMP 11/15/17 07:40 11/15/17 07:40 INR, PTT INR 1.03 (0.82-1.09) 11/03/17 10:40 Assessment/Plan VZV L T5 dermatome S/P pneumonia ESRD [place] Continue IV ACV day #5 , adjusted for ESRD
--- NOTE | 2017-11-20 14:03 | PN ---
Progress Note, Physician History of Present Illness: Left-sided neuropathic pain along dermatome c/w post-herpetic neuralgia improved , denies dyspnea, palpitations, orthopnea. - Current Medication List Current Medications: Active Medications Acetaminophen (Tylenol -) 325 mg PO QID PRN PRN Reason: PAIN Last Admin: 11/19/17 06:09 Dose: 325 mg Acetaminophen (Ofirmev Injection -) 1,000 mg IVPB Q6H PRN PRN Reason: FEVER OR PAIN Albuterol Sulfate (Ventolin 0.083% Nebulizer Soln -) 1 amp NEB Q4H PRN PRN Reason: SHORT OF BREATH/WHEEZING Last Admin: 11/20/17 13:34 Dose: 1 amp Albuterol/Ipratropium (Duoneb -) 1 amp NEB QIDR [facility]ON[facility] Last Admin: 11/20/17 11:00 Dose: 1 amp Diphenhydramine HCl (Benadryl Oral Solution -) 25 mg PO TID PRN PRN Reason: FOR ITCHING Last Admin: 11/08/17 21:15 Dose: 25 mg Escitalopram Oxalate (Lexapro -) 5 mg PO DAILY [facility] Last Admin: 11/20/17 10:43 Dose: 5 mg Folic Acid (Folic Acid -) 1 mg PO DAILY [facility] Last Admin: 11/20/17 10:43 Dose: 1 mg Gabapentin (Neurontin -) 100 mg PO TID [facility] Last Admin: 11/20/17 06:50 Dose: 100 mg Heparin Sodium (Porcine) (Heparin -) 5,000 unit SQ BID [facility] Last Admin: 11/20/17 10:18 Dose: Not Given Acyclovir 1,000 mg/ Dextrose 270 mls @ 270 mls/hr IVPB Q24H [facility] Last Admin: 11/19/17 12:20 Dose: 270 mls/hr Lactulose (Cephulac (Oral Use)) 20 gm PO BID PRN PRN Reason: CONSTIPATION Loperamide HCl (Imodium Liquid -) 1 mg PO TID PRN PRN Reason: DIARRHEA Midodrine (Proamatine -) 5 mg PEG BID-MID [facility] Last Admin: 11/20/17 10:42 Dose: 5 mg Mirtazapine (Remeron -) 22.5 mg PO HS [facility] Last Admin: 11/19/17 21:17 Dose: 22.5 mg Nystatin (Mycostatin Cream -) 1 applic TP BID [facility] Last Admin: 11/20/17 10:43 Dose: 1 applic Oxycodone HCl (Roxicodone -) 5 mg PO Q6H PRN Last Admin: 11/19/17 17:24 Dose: 5 mg Prednisone (Deltasone -) 3 mg PO BID [facility] Last Admin: 11/20/17 10:42 Dose: 3 mg Senna (Senna Oral Solution -) 8.8 mg PO BID [facility] Last Admin: 11/20/17 10:44 Dose: 8.8 mg Sevelamer Carbonate (Renvela -) 800 mg PO TIDCM [facility] Last Admin: 11/20/17 12:35 Dose: 800 mg - Objective Vital Signs: Vital Signs Temperature 98.9 F 11/20/17 09:00 Pulse Rate 80 11/20/17 13:30 Respiratory Rate 18 11/20/17 13:30 Blood Pressure 105/50 11/20/17 13:30 O2 Sat by Pulse Oximetry (%) 95 11/20/17 09:27 Constitutional: Yes: No Distress, Calm Neck: Yes: Supple, Other (Trach collar) Respiratory: Yes: Regular, Diminished Gastrointestinal: Yes: Normal Bowel Sounds, Soft, Abdomen, Obese Edema: Yes Edema: LLE: Trace, RLE: Trace Labs: CBC, BMP 11/15/17 07:40 11/15/17 07:40 INR, PTT INR 1.03 (0.82-1.09) 11/03/17 10:40 Problem List - Problems (1) ESRD (end stage renal disease) Code(s): N18.6 - END STAGE RENAL DISEASE (2) Granulomatosis with polyangiitis with renal involvement Code(s): M31.31 - JOCELYN'S GRANULOMATOSIS WITH RENAL INVOLVEMENT (3) Respiratory failure Code(s): J96.90 - RESPIRATORY FAILURE, UNSP, UNSP W HYPOXIA OR HYPERCAPNIA Qualifiers: Chronicity: chronic (4) Jocelyn's granulomatosis (granulomatosis with polyangiitis) Code(s): M31.30 - JOCELYN'S GRANULOMATOSIS WITHOUT RENAL INVOLVEMENT (5) Anemia Code(s): D64.9 - ANEMIA, UNSPECIFIED Qualifiers: Anemia type: due to chronic kidney disease (6) Zoster Code(s): B02.9 - ZOSTER WITHOUT COMPLICATIONS Qualifiers: Herpes zoster complications: without complications Qualified Code(s): B02.9 - Zoster without complications (7) Post herpetic neuralgia Code(s): B02.29 - OTHER POSTHERPETIC NERVOUS SYSTEM INVOLVEMENT Assessment/Plan 1. Right lower lobe Pneumonia, resolved 2. Urinary tract infection, resolved 3. 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 Chronic Respiratory Failure on trach collar 5. History of HTN 6. DM 7. Hypercholesterolemia 8. ESRD on HD 9. Anemia 10. Herpes Zoster with post-herpetic neuralgia PLAN: 1. Continue Zovirax course as per ID service 2. Bronchodilators, oral steroids, chest PT, pulm toilet and O2 3. Continue HD as per renal service, and continue Midodrine. Monitor BP closely 4. DVT prophylaxis, analgesia
[2017-11-20 15:36] LABS: HEMATOCRIT 24.4 % (32.4-45.2); HEMOGLOBIN 7.8 GM/dL (10.7-15.3); MCH 30.2 pg (25.7-33.7); MEAN CELL VOLUME 94.4 fl (80-96); MEAN PLT VOLUME 7.1 fl (7.5-11.1); PLATELET COUNT 275 K/MM3 (134-434); RBC 2.58 M/mm3 (3.60-5.2); RDW 17.4 % (11.6-15.6); WHITE BLOOD COUNT 8.1 K/mm3 (4.0-10.0)
--- NOTE | 2017-11-20 15:41 | PN ---
Progress Note, Physician History of Present Illness: Pt seen and examined at bedside. She is currently getting HD. - Current Medication List Current Medications: Active Medications Acetaminophen (Tylenol -) 325 mg PO QID PRN PRN Reason: PAIN Last Admin: 11/19/17 06:09 Dose: 325 mg Acetaminophen (Ofirmev Injection -) 1,000 mg IVPB Q6H PRN PRN Reason: FEVER OR PAIN Albuterol Sulfate (Ventolin 0.083% Nebulizer Soln -) 1 amp NEB Q4H PRN PRN Reason: SHORT OF BREATH/WHEEZING Last Admin: 11/20/17 13:34 Dose: 1 amp Albuterol/Ipratropium (Duoneb -) 1 amp NEB QIDR [facility] Last Admin: 11/20/17 11:00 Dose: 1 amp Diphenhydramine HCl (Benadryl Oral Solution -) 25 mg PO TID PRN PRN Reason: FOR ITCHING Last Admin: 11/08/17 21:15 Dose: 25 mg Escitalopram Oxalate (Lexapro -) 5 mg PO DAILY [facility] Last Admin: 11/20/17 10:43 Dose: 5 mg Folic Acid (Folic Acid -) 1 mg PO DAILY [facility] Last Admin: 11/20/17 10:43 Dose: 1 mg Gabapentin (Neurontin -) 100 mg PO TID [facility] Last Admin: 11/20/17 06:50 Dose: 100 mg Heparin Sodium (Porcine) (Heparin -) 5,000 unit SQ BID [facility] Last Admin: 11/20/17 10:18 Dose: Not Given Acyclovir 1,000 mg/ Dextrose 270 mls @ 270 mls/hr IVPB Q24H [facility] Last Admin: 11/19/17 12:20 Dose: 270 mls/hr Lactulose (Cephulac (Oral Use)) 20 gm PO BID PRN PRN Reason: CONSTIPATION Loperamide HCl (Imodium Liquid -) 1 mg PO TID PRN PRN Reason: DIARRHEA Midodrine (Proamatine -) 5 mg PEG BID-MID [facility] Last Admin: 11/20/17 10:42 Dose: 5 mg Mirtazapine (Remeron -) 22.5 mg PO HS [facility] Last Admin: 11/19/17 21:17 Dose: 22.5 mg Nystatin (Mycostatin Cream -) 1 applic TP BID [facility] Last Admin: 11/20/17 10:43 Dose: 1 applic Oxycodone HCl (Roxicodone -) 5 mg PO Q6H PRN Last Admin: 11/19/17 17:24 Dose: 5 mg Prednisone (Deltasone -) 3 mg PO BID [facility] Last Admin: 11/20/17 10:42 Dose: 3 mg Senna (Senna Oral Solution -) 8.8 mg PO BID [facility] Last Admin: 11/20/17 10:44 Dose: 8.8 mg Sevelamer Carbonate (Renvela -) 800 mg PO TIDCM [facility] Last Admin: 11/20/17 12:35 Dose: 800 mg - Objective Vital Signs: Vital Signs Temperature 98.0 F 11/20/17 15:01 Pulse Rate 83 11/20/17 15:01 Respiratory Rate 18 11/20/17 15:01 Blood Pressure 120/44 11/20/17 15:01 O2 Sat by Pulse Oximetry (%) 95 11/20/17 09:27 Constitutional: Yes: Calm Eyes: Yes: Conjunctiva Clear Neck: Yes: Other (trache) Cardiovascular: Yes: S1, S2 Respiratory: Yes: Rhonchi Gastrointestinal: Yes: Soft, Abdomen, Obese Genitourinary: Yes: Incontinence Musculoskeletal: Yes: Muscle Weakness Edema: No Neurological: Yes: Oriented Psychiatric: Yes: Oriented Labs: INR, PTT INR 1.03 (0.82-1.09) 11/03/17 10:40 Problem List - Problems (1) Respiratory failure Code(s): J96.90 - RESPIRATORY FAILURE, UNSP, UNSP W HYPOXIA OR HYPERCAPNIA (2) ESRD (end stage renal disease) Code(s): N18.6 - END STAGE RENAL DISEASE (3) Sepsis Code(s): A41.9 - SEPSIS, UNSPECIFIED ORGANISM Qualifiers: Sepsis type: sepsis due to unspecified organism Qualified Code(s): A41.9 - Sepsis, unspecified organism (4) Jocelyn's granulomatosis (granulomatosis with polyangiitis) Code(s): M31.30 - JOCELYN'S GRANULOMATOSIS WITHOUT RENAL INVOLVEMENT Assessment/Plan Current Medications Generic Name Dose Route Start Last Admin Trade Name Freq PRN Reason Stop Dose Admin Acetaminophen 325 mg 11/05/17 19:02 11/19/17 06:09 Tylenol - PO 325 mg QID PRN Administration PAIN Acetaminophen 1,000 mg 11/05/17 19:02 Ofirmev Injection - IVPB Q6H PRN FEVER OR PAIN Albuterol Sulfate 1 amp 11/19/17 12:34 11/20/17 13:34 Ventolin 0.083% Nebulizer Soln - NEB 1 amp Q4H PRN Administration SHORT OF BREATH/WHEEZING Albuterol/Ipratropium 1 amp 11/19/17 18:00 11/20/17 11:00 Duoneb - NEB 1 amp QIDR [facility]ONI Administration Diphenhydramine HCl 25 mg 11/05/17 19:02 11/08/17 21:15 Benadryl Oral Solution - PO 25 mg TID PRN Administration FOR ITCHING Escitalopram Oxalate 5 mg 11/06/17 10:00 11/20/17 10:43 Lexapro - PO 5 mg DAILY [facility] Administration Folic Acid 1 mg 11/06/17 10:00 11/20/17 10:43 Folic Acid - PO 1 mg DAILY [facility] Administration Gabapentin 100 mg 11/17/17 14:00 11/20/17 06:50 Neurontin - PO 100 mg TID [facility]ON[facility] Administration Heparin Sodium (Porcine) 5,000 unit 11/19/17 22:00 11/20/17 10:18 Heparin - SQ Not Given BID [facility]ONI Acyclovir 1,000 mg/ Dextrose 270 mls @ 270 mls/hr 11/16/17 13:00 11/19/17 12: 20 IVPB 270 mls/hr Q24H [facility]ON[facility] Administration Lactulose 20 gm 11/05/17 19:02 Cephulac (Oral Use) PO BID PRN CONSTIPATION Loperamide HCl 1 mg 11/05/17 19:02 Imodium Liquid - PO TID PRN DIARRHEA Midodrine 5 mg 11/06/17 10:00 11/20/17 10:42 Proamatine - PEG 5 mg BID-MID [facility]ON[facility] Administration Mirtazapine 22.5 mg 11/05/17 22:00 11/19/17 21:17 Remeron - PO 22.5 mg HS [facility]ONI Administration Nystatin 1 applic 11/05/17 22:00 11/20/17 10:43 Mycostatin Cream - TP 1 applic BID [facility] Administration Oxycodone HCl 5 mg 11/15/17 16:59 11/19/17 17:24 Roxicodone - PO 5 mg Q6H PRN Administration Prednisone 3 mg 11/05/17 22:00 11/20/17 10:42 Deltasone - PO 3 mg BID [facility] Administration Senna 8.8 mg 11/05/17 22:00 11/20/17 10:44 Senna Oral Solution - PO 8.8 mg BID [facility] Administration Sevelamer Carbonate 800 mg 11/06/17 08:00 11/20/17 12:35 Renvela - PO 800 mg TIDCM [facility]ON[facility] Administration Impression 1. 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 chronic resp failure 4. htn 5. chol 6. obesity 7. anemia 8. hypoxia Plan - pt tolerating HD - monitor bp through HD - HD prescription: AVF 2 k bath 3.5 hrs heparin 1999 - will follow pt Dr Trotter
[2017-11-20 15:48] LABS: ANION GAP 11 (8-16); BLOOD UREA NITROGEN 42 mg/dL (7-18); CALCIUM 8.6 mg/dL (8.5-10.1); CHLORIDE 95 mmol/L (98-107); CO2 27 mmol/L (21-32); CREATININE 4.8 mg/dL (0.55-1.02); GLUCOSE,RANDOM 118 mg/dL (74-106); SODIUM 133 mmol/L (136-145)
[2017-11-20 15:56] LABS: POTASSIUM 5.1 mmol/L (3.5-5.1)
[2017-11-20] MEDS: ACYCLOVIR INJECTION 1,000 MG in DEXTROSE 5%-WATER - 250 ML IVPB SCH (18:35)
[2017-11-20] MEDS: oxyCODONE HCL 5 MG TABLET PO PRN (21:14)
[2017-11-20] MEDS: ACETAMINOPHEN 325 MG TABLET (FP) PO PRN (21:15)
[2017-11-20] MEDS: MIRTAZAPINE 15 MG TABLET (FP) PO SCH (21:15)
[2017-11-21] MEDS: ALBUTEROL SO4 2.5/IPRATROPIUM 0.5 INH SOL 3 ML VIAL.NEB. NEB SCH ×5 (00:24→20:00)
[2017-11-21] MEDS: GABAPENTIN 100 MG CAPSULE (FP) PO SCH ×3 (06:04→22:45)
--- NOTE | 2017-11-21 08:34 | PN ---
Progress Note (short form) - Note Progress Note: Patient seen and examined Comfortable no new issues pain much better Awaiting for rehabilitation bed availability Vital Signs Temp 98 F 11/21/17 05:18 Pulse 118 H 11/21/17 05:18 Resp 20 11/21/17 05:18 BP 110/48 11/21/17 05:18 Pulse Ox 96 11/20/17 21:00 Intake & Output 11/20/17 11/20/17 11/21/17 11:59 23:59 11:59 Intake Total 440 870 100 Balance 440 870 100 Intake: IVPB 250 Oral 440 620 100 Other: Voiding Method Incontinent Incontinent Incontinent # Unmeasured Voids Straight Cath 1 1 Void 1 1 Bowel Movement No No Active Medications Acetaminophen (Tylenol -) 325 mg PO QID PRN PRN Reason: PAIN Last Admin: 11/20/17 21:15 Dose: 325 mg Acetaminophen (Ofirmev Injection -) 1,000 mg IVPB Q6H PRN PRN Reason: FEVER OR PAIN Albuterol Sulfate (Ventolin 0.083% Nebulizer Soln -) 1 amp NEB Q4H PRN PRN Reason: SHORT OF BREATH/WHEEZING Last Admin: 11/20/17 13:34 Dose: 1 amp Albuterol/Ipratropium (Duoneb -) 1 amp NEB QIDR [facility] Last Admin: 11/21/17 06:45 Dose: 1 amp Diphenhydramine HCl (Benadryl Oral Solution -) 25 mg PO TID PRN PRN Reason: FOR ITCHING Last Admin: 11/08/17 21:15 Dose: 25 mg Escitalopram Oxalate (Lexapro -) 5 mg PO DAILY [facility] Last Admin: 11/20/17 10:43 Dose: 5 mg Folic Acid (Folic Acid -) 1 mg PO DAILY [facility] Last Admin: 11/20/17 10:43 Dose: 1 mg Gabapentin (Neurontin -) 100 mg PO TID [facility] Last Admin: 11/21/17 06:04 Dose: 100 mg Heparin Sodium (Porcine) (Heparin -) 5,000 unit SQ BID [facility] Last Admin: 11/20/17 21:14 Dose: 5,000 unit Acyclovir 1,000 mg/ Dextrose 270 mls @ 270 mls/hr IVPB Q24H [facility] Last Admin: 11/20/17 18:35 Dose: 270 mls/hr Lactulose (Cephulac (Oral Use)) 20 gm PO BID PRN PRN Reason: CONSTIPATION Loperamide HCl (Imodium Liquid -) 1 mg PO TID PRN PRN Reason: DIARRHEA Midodrine (Proamatine -) 5 mg PEG BID-MID [facility] Last Admin: 11/20/17 18:35 Dose: 5 mg Mirtazapine (Remeron -) 22.5 mg PO HS [facility] Last Admin: 11/20/17 21:15 Dose: 22.5 mg Nystatin (Mycostatin Cream -) 1 applic TP BID [facility] Last Admin: 11/20/17 21:16 Dose: 1 applic Oxycodone HCl (Roxicodone -) 5 mg PO Q6H PRN Last Admin: 11/20/17 21:14 Dose: 5 mg Prednisone (Deltasone -) 3 mg PO BID [facility] Last Admin: 11/20/17 21:16 Dose: 3 mg Senna (Senna Oral Solution -) 8.8 mg PO BID [facility] Last Admin: 11/20/17 21:16 Dose: 8.8 mg Sevelamer Carbonate (Renvela -) 800 mg PO TIDCM [facility] Last Admin: 11/20/17 18:35 Dose: 800 mg CBC, BMP 11/20/17 15:00 11/20/17 15:00 cxr-- noted-/ reviewed- clear. Physical Examination Constitutional: Yes: awake/ comfortable. Neck: Yes: Supple, Other (s/p trach). Cardiovascular: Yes: Regular Rate and Rhythm Respiratory: Yes: Diminished at bases-- few scattered rhonchi-otherwise clear Gastrointestinal: Yes: Soft, Abdomen, Obese, Other (peg +) Edema: trace Right heel -- stage 2 --dressing + skin-- rash under breasts - better Neurological: Yes: alert/ awake Assessment/Plan clinically stable off abx on valtrex for herpes-- day 6 frequent suctioning. pulmonary toilet. discussed with nursing staff . decubitus precautions. overall stable pain control physical therapy oob - chair discharge planning in progress. family looking for places. Medically stable for discharge--- when bed is available-again discussed with adult protective caseworker yesterday and on daily basis Family would like to take patient to [place]. will follow discussed with i/d also again today. I also discussed with adult protective caseworker today--- she will follow. Problem List Problem List - Problems (1) Obesity Code(s): E66.9 - OBESITY, UNSPECIFIED (2) Pneumonia Code(s): J18.9 - PNEUMONIA, UNSPECIFIED ORGANISM Qualifiers: Laterality: right Lung location: lower lobe of lung (3) Renal failure Code(s): N19 - UNSPECIFIED KIDNEY FAILURE Qualifiers: Renal failure chronicity: chronic Chronic kidney disease stage: on chronic dialysis Qualified Code(s): N18.6 - End stage renal disease; Z99.2 - Dependence on renal dialysis; Z99.2 - Dependence on renal dialysis; Z99.2 - Dependence on renal dialysis; Z99.2 - Dependence on renal dialysis (4) Respiratory failure Code(s): J96.90 - RESPIRATORY FAILURE, UNSP, UNSP W HYPOXIA OR HYPERCAPNIA Qualifiers: Chronicity: chronic (5) Sepsis Code(s): A41.9 - SEPSIS, UNSPECIFIED ORGANISM Qualifiers: Sepsis type: sepsis due to unspecified organism Qualified Code(s): A41.9 - Sepsis, unspecified organism (6) Jocelyn's granulomatosis (granulomatosis with polyangiitis) Code(s): M31.30 - JOCELYN'S GRANULOMATOSIS WITHOUT RENAL INVOLVEMENT
[2017-11-21] MEDS ORDERED: PT OWN MED DRAWER 7, Y5N ONE ×3 (08:49→22:42)
[2017-11-21] MEDS: HEPARIN NA (PORCINE) 5,000 UNITS/ML 1ML VIAL SQ SCH ×2 (09:29→22:44)
[2017-11-21] MEDS: predniSONE 1 MG TABLET (FP) PO SCH ×2 (09:30→22:44)
[2017-11-21] MEDS: ESCITALOPRAM OXALATE 10 MG TABLET (FP) PO SCH (09:30)
[2017-11-21] MEDS: FOLIC ACID 1 MG TABLET (FP) PO SCH (09:31)
[2017-11-21] MEDS: SEVELAMER CARBONATE 800 MG TAB (FP) PO SCH ×3 (09:31→17:36)
[2017-11-21] MEDS: MIDODRINE HCL 5 MG TABLET PEG SCH ×3 (09:32→17:49)
[2017-11-21] MEDS: SENNOSIDES 8.8 MG/5 ML BULK BOTTLE PO SCH (09:32)
[2017-11-21] MEDS: NYSTATIN 100,000 UNIT/GM TOPICAL CREAM 15 GM TUBE TP SCH ×2 (09:32→22:44)
--- NOTE | 2017-11-21 12:01 | PN ---
Progress Note, Physician Chief Complaint: Trache collar breathing comfortable Complains of left sided pain in the torso due to post herpetic neuralgia History of Present Illness: Patient was seen and examined. Awake and alert. Chart was reviewed Denies chest pain, tolerating therapy and no palpitation - Current Medication List Current Medications: Active Medications Acetaminophen (Tylenol -) 325 mg PO QID PRN PRN Reason: PAIN Last Admin: 11/20/17 21:15 Dose: 325 mg Acetaminophen (Ofirmev Injection -) 1,000 mg IVPB Q6H PRN PRN Reason: FEVER OR PAIN Albuterol Sulfate (Ventolin 0.083% Nebulizer Soln -) 1 amp NEB Q4H PRN PRN Reason: SHORT OF BREATH/WHEEZING Last Admin: 11/20/17 13:34 Dose: 1 amp Albuterol/Ipratropium (Duoneb -) 1 amp NEB RQID [facility] Last Admin: 11/21/17 11:11 Dose: 1 amp Diphenhydramine HCl (Benadryl Oral Solution -) 25 mg PO TID PRN PRN Reason: FOR ITCHING Last Admin: 11/08/17 21:15 Dose: 25 mg Escitalopram Oxalate (Lexapro -) 5 mg PO DAILY [facility] Last Admin: 11/21/17 09:30 Dose: 5 mg Folic Acid (Folic Acid -) 1 mg PO DAILY [facility] Last Admin: 11/21/17 09:31 Dose: 1 mg Gabapentin (Neurontin -) 100 mg PO TID [facility] Last Admin: 11/21/17 06:04 Dose: 100 mg Heparin Sodium (Porcine) (Heparin -) 5,000 unit SQ BID [facility] Last Admin: 11/21/17 09:29 Dose: 5,000 unit Acyclovir 1,000 mg/ Dextrose 270 mls @ 270 mls/hr IVPB Q24H [facility] Last Admin: 11/20/17 18:35 Dose: 270 mls/hr Lactulose (Cephulac (Oral Use)) 20 gm PO BID PRN PRN Reason: CONSTIPATION Loperamide HCl (Imodium Liquid -) 1 mg PO TID PRN PRN Reason: DIARRHEA Midodrine (Proamatine -) 5 mg PEG BID-MID [facility] Last Admin: 11/21/17 09:32 Dose: 5 mg Mirtazapine (Remeron -) 22.5 mg PO HS [facility] Last Admin: 11/20/17 21:15 Dose: 22.5 mg Nystatin (Mycostatin Cream -) 1 applic TP BID [facility] Last Admin: 11/21/17 09:32 Dose: 1 applic Oxycodone HCl (Roxicodone -) 5 mg PO Q6H PRN Prednisone (Deltasone -) 3 mg PO BID [facility] Last Admin: 11/21/17 09:30 Dose: 3 mg Senna (Senna Oral Solution -) 8.8 mg PO BID [facility] Last Admin: 11/21/17 09:32 Dose: 8.8 mg Sevelamer Carbonate (Renvela -) 800 mg PO TIDCM [facility] Last Admin: 11/21/17 09:31 Dose: 800 mg - Objective Vital Signs: Vital Signs Temperature 98.9 F 11/21/17 09:01 Pulse Rate 120 H 11/21/17 09:33 Respiratory Rate 18 11/21/17 09:01 Blood Pressure 95/42 11/21/17 09:01 O2 Sat by Pulse Oximetry (%) 96 11/21/17 09:33 Eyes: Yes: PERRL HENT: Yes: Atraumatic Neck: Yes: Supple Cardiovascular: Yes: Regular Rate and Rhythm, S1, S2 Respiratory: Yes: Diminished, Other (Trache collar) Gastrointestinal: Yes: Normal Bowel Sounds, Soft, Abdomen, Obese. No: Tenderness Edema: No Problem List - Problems (1) Anemia Code(s): D64.9 - ANEMIA, UNSPECIFIED Qualifiers: Anemia type: due to chronic kidney disease (2) ESRD (end stage renal disease) Code(s): N18.6 - END STAGE RENAL DISEASE (3) Hemodialysis access site with arteriovenous graft Code(s): Z99.2 - DEPENDENCE ON RENAL DIALYSIS (4) Pneumonia Code(s): J18.9 - PNEUMONIA, UNSPECIFIED ORGANISM Qualifiers: Laterality: right Lung location: lower lobe of lung (5) Respiratory failure Code(s): J96.90 - RESPIRATORY FAILURE, UNSP, UNSP W HYPOXIA OR HYPERCAPNIA Qualifiers: Chronicity: chronic (6) Sepsis Code(s): A41.9 - SEPSIS, UNSPECIFIED ORGANISM Qualifiers: Sepsis type: sepsis due to unspecified organism Qualified Code(s): A41.9 - Sepsis, unspecified organism (7) Jocelyn's granulomatosis (granulomatosis with polyangiitis) Code(s): M31.30 - JOCELYN'S GRANULOMATOSIS WITHOUT RENAL INVOLVEMENT Assessment/Plan 1. Right lower lobe Pneumonia, resolving 2. Urinary tract infection, resolving 3. 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 Chronic Respiratory Failure on trach collar 5. History of HTN 6. DM 7. Hypercholesterolemia 8. ESRD on HD 9. Anemia 10. Sinus tachycardia 11. Herpes Zoster with post-herpetic neuralgia PLAN: 1. Continue antibiotic and Zovirax course as per ID service 2. Bronchodilators, oral steroids, chest PT, pulm toilet and O2 3. Continue HD as per renal service, and continue Midodrine. Monitor BP closely 4. DVT prophylaxis, analgesia Further plans are to follow Gigi Encinas MD
--- NOTE | 2017-11-21 13:01 | PN ---
Progress Note, Physician History of Present Illness: pulmonary alert,feeling better,less congested,c/o pain secondary to zoster - Current Medication List Current Medications: Active Medications Acetaminophen (Tylenol -) 325 mg PO QID PRN PRN Reason: PAIN Last Admin: 11/20/17 21:15 Dose: 325 mg Acetaminophen (Ofirmev Injection -) 1,000 mg IVPB Q6H PRN PRN Reason: FEVER OR PAIN Albuterol Sulfate (Ventolin 0.083% Nebulizer Soln -) 1 amp NEB Q4H PRN PRN Reason: SHORT OF BREATH/WHEEZING Last Admin: 11/20/17 13:34 Dose: 1 amp Albuterol/Ipratropium (Duoneb -) 1 amp NEB RQID [facility] Last Admin: 11/21/17 11:11 Dose: 1 amp Diphenhydramine HCl (Benadryl Oral Solution -) 25 mg PO TID PRN PRN Reason: FOR ITCHING Last Admin: 11/08/17 21:15 Dose: 25 mg Escitalopram Oxalate (Lexapro -) 5 mg PO DAILY [facility] Last Admin: 11/21/17 09:30 Dose: 5 mg Folic Acid (Folic Acid -) 1 mg PO DAILY [facility] Last Admin: 11/21/17 09:31 Dose: 1 mg Gabapentin (Neurontin -) 100 mg PO TID [facility] Last Admin: 11/21/17 06:04 Dose: 100 mg Heparin Sodium (Porcine) (Heparin -) 5,000 unit SQ BID [facility] Last Admin: 11/21/17 09:29 Dose: 5,000 unit Acyclovir 1,000 mg/ Dextrose 270 mls @ 270 mls/hr IVPB Q24H [facility] Last Admin: 11/20/17 18:35 Dose: 270 mls/hr Lactulose (Cephulac (Oral Use)) 20 gm PO BID PRN PRN Reason: CONSTIPATION Loperamide HCl (Imodium Liquid -) 1 mg PO TID PRN PRN Reason: DIARRHEA Midodrine (Proamatine -) 5 mg PEG BID-MID [facility] Last Admin: 11/21/17 09:32 Dose: 5 mg Mirtazapine (Remeron -) 22.5 mg PO HS [facility] Last Admin: 11/20/17 21:15 Dose: 22.5 mg Nystatin (Mycostatin Cream -) 1 applic TP BID [facility] Last Admin: 11/21/17 09:32 Dose: 1 applic Oxycodone HCl (Roxicodone -) 5 mg PO Q6H PRN Prednisone (Deltasone -) 3 mg PO BID [facility] Last Admin: 11/21/17 09:30 Dose: 3 mg Senna (Senna Oral Solution -) 8.8 mg PO BID [facility] Last Admin: 11/21/17 09:32 Dose: 8.8 mg Sevelamer Carbonate (Renvela -) 800 mg PO TIDCM [facility] Last Admin: 11/21/17 09:31 Dose: 800 mg - Objective Vital Signs: Vital Signs Temperature 98.9 F 11/21/17 09:01 Pulse Rate 120 H 11/21/17 09:33 Respiratory Rate 18 11/21/17 09:01 Blood Pressure 95/42 11/21/17 09:01 O2 Sat by Pulse Oximetry (%) 96 11/21/17 09:33 Constitutional: Yes: Well Nourished, Calm Eyes: Yes: WNL HENT: Yes: WNL Neck: Yes: Supple (trach) Cardiovascular: Yes: Regular Rate and Rhythm, S1, S2 Respiratory: Yes: Rhonchi (few rhonchi) Gastrointestinal: Yes: Normal Bowel Sounds, Soft Extremities: Yes: WNL Edema: Yes Labs: CBC, BMP Problem List - Problems (1) ESRD (end stage renal disease) Code(s): N18.6 - END STAGE RENAL DISEASE (2) Hemodialysis access site with arteriovenous graft Code(s): Z99.2 - DEPENDENCE ON RENAL DIALYSIS (3) Pneumonia Code(s): J18.9 - PNEUMONIA, UNSPECIFIED ORGANISM Qualifiers: Laterality: right Lung location: lower lobe of lung (4) Respiratory failure Code(s): J96.90 - RESPIRATORY FAILURE, UNSP, UNSP W HYPOXIA OR HYPERCAPNIA Qualifiers: Chronicity: chronic (5) Jocelyn's granulomatosis (granulomatosis with polyangiitis) Code(s): M31.30 - JOCELYN'S GRANULOMATOSIS WITHOUT RENAL INVOLVEMENT Assessment/Plan A/P Pneumonia UTI Sepsis Jocelyn's Granulomatosis Chronic Respiratory Failure ESRD on HD HTN DM Zoster - chest PT - pulmonary toilet - inhaled bronchodilators - prednisone 3mg BID - O2 to keep SpO2 >90% - HD per renal - DVT prophylaxis - Zovirax - Analgesics DR BLANDON
[2017-11-21] MEDS: ACYCLOVIR INJECTION 1,000 MG in DEXTROSE 5%-WATER - 250 ML IVPB SCH (13:17)
[2017-11-21] MEDS: oxyCODONE HCL 5 MG TABLET PO PRN (13:27)
--- NOTE | 2017-11-21 13:30 | PN ---
Progress Note, Physician History of Present Illness: Pt seen and examined at bedside. She is awake and alert. She has good appetite. - Current Medication List Current Medications: Active Medications Acetaminophen (Tylenol -) 325 mg PO QID PRN PRN Reason: PAIN Last Admin: 11/20/17 21:15 Dose: 325 mg Acetaminophen (Ofirmev Injection -) 1,000 mg IVPB Q6H PRN PRN Reason: FEVER OR PAIN Albuterol Sulfate (Ventolin 0.083% Nebulizer Soln -) 1 amp NEB Q4H PRN PRN Reason: SHORT OF BREATH/WHEEZING Last Admin: 11/20/17 13:34 Dose: 1 amp Albuterol/Ipratropium (Duoneb -) 1 amp NEB RQID [facility] Last Admin: 11/21/17 11:11 Dose: 1 amp Diphenhydramine HCl (Benadryl Oral Solution -) 25 mg PO TID PRN PRN Reason: FOR ITCHING Last Admin: 11/08/17 21:15 Dose: 25 mg Escitalopram Oxalate (Lexapro -) 5 mg PO DAILY [facility] Last Admin: 11/21/17 09:30 Dose: 5 mg Folic Acid (Folic Acid -) 1 mg PO DAILY [facility] Last Admin: 11/21/17 09:31 Dose: 1 mg Gabapentin (Neurontin -) 100 mg PO TID [facility] Last Admin: 11/21/17 13:17 Dose: 100 mg Heparin Sodium (Porcine) (Heparin -) 5,000 unit SQ BID [facility] Last Admin: 11/21/17 09:29 Dose: 5,000 unit Acyclovir 1,000 mg/ Dextrose 270 mls @ 270 mls/hr IVPB Q24H [facility] Last Admin: 11/21/17 13:17 Dose: 270 mls/hr Lactulose (Cephulac (Oral Use)) 20 gm PO BID PRN PRN Reason: CONSTIPATION Loperamide HCl (Imodium Liquid -) 1 mg PO TID PRN PRN Reason: DIARRHEA Midodrine (Proamatine -) 5 mg PEG BID-MID [facility] Last Admin: 11/21/17 09:32 Dose: 5 mg Mirtazapine (Remeron -) 22.5 mg PO HS [facility] Last Admin: 11/20/17 21:15 Dose: 22.5 mg Nystatin (Mycostatin Cream -) 1 applic TP BID [facility] Last Admin: 11/21/17 09:32 Dose: 1 applic Oxycodone HCl (Roxicodone -) 5 mg PO Q6H PRN Last Admin: 11/21/17 13:27 Dose: 5 mg Prednisone (Deltasone -) 3 mg PO BID [facility] Last Admin: 11/21/17 09:30 Dose: 3 mg Senna (Senna Oral Solution -) 8.8 mg PO BID [facility] Last Admin: 11/21/17 09:32 Dose: 8.8 mg Sevelamer Carbonate (Renvela -) 800 mg PO TIDCM [facility] Last Admin: 11/21/17 13:17 Dose: 800 mg - Objective Vital Signs: Vital Signs Temperature 98.9 F 11/21/17 09:01 Pulse Rate 120 H 11/21/17 09:33 Respiratory Rate 18 11/21/17 09:01 Blood Pressure 95/42 11/21/17 09:01 O2 Sat by Pulse Oximetry (%) 96 11/21/17 09:33 Constitutional: Yes: Calm Eyes: Yes: Conjunctiva Clear Neck: Yes: Other (trache) Cardiovascular: Yes: S1, S2 Respiratory: Yes: Wheezes Gastrointestinal: Yes: Soft, Abdomen, Obese Genitourinary: Yes: Incontinence Musculoskeletal: Yes: Muscle Weakness Edema: Yes Edema: LLE: Trace, RLE: Trace Neurological: Yes: Oriented Psychiatric: Yes: Oriented Labs: CBC, BMP 11/20/17 15:00 11/20/17 15:00 INR, PTT INR 1.03 (0.82-1.09) 11/03/17 10:40 Problem List - Problems (1) Respiratory failure Code(s): J96.90 - RESPIRATORY FAILURE, UNSP, UNSP W HYPOXIA OR HYPERCAPNIA (2) ESRD (end stage renal disease) Code(s): N18.6 - END STAGE RENAL DISEASE (3) Sepsis Code(s): A41.9 - SEPSIS, UNSPECIFIED ORGANISM Qualifiers: Sepsis type: sepsis due to unspecified organism Qualified Code(s): A41.9 - Sepsis, unspecified organism (4) Jocelyn's granulomatosis (granulomatosis with polyangiitis) Code(s): M31.30 - JOCELYN'S GRANULOMATOSIS WITHOUT RENAL INVOLVEMENT Assessment/Plan Current Medications Generic Name Dose Route Start Last Admin Trade Name Freq PRN Reason Stop Dose Admin Acetaminophen 325 mg 11/05/17 19:02 11/20/17 21:15 Tylenol - PO 325 mg QID PRN Administration PAIN Acetaminophen 1,000 mg 11/05/17 19:02 Ofirmev Injection - IVPB Q6H PRN FEVER OR PAIN Albuterol Sulfate 1 amp 11/19/17 12:34 11/20/17 13:34 Ventolin 0.083% Nebulizer Soln - NEB 1 amp Q4H PRN Administration SHORT OF BREATH/WHEEZING Albuterol/Ipratropium 1 amp 11/21/17 10:24 11/21/17 11:11 Duoneb - NEB 1 amp RQID [facility] Administration Diphenhydramine HCl 25 mg 11/05/17 19:02 11/08/17 21:15 Benadryl Oral Solution - PO 25 mg TID PRN Administration FOR ITCHING Escitalopram Oxalate 5 mg 11/06/17 10:00 11/21/17 09:30 Lexapro - PO 5 mg DAILY [facility] Administration Folic Acid 1 mg 11/06/17 10:00 11/21/17 09:31 Folic Acid - PO 1 mg DAILY [facility] Administration Gabapentin 100 mg 11/17/17 14:00 11/21/17 13:17 Neurontin - PO 100 mg TID [facility] Administration Heparin Sodium (Porcine) 5,000 unit 11/19/17 22:00 11/21/17 09:29 Heparin - SQ 5,000 unit BID [facility] Administration Acyclovir 1,000 mg/ Dextrose 270 mls @ 270 mls/hr 11/16/17 13:00 11/21/17 13: 17 IVPB 270 mls/hr Q24H [facility] Administration Lactulose 20 gm 11/05/17 19:02 Cephulac (Oral Use) PO BID PRN CONSTIPATION Loperamide HCl 1 mg 11/05/17 19:02 Imodium Liquid - PO TID PRN DIARRHEA Midodrine 5 mg 11/06/17 10:00 11/21/17 09:32 Proamatine - PEG 5 mg BID-MID [facility] Administration Mirtazapine 22.5 mg 11/05/17 22:00 11/20/17 21:15 Remeron - PO 22.5 mg HS [facility] Administration Nystatin 1 applic 11/05/17 22:00 11/21/17 09:32 Mycostatin Cream - TP 1 applic BID [facility] Administration Oxycodone HCl 5 mg 11/21/17 10:56 11/21/17 13:27 Roxicodone - PO 5 mg Q6H PRN Administration Prednisone 3 mg 11/05/17 22:00 11/21/17 09:30 Deltasone - PO 3 mg BID [facility] Administration Senna 8.8 mg 11/05/17 22:00 11/21/17 09:32 Senna Oral Solution - PO 8.8 mg BID [facility] Administration Sevelamer Carbonate 800 mg 11/06/17 08:00 11/21/17 13:17 Renvela - PO 800 mg TIDCM [facility] Administration Impression 1. 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 chronic resp failure 4. htn 5. chol 6. obesity 7. anemia 8. hypoxia Plan - HD in am - check iron studies - monitor BP - HD prescription: AVF 2 k bath 3.5 hrs heparin 1999 - will follow pt Dr Trotter
--- NOTE | 2017-11-21 14:49 | PN ---
Progress Note, Physician History of Present Illness: Reports less L back pain No fever/ chills Tolerating IV ACV - Current Medication List Current Medications: Active Medications Acetaminophen (Tylenol -) 325 mg PO QID PRN PRN Reason: PAIN Last Admin: 11/20/17 21:15 Dose: 325 mg Acetaminophen (Ofirmev Injection -) 1,000 mg IVPB Q6H PRN PRN Reason: FEVER OR PAIN Albuterol Sulfate (Ventolin 0.083% Nebulizer Soln -) 1 amp NEB Q4H PRN PRN Reason: SHORT OF BREATH/WHEEZING Last Admin: 11/20/17 13:34 Dose: 1 amp Albuterol/Ipratropium (Duoneb -) 1 amp NEB RQID [facility] Last Admin: 11/21/17 11:11 Dose: 1 amp Diphenhydramine HCl (Benadryl Oral Solution -) 25 mg PO TID PRN PRN Reason: FOR ITCHING Last Admin: 11/08/17 21:15 Dose: 25 mg Epoetin Zan (Epogen -) unit IVPUSH ONCE ONE Stop: 11/22/17 13:31 Escitalopram Oxalate (Lexapro -) 5 mg PO DAILY [facility] Last Admin: 11/21/17 09:30 Dose: 5 mg Folic Acid (Folic Acid -) 1 mg PO DAILY [facility] Last Admin: 11/21/17 09:31 Dose: 1 mg Gabapentin (Neurontin -) 100 mg PO TID [facility] Last Admin: 11/21/17 13:17 Dose: 100 mg Heparin Sodium (Porcine) (Heparin -) 5,000 unit SQ BID [facility] Last Admin: 11/21/17 09:29 Dose: 5,000 unit Heparin Sodium (Porcine) (Heparin -) 2,000 unit IVPUSH ONCE ONE Stop: 11/22/17 13:31 Acyclovir 1,000 mg/ Dextrose 270 mls @ 270 mls/hr IVPB Q24H [facility] Last Admin: 11/21/17 13:17 Dose: 270 mls/hr Lactulose (Cephulac (Oral Use)) 20 gm PO BID PRN PRN Reason: CONSTIPATION Loperamide HCl (Imodium Liquid -) 1 mg PO TID PRN PRN Reason: DIARRHEA Midodrine (Proamatine -) 5 mg PEG BID-MID [facility] Last Admin: 11/21/17 09:32 Dose: 5 mg Mirtazapine (Remeron -) 22.5 mg PO HS [facility] Last Admin: 11/20/17 21:15 Dose: 22.5 mg Nystatin (Mycostatin Cream -) 1 applic TP BID [facility] Last Admin: 11/21/17 09:32 Dose: 1 applic Oxycodone HCl (Roxicodone -) 5 mg PO Q6H PRN Last Admin: 11/21/17 13:27 Dose: 5 mg Prednisone (Deltasone -) 3 mg PO BID [facility] Last Admin: 11/21/17 09:30 Dose: 3 mg Senna (Senna Oral Solution -) 8.8 mg PO BID [facility] Last Admin: 11/21/17 09:32 Dose: 8.8 mg Sevelamer Carbonate (Renvela -) 800 mg PO TIDCM [facility] Last Admin: 11/21/17 13:17 Dose: 800 mg - Objective Vital Signs: Vital Signs Temperature 98.9 F 11/21/17 09:01 Pulse Rate 120 H 11/21/17 09:33 Respiratory Rate 18 11/21/17 09:01 Blood Pressure 95/42 11/21/17 09:01 O2 Sat by Pulse Oximetry (%) 96 11/21/17 09:33 Constitutional: Yes: No Distress, Obese Eyes: Yes: Conjunctiva Clear Cardiovascular: Yes: Regular Rate and Rhythm, S1, S2 Respiratory: Yes: CTA Bilaterally Gastrointestinal: Yes: Normal Bowel Sounds, Soft, Abdomen, Obese. No: Tenderness Edema: Yes Integumentary: Yes: Other (drying vesicular rash, L chest and back) Labs: CBC, BMP 11/20/17 15:00 11/20/17 15:00 INR, PTT INR 1.03 (0.82-1.09) 11/03/17 10:40 Assessment/Plan VZV L T5 dermatome S/P pneumonia ESRD [place] Continue IV ACV day #6, adjusted for ESRD
[2017-11-21] MEDS: MIRTAZAPINE 15 MG TABLET (FP) PO SCH (22:45)
[2017-11-22] MEDS: SENNOSIDES 8.8 MG/5 ML BULK BOTTLE PO SCH ×2 (00:05→09:43)
[2017-11-22] MEDS ORDERED: PT OWN MED DRAWER 7, Y5N ONE ×2 (00:05→09:38)
[2017-11-22] MEDS: GABAPENTIN 100 MG CAPSULE (FP) PO SCH ×2 (06:25→14:41)
[2017-11-22] MEDS: ALBUTEROL SO4 2.5/IPRATROPIUM 0.5 INH SOL 3 ML VIAL.NEB. NEB SCH ×2 (07:50→11:06)
--- NOTE | 2017-11-22 09:20 | PN ---
Progress Note (short form) - Note Progress Note: Vital Signs Temp 98.8 F 11/22/17 06:00 Pulse 108 H 11/22/17 08:08 Resp 20 11/22/17 06:00 BP 111/56 11/22/17 06:00 Pulse Ox 98 11/22/17 08:08 Intake & Output 11/21/17 11/21/17 11/22/17 11:59 23:59 11:59 Intake Total 100 480 0 Balance 100 480 0 Intake: Oral 100 480 0 Other: Voiding Method Incontinent Incontinent # Unmeasured Voids Straight Cath 2 Void 1 1 Bowel Movement Yes: small Yes Yes # Bowel Movements 1 Active Medications Acetaminophen (Tylenol -) 325 mg PO QID PRN PRN Reason: PAIN Last Admin: 11/20/17 21:15 Dose: 325 mg Acetaminophen (Ofirmev Injection -) 1,000 mg IVPB Q6H PRN PRN Reason: FEVER OR PAIN Albuterol Sulfate (Ventolin 0.083% Nebulizer Soln -) 1 amp NEB Q4H PRN PRN Reason: SHORT OF BREATH/WHEEZING Last Admin: 11/20/17 13:34 Dose: 1 amp Albuterol/Ipratropium (Duoneb -) 1 amp NEB RQID [facility] Last Admin: 11/22/17 07:50 Dose: 1 amp Diphenhydramine HCl (Benadryl Oral Solution -) 25 mg PO TID PRN PRN Reason: FOR ITCHING Last Admin: 11/08/17 21:15 Dose: 25 mg Epoetin Zan (Epogen -) unit IVPUSH ONCE ONE Stop: 11/22/17 13:31 Escitalopram Oxalate (Lexapro -) 5 mg PO DAILY [facility] Last Admin: 11/21/17 09:30 Dose: 5 mg Folic Acid (Folic Acid -) 1 mg PO DAILY [facility] Last Admin: 11/21/17 09:31 Dose: 1 mg Gabapentin (Neurontin -) 100 mg PO TID [facility] Last Admin: 11/22/17 06:25 Dose: 100 mg Heparin Sodium (Porcine) (Heparin -) 5,000 unit SQ BID [facility] Last Admin: 11/21/17 22:44 Dose: 5,000 unit Heparin Sodium (Porcine) (Heparin -) 2,000 unit IVPUSH ONCE ONE Stop: 11/22/17 13:31 Acyclovir 1,000 mg/ Dextrose 270 mls @ 270 mls/hr IVPB Q24H [facility] Last Admin: 11/21/17 13:17 Dose: 270 mls/hr Lactulose (Cephulac (Oral Use)) 20 gm PO BID PRN PRN Reason: CONSTIPATION Loperamide HCl (Imodium Liquid -) 1 mg PO TID PRN PRN Reason: DIARRHEA Midodrine (Proamatine -) 5 mg PEG BID-MID [facility] Last Admin: 11/21/17 17:49 Dose: 5 mg Mirtazapine (Remeron -) 22.5 mg PO HS [facility] Last Admin: 11/21/17 22:45 Dose: 22.5 mg Nystatin (Mycostatin Cream -) 1 applic TP BID [facility] Last Admin: 11/21/17 22:44 Dose: 1 applic Oxycodone HCl (Roxicodone -) 5 mg PO Q6H PRN Last Admin: 11/21/17 13:27 Dose: 5 mg Prednisone (Deltasone -) 3 mg PO BID [facility] Last Admin: 11/21/17 22:44 Dose: 3 mg Senna (Senna Oral Solution -) 8.8 mg PO BID [facility] Last Admin: 11/22/17 00:05 Dose: 8.8 mg Sevelamer Carbonate (Renvela -) 800 mg PO TIDCM [facility] Last Admin: 11/21/17 17:36 Dose: 800 mg CBC, BMP 11/20/17 15:00 11/20/17 15:00 Problem List - Problems (1) Obesity Code(s): E66.9 - OBESITY, UNSPECIFIED (2) Pneumonia Code(s): J18.9 - PNEUMONIA, UNSPECIFIED ORGANISM Qualifiers: Laterality: right Lung location: lower lobe of lung (3) Renal failure Code(s): N19 - UNSPECIFIED KIDNEY FAILURE Qualifiers: Renal failure chronicity: chronic Chronic kidney disease stage: on chronic dialysis Qualified Code(s): N18.6 - End stage renal disease; Z99.2 - Dependence on renal dialysis; Z99.2 - Dependence on renal dialysis; Z99.2 - Dependence on renal dialysis; Z99.2 - Dependence on renal dialysis (4) Respiratory failure Code(s): J96.90 - RESPIRATORY FAILURE, UNSP, UNSP W HYPOXIA OR HYPERCAPNIA Qualifiers: Chronicity: chronic (5) Sepsis Code(s): A41.9 - SEPSIS, UNSPECIFIED ORGANISM Qualifiers: Sepsis type: sepsis due to unspecified organism Qualified Code(s): A41.9 - Sepsis, unspecified organism (6) Jocelyn's granulomatosis (granulomatosis with polyangiitis) Code(s): M31.30 - JOCELYN'S GRANULOMATOSIS WITHOUT RENAL INVOLVEMENT
--- NOTE | 2017-11-22 09:39 | DS ---
Physical Examination Vital Signs: Vital Signs Temperature 98.8 F 11/22/17 06:00 Pulse Rate 108 H 11/22/17 08:08 Respiratory Rate 20 11/22/17 06:00 Blood Pressure 111/56 11/22/17 06:00 O2 Sat by Pulse Oximetry (%) 98 11/22/17 08:08 Findings/Remarks: comfortable no distress feels well comfortable discussed with lining caser-- has bed availability today in [facility] and family in agreement Constitutional: Yes: No Distress, Calm Eyes: Yes: Conjunctiva Clear Neck: Yes: Supple, Other (s/p trach) Cardiovascular: Yes: Regular Rate and Rhythm Respiratory: Yes: CTA Bilaterally Gastrointestinal: Yes: Soft Edema: No Integumentary: Yes: Rash (rash improved-), Other Neurological: Yes: Alert Psychiatric: Yes: Alert Labs: CBC, BMP 11/20/17 15:00 11/20/17 15:00 Discharge Summary Reason For Visit: SEPSIS Current Active Problems Anemia (Acute) ESRD (end stage renal disease) (Acute) Granulomatosis with polyangiitis with renal involvement (Acute) Hemodialysis access site with arteriovenous graft (Acute) Hyponatremia (Acute) Obesity (Acute) Pneumonia (Acute) Post herpetic neuralgia (Acute) Renal failure (Acute) Respiratory failure (Acute) Respiratory failure (Acute) Sepsis (Acute) UTI (urinary tract infection) (Acute) Jocelyn's granulomatosis (granulomatosis with polyangiitis) (Acute) Zoster (Acute) Hospital Course: Pt 72 F with extensive h/o HTN, HLD, 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 She also has Peg tube. She has spent about 5 months at [facility] and was subsequently transferred to [facility] . She presents from [facility] with fever cough and sob. .I was called this morning by nursing staff for fever and sob I advised to end pt to hospital for further management. work up showed she is septic- likely source pneumonia. Pt given broad spectrum abx in er . Pt admitted to icu. got better with abx hospital course complicated by herpes zoster treated with i/v acyclovir much better will discharge today after dialysis. Discussed with i/d-- will f/u contact precautions meds reconcilled discussed with nursing staff also discharge time 35 min in examining/ documenting and coordating care. Condition: Improved - Instructions Referrals: Florentino Casas MD [Primary Care Provider] - [facility] - Home Medications Comprehensive Discharge Medication List: Ambulatory Orders Acetaminophen 325 mg PO QID PRN 11/03/17 Albuterol 0.083% Nebulizer Genia [Ventolin 0.083% Nebulizer Soln -] PRN 11/03/17 Cholecalciferol (Vitamin D3) [Vitamin D3 -] 11/03/17 Diphenhydramine [Benadryl 12.5 MG/5 ML Oral Solution -] 25 mg PO TID PRN Escitalopram Oxalate 5 mg PO DAILY 11/03/17 Folic Acid 1 mg PO DAILY 11/03/17 Heparin - 5,000 units SCJ TID 11/03/17 Lactulose 30 ml PO BID PRN 11/03/17 Loperamide HCl [Loperamide] 1 mg PO TID PRN 11/03/17 Midodrine HCl 5 mg PO WEEKLY 11/03/17 Mirtazapine 22.5 mg PO DAILY 11/03/17 Oxycodone HCl 5 mg PO TID PRN 11/03/17 Prednisone [Deltasone -] 1 mg PO BID 11/03/17 Sennosides [Senna] 8.8 mg PO BID 11/03/17 Sevelamer HCl [Renagel] 800 mg PO TID 11/03/17 Albuterol 2.5/Ipratropium 0.5 [Duoneb -] 1 amp NEB QIDR amp 11/19/17 Gabapentin [Neurontin -] 100 mg PO TID capsule 11/19/17 Heparin - 5,000 unit SQ BID vial 11/19/17 Midodrine HCl [Proamatine -] 5 mg PEG BID-MID tablet 11/19/17 Mirtazapine [Remeron -] 22.5 mg PO HS tablet 11/19/17 Albuterol 2.5/Ipratropium 0.5 [Duoneb -] 1 amp NEB RQID amp 11/22/17
[2017-11-22] MEDS: FOLIC ACID 1 MG TABLET (FP) PO SCH (09:40)
[2017-11-22] MEDS: MIDODRINE HCL 5 MG TABLET PEG SCH (09:40)
[2017-11-22] MEDS: ESCITALOPRAM OXALATE 10 MG TABLET (FP) PO SCH (09:40)
[2017-11-22] MEDS: HEPARIN NA (PORCINE) 5,000 UNITS/ML 1ML VIAL SQ SCH (09:42)
[2017-11-22] MEDS: predniSONE 1 MG TABLET (FP) PO SCH (09:42)
[2017-11-22] MEDS: SEVELAMER CARBONATE 800 MG TAB (FP) PO SCH ×2 (09:43→12:22)
[2017-11-22] MEDS: NYSTATIN 100,000 UNIT/GM TOPICAL CREAM 15 GM TUBE TP SCH (09:43)
--- NOTE | 2017-11-22 11:26 | PN ---
Progress Note, Physician History of Present Illness: C/O pain at areas of H zoster No fever/ chills Tolerating IV ACV - Current Medication List Current Medications: Active Medications Acetaminophen (Tylenol -) 325 mg PO QID PRN PRN Reason: PAIN Last Admin: 11/20/17 21:15 Dose: 325 mg Acetaminophen (Ofirmev Injection -) 1,000 mg IVPB Q6H PRN PRN Reason: FEVER OR PAIN Albuterol Sulfate (Ventolin 0.083% Nebulizer Soln -) 1 amp NEB Q4H PRN PRN Reason: SHORT OF BREATH/[place]EZING Last Admin: 11/20/17 13:34 Dose: 1 amp Albuterol/Ipratropium (Duoneb -) 1 amp NEB RQID [facility] Last Admin: 11/22/17 11:06 Dose: Not Given Diphenhydramine HCl (Benadryl Oral Solution -) 25 mg PO TID PRN PRN Reason: FOR ITCHING Last Admin: 11/08/17 21:15 Dose: 25 mg Epoetin Zan (Epogen -) unit IVPUSH ONCE ONE Stop: 11/22/17 13:31 Escitalopram Oxalate (Lexapro -) 5 mg PO DAILY [facility] Last Admin: 11/22/17 09:40 Dose: 5 mg Folic Acid (Folic Acid -) 1 mg PO DAILY [facility] Last Admin: 11/22/17 09:40 Dose: 1 mg Gabapentin (Neurontin -) 100 mg PO TID [facility] Last Admin: 11/22/17 06:25 Dose: 100 mg Heparin Sodium (Porcine) (Heparin -) 5,000 unit SQ BID [facility] Last Admin: 11/22/17 09:42 Dose: Not Given Heparin Sodium (Porcine) (Heparin -) 2,000 unit IVPUSH ONCE ONE Stop: 11/22/17 13:31 Lactulose (Cephulac (Oral Use)) 20 gm PO BID PRN PRN Reason: CONSTIPATION Loperamide HCl (Imodium Liquid -) 1 mg PO TID PRN PRN Reason: DIARRHEA Midodrine (Proamatine -) 5 mg PEG BID-MID [facility] Last Admin: 11/22/17 09:40 Dose: 5 mg Mirtazapine (Remeron -) 22.5 mg PO HS [facility] Last Admin: 11/21/17 22:45 Dose: 22.5 mg Nystatin (Mycostatin Cream -) 1 applic TP BID [facility] Last Admin: 11/22/17 09:43 Dose: 1 applic Oxycodone HCl (Roxicodone -) 5 mg PO Q6H PRN Last Admin: 11/21/17 13:27 Dose: 5 mg Prednisone (Deltasone -) 3 mg PO BID [facility] Last Admin: 11/22/17 09:42 Dose: 3 mg Senna (Senna Oral Solution -) 8.8 mg PO BID [facility] Last Admin: 11/22/17 09:43 Dose: 8.8 mg Sevelamer Carbonate (Renvela -) 800 mg PO TIDCM [facility] Last Admin: 11/22/17 09:43 Dose: 800 mg - Objective Vital Signs: Vital Signs Temperature 98.8 F 11/22/17 06:00 Pulse Rate 108 H 11/22/17 10:50 Respiratory Rate 18 11/22/17 10:50 Blood Pressure 99/65 11/22/17 10:50 O2 Sat by Pulse Oximetry (%) 98 11/22/17 08:08 Constitutional: Yes: Obese Eyes: Yes: Conjunctiva Clear Cardiovascular: Yes: Regular Rate and Rhythm, S1, S2 Respiratory: Yes: CTA Bilaterally Gastrointestinal: Yes: Normal Bowel Sounds, Soft, Abdomen, Obese. No: Tenderness Integumentary: Yes: Other (vesicular/ pustular lesions all dry and encrusted not secondarily infected) Labs: CBC, BMP 11/20/17 15:00 11/20/17 15:00 INR, PTT INR 1.03 (0.82-1.09) 11/03/17 10:40 Assessment/Plan VZV L T5 dermatome S/P pneumonia ESRD [place] All lesions dry and encrusted D/C acyclovir D/C isolation No objection to discharge off isolation
[2017-11-22] MEDS: oxyCODONE HCL 5 MG TABLET PO PRN (11:31)
[2017-11-22 11:38] LABS: HEMATOCRIT 23.8 % (32.4-45.2); HEMOGLOBIN 7.4 GM/dL (10.7-15.3); MCH 29.5 pg (25.7-33.7); MCHC 31.1 g/dl (32.0-36.0); MEAN CELL VOLUME 94.8 fl (80-96); MEAN PLT VOLUME 7.1 fl (7.5-11.1); PLATELET COUNT 280 K/MM3 (134-434); RBC 2.51 M/mm3 (3.60-5.2); RDW 17.4 % (11.6-15.6); WHITE BLOOD COUNT 7.9 K/mm3 (4.0-10.0)
[2017-11-22 11:56] LABS: ANION GAP 7 (8-16); BLOOD UREA NITROGEN 35 mg/dL (7-18); CALCIUM 8.9 mg/dL (8.5-10.1); CHLORIDE 97 mmol/L (98-107); CO2 30 mmol/L (21-32); CREATININE 4.4 mg/dL (0.55-1.02); GLUCOSE,RANDOM 100 mg/dL (74-106); POTASSIUM 4.3 mmol/L (3.5-5.1); SODIUM 134 mmol/L (136-145)
--- NOTE | 2017-11-22 12:49 | PN ---
Progress Note, Physician History of Present Illness: pulmonary alert on HD,-resp distress,+ pain secondary to zoster - Current Medication List Current Medications: Active Medications Acetaminophen (Tylenol -) 325 mg PO QID PRN PRN Reason: PAIN Last Admin: 11/20/17 21:15 Dose: 325 mg Acetaminophen (Ofirmev Injection -) 1,000 mg IVPB Q6H PRN PRN Reason: FEVER OR PAIN Albuterol Sulfate (Ventolin 0.083% Nebulizer Soln -) 1 amp NEB Q4H PRN PRN Reason: SHORT OF BREATH/[place]EZING Last Admin: 11/20/17 13:34 Dose: 1 amp Albuterol/Ipratropium (Duoneb -) 1 amp NEB RQID [facility] Last Admin: 11/22/17 11:06 Dose: Not Given Diphenhydramine HCl (Benadryl Oral Solution -) 25 mg PO TID PRN PRN Reason: FOR ITCHING Last Admin: 11/08/17 21:15 Dose: 25 mg Epoetin Zan (Epogen -) unit IVPUSH ONCE ONE Stop: 11/22/17 13:31 Escitalopram Oxalate (Lexapro -) 5 mg PO DAILY [facility] Last Admin: 11/22/17 09:40 Dose: 5 mg Folic Acid (Folic Acid -) 1 mg PO DAILY [facility] Last Admin: 11/22/17 09:40 Dose: 1 mg Gabapentin (Neurontin -) 100 mg PO TID [facility] Last Admin: 11/22/17 06:25 Dose: 100 mg Heparin Sodium (Porcine) (Heparin -) 5,000 unit SQ BID [facility] Last Admin: 11/22/17 09:42 Dose: Not Given Heparin Sodium (Porcine) (Heparin -) 2,000 unit IVPUSH ONCE ONE Stop: 11/22/17 13:31 Lactulose (Cephulac (Oral Use)) 20 gm PO BID PRN PRN Reason: CONSTIPATION Loperamide HCl (Imodium Liquid -) 1 mg PO TID PRN PRN Reason: DIARRHEA Midodrine (Proamatine -) 5 mg PEG BID-MID [facility] Last Admin: 11/22/17 09:40 Dose: 5 mg Mirtazapine (Remeron -) 22.5 mg PO HS [facility] Last Admin: 11/21/17 22:45 Dose: 22.5 mg Nystatin (Mycostatin Cream -) 1 applic TP BID [facility] Last Admin: 11/22/17 09:43 Dose: 1 applic Oxycodone HCl (Roxicodone -) 5 mg PO Q6H PRN Last Admin: 11/22/17 11:31 Dose: 5 mg Prednisone (Deltasone -) 3 mg PO BID [facility] Last Admin: 11/22/17 09:42 Dose: 3 mg Senna (Senna Oral Solution -) 8.8 mg PO BID [facility] Last Admin: 11/22/17 09:43 Dose: 8.8 mg Sevelamer Carbonate (Renvela -) 800 mg PO TIDCM [facility] Last Admin: 11/22/17 12:22 Dose: Not Given - Objective Vital Signs: Vital Signs Temperature 98.8 F 11/22/17 06:00 Pulse Rate 110 H 11/22/17 11:50 Respiratory Rate 18 11/22/17 11:50 Blood Pressure 111/88 11/22/17 11:50 O2 Sat by Pulse Oximetry (%) 95 11/22/17 10:00 Constitutional: Yes: Well Nourished, Calm Eyes: Yes: WNL HENT: Yes: WNL Neck: Yes: WNL Cardiovascular: Yes: Regular Rate and Rhythm, S1, S2 Respiratory: Yes: Rhonchi (few rhonchi) Gastrointestinal: Yes: Normal Bowel Sounds, Soft Extremities: Yes: WNL Edema: Yes Labs: CBC, BMP 11/22/17 11:28 11/22/17 11:28 INR, PTT INR 1.03 (0.82-1.09) 11/03/17 10:40 Problem List - Problems (1) ESRD (end stage renal disease) Code(s): N18.6 - END STAGE RENAL DISEASE (2) Hemodialysis access site with arteriovenous graft Code(s): Z99.2 - DEPENDENCE ON RENAL DIALYSIS (3) Pneumonia Code(s): J18.9 - PNEUMONIA, UNSPECIFIED ORGANISM Qualifiers: Laterality: right Lung location: lower lobe of lung (4) Respiratory failure Code(s): J96.90 - RESPIRATORY FAILURE, UNSP, UNSP W HYPOXIA OR HYPERCAPNIA Qualifiers: Chronicity: chronic (5) Jocelyn's granulomatosis (granulomatosis with polyangiitis) Code(s): M31.30 - JOCELYN'S GRANULOMATOSIS WITHOUT RENAL INVOLVEMENT Assessment/Plan A/P Pneumonia improved UTI Sepsis Jocelyn's Granulomatosis Chronic Respiratory Failure ESRD on HD HTN DM Zoster - chest PT - pulmonary toilet - inhaled bronchodilators - prednisone 3mg BID - O2 to keep SpO2 >90% - HD - DVT prophylaxis - Zovirax - Analgesics DR BLANDON
--- NOTE | 2017-11-22 12:59 | PN ---
Progress Note, Physician History of Present Illness: Pt seen and examined at bedside. She is tolerating HD. - Current Medication List Current Medications: Active Medications Acetaminophen (Tylenol -) 325 mg PO QID PRN PRN Reason: PAIN Last Admin: 11/20/17 21:15 Dose: 325 mg Acetaminophen (Ofirmev Injection -) 1,000 mg IVPB Q6H PRN PRN Reason: FEVER OR PAIN Albuterol Sulfate (Ventolin 0.083% Nebulizer Soln -) 1 amp NEB Q4H PRN PRN Reason: SHORT OF BREATH/WHEEZING Last Admin: 11/20/17 13:34 Dose: 1 amp Albuterol/Ipratropium (Duoneb -) 1 amp NEB RQID [facility] Last Admin: 11/22/17 11:06 Dose: Not Given Diphenhydramine HCl (Benadryl Oral Solution -) 25 mg PO TID PRN PRN Reason: FOR ITCHING Last Admin: 11/08/17 21:15 Dose: 25 mg Epoetin Zan (Epogen -) unit IVPUSH ONCE ONE Stop: 11/22/17 13:31 Escitalopram Oxalate (Lexapro -) 5 mg PO DAILY [facility] Last Admin: 11/22/17 09:40 Dose: 5 mg Folic Acid (Folic Acid -) 1 mg PO DAILY [facility] Last Admin: 11/22/17 09:40 Dose: 1 mg Gabapentin (Neurontin -) 100 mg PO TID [facility] Last Admin: 11/22/17 06:25 Dose: 100 mg Heparin Sodium (Porcine) (Heparin -) 5,000 unit SQ BID [facility] Last Admin: 11/22/17 09:42 Dose: Not Given Heparin Sodium (Porcine) (Heparin -) 2,000 unit IVPUSH ONCE ONE Stop: 11/22/17 13:31 Lactulose (Cephulac (Oral Use)) 20 gm PO BID PRN PRN Reason: CONSTIPATION Loperamide HCl (Imodium Liquid -) 1 mg PO TID PRN PRN Reason: DIARRHEA Midodrine (Proamatine -) 5 mg PEG BID-MID [facility] Last Admin: 11/22/17 09:40 Dose: 5 mg Mirtazapine (Remeron -) 22.5 mg PO HS [facility] Last Admin: 11/21/17 22:45 Dose: 22.5 mg Nystatin (Mycostatin Cream -) 1 applic TP BID [facility] Last Admin: 11/22/17 09:43 Dose: 1 applic Oxycodone HCl (Roxicodone -) 5 mg PO Q6H PRN Last Admin: 11/22/17 11:31 Dose: 5 mg Prednisone (Deltasone -) 3 mg PO BID [facility] Last Admin: 11/22/17 09:42 Dose: 3 mg Senna (Senna Oral Solution -) 8.8 mg PO BID [facility] Last Admin: 11/22/17 09:43 Dose: 8.8 mg Sevelamer Carbonate (Renvela -) 800 mg PO TIDCM [facility] Last Admin: 11/22/17 12:22 Dose: Not Given - Objective Vital Signs: Vital Signs Temperature 98.8 F 11/22/17 06:00 Pulse Rate 110 H 11/22/17 11:50 Respiratory Rate 18 11/22/17 11:50 Blood Pressure 111/88 11/22/17 11:50 O2 Sat by Pulse Oximetry (%) 95 11/22/17 10:00 Constitutional: Yes: Calm Eyes: Yes: Conjunctiva Clear HENT: Yes: Atraumatic Neck: Yes: Supple Cardiovascular: Yes: S1, S2 Respiratory: Yes: Other (trache) Gastrointestinal: Yes: Soft, Abdomen, Obese Genitourinary: Yes: Incontinence Musculoskeletal: Yes: Muscle Weakness Edema: No Neurological: Yes: Oriented Psychiatric: Yes: Oriented Labs: CBC, BMP 11/22/17 11:28 11/22/17 11:28 INR, PTT INR 1.03 (0.82-1.09) 11/03/17 10:40 Problem List - Problems (1) Respiratory failure Code(s): J96.90 - RESPIRATORY FAILURE, UNSP, UNSP W HYPOXIA OR HYPERCAPNIA (2) ESRD (end stage renal disease) Code(s): N18.6 - END STAGE RENAL DISEASE (3) Sepsis Code(s): A41.9 - SEPSIS, UNSPECIFIED ORGANISM Qualifiers: Sepsis type: sepsis due to unspecified organism Qualified Code(s): A41.9 - Sepsis, unspecified organism (4) Jocelyn's granulomatosis (granulomatosis with polyangiitis) Code(s): M31.30 - JOCELYN'S GRANULOMATOSIS WITHOUT RENAL INVOLVEMENT Assessment/Plan Current Medications Generic Name Dose Route Start Last Admin Trade Name Freq PRN Reason Stop Dose Admin Acetaminophen 325 mg 11/05/17 19:02 11/20/17 21:15 Tylenol - PO 325 mg QID PRN Administration PAIN Acetaminophen 1,000 mg 11/05/17 19:02 Ofirmev Injection - IVPB Q6H PRN FEVER OR PAIN Albuterol Sulfate 1 amp 11/19/17 12:34 11/20/17 13:34 Ventolin 0.083% Nebulizer Soln - NEB 1 amp Q4H PRN Administration SHORT OF BREATH/WHEEZING Albuterol/Ipratropium 1 amp 11/21/17 10:24 11/22/17 11:06 Duoneb - NEB Not Given RQID TONI Diphenhydramine HCl 25 mg 11/05/17 19:02 11/08/17 21:15 Benadryl Oral Solution - PO 25 mg TID PRN Administration FOR ITCHING Epoetin Zan unit 11/22/17 13:30 Epogen - IVPUSH 11/22/17 13:31 ONCE ONE Escitalopram Oxalate 5 mg 11/06/17 10:00 11/22/17 09:40 Lexapro - PO 5 mg DAILY TONI Administration Folic Acid 1 mg 11/06/17 10:00 11/22/17 09:40 Folic Acid - PO 1 mg DAILY TONI Administration Gabapentin 100 mg 11/17/17 14:00 11/22/17 06:25 Neurontin - PO 100 mg TID TONI Administration Heparin Sodium (Porcine) 5,000 unit 11/19/17 22:00 11/22/17 09:42 Heparin - SQ Not Given BID TONI Heparin Sodium (Porcine) 2,000 unit 11/22/17 13:30 Heparin - IVPUSH 11/22/17 13:31 ONCE ONE Lactulose 20 gm 11/05/17 19:02 Cephulac (Oral Use) PO BID PRN CONSTIPATION Loperamide HCl 1 mg 11/05/17 19:02 Imodium Liquid - PO TID PRN DIARRHEA Midodrine 5 mg 11/06/17 10:00 11/22/17 09:40 Proamatine - PEG 5 mg BID-MID TONI Administration Mirtazapine 22.5 mg 11/05/17 22:00 11/21/17 22:45 Remeron - PO 22.5 mg HS TONI Administration Nystatin 1 applic 11/05/17 22:00 11/22/17 09:43 Mycostatin Cream - TP 1 applic BID TONI Administration Oxycodone HCl 5 mg 11/21/17 10:56 11/22/17 11:31 Roxicodone - PO 5 mg Q6H PRN Administration Prednisone 3 mg 11/05/17 22:00 11/22/17 09:42 Deltasone - PO 3 mg BID TONI Administration Senna 8.8 mg 11/05/17 22:00 11/22/17 09:43 Senna Oral Solution - PO 8.8 mg BID TONI Administration Sevelamer Carbonate 800 mg 11/06/17 08:00 11/22/17 12:22 Renvela - PO Not Given TIDCM TONI Impression 1. 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 chronic resp failure 4. htn 5. chol 6. obesity 7. anemia 8. hypoxia Plan - HD today - transfuse prbc - cont epogen - follow iron studies - monitor BP - HD prescription: AVF 2 k bath 3.5 hrs heparin 1999 - will follow pt Dr Trotter
[2017-11-22] MEDS ORDERED: EPOETIN ALFA 2,000 UNIT/1 ML VIAL IVPUSH ONE (13:30)
[2017-11-22] MEDS ORDERED: HEPARIN NA (PORCINE) 5,000 UNITS/ML 1ML VIAL IVPUSH ONE (13:30)
[2017-11-22 14:55] VITALS: BP 109/76; PULSE 109; TEMP 98.2
[2017-11-22 15:27] LABS: CREATININE 1.3 mg/dL (0.55-1.02)
[2017-11-23 06:06] LABS: SERUM IRON SATURATION 7 % (15-55); TOTAL IRON BINDING CAPACITY 233 ug/dL (250-450); UIBC 217 ug/dL (118-369)
== END 2017-11-22 16:38 | DRG 871 ==
LOC: JER 09:53 → JERBED 12:58 → JICU 18:30 → J5S 11-05 18:50 → J6S 11-16 17:03 → J5S 11-17 15:52
PROVIDERS: ADMIT Internal Medicine; ATTEND Internal Medicine
PROC: 5A1D70Z Performance of Urinary Filtration, Intermittent, Less than 6 Hours Per Day (ICD-10-PCS; 2017-11-09)
PROC: 30233N1 Transfusion of Nonautologous Red Blood Cells into Peripheral Vein, Percutaneous Approach (ICD-10-PCS; principal; 2017-11-22)
DX: A41.9 Sepsis, unspecified organism (principal); J18.9 Pneumonia, unspecified organism; N18.6 End stage renal disease; M31.30 Wegener's granulomatosis without renal involvement; J96.10 Chronic respiratory failure, unspecified whether with hypoxia or hypercapnia; I12.0 Hypertensive chronic kidney disease with stage 5 chronic kidney disease or end stage renal disease; N39.0 Urinary tract infection, site not specified; B02.29 Other postherpetic nervous system involvement; E78.5 Hyperlipidemia, unspecified; Z93.0 Tracheostomy status; E66.9 Obesity, unspecified; D64.9 Anemia, unspecified; Z93.1 Gastrostomy status; Z99.81 Dependence on supplemental oxygen; Y95 Nosocomial condition; E11.22 Type 2 diabetes mellitus with diabetic chronic kidney disease; Z99.2 Dependence on renal dialysis; B02.9 Zoster without complications
CPT/HCPCS: 36415; 36430; 71010-TC; 71045-TC; 71250-TC; 80048; 80053; 81003; 81015; 82533; 82550; 82565; 82728; 82803; 82962; 83036; 83540; 83550; 83605; 83735; 84100; 84484; 84520; 85025; 85027; 85610; 85651; 85730; 86704; 86706; 86708; 86803; 86850; 86900; 86901; 86922; 87040; 87070; 87086; 87186; 87205; 87340; 87899; 93005; 93010; 94640; 97116-GP; 97162-GP; 99284-25; G0480; J0885; J1644; P9038; P9058